=== PATIENT | female | born 1955 | race African-American/Black ===

== ENCOUNTER 2020-03-03 14:55 | Inpatient (IN) | payer BC ==
[~2020-03-03] VITALS: Ht 177.8 cm; Wt 135.8 kg
[2020-03-03 15:02] VITALS: BP 126/78
--- NOTE | 2020-03-03 15:08 | Emergency Room Report ---
History of Present Illness General Chief Complaint: Altered Level of Consciousness Source: Patient, EMS Present Illness HPI Disclaimer: Please note that this report is being documented using DRAGON technology. This can lead to erroneous entry secondary to incorrect interpretation by the dictating instrument. HPI: 64-year-old female presents for evaluation after syncopal episode. She was found at home unconscious by EMS. Patient reports feeling lightheaded getting out of bed laying on the ground and believes she had a loss of consciousness which was brief. No history of seizures. No history of diabetes and takes glipizide and metformin. She has not been eating much due to lack of appetite over the past few days only having soup for about a week. She reports abdominal distention and findings of inflamed lymph limits her abdomen for which she is being evaluated by MRI later this week scheduled by her PMD. EMS found her awake and alert no hypoglycemic started running D10 prior to their arrival. On arrival her fingerstick is in the 20s. She is awake, alert, denies headache, vision change, chest pain, palpitations, nausea, recent vomiting, diarrhea, fevers, chills, cough or other symptoms. 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 No scalp lacerations abrasions hematomas or other signs of trauma. EOMI. PERRLA. No septal hematoma. No malocclusion. Cardiovascular: RRR. S1 and S2 normal. No murmur appreciated Resp: Normal work of breathing. No cough, wheezing or crackles appreciated Abdomen: Abdomen is soft. Obese abdomen, nontender Skin: Intact. No abrasions, laceration or rash over the exposed skin MSK: Normal tone and bulk. Moving all extremities. No obvious deformity. Neuro: Awake and alert. Mentating appropriately. Spine: No tenderness or step-off in the midline over the cervical spine or paraspinal tenderness. Procedures Critical Care Time Critical Care Time Total critical care time: Approximately 45 minutes Due to a high probability of clinically significant, life threatening deterioration, the patient required the highest level of preparedness to intervene emergently and I personally spent this critical care time directly and personally managing the patient. This critical care time included obtaining a history, examining the patient, pulse oximetry, ordering and reviewing studies , ordering treatments, evaluating response to treatment and updating management plan as needed, frequent reassessment and discussion with other providers as well as arranging for ultimate disposition. This critical to care time was performed to assess and manage the high probability of life-threatening deterioration that could result in multiorgan failure. This critical care time is separate from the separately billable procedures and treating other patients. Medical Decision Making Diagnostic Impression: Primary Impression: Syncope Additional Impressions: Anemia Acute kidney failure Hypoglycemia UTI (urinary tract infection) ER Course 64-year-old female presenting for evaluation of hypoglycemia and syncopal episode at home. She arrives awake and alert in no acute distress and denies any chest pain, shortness of breath, headache, neck or back pain at this time. She is receiving D10 from EMS. Will provide additional fluids of glucose, check labs and monitor closely. 1630: Blood sugar was initially improving however on CMP glucose was 33 and point-of- care glucose following infusion of D50 was 22. Will provide more D50. She remains awake and alert. Labs also showed evidence of acute kidney injury with a creatinine of 3.1 and a BUN of 56. Troponin negative. Patient was also found anemic with a hemoglobin of 7.5 which was slightly microcytic. Patient was given glucagon and had additional dose of D50 and started on D10 drip. Sugars have stabilized and she is stable for transfer to inpatient service. Laboratory Tests Test 03/03/20 15:00 03/03/20 15:14 03/03/20 15:51 03/03/20 15:52 White Blood Count 17.2 K/UL (4.8-10.8) H Red Blood Count 2.92 M/UL (4.20-5.40) L Hemoglobin 7.5 G/DL (12.0-16.0) L Hematocrit 22.8 % (37.0-47.0) L Mean Corpuscular Volume 78 FL (80-99) L Mean Corpuscular Hemoglobin 25.7 PG (27.0-31.0) L Mean Corpuscular Hemoglobin Concent 32.9 G/DL (32.0-36.0) Red Cell Distribution Width 15.6 % (11.6-14.8) H Platelet Count 280 K/UL (150-450) Mean Platelet Volume 6.3 FL (6.5-10.1) L Neutrophils (%) (Auto) % (45.0-75.0) Lymphocytes (%) (Auto) % (20.0-45.0) Monocytes (%) (Auto) % (1.0-10.0) Eosinophils (%) (Auto) % (0.0-3.0) Basophils (%) (Auto) % (0.0-2.0) Differential Total Cells Counted 100 Neutrophils % (Manual) 89 % (45-75) H Lymphocytes % (Manual) 6 % (20-45) L Monocytes % (Manual) 4 % (1-10) Eosinophils % (Manual) 0 % (0-3) Basophils % (Manual) 1 % (0-2) Band Neutrophils 0 % (0-8) Platelet Estimate Adequate Platelet Morphology Normal Hypochromasia 2+ Anisocytosis 2+ Microcytosis 2+ Macrocytosis Occasional Sodium Level 133 MMOL/L (136-145) L Potassium Level 3.9 MMOL/L (3.5-5.1) Chloride Level 98 MMOL/L (98-107) Carbon Dioxide Level 17 MMOL/L (21-32) L Anion Gap 18 mmol/L (5-15) H Blood Urea Nitrogen 56 mg/dL (7-18) H Creatinine 3.1 MG/DL (0.55-1.30) H Estimated Glomerular Filtration Rate 15.2 mL/min (>60) Glucose Level 33 MG/DL (74-106) *L Calcium Level 9.1 MG/DL (8.5-10.1) Total Bilirubin 0.4 MG/DL (0.2-1.0) Aspartate Amino Transferase (AST) 83 U/L (15-37) H Alanine Aminotransferase (ALT) 36 U/L (12-78) Alkaline Phosphatase 272 U/L (46-116) H Troponin I 0.000 ng/mL (0.000-0.056) Total Protein 7.5 G/DL (6.4-8.2) Albumin 2.3 G/DL (3.4-5.0) L Globulin 5.2 g/dL Albumin/Globulin Ratio 0.4 (1.0-2.7) L POC Whole Blood Glucose Pending 22 MG/DL (74-106) *L Pending Test 03/03/20 16:36 03/03/20 16:50 POC Whole Blood Glucose Pending Sodium Level 133 MMOL/L (136-145) L Potassium Level 3.7 MMOL/L (3.5-5.1) Chloride Level 99 MMOL/L (98-107) Carbon Dioxide Level 19 MMOL/L (21-32) L Anion Gap 15 mmol/L (5-15) Blood Urea Nitrogen 54 mg/dL (7-18) H Creatinine 3.2 MG/DL (0.55-1.30) H Estimated Glomerular Filtration Rate 17.7 mL/min (>60) Glucose Level 36 MG/DL (74-106) *L Calcium Level 9.8 MG/DL (8.5-10.1) EKG Diagnostic Results EKG Time: 15:02 Rate: normal Rhythm: NSR ST Segments: no acute changes Other Impression Sinus rhythm, normal axis, normal intervals, no ST segment changes. Rhythm Strip Diag. Results Rhythm Strip Time: 15:02 EP Interpretation: yes Rate: 90 Rhythm: NSR, no PVC's, no ectopy Last Vital Signs Date Time Temp Pulse Resp B/P (MAP) Pulse Ox O2 Delivery O2 Flow Rate FiO2 03/03/20 14:48 80 14 131/69 (89) Disposition: ADMITTED INPATIENT Condition: Serious Alvin Mahoney MD Mar 03, 2020 15:08
[2020-03-03 15:29] LABS: HEMATOCRIT 22.8 % (37.0-47.0); HEMOGLOBIN 7.5 G/DL (12.0-16.0); MEAN CORPUSCULAR VOLUME 78 FL (80-99); PLATELET COUNT 280 K/UL (150-450); RED BLOOD COUNT 2.92 M/UL (4.20-5.40); RED CELL DISTRIBUTION WIDTH 15.6 % (11.6-14.8); WHITE BLOOD COUNT 17.2 K/UL (4.8-10.8)
[2020-03-03 15:47] LABS: ALANINE AMINOTRANSFERASE 36 U/L (12-78); ALBUMIN 2.3 G/DL (3.4-5.0); ALBUMIN/GLOBULIN RATIO 0.4 (1.0-2.7); ALKALINE PHOSPHATASE 272 U/L (46-116); ANION GAP 18 mmol/L (5-15); ASPARTATE AMINO TRANSFERASE 83 U/L (15-37); BILIRUBIN,TOTAL 0.4 MG/DL (0.2-1.0); BLOOD UREA NITROGEN 56 mg/dL (7-18); CALCIUM 9.1 MG/DL (8.5-10.1); CARBON DIOXIDE 17 MMOL/L (21-32); CHLORIDE 98 MMOL/L (98-107); CREATININE 3.1 MG/DL (0.55-1.30); POTASSIUM 3.9 MMOL/L (3.5-5.1); SODIUM 133 MMOL/L (136-145)
[2020-03-03] MEDS ORDERED: NORMODYNE100 MG ORAL (16:51)
[2020-03-03] MEDS ORDERED: FUROSEMIDE40 MG ORAL (16:51)
[2020-03-03] MEDS ORDERED: LOSARTAN POTAS100 MG ORAL (16:51)
[2020-03-03] MEDS ORDERED: CATAPRES0.1 MG ORAL (16:51)
[2020-03-03] MEDS ORDERED: CARDIZEM30 M1 PO (16:51)
[2020-03-03] MEDS ORDERED: HYDRALAZINE HCL25 M1 ORAL (16:51)
[2020-03-03] MEDS ORDERED: METFORMIN HCL500 M1 ORAL (16:51)
[2020-03-03 17:14] LABS: ANION GAP 15 mmol/L (5-15); BLOOD UREA NITROGEN 54 mg/dL (7-18); CALCIUM 9.8 MG/DL (8.5-10.1); CARBON DIOXIDE 19 MMOL/L (21-32); CHLORIDE 99 MMOL/L (98-107); CREATININE 3.2 MG/DL (0.55-1.30); POTASSIUM 3.7 MMOL/L (3.5-5.1); SODIUM 133 MMOL/L (136-145)
[2020-03-03] MEDS ORDERED: Dextrose 10%/.45 SOD CHL 1,000 ML IV SCH (17:30)
[2020-03-03] MEDS ORDERED: Glucagon 1mg Inj IV ONE ×2 (17:30→19:30)
[2020-03-03 19:04] LABS: APPEARANCE,URINE CLOUDY; COLOR,URINE YELLOW
[2020-03-03 19:05] LABS: BILIRUBIN, URINE NEGATIVE (NEGATIVE); GLUCOSE, URINE (UA) NEGATIVE (NEGATIVE); KETONES,URINE NEGATIVE (NEGATIVE); LEUKOCYTE ESTERASE ,URINE 3+ (NEGATIVE); NITRITE,URINE NEGATIVE (NEGATIVE); PROTEIN,URINE 2+ (NEGATIVE); UROBILINOGEN,URINE NORMAL MG/DL (0.0-1.0)
[2020-03-03] MEDS ORDERED: cefTRIAXone 1 GM in D5W 55 ML IVPB ONE (19:15)
[2020-03-03 19:21] VITALS: BP 132/60
[2020-03-03 20:15] VITALS: BP 134/66
[2020-03-03] MEDS ORDERED: HydrALAZINE 25mg tab ORAL PRN (22:00)
[2020-03-03] MEDS ORDERED: D5NS 1,000 ML IV SCH (22:00)
[2020-03-03] MEDS ORDERED: Miralax 17gm pkt ORAL PRN (22:15)
[2020-03-03 23:13] VITALS: BP 121/61
[2020-03-03] MEDS ORDERED: Dextrose 10%/0.9% SOD CHL 1,000 ML IV SCH (23:30)
[2020-03-03] MEDS ORDERED: Dextrose 10% 1,000 ML IV ONE (23:54)
[2020-03-04] VITALS (22 sets, daily range): BP systolic 152–192; BP diastolic 66–122
[2020-03-04] MEDS ORDERED: Piperacillin/Tazobactam 3.375 GM in NS 110 ML IVPB SCH ×2
[2020-03-04] MEDS: Dextrose 10% 1,000 ML IV SCH ×4 (00:36→20:51)
[2020-03-04 02:58] LABS: IRON 13 ug/dL (50-175)
[2020-03-04 03:27] LABS: ALANINE AMINOTRANSFERASE 49 U/L (12-78); ALBUMIN 2.2 G/DL (3.4-5.0); ALBUMIN/GLOBULIN RATIO 0.4 (1.0-2.7); ALKALINE PHOSPHATASE 297 U/L (46-116); ASPARTATE AMINO TRANSFERASE 99 U/L (15-37); BILIRUBIN,TOTAL 0.4 MG/DL (0.2-1.0); BLOOD UREA NITROGEN 55 mg/dL (7-18); CALCIUM 8.9 MG/DL (8.5-10.1); CARBON DIOXIDE 19 MMOL/L (21-32); CHLORIDE 97 MMOL/L (98-107); SODIUM 133 MMOL/L (136-145)
[2020-03-04] MEDS: NovoLOG Insulin Flexpen SUBQ SCH ×4 (06:30→21:00)
[2020-03-04] MEDS ORDERED: Glucagon 1mg Inj IM SCH ×2 (08:30→16:30)
[2020-03-04] MEDS ORDERED: Losartan 50mg tab ORAL SCH (09:00)
--- NOTE | 2020-03-04 09:00 | History and Physical Report ---
DATE OF ADMISSION: 03/03/2020 CHIEF COMPLAINT: Hypoglycemia. HISTORY OF PRESENT ILLNESS: The patient is a 64-year-old female. She has a history of hypertension and diabetes, presented with complaints of hypoglycemia. According to the patient, she has been taking her medications as scheduled. Denies taking any additional diabetic medication. She has had a poor p.o. intake, has been only eating soup. She states that food does not taste good. On evaluation in the emergency room, she was noted to be hypoglycemic. She got multiple doses of glucose as well as p.o., but remained hypoglycemic. She is now admitted for further evaluation and care. PAST MEDICAL HISTORY: As above. PAST SURGICAL HISTORY: None. CURRENT MEDICATIONS: Reconciled and reviewed. ALLERGIES: None. FAMILY HISTORY: None. SOCIAL HISTORY: Negative for alcohol. The patient is a prior smoker and drinker. REVIEW OF SYSTEMS: GENERAL: No fevers or chills. HEENT: No headaches or visual changes. CARDIOPULMONARY: No chest pain or shortness of breath. GASTROINTESTINAL: No nausea or vomiting. Positive anorexia. GENITOURINARY: No urgency or frequency. MUSCULOSKELETAL: No joint pain or swelling. No rashes or seizures. PHYSICAL EXAMINATION: VITAL SIGNS: Temperature 97.5, pulse 95, respirations 20, and blood pressure 156/67. GENERAL: The patient is well developed, in no apparent distress. Awake, alert, and oriented x3. HEENT: Head is normocephalic and atraumatic. NECK: Supple. HEART: Regular rate and rhythm. LUNGS: Clear. ABDOMEN: Soft but distended. There is a questionable fluid wave. EXTREMITIES: Without clubbing or cyanosis. There is 1 to 2+ edema noted. LABORATORY DATA: Sodium 133, potassium 3.9, chloride 98, bicarb 17, BUN 56, creatinine 3.1, glucose of 33, bilirubin 0.4, AST 83, and ALT 36. ASSESSMENT: This is a 64-year-old female with history of hypertension and diabetes. Admitted complaints of acute renal failure and hypoglycemia. Suspect hypoglycemia due to her diabetic medications in combination with worsening renal failure and poor p.o. intake. PLAN: IV dextrose. Aggressive fluid resuscitation. Check renal ultrasound. Discontinue the patient's diuretics. Continue current blood pressure regimen. Sal Khanna M.D. DR: Jessi JOB#: [id number] CC:
[2020-03-04 09:07] LABS: HEMATOCRIT 23.5 % (37.0-47.0); HEMOGLOBIN 7.5 G/DL (12.0-16.0); MEAN CORPUSCULAR VOLUME 78 FL (80-99); PLATELET COUNT 281 K/UL (150-450); WHITE BLOOD COUNT 16.3 K/UL (4.8-10.8)
[2020-03-04] MEDS ORDERED: Miralax 17gm pkt ORAL PRN (12:15)
--- NOTE | 2020-03-04 12:32 | Consultation ---
History of Present Illness General Date patient seen: Mar 04, 2020 Chief Complaint: Altered Level of Consciousness Referring physician: Sal Khanna MD Reason for Consultation: Diabetic foot evaluation Present Illness Allergies: Coded Allergies: No Known Allergies (Unverified , 03/03/20) Medication History Scheduled Clonidine Hcl* (Catapres*), 0.1 MG ORAL EVERY 6 HOURS, (Reported) Diltiazem Hcl* (Cardizem*), 30 MG PO QID, (Reported) Furosemide* (Lasix*), 40 MG ORAL DAILY, (Reported) Hydralazine Hcl* (Hydralazine Hcl*), 25 MG ORAL EVERY 8 HOURS, (Reported) Labetalol HCl (Labetalol HCl), 100 MG ORAL EVERY 12 HOURS, (Reported) Losartan Potassium (Losartan Potassium), 100 MG ORAL DAILY, (Reported) Metformin Hcl* (Metformin Hcl*), 500 MG ORAL TWICE A DAY, (Reported) Patient History Healthcare decision maker Resuscitation status Advanced Directive on File Patient History Narrative Pt seen at bedside inad for diabetic foot evaluation. Pt denies current foot pain and denies hx of foot ulcers. Past Medical/Surgical History Past Medical/Surgical History: (1) Anemia (2) Hypoglycemia (3) Acute kidney failure (4) Syncope (5) UTI (urinary tract infection) Physical Exam General Appearance: WD/WN, no apparent distress, alert Last 24 Hour Vital Signs Date Time Temp Pulse Resp B/P (MAP) Pulse Ox O2 Delivery O2 Flow Rate FiO2 03/04/20 09:00 107 31 171/76 (107) 99 03/04/20 08:30 105 33 170/66 (100) 96 03/04/20 08:25 172/79 03/04/20 08:00 98.5 100 31 172/79 (110) 97 03/04/20 08:00 Nasal Cannula 4.0 03/04/20 07:30 103 30 172/79 (110) 97 03/04/20 04:00 98.1 93 20 156/67 (96) 94 03/04/20 04:00 93 03/04/20 00:00 92 03/03/20 23:13 Room Air 03/03/20 23:13 97.5 95 20 121/61 (81) 94 03/03/20 20:15 97.3 68 18 134/66 99 Room Air 03/03/20 20:15 97.3 68 18 134/66 99 Room Air 03/03/20 19:21 97.4 72 18 132/60 99 Room Air 03/03/20 15:02 96.9 76 16 126/78 98 Room Air 03/03/20 15:02 86 14 Room Air 03/03/20 14:48 80 14 131/69 (89) Intake and Output 03/03/20 03/04/20 19:00 07:00 Intake Total 50 ml 1300 ml Output Total 1400 ml Balance 50 ml -100 ml Intake Oral 500 ml IV Total 50 ml 800 ml Output Urine Total 1400 ml Laboratory Tests Test 03/03/20 15:00 03/03/20 15:14 03/03/20 15:51 03/03/20 15:52 White Blood Count 17.2 K/UL (4.8-10.8) H Red Blood Count 2.92 M/UL (4.20-5.40) L Hemoglobin 7.5 G/DL (12.0-16.0) L Hematocrit 22.8 % (37.0-47.0) L Mean Corpuscular Volume 78 FL (80-99) L Mean Corpuscular Hemoglobin 25.7 PG (27.0-31.0) L Mean Corpuscular Hemoglobin Concent 32.9 G/DL (32.0-36.0) Red Cell Distribution Width 15.6 % (11.6-14.8) H Platelet Count 280 K/UL (150-450) Mean Platelet Volume 6.3 FL (6.5-10.1) L Neutrophils (%) (Auto) % (45.0-75.0) Lymphocytes (%) (Auto) % (20.0-45.0) Monocytes (%) (Auto) % (1.0-10.0) Eosinophils (%) (Auto) % (0.0-3.0) Basophils (%) (Auto) % (0.0-2.0) Differential Total Cells Counted 100 Neutrophils % (Manual) 89 % (45-75) H Lymphocytes % (Manual) 6 % (20-45) L Monocytes % (Manual) 4 % (1-10) Eosinophils % (Manual) 0 % (0-3) Basophils % (Manual) 1 % (0-2) Band Neutrophils 0 % (0-8) Platelet Estimate Adequate Platelet Morphology Normal Hypochromasia 2+ Anisocytosis 2+ Microcytosis 2+ Macrocytosis Occasional Sodium Level 133 MMOL/L (136-145) L Potassium Level 3.9 MMOL/L (3.5-5.1) Chloride Level 98 MMOL/L (98-107) Carbon Dioxide Level 17 MMOL/L (21-32) L Anion Gap 18 mmol/L (5-15) H Blood Urea Nitrogen 56 mg/dL (7-18) H Creatinine 3.1 MG/DL (0.55-1.30) H Estimat Glomerular Filtration Rate 15.2 mL/min (>60) Glucose Level 33 MG/DL (74-106) *L Calcium Level 9.1 MG/DL (8.5-10.1) Total Bilirubin 0.4 MG/DL (0.2-1.0) Aspartate Amino Transf (AST/SGOT) 83 U/L (15-37) H Alanine Aminotransferase (ALT/SGPT) 36 U/L (12-78) Alkaline Phosphatase 272 U/L (46-116) H Troponin I 0.000 ng/mL (0.000-0.056) Total Protein 7.5 G/DL (6.4-8.2) Albumin 2.3 G/DL (3.4-5.0) L Globulin 5.2 g/dL Albumin/Globulin Ratio 0.4 (1.0-2.7) L POC Whole Blood Glucose Pending 22 MG/DL (74-106) *L Pending Test 03/03/20 16:36 03/03/20 16:50 03/03/20 18:12 03/03/20 18:50 POC Whole Blood Glucose Pending Pending Sodium Level 133 MMOL/L (136-145) L Potassium Level 3.7 MMOL/L (3.5-5.1) Chloride Level 99 MMOL/L (98-107) Carbon Dioxide Level 19 MMOL/L (21-32) L Anion Gap 15 mmol/L (5-15) Blood Urea Nitrogen 54 mg/dL (7-18) H Creatinine 3.2 MG/DL (0.55-1.30) H Estimat Glomerular Filtration Rate 17.7 mL/min (>60) Glucose Level 36 MG/DL (74-106) *L Calcium Level 9.8 MG/DL (8.5-10.1) Urine Color Yellow Urine Appearance Cloudy Urine pH 5.0 (4.5-8.0) Urine Specific [place] 1.020 (1.005-1.035) Urine Protein 2+ (NEGATIVE) H Urine Glucose (UA) Negative (NEGATIVE) Urine Ketones Negative (NEGATIVE) Urine Blood 3+ (NEGATIVE) H Urine Nitrite Negative (NEGATIVE) Urine Bilirubin Negative (NEGATIVE) Urine Urobilinogen Normal MG/DL (0.0-1.0) Urine Leukocyte Esterase 3+ (NEGATIVE) H Urine RBC 20-30 /HPF (0 - 2) H Urine WBC 40-60 /HPF (0 - 2) H Urine Squamous Epithelial Cells Moderate /LPF (NONE/OCC) H Urine Bacteria Moderate /HPF (NONE) H Urine Opiates Screen Negative (NEGATIVE) Urine Barbiturates Screen Negative (NEGATIVE) Phencyclidine (PCP) Screen Negative (NEGATIVE) Urine Amphetamines Screen Negative (NEGATIVE) Urine Benzodiazepines Screen Negative (NEGATIVE) Urine Cocaine Screen Negative (NEGATIVE) Urine Marijuana (THC) Screen Negative (NEGATIVE) Test 03/03/20 18:53 03/03/20 19:50 03/04/20 02:25 03/04/20 08:35 POC Whole Blood Glucose 75 MG/DL (74-106) 148 MG/DL (74-106) H Sodium Level 133 MMOL/L (136-145) L Potassium Level 4.0 MMOL/L (3.5-5.1) Chloride Level 97 MMOL/L (98-107) L Carbon Dioxide Level 19 MMOL/L (21-32) L Blood Urea Nitrogen 55 mg/dL (7-18) H Creatinine 3.0 MG/DL (0.55-1.30) H Estimat Glomerular Filtration Rate 19.0 mL/min (>60) Glucose Level 46 MG/DL (74-106) L Hemoglobin A1c 5.5 % (4.3-6.0) Calcium Level 8.9 MG/DL (8.5-10.1) Iron Level 13 ug/dL (50-175) L Total Bilirubin 0.4 MG/DL (0.2-1.0) Aspartate Amino Transf (AST/SGOT) 99 U/L (15-37) H Alanine Aminotransferase (ALT/SGPT) 49 U/L (12-78) Alkaline Phosphatase 297 U/L (46-116) H Troponin I 0.000 ng/mL (0.000-0.056) Total Protein 7.3 G/DL (6.4-8.2) Albumin 2.2 G/DL (3.4-5.0) L Globulin 5.1 g/dL Albumin/Globulin Ratio 0.4 (1.0-2.7) L White Blood Count 16.3 K/UL (4.8-10.8) H Red Blood Count 3.00 M/UL (4.20-5.40) L Hemoglobin 7.5 G/DL (12.0-16.0) L Hematocrit 23.5 % (37.0-47.0) L Mean Corpuscular Volume 78 FL (80-99) L Mean Corpuscular Hemoglobin 24.9 PG (27.0-31.0) L Mean Corpuscular Hemoglobin Concent 31.7 G/DL (32.0-36.0) L Red Cell Distribution Width 15.0 % (11.6-14.8) H Platelet Count 281 K/UL (150-450) Mean Platelet Volume 5.7 FL (6.5-10.1) L Neutrophils (%) (Auto) % (45.0-75.0) Lymphocytes (%) (Auto) % (20.0-45.0) Monocytes (%) (Auto) % (1.0-10.0) Eosinophils (%) (Auto) % (0.0-3.0) Basophils (%) (Auto) % (0.0-2.0) Differential Total Cells Counted 100 Neutrophils % (Manual) 93 % (45-75) H Lymphocytes % (Manual) 3 % (20-45) L Monocytes % (Manual) 4 % (1-10) Eosinophils % (Manual) 0 % (0-3) Basophils % (Manual) 0 % (0-2) Band Neutrophils 0 % (0-8) Platelet Estimate Adequate Platelet Morphology Normal Hypochromasia 1+ Anisocytosis 1+ Microcytosis 1+ Thyroid Stimulating Hormone (TSH) 2.026 uiU/mL (0.358-3.740) Cortisol Pending Microbiology Date/Time Source Procedure Growth Status 03/03/20 19:45 Nasopharynx SARS-CoV-2 RdRp Gene Assay - Final Complete Height (Feet): 5 Height (Inches): 10.00 Weight (Pounds): 153 Medications Current Medications Medications (Trade) Dose Ordered Sig/Francisco J Route PRN Reason Start Time Stop Time Status Last Admin Dose Admin Acetaminophen (Tylenol) 650 mg Q4H PRN ORAL Mild Pain (Pain Scale 1-3) 03/04/20 12:15 04/02/20 12:14 Dextrose 1,000 ml @ 125 mls/hr Q8H IV 03/04/20 12:15 04/03/20 12:14 Dextrose (Dextrose 50%) 25 ml Q30M PRN IV Hypoglycemia 03/04/20 12:00 06/01/20 21:59 Dextrose (Dextrose 50%) 50 ml Q30M PRN IV Hypoglycemia 03/04/20 12:00 06/01/20 21:59 Hydralazine HCl (Apresoline) 25 mg Q6H PRN ORAL For High Blood Pressure 03/04/20 12:00 06/02/20 11:59 Insulin Aspart (NovoLOG) BEFORE MEALS AND HS SUBQ 03/04/20 16:30 06/02/20 06:29 Losartan Potassium (Cozaar) 100 mg DAILY ORAL 03/05/20 09:00 04/03/20 08:59 Ondansetron HCl (Zofran) 4 mg Q6H PRN IVP Nausea & Vomiting 03/04/20 12:15 04/02/20 12:14 Piperacillin Sod/ Tazobactam Sod 3.375 gm/Sodium Chloride 110 ml @ 27.5 mls/hr Q12H IVPB 03/04/20 12:00 03/11/20 00:00 Polyethylene Glycol (Miralax) 17 gm DAILYPRN PRN ORAL Constipation 03/04/20 12:15 04/03/20 12:14 Temazepam (RestoriL) 7.5 mg HSPRN PRN ORAL Insomnia 03/04/20 21:00 03/10/20 20:59 Objective Narrative Vasc: DP/PT 1/4 b/l, CFT 5-10 secs b/l Neuro: light touch intact b/l MSK: Ft/ankle rom severely limited but without pain, b/l. Mm strength 4-5/5 in all 4 quadrants b/l. No ttp b/l ft or digits. Derm: Non-elongated toenails and no pre-ulcerative lesions noted b/l ft. Assessment/Plan Problem List: (1) Anemia ICD Codes: D64.9 - Anemia, unspecified SNOMED: 034985962 (2) Hypoglycemia ICD Codes: E16.2 - Hypoglycemia, unspecified SNOMED: 876465647 (3) Acute kidney failure ICD Codes: N17.9 - Acute kidney failure, unspecified SNOMED: 75551068 (4) Syncope ICD Codes: R55 - Syncope and collapse SNOMED: 773973398 (5) UTI (urinary tract infection) ICD Codes: N39.0 - Urinary tract infection, site not specified SNOMED: 13070651 Assessment/Plan: Diabetes mellitus Review diabetic foot care guidelines. Continue decubitus precautions. Thank you Dr. Khanna for this consultation. Micaela Ribera DPM Mar 04, 2020 12:32
[2020-03-04] MEDS: HydrALAZINE 25mg tab ORAL PRN (13:11)
[2020-03-04] MEDS: Piperacillin/Tazobactam 3.375 GM in NS 110 ML IVPB SCH (14:13)
--- NOTE | 2020-03-04 17:33 | Diagnostic Imaging Report ---
Indication: Abdominal distention, abnormal liver function, abnormal renal function Technique: Limited exam performed, with evaluation of the right upper quadrant structures. Left sided structures cannot be evaluated due to patient body habitus and inability to turn Comparison: none Findings: The liver is enlarged, demonstrates slightly increased echogenicity, compatible with hepatocellular disease, likely fatty change. There is a small amount of fluid adjacent to the liver. The proximal aorta is normal in caliber. The distal aorta is obscured. The gallbladder demonstrate mild wall thickening but no stones, gallbladder wall thickness 4 mm. Common bile duct measures 5 mm in diameter. There is moderate right hydronephrosis. There is mildly increased right renal echogenicity. The right kidney measures 14 cm in length The left kidney, spleen, pancreas, and distal abdominal aorta could not be visualized. Impression: Very limited exam, as described Moderate right hydronephrosis. Etiology not demonstrated. Mildly increased right renal echogenicity, could indicate medical renal disease Hepatomegaly. Increased hepatic echogenicity, could indicate fatty change or other hepatocellular disease Trace ascites Negative for gallstones. Gallbladder wall thickening, probably due to hemodynamic derangements, acalculous acute cholecystitis not completely excludable. Negative for dilated bile ducts
[2020-03-05] VITALS (24 sets, daily range): BP systolic 113–179; BP diastolic 68–112
[2020-03-05] MEDS: Piperacillin/Tazobactam 3.375 GM in NS 110 ML IVPB SCH ×3 (00:35→23:00)
[2020-03-05] MEDS: Dextrose 10% 1,000 ML IV SCH ×3 (03:04→19:45)
[2020-03-05] MEDS: HydrALAZINE 25mg tab ORAL PRN (05:02)
[2020-03-05] MEDS: NovoLOG Insulin Flexpen SUBQ SCH (06:30)
[2020-03-05] MEDS ORDERED: Glucagon 1mg Inj IM SCH (09:00)
[2020-03-05] MEDS ORDERED: Losartan 50mg tab ORAL SCH (09:00)
--- NOTE | 2020-03-05 09:23 | Consultation ---
Consult Note Consult Note I am asked to evaluate the patient at the request of Dr. Khanna for renal failure 64-year-old, obese female, presented with syncope and persistent hypoglycemia Patient seen in ICU, on BiPAP, interviewed, discussed with DARSHAN Moreira. HPI: 64-year-old female presents for evaluation after syncopal episode. She was found at home unconscious by EMS. Patient reports feeling lightheaded getting out of bed laying on the ground and believes she had a loss of consciousness which was brief. No history of seizures. No history of diabetes and takes glipizide and metformin. She has not been eating much due to lack of appetite over the past few days only having soup for about a week. She reports abdominal distention and findings of inflamed lymph limits her abdomen for which she is being evaluated by MRI later this week scheduled by her PMD. EMS found her awake and alert no hypoglycemic started running D10 prior to their arrival. On arrival her fingerstick is in the 20s. She is awake, alert, denies headache, vision change, chest pain, palpitations, nausea, recent vomiting, diarrhea, fevers, chills, cough or other symptoms. 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 O2 saturation of 96%. HEENT: Pupils are equally reactive to light and accommodation. The patient is on a BiPAP. NECK: Supple. No adenopathy. No JVD. CARDIOVASCULAR: Regular rate and rhythm. No murmurs. LUNGS: Clear to auscultation bilaterally. No crackles. No wheezes. ABDOMEN: Soft, nontender. No organomegaly. EXTREMITIES: No cyanosis, no clubbing, no edema. LABORATORY AND DIAGNOSTIC DATA: White count of 17 on March 03, down to 12.2; hemoglobin 9; hematocrit 28.4; MCV 78; platelet count of 349,000 with neutrophils of 90%. Sodium 136, potassium 3.8, chloride 101, bicarb 19, BUN 38, creatinine 1.8. Glucose 220. Calcium 9.3. Total bilirubin 0.5, AST 48, ALT 43, and alkaline phosphatase 232. Troponin 0.45. Total protein 7.5, albumin 2.2. UA showing 40 to 60 white cells. Blood cultures are negative. Urine cultures are negative. COVID-19 test is negative. Chest x-ray is showing bilateral infiltrates likely pneumonia, could represent pulmonary edema, possible small bilateral pleural effusion. Abdominal ultrasound showing moderate hydronephrosis. Mildly increased right-sided renal echogenicity could indicate medical renal disease. Hepatomegaly. Trace ascites. Negative for gallstones, gallbladder wall thickening. Negative for dilated ducts noted. . . Assessment/Plan Acute renal failure Possible underlying chronic kidney disease High likelihood of diabetic nephropathy, patient has proteinuria and hypoalbuminemia Persistent hypo-glycemia: The patient was on 3 oral hypoglycemic agents including Glucophage Morbid obesity Hypertension Severe anemia, low MCV UTI Most likely obstructive sleep apnea Suggestions: Discontinue Cozaar, labetalol Stop all oral oral hypoglycemics and insulin Start clonidine patch and clonidine PRN for high blood pressure Add Norvasc for blood pressure D10 infusion Check labs, thyroid panel, anemia work-up, lipid panel, hemoglobin A1c Urine for eosinophils and spot sodium Check ABG Per orders I spent an additional 36 minutes on review of medical records including prior hospital records,consult notes, progress notes, procedures ,imaging labs, hemodynamics, and other clinical documentation. Over 35 min Sundar Camargo MD Mar 05, 2020 09:23
[2020-03-05 10:02] LABS: HEMATOCRIT 28.4 % (37.0-47.0); MEAN CORPUSCULAR VOLUME 78 FL (80-99); PLATELET COUNT 349 K/UL (150-450); RED BLOOD COUNT 3.65 M/UL (4.20-5.40); RED CELL DISTRIBUTION WIDTH 14.7 % (11.6-14.8); WHITE BLOOD COUNT 12.2 K/UL (4.8-10.8)
[2020-03-05 10:17] LABS: ANION GAP 13 mmol/L (5-15); BLOOD UREA NITROGEN 41 mg/dL (7-18); CALCIUM 9.1 MG/DL (8.5-10.1); CARBON DIOXIDE 19 MMOL/L (21-32); CHLORIDE 100 MMOL/L (98-107); CREATININE 2.2 MG/DL (0.55-1.30); SODIUM 132 MMOL/L (136-145)
[2020-03-05 10:32] LABS: ALANINE AMINOTRANSFERASE 39 U/L (12-78); ALBUMIN/GLOBULIN RATIO 0.4 (1.0-2.7); ALKALINE PHOSPHATASE 259 U/L (46-116); ASPARTATE AMINO TRANSFERASE 64 U/L (15-37); BILIRUBIN,TOTAL 0.6 MG/DL (0.2-1.0); CHOLESTEROL 170 MG/DL (< 200); FERRITIN 965 NG/ML (8-388); GAMMA GLUTAMYL TRANSPEPTIDASE 152 U/L (5-85); HDL CHOLESTEROL 55 MG/DL (40-60); PHOSPHORUS 2.6 MG/DL (2.5-4.9); TRIGLYCERIDES 84 MG/DL (30-150)
[2020-03-05 10:53] LABS: % IRON SATURATION 35 % (15-50); IRON 41 ug/dL (50-175); TOTAL IRON BINDING CAPACITY 117 ug/dL (250-450)
[2020-03-05] MEDS ORDERED: Glucagon 1mg Inj IM PRN (11:00)
--- NOTE | 2020-03-05 12:13 | Diagnostic Imaging Report ---
Indication: Shortness of breath Technique: One view of the chest Comparison: none Findings: There are extensive bilateral infiltrates versus edema. There is slight blunting of the bilateral costophrenic sulci. The heart size is upper limits normal. Impression: Bilateral infiltrates, likely pneumonia, could also represent pulmonary edema. Correlate with clinical findings Possible small bilateral pleural effusions
[2020-03-05] MEDS ORDERED: Tubing IV Secondary IV ONE (12:35)
[2020-03-05] MEDS ORDERED: NS 275ml ONE (12:35)
[2020-03-05] MEDS ORDERED: 1/2 NS 1000ml IV ONE (12:35)
[2020-03-05] MEDS ORDERED: Tubing Blood Filter IV ONE (12:35)
--- NOTE | 2020-03-05 16:33 | General Progress Note ---
Assessment/Plan Problem List: (1) Syncope ICD Codes: R55 - Syncope and collapse SNOMED: 354968037 (2) Acute kidney failure ICD Codes: N17.9 - Acute kidney failure, unspecified SNOMED: 93675741 (3) Hypoglycemia ICD Codes: E16.2 - Hypoglycemia, unspecified SNOMED: 932190596 (4) UTI (urinary tract infection) ICD Codes: N39.0 - Urinary tract infection, site not specified SNOMED: 47619754 Status: stable Assessment/Plan: Continue D50 as well as glucagon. Cautious hydration BiPAP as needed Follow-up echo results Antibiotics urinary tract infection CT scan of the abdomen stable Discussed with daughter Critical and guarded Subjective ROS Limited/Unobtainable: No Constitutional: Reports: malaise, weakness HEENT: Reports: no symptoms Cardiovascular: Reports: no symptoms Respiratory: Reports: cough, shortness of breath Gastrointestinal/Abdominal: Reports: abdomen distended Genitourinary: Reports: no symptoms Neurologic/Psychiatric: Reports: no symptoms Endocrine: Reports: no symptoms Hematologic/Lymphatic: Reports: anemia Allergies: Coded Allergies: No Known Allergies (Unverified , 03/03/20) All Systems: reviewed and negative except above Subjective Placed on BiPAP last night due to shortness of breath. Remains hyperglycemic. Receiving D5W as well as IV push D50. Urine output is improving. Status post 1 unit packed red blood cells. On IV antibiotics for UTI. Objective Last 24 Hour Vital Signs Date Time Temp Pulse Resp B/P (MAP) Pulse Ox O2 Delivery O2 Flow Rate FiO2 03/05/20 15:30 109 33 97 30 03/05/20 15:00 108 27 162/68 (99) 96 03/05/20 14:00 112 31 134/98 (110) 98 03/05/20 13:10 111 34 95 30 03/05/20 13:00 115 35 156/80 (105) 95 03/05/20 12:00 103 03/05/20 12:00 Bi-pap 03/05/20 12:00 30 03/05/20 12:00 98.2 107 32 161/89 (113) 95 03/05/20 11:30 106 34 96 30 03/05/20 11:00 105 27 159/79 (105) 97 03/05/20 10:11 163/86 03/05/20 10:00 109 32 163/86 (111) 96 03/05/20 09:52 106 155/80 03/05/20 09:30 107 38 96 30 03/05/20 09:00 111 30 164/97 (119) 94 03/05/20 08:17 107 165/86 03/05/20 08:17 165/86 03/05/20 08:00 30 03/05/20 08:00 104 03/05/20 08:00 97.8 105 31 165/86 (112) 97 03/05/20 08:00 Bi-pap 03/05/20 07:00 109 33 169/90 (116) 95 03/05/20 06:55 96 Bi-Pap 30 03/05/20 06:50 108 34 96 30 03/05/20 06:00 66 21 177/81 (113) 85 03/05/20 05:20 99 37 95 30 03/05/20 05:02 181/84 03/05/20 05:00 101 27 179/84 (115) 93 03/05/20 04:00 97 03/05/20 04:00 98.4 93 31 174/79 (110) 93 03/05/20 04:00 30 03/05/20 03:17 93 32 96 30 03/05/20 03:00 96 30 160/81 (107) 94 03/05/20 02:00 93 28 156/73 (100) 95 03/05/20 01:00 94 33 158/77 (104) 97 03/05/20 00:45 95 26 95 30 03/05/20 00:00 98.2 98 34 163/77 (105) 94 03/05/20 00:00 95 03/05/20 00:00 30 03/04/20 23:23 99 30 92 30 03/04/20 23:00 99 30 169/75 (106) 94 03/04/20 22:30 99 30 169/75 (106) 94 03/04/20 22:00 100 32 163/77 (105) 94 03/04/20 21:17 99 32 92 30 03/04/20 21:00 98 35 152/75 (100) 93 03/04/20 20:51 98 152/75 03/04/20 20:00 30 03/04/20 20:00 102 34 160/76 (104) 92 03/04/20 20:00 99 03/04/20 19:02 96 Nasal Cannula 2.0 28 03/04/20 18:59 107 32 94 30 03/04/20 17:03 97 Intake and Output 03/04/20 03/05/20 19:00 07:00 Intake Total 2564.55327 ml 1518.75 ml Output Total 1560 ml 1070 ml Balance 1004.49630 ml 448.75 ml Intake Oral 960 ml IV Total 1574.60253 ml 1268.75 ml Blood Product 250 ml Other 30 ml Output Urine Total 1560 ml 1070 ml Laboratory Tests 03/04/20 16:45: POC Whole Blood Glucose 62L 03/04/20 17:31: POC Whole Blood Glucose 180H 03/04/20 17:53: POC Whole Blood Glucose 155H 03/04/20 18:52: POC Whole Blood Glucose 111H 03/04/20 20:47: POC Whole Blood Glucose [Pending] 03/04/20 21:36: POC Whole Blood Glucose 59L 03/04/20 22:06: POC Whole Blood Glucose [Pending] 03/04/20 23:17: POC Whole Blood Glucose 54L 03/04/20 23:56: POC Whole Blood Glucose 89 03/05/20 01:35: POC Whole Blood Glucose 41L 03/05/20 02:01: POC Whole Blood Glucose 40L 03/05/20 08:54: Arterial Blood pH 7.316L, Arterial Blood Partial Pressure CO2 36.6, Arterial Blood Partial Pressure O2 64.6L, Arterial Blood HCO3 18.3L, Arterial Blood Oxygen Saturation 89.4*L, Arterial Blood Base Excess -7.2L, Jermaine Test Positive 03/05/20 09:47: White Blood Count 12.2H, Red Blood Count 3.65L, Hemoglobin 9.0L, Hematocrit 28.4L, Mean Corpuscular Volume 78L, Mean Corpuscular Hemoglobin 24.8L, Mean Corpuscular Hemoglobin Concent 31.8L, Red Cell Distribution Width 14.7, Platelet Count 349, Mean Platelet Volume 5.6L, Neutrophils (%) (Auto) , Lymphocytes (%) (Auto) , Monocytes (%) (Auto) , Eosinophils (%) (Auto) , Basophils (%) (Auto) , Differential Total Cells Counted 100, Neutrophils % ( Manual) 90H, Lymphocytes % (Manual) 3L, Monocytes % (Manual) 6, Eosinophils % ( Manual) 1, Basophils % (Manual) 0, Band Neutrophils 0, Platelet Estimate Adequate, Platelet Morphology Normal, Hypochromasia 1+, Anisocytosis 1+, Microcytosis 1+, Sodium Level 132L, Potassium Level 4.0, Chloride Level 100, Carbon Dioxide Level 19L, Anion Gap 13, Blood Urea Nitrogen 41H, Creatinine 2.2H , Estimat Glomerular Filtration Rate 27.4, Glucose Level 171#H, Hemoglobin A1c 6.0, Uric Acid 10.8H, Calcium Level 9.1, Phosphorus Level 2.6, Magnesium Level 1.9, Iron Level 41L, Total Iron Binding Capacity 117L, Percent Iron Saturation 35, Unsaturated Iron Binding 76L, Ferritin 965H, Total Bilirubin 0.6, Gamma Glutamyl Transpeptidase 152H, Aspartate Amino Transf (AST/SGOT) 64H, Alanine Aminotransferase (ALT/SGPT) 39, Alkaline Phosphatase 259H, Troponin I 0.452H, C- Reactive Protein, Quantitative 20.5H, Pro-B-Type Natriuretic Peptide 56145P, Total Protein 7.6, Albumin 2.0L, Globulin 5.6, Albumin/Globulin Ratio 0.4L, Triglycerides Level 84, Cholesterol Level 170, LDL Cholesterol 91, HDL Cholesterol 55, Cholesterol/HDL Ratio 3.1L, Vitamin B12 Level 276, Folate 6.9L, Thyroid Stimulating Hormone (TSH) 1.751, Cortisol AM Sample [Pending] Height (Feet): 5 Height (Inches): 10.00 Weight (Pounds): 336 General Appearance: WD/WN, alert EENT: PERRL/EOMI Neck: non-tender, normal alignment Cardiovascular: normal peripheral pulses, normal rate Respiratory/Chest: chest wall non-tender, lungs clear, normal breath sounds, no respiratory distress Abdomen: normal bowel sounds, non tender, soft, no organomegaly Edema: moderate edema 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
[2020-03-05] MEDS: Docusate 100mg cap ORAL SCH (17:20)
[2020-03-06] VITALS (26 sets, daily range): BP systolic 126–179; BP diastolic 60–132
[2020-03-06] MEDS: Dextrose 10% 1,000 ML IV SCH (03:13)
[2020-03-06 05:38] LABS: ALANINE AMINOTRANSFERASE 43 U/L (12-78); ALBUMIN 2.2 G/DL (3.4-5.0); ALBUMIN/GLOBULIN RATIO 0.4 (1.0-2.7); ALKALINE PHOSPHATASE 232 U/L (46-116); ANION GAP 16 mmol/L (5-15); ASPARTATE AMINO TRANSFERASE 48 U/L (15-37); BILIRUBIN,TOTAL 0.5 MG/DL (0.2-1.0); BLOOD UREA NITROGEN 38 mg/dL (7-18); CALCIUM 9.3 MG/DL (8.5-10.1); CARBON DIOXIDE 19 MMOL/L (21-32); CHLORIDE 101 MMOL/L (98-107); CREATININE 1.8 MG/DL (0.55-1.30); POTASSIUM 3.8 MMOL/L (3.5-5.1); SODIUM 136 MMOL/L (136-145)
[2020-03-06] MEDS: Docusate 100mg cap ORAL SCH ×2 (08:14→17:02)
[2020-03-06] MEDS ORDERED: Piperacillin/Tazobactam 3.375 GM in NS 110 ML IVPB SCH (08:15)
--- NOTE | 2020-03-06 08:36 | General Progress Note ---
Assessment/Plan Problem List: (1) Syncope ICD Codes: R55 - Syncope and collapse SNOMED: 938841740 (2) Acute kidney failure ICD Codes: N17.9 - Acute kidney failure, unspecified SNOMED: 38557077 (3) Hypoglycemia ICD Codes: E16.2 - Hypoglycemia, unspecified SNOMED: 094953438 (4) UTI (urinary tract infection) ICD Codes: N39.0 - Urinary tract infection, site not specified SNOMED: 28015970 Status: stable Assessment/Plan: Continue D50 as well as glucagon prn decrease ivf lasix x 1 BiPAP as needed Follow-up echo results Antibiotics urinary tract infection CT scan of the abdomen when stable Discussed with daughter Critical and guarded Subjective ROS Limited/Unobtainable: No Constitutional: Reports: malaise, weakness HEENT: Reports: no symptoms Cardiovascular: Reports: no symptoms Respiratory: Reports: SOB at rest Gastrointestinal/Abdominal: Reports: no symptoms Genitourinary: Reports: no symptoms Neurologic/Psychiatric: Reports: no symptoms Endocrine: Reports: no symptoms Hematologic/Lymphatic: Reports: anemia Allergies: Coded Allergies: No Known Allergies (Unverified , 03/03/20) All Systems: reviewed and negative except above Subjective remains on bipap. BS improving. on d10 at 125. cxr noted- chf vs pna. no fevers or cough. Cr improving. increased HR Objective Last 24 Hour Vital Signs Date Time Temp Pulse Resp B/P (MAP) Pulse Ox O2 Delivery O2 Flow Rate FiO2 03/06/20 08:13 120 151/118 03/06/20 07:06 116 36 98 45 03/06/20 07:04 98 Bi-Pap 03/06/20 07:00 118 32 148/82 (104) 98 03/06/20 06:00 109 31 152/83 (106) 97 03/06/20 05:19 106 35 96 45 03/06/20 05:00 112 34 149/92 (111) 98 03/06/20 04:00 98.6 114 33 158/103 (121) 95 03/06/20 04:00 Bi-pap 03/06/20 04:00 45 03/06/20 03:34 110 36 96 45 03/06/20 03:15 113 03/06/20 03:04 116 29 163/92 (115) 97 03/06/20 02:00 113 31 173/99 (123) 98 03/06/20 01:43 113 34 95 45 03/06/20 01:00 114 34 166/86 (112) 97 03/06/20 00:00 98.4 117 36 154/90 (111) 98 03/06/20 00:00 45 03/06/20 00:00 Bi-pap 03/05/20 23:36 118 37 95 45 03/05/20 23:15 116 03/05/20 23:00 114 31 113/93 (100) 95 03/05/20 22:00 119 32 164/101 (122) 97 03/05/20 21:25 115 36 96 45 03/05/20 21:00 117 36 147/76 (99) 97 03/05/20 20:00 Bi-pap 03/05/20 20:00 98.6 118 32 146/112 (123) 97 03/05/20 19:26 96 Bi-Pap 45 03/05/20 19:26 118 36 96 45 03/05/20 19:21 118 03/05/20 19:00 118 32 147/91 (109) 97 03/05/20 18:14 112 95 45 03/05/20 18:00 45 03/05/20 18:00 112 26 153/77 (102) 94 03/05/20 17:20 106 37 96 30 03/05/20 17:00 96 20 162/80 (107) 96 03/05/20 16:00 30 03/05/20 16:00 98.5 111 29 163/82 (109) 98 03/05/20 16:00 Bi-pap 03/05/20 16:00 89 03/05/20 15:30 109 33 97 30 03/05/20 15:00 108 27 162/68 (99) 96 03/05/20 14:00 112 31 134/98 (110) 98 03/05/20 13:10 111 34 95 30 03/05/20 13:00 115 35 156/80 (105) 95 03/05/20 12:00 103 03/05/20 12:00 Bi-pap 03/05/20 12:00 30 03/05/20 12:00 98.2 107 32 161/89 (113) 95 03/05/20 11:30 106 34 96 30 03/05/20 11:00 105 27 159/79 (105) 97 03/05/20 10:11 163/86 03/05/20 10:00 109 32 163/86 (111) 96 03/05/20 09:52 106 155/80 03/05/20 09:30 107 38 96 30 03/05/20 09:00 111 30 164/97 (119) 94 Intake and Output 03/05/20 03/06/20 19:00 07:00 Intake Total 2275.0 ml 1765.834 ml Output Total 2560 ml 1800 ml Balance -285.0 ml -34.166 ml Intake Oral 600 ml 160 ml IV Total 1675.0 ml 1605.834 ml Output Urine Total 2560 ml 1800 ml # Bowel Movements 5 6 Laboratory Tests 03/05/20 08:54: Arterial Blood pH 7.316L, Arterial Blood Partial Pressure CO2 36.6, Arterial Blood Partial Pressure O2 64.6L, Arterial Blood HCO3 18.3L, Arterial Blood Oxygen Saturation 89.4*L, Arterial Blood Base Excess -7.2L, Jermaine Test Positive 03/05/20 09:47: White Blood Count 12.2H, Red Blood Count 3.65L, Hemoglobin 9.0L, Hematocrit 28.4L, Mean Corpuscular Volume 78L, Mean Corpuscular Hemoglobin 24.8L, Mean Corpuscular Hemoglobin Concent 31.8L, Red Cell Distribution Width 14.7, Platelet Count 349, Mean Platelet Volume 5.6L, Neutrophils (%) (Auto) , Lymphocytes (%) (Auto) , Monocytes (%) (Auto) , Eosinophils (%) (Auto) , Basophils (%) (Auto) , Differential Total Cells Counted 100, Neutrophils % ( Manual) 90H, Lymphocytes % (Manual) 3L, Monocytes % (Manual) 6, Eosinophils % ( Manual) 1, Basophils % (Manual) 0, Band Neutrophils 0, Platelet Estimate Adequate, Platelet Morphology Normal, Hypochromasia 1+, Anisocytosis 1+, Microcytosis 1+, Sodium Level 132L, Potassium Level 4.0, Chloride Level 100, Carbon Dioxide Level 19L, Anion Gap 13, Blood Urea Nitrogen 41H, Creatinine 2.2H , Estimat Glomerular Filtration Rate 27.4, Glucose Level 171#H, Hemoglobin A1c 6.0, Uric Acid 10.8H, Calcium Level 9.1, Phosphorus Level 2.6, Magnesium Level 1.9, Iron Level 41L, Total Iron Binding Capacity 117L, Percent Iron Saturation 35, Unsaturated Iron Binding 76L, Ferritin 965H, Total Bilirubin 0.6, Gamma Glutamyl Transpeptidase 152H, Aspartate Amino Transf (AST/SGOT) 64H, Alanine Aminotransferase (ALT/SGPT) 39, Alkaline Phosphatase 259H, Troponin I 0.452H, C- Reactive Protein, Quantitative 20.5H, Pro-B-Type Natriuretic Peptide 37811C, Total Protein 7.6, Albumin 2.0L, Globulin 5.6, Albumin/Globulin Ratio 0.4L, Triglycerides Level 84, Cholesterol Level 170, LDL Cholesterol 91, HDL Cholesterol 55, Cholesterol/HDL Ratio 3.1L, Vitamin B12 Level 276, Folate 6.9L, Thyroid Stimulating Hormone (TSH) 1.751, Cortisol AM Sample 49.3 03/06/20 04:00: Sodium Level 136, Potassium Level 3.8, Chloride Level 101, Carbon Dioxide Level 19L, Anion Gap 16H, Blood Urea Nitrogen 38H, Creatinine 1.8H, Estimat Glomerular Filtration Rate 34.4, Glucose Level 220H, Calcium Level 9.3, Total Bilirubin 0.5, Aspartate Amino Transf (AST/SGOT) 48H, Alanine Aminotransferase ( ALT/SGPT) 43, Alkaline Phosphatase 232H, Total Protein 7.5, Albumin 2.2L, Globulin 5.3, Albumin/Globulin Ratio 0.4L Height (Feet): 5 Height (Inches): 10.00 Weight (Pounds): 340 Objective General Appearance: WD/WN, alert EENT: PERRL/EOMI Neck: non-tender, normal alignment Cardiovascular: normal peripheral pulses, normal rate Respiratory/Chest: chest wall non-tender, lungs clear, normal breath sounds, no respiratory distress Abdomen: normal bowel sounds, non tender, soft, no organomegaly Edema: moderate edema 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
[2020-03-06] MEDS ORDERED: Dextrose 10% 1,000 ML IV SCH ×2 (08:45→10:45)
--- NOTE | 2020-03-06 09:04 | Critical Care Progress Note ---
Assessment/Plan Assessment/Plan acute respiratory failure hypoxemia metabolic acidosis ARF diabetes leukocytosis anemia PLAN IV antibiotics keep negative repeat ABG and CXR DVT prophylaxis BIPAP as able medications/laboratory data/nursing notes/ICU care reviewed in detail note reviewed and edited care discussed with RN and RT ICU time spent >40 minutes Critical Care - Subjective Interval Events: asked to follow on BIPAP respiratory distress on oxygen ROS Limited/Unobtainable: Yes Condition: critical EKG Rhythm: Sinus Rhythm I&O: Intake and Output 03/05/20 03/06/20 19:00 07:00 Intake Total 2275.0 ml 1765.834 ml Output Total 2560 ml 1800 ml Balance -285.0 ml -34.166 ml Intake Oral 600 ml 160 ml IV Total 1675.0 ml 1605.834 ml Output Urine Total 2560 ml 1800 ml # Bowel Movements 5 6 Critical Care - Objective CXR: pulmonary edema Last 24 Hour Vital Signs Date Time Temp Pulse Resp B/P (MAP) Pulse Ox O2 Delivery O2 Flow Rate FiO2 03/06/20 08:13 120 151/118 03/06/20 07:06 116 36 98 45 03/06/20 07:04 98 Bi-Pap 03/06/20 07:00 118 32 148/82 (104) 98 03/06/20 06:00 109 31 152/83 (106) 97 03/06/20 05:19 106 35 96 45 03/06/20 05:00 112 34 149/92 (111) 98 03/06/20 04:00 98.6 114 33 158/103 (121) 95 03/06/20 04:00 Bi-pap 03/06/20 04:00 45 03/06/20 03:34 110 36 96 45 03/06/20 03:15 113 03/06/20 03:04 116 29 163/92 (115) 97 03/06/20 02:00 113 31 173/99 (123) 98 03/06/20 01:43 113 34 95 45 03/06/20 01:00 114 34 166/86 (112) 97 03/06/20 00:00 98.4 117 36 154/90 (111) 98 03/06/20 00:00 45 03/06/20 00:00 Bi-pap 03/05/20 23:36 118 37 95 45 03/05/20 23:15 116 03/05/20 23:00 114 31 113/93 (100) 95 03/05/20 22:00 119 32 164/101 (122) 97 03/05/20 21:25 115 36 96 45 03/05/20 21:00 117 36 147/76 (99) 97 03/05/20 20:00 Bi-pap 03/05/20 20:00 98.6 118 32 146/112 (123) 97 03/05/20 19:26 96 Bi-Pap 45 03/05/20 19:26 118 36 96 45 03/05/20 19:21 118 03/05/20 19:00 118 32 147/91 (109) 97 03/05/20 18:14 112 95 45 03/05/20 18:00 45 03/05/20 18:00 112 26 153/77 (102) 94 03/05/20 17:20 106 37 96 30 03/05/20 17:00 96 20 162/80 (107) 96 03/05/20 16:00 30 03/05/20 16:00 98.5 111 29 163/82 (109) 98 03/05/20 16:00 Bi-pap 03/05/20 16:00 89 03/05/20 15:30 109 33 97 30 03/05/20 15:00 108 27 162/68 (99) 96 03/05/20 14:00 112 31 134/98 (110) 98 03/05/20 13:10 111 34 95 30 03/05/20 13:00 115 35 156/80 (105) 95 03/05/20 12:00 103 03/05/20 12:00 Bi-pap 03/05/20 12:00 30 03/05/20 12:00 98.2 107 32 161/89 (113) 95 03/05/20 11:30 106 34 96 30 03/05/20 11:00 105 27 159/79 (105) 97 03/05/20 10:11 163/86 03/05/20 10:00 109 32 163/86 (111) 96 03/05/20 09:52 106 155/80 03/05/20 09:30 107 38 96 30 Labs: Labs Test 03/03/20 15:00 03/03/20 15:14 03/03/20 15:51 03/03/20 15:52 White Blood Count 17.2 K/UL (4.8-10.8) Red Blood Count 2.92 M/UL (4.20-5.40) Hemoglobin 7.5 G/DL (12.0-16.0) Hematocrit 22.8 % (37.0-47.0) Mean Corpuscular Volume 78 FL (80-99) Mean Corpuscular Hemoglobin 25.7 PG (27.0-31.0) Mean Corpuscular Hemoglobin Concent 32.9 G/DL (32.0-36.0) Red Cell Distribution Width 15.6 % (11.6-14.8) Platelet Count 280 K/UL (150-450) Mean Platelet Volume 6.3 FL (6.5-10.1) Neutrophils (%) (Auto) % (45.0-75.0) Lymphocytes (%) (Auto) % (20.0-45.0) Monocytes (%) (Auto) % (1.0-10.0) Eosinophils (%) (Auto) % (0.0-3.0) Basophils (%) (Auto) % (0.0-2.0) Differential Total Cells Counted 100 Neutrophils % (Manual) 89 % (45-75) Lymphocytes % (Manual) 6 % (20-45) Monocytes % (Manual) 4 % (1-10) Eosinophils % (Manual) 0 % (0-3) Basophils % (Manual) 1 % (0-2) Band Neutrophils 0 % (0-8) Platelet Estimate Adequate Platelet Morphology Normal Hypochromasia 2+ Anisocytosis 2+ Microcytosis 2+ Macrocytosis Occasional Sodium Level 133 MMOL/L (136-145) Potassium Level 3.9 MMOL/L (3.5-5.1) Chloride Level 98 MMOL/L (98-107) Carbon Dioxide Level 17 MMOL/L (21-32) Anion Gap 18 mmol/L (5-15) Blood Urea Nitrogen 56 mg/dL (7-18) Creatinine 3.1 MG/DL (0.55-1.30) Estimat Glomerular Filtration Rate 15.2 mL/min (>60) Glucose Level 33 MG/DL (74-106) Calcium Level 9.1 MG/DL (8.5-10.1) Total Bilirubin 0.4 MG/DL (0.2-1.0) Aspartate Amino Transf (AST/SGOT) 83 U/L (15-37) Alanine Aminotransferase (ALT/SGPT) 36 U/L (12-78) Alkaline Phosphatase 272 U/L (46-116) Troponin I 0.000 ng/mL (0.000-0.056) Total Protein 7.5 G/DL (6.4-8.2) Albumin 2.3 G/DL (3.4-5.0) Globulin 5.2 g/dL Albumin/Globulin Ratio 0.4 (1.0-2.7) POC Whole Blood Glucose 22 MG/DL (74-106) Test 03/03/20 16:36 03/03/20 16:50 03/03/20 18:12 03/03/20 18:50 Sodium Level 133 MMOL/L (136-145) Potassium Level 3.7 MMOL/L (3.5-5.1) Chloride Level 99 MMOL/L (98-107) Carbon Dioxide Level 19 MMOL/L (21-32) Anion Gap 15 mmol/L (5-15) Blood Urea Nitrogen 54 mg/dL (7-18) Creatinine 3.2 MG/DL (0.55-1.30) Estimat Glomerular Filtration Rate 17.7 mL/min (>60) Glucose Level 36 MG/DL (74-106) Calcium Level 9.8 MG/DL (8.5-10.1) Urine Color Yellow Urine Appearance Cloudy Urine pH 5.0 (4.5-8.0) Urine Specific [place] 1.020 (1.005-1.035) Urine Protein 2+ (NEGATIVE) Urine Glucose (UA) Negative (NEGATIVE) Urine Ketones Negative (NEGATIVE) Urine Blood 3+ (NEGATIVE) Urine Nitrite Negative (NEGATIVE) Urine Bilirubin Negative (NEGATIVE) Urine Urobilinogen Normal MG/DL (0.0-1.0) Urine Leukocyte Esterase 3+ (NEGATIVE) Urine RBC 20-30 /HPF (0 - 2) Urine WBC 40-60 /HPF (0 - 2) Urine Squamous Epithelial Cells Moderate /LPF (NONE/OCC) Urine Bacteria Moderate /HPF (NONE) Urine Opiates Screen Negative (NEGATIVE) Urine Barbiturates Screen Negative (NEGATIVE) Phencyclidine (PCP) Screen Negative (NEGATIVE) Urine Amphetamines Screen Negative (NEGATIVE) Urine Benzodiazepines Screen Negative (NEGATIVE) Urine Cocaine Screen Negative (NEGATIVE) Urine Marijuana (THC) Screen Negative (NEGATIVE) Test 03/03/20 18:53 03/03/20 19:50 03/03/20 22:50 03/03/20 23:20 POC Whole Blood Glucose 75 MG/DL (74-106) 148 MG/DL (74-106) Test 03/03/20 23:46 03/04/20 00:07 03/04/20 01:49 03/04/20 01:53 POC Whole Blood Glucose 30 MG/DL (74-106) Test 03/04/20 02:25 03/04/20 03:09 03/04/20 03:54 03/04/20 04:47 Sodium Level 133 MMOL/L (136-145) Potassium Level 4.0 MMOL/L (3.5-5.1) Chloride Level 97 MMOL/L (98-107) Carbon Dioxide Level 19 MMOL/L (21-32) Blood Urea Nitrogen 55 mg/dL (7-18) Creatinine 3.0 MG/DL (0.55-1.30) Estimat Glomerular Filtration Rate 19.0 mL/min (>60) Glucose Level 46 MG/DL (74-106) Hemoglobin A1c 5.5 % (4.3-6.0) Calcium Level 8.9 MG/DL (8.5-10.1) Iron Level 13 ug/dL (50-175) Total Bilirubin 0.4 MG/DL (0.2-1.0) Aspartate Amino Transf (AST/SGOT) 99 U/L (15-37) Alanine Aminotransferase (ALT/SGPT) 49 U/L (12-78) Alkaline Phosphatase 297 U/L (46-116) Troponin I 0.000 ng/mL (0.000-0.056) Total Protein 7.3 G/DL (6.4-8.2) Albumin 2.2 G/DL (3.4-5.0) Globulin 5.1 g/dL Albumin/Globulin Ratio 0.4 (1.0-2.7) POC Whole Blood Glucose 49 MG/DL (74-106) 37 MG/DL (74-106) Test 03/04/20 05:40 03/04/20 06:01 03/04/20 06:21 03/04/20 06:47 POC Whole Blood Glucose 16 MG/DL (74-106) Test 03/04/20 08:35 03/04/20 12:00 03/04/20 15:06 03/04/20 15:51 White Blood Count 16.3 K/UL (4.8-10.8) Red Blood Count 3.00 M/UL (4.20-5.40) Hemoglobin 7.5 G/DL (12.0-16.0) Hematocrit 23.5 % (37.0-47.0) Mean Corpuscular Volume 78 FL (80-99) Mean Corpuscular Hemoglobin 24.9 PG (27.0-31.0) Mean Corpuscular Hemoglobin Concent 31.7 G/DL (32.0-36.0) Red Cell Distribution Width 15.0 % (11.6-14.8) Platelet Count 281 K/UL (150-450) Mean Platelet Volume 5.7 FL (6.5-10.1) Neutrophils (%) (Auto) % (45.0-75.0) Lymphocytes (%) (Auto) % (20.0-45.0) Monocytes (%) (Auto) % (1.0-10.0) Eosinophils (%) (Auto) % (0.0-3.0) Basophils (%) (Auto) % (0.0-2.0) Differential Total Cells Counted 100 Neutrophils % (Manual) 93 % (45-75) Lymphocytes % (Manual) 3 % (20-45) Monocytes % (Manual) 4 % (1-10) Eosinophils % (Manual) 0 % (0-3) Basophils % (Manual) 0 % (0-2) Band Neutrophils 0 % (0-8) Platelet Estimate Adequate Platelet Morphology Normal Hypochromasia 1+ Anisocytosis 1+ Microcytosis 1+ Thyroid Stimulating Hormone (TSH) 2.026 uiU/mL (0.358-3.740) Cortisol 30.3 UG/DL Stool Occult Blood Negative (NEGATIVE) POC Whole Blood Glucose 87 MG/DL (74-106) 46 MG/DL (74-106) Test 03/04/20 16:45 03/04/20 17:31 03/04/20 17:53 03/04/20 18:52 POC Whole Blood Glucose 62 MG/DL (74-106) 180 MG/DL (74-106) 155 MG/DL (74-106) 111 MG/DL (74-106) Test 03/04/20 20:47 03/04/20 21:36 03/04/20 22:06 03/04/20 23:17 POC Whole Blood Glucose 59 MG/DL (74-106) 54 MG/DL (74-106) Test 03/04/20 23:56 03/05/20 01:35 03/05/20 02:01 03/05/20 08:54 POC Whole Blood Glucose 89 MG/DL (74-106) 41 MG/DL (74-106) 40 MG/DL (74-106) Arterial Blood pH 7.316 (7.350-7.450) Arterial Blood Partial Pressure CO2 36.6 mmHg (35.0-45.0) Arterial Blood Partial Pressure O2 64.6 mmHg (75.0-100.0) Arterial Blood HCO3 18.3 mmol/L (22.0-26.0) Arterial Blood Oxygen Saturation 89.4 % (95-100) Arterial Blood Base Excess -7.2 (-2-2) Jermaine Test Positive Test 03/05/20 09:47 03/06/20 04:00 White Blood Count 12.2 K/UL (4.8-10.8) Red Blood Count 3.65 M/UL (4.20-5.40) Hemoglobin 9.0 G/DL (12.0-16.0) Hematocrit 28.4 % (37.0-47.0) Mean Corpuscular Volume 78 FL (80-99) Mean Corpuscular Hemoglobin 24.8 PG (27.0-31.0) Mean Corpuscular Hemoglobin Concent 31.8 G/DL (32.0-36.0) Red Cell Distribution Width 14.7 % (11.6-14.8) Platelet Count 349 K/UL (150-450) Mean Platelet Volume 5.6 FL (6.5-10.1) Neutrophils (%) (Auto) % (45.0-75.0) Lymphocytes (%) (Auto) % (20.0-45.0) Monocytes (%) (Auto) % (1.0-10.0) Eosinophils (%) (Auto) % (0.0-3.0) Basophils (%) (Auto) % (0.0-2.0) Differential Total Cells Counted 100 Neutrophils % (Manual) 90 % (45-75) Lymphocytes % (Manual) 3 % (20-45) Monocytes % (Manual) 6 % (1-10) Eosinophils % (Manual) 1 % (0-3) Basophils % (Manual) 0 % (0-2) Band Neutrophils 0 % (0-8) Platelet Estimate Adequate Platelet Morphology Normal Hypochromasia 1+ Anisocytosis 1+ Microcytosis 1+ Sodium Level 132 MMOL/L (136-145) 136 MMOL/L (136-145) Potassium Level 4.0 MMOL/L (3.5-5.1) 3.8 MMOL/L (3.5-5.1) Chloride Level 100 MMOL/L (98-107) 101 MMOL/L (98-107) Carbon Dioxide Level 19 MMOL/L (21-32) 19 MMOL/L (21-32) Anion Gap 13 mmol/L (5-15) 16 mmol/L (5-15) Blood Urea Nitrogen 41 mg/dL (7-18) 38 mg/dL (7-18) Creatinine 2.2 MG/DL (0.55-1.30) 1.8 MG/DL (0.55-1.30) Estimat Glomerular Filtration Rate 27.4 mL/min (>60) 34.4 mL/min (>60) Glucose Level 171 MG/DL (74-106) 220 MG/DL (74-106) Hemoglobin A1c 6.0 % (4.3-6.0) Uric Acid 10.8 MG/DL (2.6-7.2) Calcium Level 9.1 MG/DL (8.5-10.1) 9.3 MG/DL (8.5-10.1) Phosphorus Level 2.6 MG/DL (2.5-4.9) Magnesium Level 1.9 MG/DL (1.8-2.4) Iron Level 41 ug/dL (50-175) Total Iron Binding Capacity 117 ug/dL (250-450) Percent Iron Saturation 35 % (15-50) Unsaturated Iron Binding 76 ug/dL (112-346) Ferritin 965 NG/ML (8-388) Total Bilirubin 0.6 MG/DL (0.2-1.0) 0.5 MG/DL (0.2-1.0) Gamma Glutamyl Transpeptidase 152 U/L (5-85) Aspartate Amino Transf (AST/SGOT) 64 U/L (15-37) 48 U/L (15-37) Alanine Aminotransferase (ALT/SGPT) 39 U/L (12-78) 43 U/L (12-78) Alkaline Phosphatase 259 U/L (46-116) 232 U/L (46-116) Troponin I 0.452 ng/mL (0.000-0.056) C-Reactive Protein, Quantitative 20.5 mg/dL (0.00-0.90) Pro-B-Type Natriuretic Peptide 76806 pg/mL (0-125) Total Protein 7.6 G/DL (6.4-8.2) 7.5 G/DL (6.4-8.2) Albumin 2.0 G/DL (3.4-5.0) 2.2 G/DL (3.4-5.0) Globulin 5.6 g/dL 5.3 g/dL Albumin/Globulin Ratio 0.4 (1.0-2.7) 0.4 (1.0-2.7) Triglycerides Level 84 MG/DL (30-150) Cholesterol Level 170 MG/DL (< 200) LDL Cholesterol 91 mg/dL (<100) HDL Cholesterol 55 MG/DL (40-60) Cholesterol/HDL Ratio 3.1 (3.3-4.4) Vitamin B12 Level 276 PG/ML (193-986) Folate 6.9 NG/ML (8.6-58.9) Thyroid Stimulating Hormone (TSH) 1.751 uiU/mL (0.358-3.740) Cortisol AM Sample 49.3 UG/DL Objective: WDWN on BIPAP reduced breath sounds bilaterally without rhonchi or wheeze [id number] without MRG NABS nontender no HSM no CCE nonfocal Micro: Microbiology Date/Time Source Procedure Growth Status 03/04/20 17:10 Blood Blood Culture - Preliminary NO GROWTH AFTER 24 HOURS Resulted 03/04/20 16:55 Blood Blood Culture - Preliminary NO GROWTH AFTER 24 HOURS Resulted 03/03/20 19:45 Nasopharynx SARS-CoV-2 RdRp Gene Assay - Final Complete 03/03/20 18:50 Urine,Clean Catch Urine Culture - Final NO GROWTH AFTER 48 HOURS Complete Accucheck: 213 Charles Thomson MD Mar 06, 2020 09:04
[2020-03-06] MEDS ORDERED: dilTIAZem HCl 60mg tab ORAL SCH (09:45)
--- NOTE | 2020-03-06 10:30 | Nephrology Progress Note ---
Assessment/Plan Problem List: (1) FARIBA (acute kidney injury) (2) Renal failure (ARF), acute on chronic (3) UTI (urinary tract infection) (4) Hypoglycemia (5) Anemia (6) Morbid obesity with BMI of 45.0-49.9, adult (7) Acute respiratory failure (8) Obstructive sleep apnea Assessment Acute renal failure Possible underlying chronic kidney disease High likelihood of diabetic nephropathy, patient has proteinuria and hypoalbuminemia Persistent hypo-glycemia: The patient was on 3 oral hypoglycemic agents including Glucophage Morbid obesity Hypertension Severe anemia, low MCV UTI Most likely obstructive sleep apnea Plan March 06: Clinically improved. Remains on BiPAP. Blood sugar improved. Urine output well maintained. Serum creatinine lowered. Will adjust blood pressure medication for better control. D10 infusion down to 50 cc an hour. Continue monitor renal parameters. Lasix as needed. 24-hour urine for total protein. March 05: Discontinue Cozaar, labetalol Stop all oral oral hypoglycemics and insulin Start clonidine patch and clonidine PRN for high blood pressure Add Norvasc for blood pressure D10 infusion Check labs, thyroid panel, anemia work-up, lipid panel, hemoglobin A1c Urine for eosinophils and spot sodium Check ABG Per orders Subjective ROS Limited/Unobtainable: No Constitutional: Reports: malaise, weakness Objective Objective Last 24 Hour Vital Signs Date Time Temp Pulse Resp B/P (MAP) Pulse Ox O2 Delivery O2 Flow Rate FiO2 03/06/20 10:00 121 36 179/88 (118) 96 03/06/20 09:15 123 41 97 45 03/06/20 09:00 127 27 177/87 (117) 95 03/06/20 08:13 120 151/118 03/06/20 08:00 Bi-pap 03/06/20 08:00 98.8 117 28 151/118 (129) 98 03/06/20 08:00 45 03/06/20 08:00 123 03/06/20 07:06 116 36 98 45 03/06/20 07:04 98 Bi-Pap 03/06/20 07:00 118 32 148/82 (104) 98 03/06/20 06:00 109 31 152/83 (106) 97 03/06/20 05:19 106 35 96 45 03/06/20 05:00 112 34 149/92 (111) 98 03/06/20 04:00 98.6 114 33 158/103 (121) 95 03/06/20 04:00 Bi-pap 03/06/20 04:00 45 03/06/20 03:34 110 36 96 45 03/06/20 03:15 113 03/06/20 03:04 116 29 163/92 (115) 97 03/06/20 02:00 113 31 173/99 (123) 98 03/06/20 01:43 113 34 95 45 03/06/20 01:00 114 34 166/86 (112) 97 03/06/20 00:00 98.4 117 36 154/90 (111) 98 03/06/20 00:00 45 03/06/20 00:00 Bi-pap 03/05/20 23:36 118 37 95 45 03/05/20 23:15 116 03/05/20 23:00 114 31 113/93 (100) 95 03/05/20 22:00 119 32 164/101 (122) 97 03/05/20 21:25 115 36 96 45 03/05/20 21:00 117 36 147/76 (99) 97 03/05/20 20:00 Bi-pap 03/05/20 20:00 98.6 118 32 146/112 (123) 97 03/05/20 19:26 96 Bi-Pap 45 03/05/20 19:26 118 36 96 45 03/05/20 19:21 118 03/05/20 19:00 118 32 147/91 (109) 97 03/05/20 18:14 112 95 45 03/05/20 18:00 45 03/05/20 18:00 112 26 153/77 (102) 94 03/05/20 17:20 106 37 96 30 03/05/20 17:00 96 20 162/80 (107) 96 03/05/20 16:00 30 03/05/20 16:00 98.5 111 29 163/82 (109) 98 03/05/20 16:00 Bi-pap 03/05/20 16:00 89 03/05/20 15:30 109 33 97 30 03/05/20 15:00 108 27 162/68 (99) 96 03/05/20 14:00 112 31 134/98 (110) 98 03/05/20 13:10 111 34 95 30 03/05/20 13:00 115 35 156/80 (105) 95 03/05/20 12:00 103 03/05/20 12:00 Bi-pap 03/05/20 12:00 30 03/05/20 12:00 98.2 107 32 161/89 (113) 95 03/05/20 11:30 106 34 96 30 03/05/20 11:00 105 27 159/79 (105) 97 Intake and Output 03/05/20 03/06/20 19:00 07:00 Intake Total 2275.0 ml 1765.834 ml Output Total 2560 ml 1800 ml Balance -285.0 ml -34.166 ml Intake Oral 600 ml 160 ml IV Total 1675.0 ml 1605.834 ml Output Urine Total 2560 ml 1800 ml # Bowel Movements 5 6 Laboratory Tests 03/06/20 04:00: Sodium Level 136, Potassium Level 3.8, Chloride Level 101, Carbon Dioxide Level 19L, Anion Gap 16H, Blood Urea Nitrogen 38H, Creatinine 1.8H, Estimat Glomerular Filtration Rate 34.4, Glucose Level 220H, Calcium Level 9.3, Total Bilirubin 0.5, Aspartate Amino Transf (AST/SGOT) 48H, Alanine Aminotransferase ( ALT/SGPT) 43, Alkaline Phosphatase 232H, Total Protein 7.5, Albumin 2.2L, Globulin 5.3, Albumin/Globulin Ratio 0.4L 03/06/20 09:23: Arterial Blood pH 7.390, Arterial Blood Partial Pressure CO2 30.8L, Arterial Blood Partial Pressure O2 77.2, Arterial Blood HCO3 18.2L, Arterial Blood Oxygen Saturation 94.0L, Arterial Blood Base Excess -5.9L, Jermaine Test Positive Height (Feet): 5 Height (Inches): 10.00 Weight (Pounds): 340 General Appearance: mild distress EENT: other - Remains on BiPAP Cardiovascular: tachycardia Respiratory/Chest: decreased breath sounds Abdomen: soft, other - Obese Sundar Camargo MD Mar 06, 2020 10:30
[2020-03-06] MEDS: Piperacillin/Tazobactam 3.375 GM in NS 110 ML IVPB SCH ×2 (11:00→23:55)
--- NOTE | 2020-03-06 12:15 | Consultation ---
DATE OF CONSULTATION: 03/06/2020 INFECTIOUS DISEASE CONSULTATION CONSULTING PHYSICIAN: Yudelka Alcocer MD. REFERRING PHYSICIAN: Sal Khanna MD. REASON FOR CONSULTATION: Pneumonia. HISTORY OF PRESENTING ILLNESS: This is a 64-year-old lady with history of diabetes and hypertension, who came in with hypoglycemia. She has now been placed on a BiPAP and an Infectious Disease consultation has been obtained for antibiotics. PAST MEDICAL HISTORY: 1. History of diabetes. 2. History of hypertension. SOCIAL HISTORY: She has a history of smoking. She has a history of alcohol use. No history of drug use. FAMILY HISTORY: Unknown. REVIEW OF SYSTEMS: Unable to obtain currently. MEDICATIONS: As an inpatient, she is on Lasix, diltiazem, docusate, clonidine, glucagon, Protonix, Restoril, Tylenol, MiraLAX, and Zosyn. ALLERGIES: No known drug allergies. PHYSICAL EXAMINATION: VITAL SIGNS: Temperature 98.8, T-max of 98.8, pulse 120, respiratory rate 36, and blood pressure 177/112. O2 saturation of 96%. HEENT: Pupils are equally reactive to light and accommodation. The patient is on a BiPAP. NECK: Supple. No adenopathy. No JVD. CARDIOVASCULAR: Regular rate and rhythm. No murmurs. LUNGS: Clear to auscultation bilaterally. No crackles. No wheezes. ABDOMEN: Soft, nontender. No organomegaly. EXTREMITIES: No cyanosis, no clubbing, no edema. LABORATORY AND DIAGNOSTIC DATA: White count of 17 on March 03, down to 12.2; hemoglobin 9; hematocrit 28.4; MCV 78; platelet count of 349,000 with neutrophils of 90%. Sodium 136, potassium 3.8, chloride 101, bicarb 19, BUN 38, creatinine 1.8. Glucose 220. Calcium 9.3. Total bilirubin 0.5, AST 48, ALT 43, and alkaline phosphatase 232. Troponin 0.45. Total protein 7.5, albumin 2.2. UA showing 40 to 60 white cells. Blood cultures are negative. Urine cultures are negative. COVID-19 test is negative. Chest x-ray is showing bilateral infiltrates likely pneumonia, could represent pulmonary edema, possible small bilateral pleural effusion. Abdominal ultrasound showing moderate hydronephrosis. Mildly increased right-sided renal echogenicity could indicate medical renal disease. Hepatomegaly. Trace ascites. Negative for gallstones, gallbladder wall thickening. Negative for dilated ducts noted. ASSESSMENT: This is a 64-year-old lady with history of diabetes and hypertension, who comes in with hypoglycemia and is found to have, 1. Possible pneumonia. 2. She also has urinary tract infection. 3. COVID-19 test is negative. 4. Respiratory failure. PLAN: 1. Continue Zosyn. 2. We will follow up cultures and adjust antibiotics accordingly. 3. We will order sputum for Gram stain and culture. I would like to thank Dr. Khanna for this consultation. Yudelka Alcocer M.D. DR: JESSICA JOB#: [id number] CC:
[2020-03-06] MEDS: dilTIAZem HCl 60mg tab ORAL SCH ×2 (13:24→21:05)
--- NOTE | 2020-03-06 17:07 | Diagnostic Imaging Report ---
Indication: Shortness of breath Technique: One view of the chest Comparison: 03/05/2020 Findings: Again demonstrated are extensive diffuse bilateral parenchymal infiltrates. The heart is borderline enlarged. The pleural spaces are grossly clear. Findings are unchanged Impression: Unchanged, over one day, findings as above.
[2020-03-06] MEDS ORDERED: dilTIAZem HCl 25mg/5ml Inj IVP SCH (19:15)
[2020-03-07] VITALS (29 sets, daily range): BP systolic 119–163; BP diastolic 51–88
[2020-03-07] MEDS: D5 1/2NS 1,000 ML IV SCH (04:53)
--- NOTE | 2020-03-07 05:00 | Consultation ---
DATE OF CONSULTATION: 03/06/2020 CONSULTING PHYSICIAN: Miguel Gama M.D. REASON FOR CONSULTATION: Atrial fibrillation. HISTORY OF PRESENT ILLNESS: The patient is a 64-year-old female. She was admitted to the hospital on March 03 with hypoglycemia in the setting of diabetes mellitus. She ____ persisting episodes of hypoglycemia all night and was transferred to the intensive care unit on D10 drip. Today, she developed rapid atrial fibrillation, prompting this consultation. PAST MEDICAL HISTORY: Hypertension and diabetes mellitus. ALLERGIES: None. FAMILY HISTORY: Noncontributory. SOCIAL HISTORY: Prior smoker. Prior alcohol use. No substance abuse. REVIEW OF SYSTEMS: Otherwise unremarkable. PHYSICAL EXAMINATION: VITAL SIGNS: Blood pressure 147/72, pulse 95, respirations 30. GENERAL: On BiPAP support. Moderately obese. LUNGS: ____ bilateral rhonchi. CARDIAC: Irregularly irregular rhythm. Normal S1 and S2. ABDOMEN: Soft. EXTREMITIES: ____ trace edema. LABORATORY DATA: White count yesterday 12.2 and hemoglobin 9. Sodium 136, potassium 3.8, bicarb 19, BUN 38, creatinine 1.8, troponin 0.452 yesterday. Echocardiogram revealed normal ejection fraction with mild tricuspid regurgitation. IMPRESSION: 1. Respiratory failure. 2. Paroxysmal atrial fibrillation with rapid ventricular response. 3. Hypertensive heart disease. 4. Possible pneumonia. 5. Urinary tract infection. 6. Acute on chronic diastolic congestive heart failure. 7. Hypoglycemia in the setting of diabetes mellitus. 8. Acute myocardial ischemia. PLAN: 1. Adjust IV fluids. 2. Empiric antimicrobials. 3. BiPAP support. 4. Continue beta-eloisa and diltiazem ____ titration for rate control. 5. Consider full anticoagulation if atrial fibrillation persists over the next 12 to 24 hours. 6. Follow up troponin level. Miguel Gama M.D. DR: ANGEL JOB#: [id number] CC:
[2020-03-07] MEDS: dilTIAZem HCl 60mg tab ORAL SCH ×3 (05:17→22:00)
[2020-03-07 05:38] LABS: HEMATOCRIT 24.4 % (37.0-47.0); HEMOGLOBIN 7.8 G/DL (12.0-16.0); MEAN CORPUSCULAR VOLUME 78 FL (80-99); PLATELET COUNT 312 K/UL (150-450); RED BLOOD COUNT 3.13 M/UL (4.20-5.40); RED CELL DISTRIBUTION WIDTH 14.5 % (11.6-14.8); WHITE BLOOD COUNT 12.4 K/UL (4.8-10.8)
[2020-03-07 06:09] LABS: ALANINE AMINOTRANSFERASE 32 U/L (12-78); ALBUMIN 2.2 G/DL (3.4-5.0); ALBUMIN/GLOBULIN RATIO 0.4 (1.0-2.7); ALKALINE PHOSPHATASE 191 U/L (46-116); ANION GAP 12 mmol/L (5-15); ASPARTATE AMINO TRANSFERASE 32 U/L (15-37); BILIRUBIN,TOTAL 0.4 MG/DL (0.2-1.0); BLOOD UREA NITROGEN 34 mg/dL (7-18); CALCIUM 9.8 MG/DL (8.5-10.1); CARBON DIOXIDE 23 MMOL/L (21-32); CHLORIDE 104 MMOL/L (98-107); CREATININE 1.5 MG/DL (0.55-1.30); PHOSPHORUS 2.2 MG/DL (2.5-4.9); POTASSIUM 3.3 MMOL/L (3.5-5.1); SODIUM 139 MMOL/L (136-145)
[2020-03-07] MEDS: NovoLOG Insulin Flexpen SUBQ SCH ×4 (06:30→21:06)
[2020-03-07] MEDS: Docusate 100mg cap ORAL SCH ×2 (08:29→17:27)
--- NOTE | 2020-03-07 11:20 | Nephrology Progress Note ---
Assessment/Plan Problem List: (1) FARIBA (acute kidney injury) (2) Renal failure (ARF), acute on chronic (3) UTI (urinary tract infection) (4) Hypoglycemia (5) Anemia (6) Morbid obesity with BMI of 45.0-49.9, adult (7) Acute respiratory failure (8) Obstructive sleep apnea Assessment Acute renal failure Possible underlying chronic kidney disease High likelihood of diabetic nephropathy, patient has proteinuria and hypoalbuminemia Persistent hypo-glycemia: The patient was on 3 oral hypoglycemic agents including Glucophage Morbid obesity Hypertension Severe anemia, low MCV UTI Most likely obstructive sleep apnea Plan March 07: Marked improvement in renal parameters. Blood sugar improved. Main issue are respiratory, as patient remains on BiPAP. Hemoglobin lower. May require transfusion again. Abnormal electrolytes corrected March 06: Clinically improved. Remains on BiPAP. Blood sugar improved. Urine output well maintained. Serum creatinine lowered. Will adjust blood pressure medication for better control. D10 infusion down to 50 cc an hour. Continue monitor renal parameters. Lasix as needed. 24-hour urine for total protein. March 05: Discontinue Cozaar, labetalol Stop all oral oral hypoglycemics and insulin Start clonidine patch and clonidine PRN for high blood pressure Add Norvasc for blood pressure D10 infusion Check labs, thyroid panel, anemia work-up, lipid panel, hemoglobin A1c Urine for eosinophils and spot sodium Check ABG Per orders Subjective ROS Limited/Unobtainable: Yes Objective Objective Last 24 Hour Vital Signs Date Time Temp Pulse Resp B/P (MAP) Pulse Ox O2 Delivery O2 Flow Rate FiO2 03/07/20 11:00 93 30 149/80 (103) 98 03/07/20 10:00 88 32 146/68 (94) 98 03/07/20 09:00 85 26 139/64 (89) 97 03/07/20 08:30 84 134/59 03/07/20 08:00 99.0 90 25 148/51 (83) 98 03/07/20 07:15 89 28 100 45 03/07/20 07:00 82 23 138/51 (80) 99 03/07/20 06:00 98.4 98 26 151/70 (97) 98 03/07/20 05:30 96 24 144/64 (90) 100 03/07/20 05:17 86 155/78 03/07/20 05:00 98 27 155/78 (103) 100 03/07/20 04:53 163/73 03/07/20 04:34 86 24 100 45 03/07/20 04:30 95 27 163/73 (103) 100 03/07/20 04:00 45 03/07/20 04:00 91 03/07/20 04:00 89 22 162/67 (98) 100 03/07/20 04:00 Bi-pap 03/07/20 03:51 96 03/07/20 03:30 84 22 154/67 (96) 100 03/07/20 03:02 101 27 100 45 03/07/20 03:00 93 28 160/70 (100) 100 03/07/20 02:00 92 27 149/68 (95) 95 03/07/20 01:30 91 31 141/58 (85) 100 03/07/20 01:07 76 24 100 45 03/07/20 01:00 89 26 119/88 (98) 100 03/07/20 00:00 45 03/07/20 00:00 99.0 82 23 140/61 (87) 100 03/07/20 00:00 94 03/07/20 00:00 Bi-pap 03/06/20 23:15 94 28 100 45 03/06/20 23:00 90 25 149/63 (91) 99 03/06/20 22:00 84 28 144/65 (91) 100 03/06/20 21:30 95 30 147/72 (97) 100 03/06/20 21:05 97 126/71 03/06/20 21:04 97 126/71 03/06/20 21:00 98 30 126/71 (89) 99 03/06/20 20:42 98 28 98 45 03/06/20 20:00 83 03/06/20 20:00 45 03/06/20 20:00 100 29 139/122 (128) 100 03/06/20 20:00 Bi-pap 03/06/20 19:30 99.6 87 26 129/62 (84) 100 03/06/20 19:15 85 129/62 03/06/20 19:01 100 Bi-Pap 03/06/20 19:01 95 29 100 45 03/06/20 19:00 91 23 132/64 (86) 98 03/06/20 18:00 92 26 137/71 (93) 96 03/06/20 17:23 109 33 100 45 03/06/20 17:02 91 129/56 03/06/20 17:00 92 26 140/63 (88) 100 03/06/20 16:00 98.2 93 26 128/67 (87) 100 03/06/20 16:00 Bi-pap 03/06/20 16:00 102 03/06/20 15:21 105 29 99 45 03/06/20 15:00 45 03/06/20 15:00 110 34 144/60 (88) 98 03/06/20 14:00 110 29 164/77 (106) 99 03/06/20 13:24 115 166/112 03/06/20 13:16 108 33 98 45 03/06/20 13:00 111 33 166/80 (108) 100 03/06/20 12:00 98.2 112 34 164/83 (110) 98 03/06/20 12:00 117 03/06/20 12:00 Bi-pap 03/06/20 12:00 45 Intake and Output 03/06/20 03/07/20 19:00 07:00 Intake Total 622.0 ml 1015.0 ml Output Total 2450 ml 1650 ml Balance -1828.0 ml -635.0 ml Intake Oral 112 ml 400 ml IV Total 510.0 ml 615.0 ml Output Urine Total 2450 ml 1650 ml # Bowel Movements 2 1 Current Medications Medications (Trade) Dose Ordered Sig/Francisco J Route PRN Reason Start Time Stop Time Status Last Admin Dose Admin Acetaminophen (Tylenol) 650 mg Q4H PRN ORAL Mild Pain (Pain Scale 1-3) 03/04/20 12:15 04/02/20 12:14 Clonidine HCl (Catapres TTS-3) 1 patch QWEEK TDERMAL 03/05/20 10:30 06/03/20 10:29 03/05/20 10:11 Clonidine HCl (Catapres Tab) 0.1 mg Q4H PRN ORAL bp over 160 syst 03/05/20 09:30 06/03/20 09:29 03/07/20 04:53 Dextrose (Dextrose 50%) 25 ml Q30M PRN IV Hypoglycemia 03/04/20 12:00 06/01/20 21:59 03/04/20 21:41 Dextrose (Dextrose 50%) 50 ml Q30M PRN IV Hypoglycemia 03/04/20 12:00 06/01/20 21:59 03/05/20 06:15 Dextrose/Sodium Chloride 1,000 ml @ 50 mls/hr Q20H IV 03/07/20 05:00 04/06/20 04:59 03/07/20 04:53 Diltiazem HCl (Cardizem Tab) 60 mg EVERY 8 HOURS ORAL 03/06/20 14:00 04/05/20 13:59 03/07/20 05:17 Docusate Sodium (Colace) 100 mg TWICE A DAY ORAL 03/05/20 18:00 04/04/20 17:59 03/05/20 17:20 Furosemide (Lasix) 40 mg DAILY IV 03/07/20 09:00 04/06/20 08:59 03/07/20 08:29 Glucagon (Glucagon) 1 mg Q2H PRN IM Hypoglycemia 03/05/20 11:00 06/03/20 10:59 Insulin Aspart (NovoLOG) BEFORE MEALS AND HS SUBQ 03/07/20 06:30 06/05/20 06:29 Magnesium Sulfate 100 ml @ 100 mls/hr Q1H IVPB 03/07/20 10:00 03/07/20 11:59 03/07/20 09:44 Metoprolol Tartrate (Lopressor) 25 mg Q12HR ORAL 03/06/20 15:15 06/04/20 15:14 03/07/20 08:30 Pantoprazole (Protonix) 40 mg Q12HR ORAL 03/05/20 09:30 04/04/20 09:29 03/07/20 08:30 Piperacillin Sod/ Tazobactam Sod 3.375 gm/Sodium Chloride 110 ml @ 27.5 mls/hr Q12H IVPB 03/04/20 12:00 03/11/20 00:00 03/06/20 23:55 Polyethylene Glycol (Miralax) 17 gm DAILYPRN PRN ORAL Constipation 03/04/20 12:15 04/03/20 12:14 Potassium Chloride 100 ml @ 100 mls/hr Q1HR IVPB 03/07/20 10:00 03/07/20 13:59 03/07/20 09:43 Temazepam (RestoriL) 7.5 mg HSPRN PRN ORAL Insomnia 03/04/20 21:00 03/10/20 20:59 Laboratory Tests 03/07/20 04:45: White Blood Count 12.4H, Red Blood Count 3.13L, Hemoglobin 7.8L, Hematocrit 24.4L, Mean Corpuscular Volume 78L, Mean Corpuscular Hemoglobin 25.0L, Mean Corpuscular Hemoglobin Concent 32.0, Red Cell Distribution Width 14.5, Platelet Count 312, Mean Platelet Volume 5.7L, Neutrophils (%) (Auto) , Lymphocytes (%) ( Auto) , Monocytes (%) (Auto) , Eosinophils (%) (Auto) , Basophils (%) (Auto) , Differential Total Cells Counted 100, Neutrophils % (Manual) 85H, Lymphocytes % (Manual) 8L, Monocytes % (Manual) 5, Eosinophils % (Manual) 2, Basophils % ( Manual) 0, Band Neutrophils 0, Platelet Estimate Adequate, Platelet Morphology Normal, Hypochromasia 3+, Anisocytosis 1+, Microcytosis 1+, Sodium Level 139, Potassium Level 3.3L, Chloride Level 104, Carbon Dioxide Level 23, Anion Gap 12 , Blood Urea Nitrogen 34H, Creatinine 1.5H, Estimat Glomerular Filtration Rate 42.5, Glucose Level 138H, Hemoglobin A1c 5.5, Uric Acid 9.1H, Calcium Level 9.8 , Phosphorus Level 2.2L, Magnesium Level 1.7L, Total Bilirubin 0.4, Aspartate Amino Transf (AST/SGOT) 32, Alanine Aminotransferase (ALT/SGPT) 32, Alkaline Phosphatase 191H, Troponin I 0.155H, C-Reactive Protein, Quantitative 8.8H, Total Protein 7.1, Albumin 2.2L, Globulin 4.9, Albumin/Globulin Ratio 0.4L Height (Feet): 5 Height (Inches): 10.00 Weight (Pounds): 335 General Appearance: mild distress EENT: other - On BiPAP Respiratory/Chest: decreased breath sounds Abdomen: distended Sundar Camargo MD Mar 07, 2020 11:20
[2020-03-07] MEDS: Piperacillin/Tazobactam 3.375 GM in NS 110 ML IVPB SCH (12:43)
--- NOTE | 2020-03-07 13:26 | Critical Care Progress Note ---
Assessment/Plan Assessment/Plan acute respiratory failure hypoxemia metabolic acidosis ARF diabetes leukocytosis anemia anasarca PLAN IV antibiotics keep negative repeat ABG and CXR as needed DVT prophylaxis BIPAP as able diurese as able keep negative and monitor imaging renal noted medications/laboratory data/nursing notes/ICU care reviewed in detail note reviewed and edited care discussed with RN and RT ICU time spent >40 minutes Critical Care - Subjective Interval Events: did not tolerate off BIPAP on oxygen care noted more alert and comfortable ROS Limited/Unobtainable: Yes Condition: critical EKG Rhythm: Sinus Rhythm I&O: Intake and Output 03/06/20 03/07/20 19:00 07:00 Intake Total 622.0 ml 1015.0 ml Output Total 2450 ml 1650 ml Balance -1828.0 ml -635.0 ml Intake Oral 112 ml 400 ml IV Total 510.0 ml 615.0 ml Output Urine Total 2450 ml 1650 ml # Bowel Movements 2 1 Critical Care - Objective Last 24 Hour Vital Signs Date Time Temp Pulse Resp B/P (MAP) Pulse Ox O2 Delivery O2 Flow Rate FiO2 03/07/20 12:00 Bi-pap 03/07/20 12:00 35 03/07/20 12:00 98.9 100 23 148/69 (95) 97 03/07/20 11:00 93 30 149/80 (103) 98 03/07/20 10:00 88 32 146/68 (94) 98 03/07/20 09:00 85 26 139/64 (89) 97 03/07/20 08:30 84 134/59 03/07/20 08:00 45 03/07/20 08:00 99.0 90 25 148/51 (83) 98 03/07/20 08:00 Bi-pap 03/07/20 07:15 89 28 100 45 03/07/20 07:00 82 23 138/51 (80) 99 03/07/20 06:00 98.4 98 26 151/70 (97) 98 03/07/20 05:30 96 24 144/64 (90) 100 03/07/20 05:17 86 155/78 03/07/20 05:00 98 27 155/78 (103) 100 03/07/20 04:53 163/73 03/07/20 04:34 86 24 100 45 03/07/20 04:30 95 27 163/73 (103) 100 03/07/20 04:00 45 03/07/20 04:00 91 03/07/20 04:00 89 22 162/67 (98) 100 03/07/20 04:00 Bi-pap 03/07/20 03:51 96 03/07/20 03:30 84 22 154/67 (96) 100 03/07/20 03:02 101 27 100 45 03/07/20 03:00 93 28 160/70 (100) 100 03/07/20 02:00 92 27 149/68 (95) 95 03/07/20 01:30 91 31 141/58 (85) 100 03/07/20 01:07 76 24 100 45 03/07/20 01:00 89 26 119/88 (98) 100 03/07/20 00:00 45 03/07/20 00:00 99.0 82 23 140/61 (87) 100 03/07/20 00:00 94 03/07/20 00:00 Bi-pap 03/06/20 23:15 94 28 100 45 03/06/20 23:00 90 25 149/63 (91) 99 03/06/20 22:00 84 28 144/65 (91) 100 03/06/20 21:30 95 30 147/72 (97) 100 03/06/20 21:05 97 126/71 03/06/20 21:04 97 126/71 03/06/20 21:00 98 30 126/71 (89) 99 03/06/20 20:42 98 28 98 45 03/06/20 20:00 83 03/06/20 20:00 45 03/06/20 20:00 100 29 139/122 (128) 100 03/06/20 20:00 Bi-pap 03/06/20 19:30 99.6 87 26 129/62 (84) 100 03/06/20 19:15 85 129/62 03/06/20 19:01 100 Bi-Pap 03/06/20 19:01 95 29 100 45 03/06/20 19:00 91 23 132/64 (86) 98 03/06/20 18:00 92 26 137/71 (93) 96 03/06/20 17:23 109 33 100 45 03/06/20 17:02 91 129/56 03/06/20 17:00 92 26 140/63 (88) 100 03/06/20 16:00 98.2 93 26 128/67 (87) 100 03/06/20 16:00 Bi-pap 03/06/20 16:00 102 03/06/20 15:21 105 29 99 45 03/06/20 15:00 45 03/06/20 15:00 110 34 144/60 (88) 98 03/06/20 14:00 110 29 164/77 (106) 99 Labs: Laboratory Tests 03/07/20 04:45: White Blood Count 12.4H, Red Blood Count 3.13L, Hemoglobin 7.8L, Hematocrit 24.4L, Mean Corpuscular Volume 78L, Mean Corpuscular Hemoglobin 25.0L, Mean Corpuscular Hemoglobin Concent 32.0, Red Cell Distribution Width 14.5, Platelet Count 312, Mean Platelet Volume 5.7L, Neutrophils (%) (Auto) , Lymphocytes (%) ( Auto) , Monocytes (%) (Auto) , Eosinophils (%) (Auto) , Basophils (%) (Auto) , Differential Total Cells Counted 100, Neutrophils % (Manual) 85H, Lymphocytes % (Manual) 8L, Monocytes % (Manual) 5, Eosinophils % (Manual) 2, Basophils % ( Manual) 0, Band Neutrophils 0, Platelet Estimate Adequate, Platelet Morphology Normal, Hypochromasia 3+, Anisocytosis 1+, Microcytosis 1+, Sodium Level 139, Potassium Level 3.3L, Chloride Level 104, Carbon Dioxide Level 23, Anion Gap 12 , Blood Urea Nitrogen 34H, Creatinine 1.5H, Estimat Glomerular Filtration Rate 42.5, Glucose Level 138H, Hemoglobin A1c 5.5, Uric Acid 9.1H, Calcium Level 9.8 , Phosphorus Level 2.2L, Magnesium Level 1.7L, Total Bilirubin 0.4, Aspartate Amino Transf (AST/SGOT) 32, Alanine Aminotransferase (ALT/SGPT) 32, Alkaline Phosphatase 191H, Troponin I 0.155H, C-Reactive Protein, Quantitative 8.8H, Total Protein 7.1, Albumin 2.2L, Globulin 4.9, Albumin/Globulin Ratio 0.4L Objective: WDWN on BIPAP reduced breath sounds bilaterally without rhonchi or wheeze [id number] without MRG NABS nontender no HSM no CC noted edema nonfocal Micro: Microbiology Date/Time Source Procedure Growth Status 03/04/20 17:10 Blood Blood Culture - Preliminary NO GROWTH AFTER 48 HOURS Resulted 03/04/20 16:55 Blood Blood Culture - Preliminary NO GROWTH AFTER 48 HOURS Resulted 03/05/20 23:50 Stool Clostridium difficile Toxin Assay - Final Complete Accucheck: 155 Charles Thomson MD Mar 07, 2020 13:26
--- NOTE | 2020-03-07 14:15 | General Progress Note ---
Assessment/Plan Problem List: (1) Syncope ICD Codes: R55 - Syncope and collapse SNOMED: 805333131 (2) Acute kidney failure ICD Codes: N17.9 - Acute kidney failure, unspecified SNOMED: 92362846 (3) Hypoglycemia ICD Codes: E16.2 - Hypoglycemia, unspecified SNOMED: 698456591 (4) UTI (urinary tract infection) ICD Codes: N39.0 - Urinary tract infection, site not specified SNOMED: 59700724 Status: stable Assessment/Plan: Continue D50 as well as glucagon prn decrease ivf prn diuresis BiPAP as needed Follow-up echo results Antibiotics urinary tract infection and pna monitor cxr cardiac rx CT scan of the abdomen when stable Discussed with daughter Critical and guarded Subjective ROS Limited/Unobtainable: No Constitutional: Reports: malaise, weakness HEENT: Reports: no symptoms Cardiovascular: Reports: edema Respiratory: Reports: shortness of breath Gastrointestinal/Abdominal: Reports: no symptoms Genitourinary: Reports: no symptoms Neurologic/Psychiatric: Reports: pre-existing deficit Endocrine: Reports: no symptoms Hematologic/Lymphatic: Reports: anemia Allergies: Coded Allergies: No Known Allergies (Unverified , 03/03/20) All Systems: reviewed and negative except above Subjective stable on bipap. no distress. no fever or chills. hypoglycemia improved. Cr improving. good uop. had afib with rvr. better now. on abx for pna. labs reviewed. Objective Last 24 Hour Vital Signs Date Time Temp Pulse Resp B/P (MAP) Pulse Ox O2 Delivery O2 Flow Rate FiO2 03/07/20 13:31 98 135/82 03/07/20 13:00 89 25 130/68 (88) 99 03/07/20 12:00 Bi-pap 03/07/20 12:00 93 03/07/20 12:00 35 03/07/20 12:00 98.9 100 23 148/69 (95) 97 03/07/20 11:16 92 30 96 35 03/07/20 11:00 93 30 149/80 (103) 98 03/07/20 10:00 88 32 146/68 (94) 98 03/07/20 09:23 93 28 100 35 03/07/20 09:00 85 26 139/64 (89) 97 03/07/20 08:30 84 134/59 03/07/20 08:00 45 03/07/20 08:00 99.0 90 25 148/51 (83) 98 03/07/20 08:00 82 03/07/20 08:00 Bi-pap 03/07/20 07:15 89 28 100 45 03/07/20 07:14 99 Bi-Pap 03/07/20 07:00 82 23 138/51 (80) 99 03/07/20 06:00 98.4 98 26 151/70 (97) 98 03/07/20 05:30 96 24 144/64 (90) 100 03/07/20 05:17 86 155/78 03/07/20 05:00 98 27 155/78 (103) 100 03/07/20 04:53 163/73 03/07/20 04:34 86 24 100 45 03/07/20 04:30 95 27 163/73 (103) 100 03/07/20 04:00 45 03/07/20 04:00 91 03/07/20 04:00 89 22 162/67 (98) 100 03/07/20 04:00 Bi-pap 03/07/20 03:51 96 03/07/20 03:30 84 22 154/67 (96) 100 03/07/20 03:02 101 27 100 45 03/07/20 03:00 93 28 160/70 (100) 100 03/07/20 02:00 92 27 149/68 (95) 95 03/07/20 01:30 91 31 141/58 (85) 100 03/07/20 01:07 76 24 100 45 03/07/20 01:00 89 26 119/88 (98) 100 03/07/20 00:00 45 03/07/20 00:00 99.0 82 23 140/61 (87) 100 03/07/20 00:00 94 03/07/20 00:00 Bi-pap 03/06/20 23:15 94 28 100 45 03/06/20 23:00 90 25 149/63 (91) 99 03/06/20 22:00 84 28 144/65 (91) 100 03/06/20 21:30 95 30 147/72 (97) 100 03/06/20 21:05 97 126/71 03/06/20 21:04 97 126/71 03/06/20 21:00 98 30 126/71 (89) 99 03/06/20 20:42 98 28 98 45 03/06/20 20:00 83 03/06/20 20:00 45 03/06/20 20:00 100 29 139/122 (128) 100 03/06/20 20:00 Bi-pap 03/06/20 19:30 99.6 87 26 129/62 (84) 100 03/06/20 19:15 85 129/62 03/06/20 19:01 100 Bi-Pap 03/06/20 19:01 95 29 100 45 03/06/20 19:00 91 23 132/64 (86) 98 03/06/20 18:00 92 26 137/71 (93) 96 03/06/20 17:23 109 33 100 45 03/06/20 17:02 91 129/56 03/06/20 17:00 92 26 140/63 (88) 100 03/06/20 16:00 98.2 93 26 128/67 (87) 100 03/06/20 16:00 Bi-pap 03/06/20 16:00 102 03/06/20 15:21 105 29 99 45 03/06/20 15:00 45 03/06/20 15:00 110 34 144/60 (88) 98 Intake and Output 03/06/20 03/07/20 19:00 07:00 Intake Total 622.0 ml 1015.0 ml Output Total 2450 ml 1650 ml Balance -1828.0 ml -635.0 ml Intake Oral 112 ml 400 ml IV Total 510.0 ml 615.0 ml Output Urine Total 2450 ml 1650 ml # Bowel Movements 2 1 Laboratory Tests 03/07/20 04:45: White Blood Count 12.4H, Red Blood Count 3.13L, Hemoglobin 7.8L, Hematocrit 24.4L, Mean Corpuscular Volume 78L, Mean Corpuscular Hemoglobin 25.0L, Mean Corpuscular Hemoglobin Concent 32.0, Red Cell Distribution Width 14.5, Platelet Count 312, Mean Platelet Volume 5.7L, Neutrophils (%) (Auto) , Lymphocytes (%) ( Auto) , Monocytes (%) (Auto) , Eosinophils (%) (Auto) , Basophils (%) (Auto) , Differential Total Cells Counted 100, Neutrophils % (Manual) 85H, Lymphocytes % (Manual) 8L, Monocytes % (Manual) 5, Eosinophils % (Manual) 2, Basophils % ( Manual) 0, Band Neutrophils 0, Platelet Estimate Adequate, Platelet Morphology Normal, Hypochromasia 3+, Anisocytosis 1+, Microcytosis 1+, Sodium Level 139, Potassium Level 3.3L, Chloride Level 104, Carbon Dioxide Level 23, Anion Gap 12 , Blood Urea Nitrogen 34H, Creatinine 1.5H, Estimat Glomerular Filtration Rate 42.5, Glucose Level 138H, Hemoglobin A1c 5.5, Uric Acid 9.1H, Calcium Level 9.8 , Phosphorus Level 2.2L, Magnesium Level 1.7L, Total Bilirubin 0.4, Aspartate Amino Transf (AST/SGOT) 32, Alanine Aminotransferase (ALT/SGPT) 32, Alkaline Phosphatase 191H, Troponin I 0.155H, C-Reactive Protein, Quantitative 8.8H, Total Protein 7.1, Albumin 2.2L, Globulin 4.9, Albumin/Globulin Ratio 0.4L Height (Feet): 5 Height (Inches): 10.00 Weight (Pounds): 335 Objective General Appearance: WD/WN, alert EENT: PERRL/EOMI Neck: non-tender, normal alignment Cardiovascular: normal peripheral pulses, normal rate Respiratory/Chest: chest wall non-tender, lungs clear, normal breath sounds, no respiratory distress Abdomen: normal bowel sounds, non tender, soft, no organomegaly Edema: moderate edema 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
[2020-03-07] MEDS ORDERED: D5 1/2NS 1000ml IV ONE (17:59)
[2020-03-08] VITALS (26 sets, daily range): BP systolic 143–180; BP diastolic 69–92
[2020-03-08] MEDS: Piperacillin/Tazobactam 3.375 GM in NS 110 ML IVPB SCH ×3 (00:29→23:58)
[2020-03-08] MEDS: D5 1/2NS 1,000 ML IV SCH (00:31)
--- NOTE | 2020-03-08 02:41 | Cardiology Progress Note ---
Subjective DATE OF SERVICE: Mar 07, 2020 Maintaining sinus rhythm now Remains on bipap support Objective Last 24 Hour Vital Signs Date Time Temp Pulse Resp B/P (MAP) Pulse Ox O2 Delivery O2 Flow Rate FiO2 03/08/20 01:00 90 30 153/71 (98) 98 03/08/20 00:47 92 32 98 45 03/08/20 00:00 96 32 155/73 (100) 98 03/08/20 00:00 30 03/08/20 00:00 96 03/08/20 00:00 Bi-pap 03/07/20 23:00 91 31 154/67 (96) 98 03/07/20 22:36 96 28 158/68 (98) 97 03/07/20 22:33 93 32 98 45 03/07/20 22:00 102 25 158/77 (104) 99 03/07/20 22:00 98 154/66 03/07/20 21:03 99 164/77 03/07/20 21:00 100 31 162/75 (104) 100 03/07/20 20:44 103 33 100 45 03/07/20 20:00 104 31 161/71 (101) 100 03/07/20 20:00 104 03/07/20 20:00 30 03/07/20 20:00 Bi-pap 03/07/20 19:06 102 34 99 45 03/07/20 19:04 100 Bi-Pap 45 03/07/20 19:00 103 22 151/74 (99) 99 03/07/20 18:00 107 24 157/73 (101) 99 03/07/20 17:15 108 30 98 45 03/07/20 17:00 93 25 150/64 (92) 97 03/07/20 16:00 93 03/07/20 16:00 Bi-pap 03/07/20 16:00 98.8 95 26 148/67 (94) 98 03/07/20 15:29 92 31 96 30 03/07/20 15:00 99 30 148/76 (100) 96 03/07/20 15:00 30 03/07/20 14:00 100 31 150/67 (94) 99 03/07/20 13:31 98 135/82 03/07/20 13:16 99 33 98 35 03/07/20 13:00 89 25 130/68 (88) 99 03/07/20 12:00 Bi-pap 03/07/20 12:00 93 03/07/20 12:00 35 03/07/20 12:00 98.9 100 23 148/69 (95) 97 03/07/20 11:16 92 30 96 35 03/07/20 11:00 93 30 149/80 (103) 98 03/07/20 10:00 88 32 146/68 (94) 98 03/07/20 09:23 93 28 100 35 03/07/20 09:00 85 26 139/64 (89) 97 03/07/20 08:30 84 134/59 03/07/20 08:00 45 03/07/20 08:00 99.0 90 25 148/51 (83) 98 03/07/20 08:00 82 03/07/20 08:00 Bi-pap 03/07/20 07:15 89 28 100 45 03/07/20 07:14 99 Bi-Pap 03/07/20 07:00 82 23 138/51 (80) 99 03/07/20 06:00 98.4 98 26 151/70 (97) 98 03/07/20 05:30 96 24 144/64 (90) 100 03/07/20 05:17 86 155/78 03/07/20 05:00 98 27 155/78 (103) 100 03/07/20 04:53 163/73 03/07/20 04:34 86 24 100 45 03/07/20 04:30 95 27 163/73 (103) 100 03/07/20 04:00 45 03/07/20 04:00 91 03/07/20 04:00 89 22 162/67 (98) 100 03/07/20 04:00 Bi-pap 03/07/20 03:51 96 03/07/20 03:30 84 22 154/67 (96) 100 03/07/20 03:02 101 27 100 45 03/07/20 03:00 93 28 160/70 (100) 100 HEENT: normal ENT inspection RHYTHM: ST, PACs LUNGS: bilateral rhonchi CARDIAC: normal rate, normal S1 and S2 ABDOMEN: normal bowel sounds, non tender, soft, no organomegaly EXTREMITIES: No edema Laboratory Tests Test 03/07/20 04:45 White Blood Count 12.4 K/UL (4.8-10.8) H Red Blood Count 3.13 M/UL (4.20-5.40) L Hemoglobin 7.8 G/DL (12.0-16.0) L Hematocrit 24.4 % (37.0-47.0) L Mean Corpuscular Volume 78 FL (80-99) L Mean Corpuscular Hemoglobin 25.0 PG (27.0-31.0) L Mean Corpuscular Hemoglobin Concent 32.0 G/DL (32.0-36.0) Red Cell Distribution Width 14.5 % (11.6-14.8) Platelet Count 312 K/UL (150-450) Mean Platelet Volume 5.7 FL (6.5-10.1) L Neutrophils (%) (Auto) % (45.0-75.0) Lymphocytes (%) (Auto) % (20.0-45.0) Monocytes (%) (Auto) % (1.0-10.0) Eosinophils (%) (Auto) % (0.0-3.0) Basophils (%) (Auto) % (0.0-2.0) Differential Total Cells Counted 100 Neutrophils % (Manual) 85 % (45-75) H Lymphocytes % (Manual) 8 % (20-45) L Monocytes % (Manual) 5 % (1-10) Eosinophils % (Manual) 2 % (0-3) Basophils % (Manual) 0 % (0-2) Band Neutrophils 0 % (0-8) Platelet Estimate Adequate Platelet Morphology Normal Hypochromasia 3+ Anisocytosis 1+ Microcytosis 1+ Sodium Level 139 MMOL/L (136-145) Potassium Level 3.3 MMOL/L (3.5-5.1) L Chloride Level 104 MMOL/L (98-107) Carbon Dioxide Level 23 MMOL/L (21-32) Anion Gap 12 mmol/L (5-15) Blood Urea Nitrogen 34 mg/dL (7-18) H Creatinine 1.5 MG/DL (0.55-1.30) H Estimat Glomerular Filtration Rate 42.5 mL/min (>60) Glucose Level 138 MG/DL (74-106) H Hemoglobin A1c 5.5 % (4.3-6.0) Uric Acid 9.1 MG/DL (2.6-7.2) H Calcium Level 9.8 MG/DL (8.5-10.1) Phosphorus Level 2.2 MG/DL (2.5-4.9) L Magnesium Level 1.7 MG/DL (1.8-2.4) L Total Bilirubin 0.4 MG/DL (0.2-1.0) Aspartate Amino Transf (AST/SGOT) 32 U/L (15-37) Alanine Aminotransferase (ALT/SGPT) 32 U/L (12-78) Alkaline Phosphatase 191 U/L (46-116) H Troponin I 0.155 ng/mL (0.000-0.056) C-Reactive Protein, Quantitative 8.8 mg/dL (0.00-0.90) H Total Protein 7.1 G/DL (6.4-8.2) Albumin 2.2 G/DL (3.4-5.0) L Globulin 4.9 g/dL Albumin/Globulin Ratio 0.4 (1.0-2.7) L Microbiology Date/Time Source Procedure Growth Status 03/05/20 23:50 Stool Clostridium difficile Toxin Assay - Final Complete Assessment/Plan Assessment/Plan Paroxysmal Atrial Fib Acute respiratory failure Metabolic acidosis Acute renal failure Anemia Anasarca Bipap Diuresis Abx ICU care Maintain current cardiovascular meds for asrrhythmia suppression Miguel Gama MD Mar 08, 2020 02:41
[2020-03-08] MEDS: dilTIAZem HCl 60mg tab ORAL SCH ×3 (06:08→20:45)
[2020-03-08] MEDS: NovoLOG Insulin Flexpen SUBQ SCH ×4 (06:11→20:45)
[2020-03-08] MEDS: Docusate 100mg cap ORAL SCH ×2 (08:21→17:03)
--- NOTE | 2020-03-08 09:30 | Nephrology Progress Note ---
Assessment/Plan Problem List: (1) FARIBA (acute kidney injury) (2) Renal failure (ARF), acute on chronic (3) UTI (urinary tract infection) (4) Hypoglycemia (5) Anemia (6) Morbid obesity with BMI of 45.0-49.9, adult (7) Acute respiratory failure (8) Obstructive sleep apnea Assessment Acute renal failure Possible underlying chronic kidney disease High likelihood of diabetic nephropathy, patient has proteinuria and hypoalbuminemia Persistent hypo-glycemia: The patient was on 3 oral hypoglycemic agents including Glucophage Morbid obesity Hypertension Severe anemia, low MCV UTI Most likely obstructive sleep apnea Plan March 08: Today's labs pending. Will discontinue IV fluid. Remains on BiPAP. Aim to take off BiPAP as possible. Transfusion if needed. Discussed with DARSHAN Iglesias. March 07: Marked improvement in renal parameters. Blood sugar improved. Main issue are respiratory, as patient remains on BiPAP. Hemoglobin lower. May require transfusion again. Abnormal electrolytes corrected March 06: Clinically improved. Remains on BiPAP. Blood sugar improved. Urine output well maintained. Serum creatinine lowered. Will adjust blood pressure medication for better control. D10 infusion down to 50 cc an hour. Continue monitor renal parameters. Lasix as needed. 24-hour urine for total protein. March 05: Discontinue Cozaar, labetalol Stop all oral oral hypoglycemics and insulin Start clonidine patch and clonidine PRN for high blood pressure Add Norvasc for blood pressure D10 infusion Check labs, thyroid panel, anemia work-up, lipid panel, hemoglobin A1c Urine for eosinophils and spot sodium Check ABG Per orders Subjective ROS Limited/Unobtainable: No Constitutional: Reports: malaise Objective Objective Last 24 Hour Vital Signs Date Time Temp Pulse Resp B/P (MAP) Pulse Ox O2 Delivery O2 Flow Rate FiO2 03/08/20 08:21 99 149/82 03/08/20 07:00 98.9 101 32 149/82 (104) 98 03/08/20 06:08 165/80 03/08/20 06:00 99 31 165/80 (108) 99 03/08/20 05:30 105 25 172/77 (108) 96 03/08/20 05:00 98 29 161/78 (105) 99 03/08/20 04:50 99 32 98 45 03/08/20 04:30 105 32 157/80 (105) 97 03/08/20 04:00 101 31 155/75 (101) 99 03/08/20 04:00 101 03/08/20 04:00 30 03/08/20 04:00 Bi-pap 03/08/20 03:00 98 33 157/74 (101) 99 03/08/20 02:43 100 31 98 45 03/08/20 02:00 105 30 180/86 (117) 98 03/08/20 01:00 90 30 153/71 (98) 98 03/08/20 00:47 92 32 98 45 03/08/20 00:00 99.0 96 32 155/73 (100) 98 03/08/20 00:00 30 03/08/20 00:00 96 03/08/20 00:00 Bi-pap 03/07/20 23:00 91 31 154/67 (96) 98 03/07/20 22:33 93 32 98 45 03/07/20 22:00 102 25 158/77 (104) 99 03/07/20 22:00 98 154/66 03/07/20 21:03 99 164/77 03/07/20 21:00 100 31 162/75 (104) 100 03/07/20 20:44 103 33 100 45 03/07/20 20:00 98.9 104 31 161/71 (101) 100 03/07/20 20:00 104 03/07/20 20:00 30 03/07/20 20:00 Bi-pap 03/07/20 19:06 102 34 99 45 03/07/20 19:04 100 Bi-Pap 45 03/07/20 19:00 103 22 151/74 (99) 99 03/07/20 18:00 107 24 157/73 (101) 99 03/07/20 17:15 108 30 98 45 03/07/20 17:00 93 25 150/64 (92) 97 03/07/20 16:00 93 03/07/20 16:00 Bi-pap 03/07/20 16:00 98.8 95 26 148/67 (94) 98 03/07/20 15:29 92 31 96 30 03/07/20 15:00 99 30 148/76 (100) 96 03/07/20 15:00 30 03/07/20 14:00 100 31 150/67 (94) 99 03/07/20 13:31 98 135/82 03/07/20 13:16 99 33 98 35 03/07/20 13:00 89 25 130/68 (88) 99 03/07/20 12:00 Bi-pap 03/07/20 12:00 93 03/07/20 12:00 35 03/07/20 12:00 98.9 100 23 148/69 (95) 97 03/07/20 11:16 92 30 96 35 03/07/20 11:00 93 30 149/80 (103) 98 03/07/20 10:00 88 32 146/68 (94) 98 Intake and Output 03/07/20 03/08/20 19:00 07:00 Intake Total 600 ml 573.33 ml Output Total 980 ml 945 ml Balance -380 ml -371.67 ml IV Total 600 ml 573.33 ml Output Urine Total 980 ml 945 ml # Bowel Movements 2 1 Today's labs pending Height (Feet): 5 Height (Inches): 10.00 Weight (Pounds): 324 General Appearance: no apparent distress EENT: other - On BiPAP Cardiovascular: tachycardia Respiratory/Chest: decreased breath sounds Abdomen: other - Obese Sundar Camargo MD Mar 08, 2020 09:30
[2020-03-08 09:37] LABS: HEMATOCRIT 27.5 % (37.0-47.0); HEMOGLOBIN 8.6 G/DL (12.0-16.0); MEAN CORPUSCULAR VOLUME 78 FL (80-99); PLATELET COUNT 297 K/UL (150-450); RED BLOOD COUNT 3.51 M/UL (4.20-5.40); RED CELL DISTRIBUTION WIDTH 14.4 % (11.6-14.8); WHITE BLOOD COUNT 11.9 K/UL (4.8-10.8)
[2020-03-08 09:55] LABS: ALANINE AMINOTRANSFERASE 33 U/L (12-78); ALBUMIN 2.4 G/DL (3.4-5.0); ALBUMIN/GLOBULIN RATIO 0.5 (1.0-2.7); ALKALINE PHOSPHATASE 198 U/L (46-116); ANION GAP 13 mmol/L (5-15); ASPARTATE AMINO TRANSFERASE 36 U/L (15-37); BILIRUBIN,TOTAL 0.5 MG/DL (0.2-1.0); BLOOD UREA NITROGEN 28 mg/dL (7-18); CALCIUM 10.1 MG/DL (8.5-10.1); CARBON DIOXIDE 25 MMOL/L (21-32); CHLORIDE 108 MMOL/L (98-107); CREATININE 1.4 MG/DL (0.55-1.30); POTASSIUM 3.2 MMOL/L (3.5-5.1); SODIUM 146 MMOL/L (136-145)
--- NOTE | 2020-03-08 10:15 | Infectious Diseases Prog Note ---
Assessment/Plan Assessment/Plan A: 1. Pneumonia. 2. Acute renal failure 3. DM type 2 with hypoxemia 4. Respiratory failure with hypoxemia 5. Morbid obesity 6. GISSELLE 7. Anemia PLAN: 1. Continue Zosyn. 2. We will follow up cultures and adjust antibiotics accordingly. Subjective ROS Limited/Unobtainable: Yes Constitutional: Denies: fever Respiratory: Reports: shortness of breath; Denies: dry cough, productive cough Gastrointestinal/Abdominal: Reports: diarrhea Allergies: Coded Allergies: No Known Allergies (Unverified , 03/03/20) Objective Last 24 Hour Vital Signs Date Time Temp Pulse Resp B/P (MAP) Pulse Ox O2 Delivery O2 Flow Rate FiO2 03/08/20 10:00 85 26 154/76 (102) 99 03/08/20 09:00 97 24 158/76 (103) 100 03/08/20 08:21 99 149/82 03/08/20 08:00 99.1 96 26 157/82 (107) 98 03/08/20 08:00 45 03/08/20 07:00 98.9 101 32 149/82 (104) 98 03/08/20 06:08 165/80 03/08/20 06:00 99 31 165/80 (108) 99 03/08/20 05:30 105 25 172/77 (108) 96 03/08/20 05:00 98 29 161/78 (105) 99 03/08/20 04:50 99 32 98 45 03/08/20 04:30 105 32 157/80 (105) 97 03/08/20 04:00 101 31 155/75 (101) 99 03/08/20 04:00 101 03/08/20 04:00 30 03/08/20 04:00 Bi-pap 03/08/20 03:00 98 33 157/74 (101) 99 03/08/20 02:43 100 31 98 45 03/08/20 02:00 105 30 180/86 (117) 98 03/08/20 01:00 90 30 153/71 (98) 98 03/08/20 00:47 92 32 98 45 03/08/20 00:00 99.0 96 32 155/73 (100) 98 03/08/20 00:00 30 03/08/20 00:00 96 03/08/20 00:00 Bi-pap 03/07/20 23:00 91 31 154/67 (96) 98 03/07/20 22:33 93 32 98 45 03/07/20 22:00 102 25 158/77 (104) 99 03/07/20 22:00 98 154/66 03/07/20 21:03 99 164/77 03/07/20 21:00 100 31 162/75 (104) 100 03/07/20 20:44 103 33 100 45 03/07/20 20:00 98.9 104 31 161/71 (101) 100 03/07/20 20:00 104 03/07/20 20:00 30 03/07/20 20:00 Bi-pap 03/07/20 19:06 102 34 99 45 03/07/20 19:04 100 Bi-Pap 45 03/07/20 19:00 103 22 151/74 (99) 99 03/07/20 18:00 107 24 157/73 (101) 99 03/07/20 17:15 108 30 98 45 03/07/20 17:00 93 25 150/64 (92) 97 03/07/20 16:00 93 03/07/20 16:00 Bi-pap 03/07/20 16:00 98.8 95 26 148/67 (94) 98 03/07/20 15:29 92 31 96 30 03/07/20 15:00 99 30 148/76 (100) 96 03/07/20 15:00 30 03/07/20 14:00 100 31 150/67 (94) 99 03/07/20 13:31 98 135/82 03/07/20 13:16 99 33 98 35 03/07/20 13:00 89 25 130/68 (88) 99 03/07/20 12:00 Bi-pap 03/07/20 12:00 93 03/07/20 12:00 35 03/07/20 12:00 98.9 100 23 148/69 (95) 97 03/07/20 11:16 92 30 96 35 03/07/20 11:00 93 30 149/80 (103) 98 Height (Feet): 5 Height (Inches): 10.00 Weight (Pounds): 324 General Appearance: no acute distress, other - obese HEENT: mucous membranes moist Respiratory/Chest: lungs clear, other - on BIPAP Cardiovascular: normal rate Abdomen: soft, non tender Extremities: no edema Neurologic/Psychiatric: alert, responsive Microbiology Date/Time Source Procedure Growth Status 03/05/20 23:50 Stool Clostridium difficile Toxin Assay - Final Complete Laboratory Tests Test 03/08/20 09:00 White Blood Count 11.9 K/UL (4.8-10.8) H Red Blood Count 3.51 M/UL (4.20-5.40) L Hemoglobin 8.6 G/DL (12.0-16.0) L Hematocrit 27.5 % (37.0-47.0) L Mean Corpuscular Volume 78 FL (80-99) L Mean Corpuscular Hemoglobin 24.5 PG (27.0-31.0) L Mean Corpuscular Hemoglobin Concent 31.3 G/DL (32.0-36.0) L Red Cell Distribution Width 14.4 % (11.6-14.8) Platelet Count 297 K/UL (150-450) Mean Platelet Volume 5.4 FL (6.5-10.1) L Neutrophils (%) (Auto) % (45.0-75.0) Lymphocytes (%) (Auto) % (20.0-45.0) Monocytes (%) (Auto) % (1.0-10.0) Eosinophils (%) (Auto) % (0.0-3.0) Basophils (%) (Auto) % (0.0-2.0) Neutrophils % (Manual) Pending Lymphocytes % (Manual) Pending Platelet Estimate Pending Platelet Morphology Pending Sodium Level 146 MMOL/L (136-145) H Potassium Level 3.2 MMOL/L (3.5-5.1) L Chloride Level 108 MMOL/L (98-107) H Carbon Dioxide Level 25 MMOL/L (21-32) Anion Gap 13 mmol/L (5-15) Blood Urea Nitrogen 28 mg/dL (7-18) H Creatinine 1.4 MG/DL (0.55-1.30) H Estimat Glomerular Filtration Rate 46.1 mL/min (>60) Glucose Level 190 MG/DL (74-106) H Calcium Level 10.1 MG/DL (8.5-10.1) Phosphorus Level 2.0 MG/DL (2.5-4.9) L Magnesium Level 1.7 MG/DL (1.8-2.4) L Total Bilirubin 0.5 MG/DL (0.2-1.0) Aspartate Amino Transf (AST/SGOT) 36 U/L (15-37) Alanine Aminotransferase (ALT/SGPT) 33 U/L (12-78) Alkaline Phosphatase 198 U/L (46-116) H Total Protein 7.6 G/DL (6.4-8.2) Albumin 2.4 G/DL (3.4-5.0) L Globulin 5.2 g/dL Albumin/Globulin Ratio 0.5 (1.0-2.7) L Current Medications Medications (Trade) Dose Ordered Sig/Francisco J Route PRN Reason Start Time Stop Time Status Last Admin Dose Admin Acetaminophen (Tylenol) 650 mg Q4H PRN ORAL Mild Pain (Pain Scale 1-3) 03/04/20 12:15 04/02/20 12:14 Clonidine HCl (Catapres TTS-3) 1 patch QWEEK TDERMAL 03/05/20 10:30 06/03/20 10:29 03/05/20 10:11 Clonidine HCl (Catapres Tab) 0.1 mg Q4H PRN ORAL bp over 160 syst 03/05/20 09:30 06/03/20 09:29 03/07/20 04:53 Dextrose (Dextrose 50%) 25 ml Q30M PRN IV Hypoglycemia 03/04/20 12:00 06/01/20 21:59 03/04/20 21:41 Dextrose (Dextrose 50%) 50 ml Q30M PRN IV Hypoglycemia 03/04/20 12:00 06/01/20 21:59 03/05/20 06:15 Diltiazem HCl (Cardizem Tab) 60 mg EVERY 8 HOURS ORAL 03/06/20 14:00 04/05/20 13:59 03/08/20 06:08 Docusate Sodium (Colace) 100 mg TWICE A DAY ORAL 03/05/20 18:00 04/04/20 17:59 03/05/20 17:20 Furosemide (Lasix) 40 mg DAILY IV 03/07/20 09:00 04/06/20 08:59 03/08/20 08:21 Glucagon (Glucagon) 1 mg Q2H PRN IM Hypoglycemia 03/05/20 11:00 06/03/20 10:59 Insulin Aspart (NovoLOG) BEFORE MEALS AND HS SUBQ 03/07/20 06:30 06/05/20 06:29 03/08/20 06:11 Magnesium Sulfate 100 ml @ 100 mls/hr Q1H IVPB 03/08/20 11:00 03/08/20 14:59 Metoprolol Tartrate (Lopressor) 25 mg Q12HR ORAL 03/06/20 15:15 06/04/20 15:14 03/08/20 08:21 Pantoprazole (Protonix) 40 mg Q12HR ORAL 03/05/20 09:30 04/04/20 09:29 03/08/20 08:21 Pioglitazone HCl (Actos) 15 mg ACBREAKFAST ORAL 03/08/20 06:30 04/07/20 06:29 03/08/20 06:08 Piperacillin Sod/ Tazobactam Sod 3.375 gm/Sodium Chloride 110 ml @ 27.5 mls/hr Q12H IVPB 03/04/20 12:00 03/11/20 00:00 03/08/20 00:29 Polyethylene Glycol (Miralax) 17 gm DAILYPRN PRN ORAL Constipation 03/04/20 12:15 04/03/20 12:14 Potassium Phosphate 250 ml @ 62.5 mls/hr Q4H IVPB 03/08/20 11:30 03/08/20 19:29 Temazepam (RestoriL) 7.5 mg HSPRN PRN ORAL Insomnia 03/04/20 21:00 03/10/20 20:59 Carlos Enrique Rodrigez MD Mar 08, 2020 10:15
[2020-03-08] MEDS: Potassium Phosphate 15mm/250ml 250 ML IVPB SCH ×2 (11:05→15:28)
--- NOTE | 2020-03-08 11:05 | Critical Care Progress Note ---
Assessment/Plan Assessment/Plan acute respiratory failure hypoxemia metabolic acidosis ARF diabetes leukocytosis anemia anasarca pulmonary infiltrates PLAN IV antibiotics keep negative repeat ABG and CXR DVT prophylaxis BIPAP as able diurese as able keep negative and monitor imaging renal noted medications/laboratory data/nursing notes/ICU care reviewed in detail note reviewed and edited care discussed with RN and RT ICU time spent >40 minutes Critical Care - Subjective Interval Events: care noted more alert not tolerating off BIPAP ROS Limited/Unobtainable: Yes Condition: critical EKG Rhythm: Sinus Rhythm I&O: Intake and Output 03/07/20 03/08/20 19:00 07:00 Intake Total 600 ml 573.33 ml Output Total 980 ml 945 ml Balance -380 ml -371.67 ml IV Total 600 ml 573.33 ml Output Urine Total 980 ml 945 ml # Bowel Movements 2 1 Critical Care - Objective CXR: Again demonstrated are extensive diffuse bilateral parenchymal infiltrates. The heart is borderline enlarged. The pleural spaces are grossly clear. Findings are unchanged Last 24 Hour Vital Signs Date Time Temp Pulse Resp B/P (MAP) Pulse Ox O2 Delivery O2 Flow Rate FiO2 03/08/20 10:00 85 26 154/76 (102) 99 03/08/20 09:00 97 24 158/76 (103) 100 03/08/20 08:21 99 149/82 03/08/20 08:00 99.1 96 26 157/82 (107) 98 03/08/20 08:00 Bi-pap 03/08/20 08:00 45 03/08/20 07:00 98.9 101 32 149/82 (104) 98 03/08/20 06:08 165/80 03/08/20 06:00 99 31 165/80 (108) 99 03/08/20 05:30 105 25 172/77 (108) 96 03/08/20 05:00 98 29 161/78 (105) 99 03/08/20 04:50 99 32 98 45 03/08/20 04:30 105 32 157/80 (105) 97 03/08/20 04:00 101 31 155/75 (101) 99 03/08/20 04:00 101 03/08/20 04:00 30 03/08/20 04:00 Bi-pap 03/08/20 03:00 98 33 157/74 (101) 99 03/08/20 02:43 100 31 98 45 03/08/20 02:00 105 30 180/86 (117) 98 03/08/20 01:00 90 30 153/71 (98) 98 03/08/20 00:47 92 32 98 45 03/08/20 00:00 99.0 96 32 155/73 (100) 98 03/08/20 00:00 30 03/08/20 00:00 96 03/08/20 00:00 Bi-pap 03/07/20 23:00 91 31 154/67 (96) 98 03/07/20 22:33 93 32 98 45 03/07/20 22:00 102 25 158/77 (104) 99 03/07/20 22:00 98 154/66 03/07/20 21:03 99 164/77 03/07/20 21:00 100 31 162/75 (104) 100 03/07/20 20:44 103 33 100 45 03/07/20 20:00 98.9 104 31 161/71 (101) 100 03/07/20 20:00 104 03/07/20 20:00 30 03/07/20 20:00 Bi-pap 03/07/20 19:06 102 34 99 45 03/07/20 19:04 100 Bi-Pap 45 03/07/20 19:00 103 22 151/74 (99) 99 03/07/20 18:00 107 24 157/73 (101) 99 03/07/20 17:15 108 30 98 45 03/07/20 17:00 93 25 150/64 (92) 97 03/07/20 16:00 93 03/07/20 16:00 Bi-pap 03/07/20 16:00 98.8 95 26 148/67 (94) 98 03/07/20 15:29 92 31 96 30 03/07/20 15:00 99 30 148/76 (100) 96 03/07/20 15:00 30 03/07/20 14:00 100 31 150/67 (94) 99 03/07/20 13:31 98 135/82 03/07/20 13:16 99 33 98 35 03/07/20 13:00 89 25 130/68 (88) 99 03/07/20 12:00 Bi-pap 03/07/20 12:00 93 03/07/20 12:00 35 03/07/20 12:00 98.9 100 23 148/69 (95) 97 03/07/20 11:16 92 30 96 35 Labs: Labs Test 03/06/20 04:00 03/06/20 09:23 03/06/20 16:30 03/07/20 04:45 Sodium Level 136 MMOL/L (136-145) 139 MMOL/L (136-145) Potassium Level 3.8 MMOL/L (3.5-5.1) 3.3 MMOL/L (3.5-5.1) Chloride Level 101 MMOL/L (98-107) 104 MMOL/L (98-107) Carbon Dioxide Level 19 MMOL/L (21-32) 23 MMOL/L (21-32) Anion Gap 16 mmol/L (5-15) 12 mmol/L (5-15) Blood Urea Nitrogen 38 mg/dL (7-18) 34 mg/dL (7-18) Creatinine 1.8 MG/DL (0.55-1.30) 1.5 MG/DL (0.55-1.30) Estimat Glomerular Filtration Rate 34.4 mL/min (>60) 42.5 mL/min (>60) Glucose Level 220 MG/DL (74-106) 138 MG/DL (74-106) Calcium Level 9.3 MG/DL (8.5-10.1) 9.8 MG/DL (8.5-10.1) Total Bilirubin 0.5 MG/DL (0.2-1.0) 0.4 MG/DL (0.2-1.0) Aspartate Amino Transf (AST/SGOT) 48 U/L (15-37) 32 U/L (15-37) Alanine Aminotransferase (ALT/SGPT) 43 U/L (12-78) 32 U/L (12-78) Alkaline Phosphatase 232 U/L (46-116) 191 U/L (46-116) Total Protein 7.5 G/DL (6.4-8.2) 7.1 G/DL (6.4-8.2) Albumin 2.2 G/DL (3.4-5.0) 2.2 G/DL (3.4-5.0) Globulin 5.3 g/dL 4.9 g/dL Albumin/Globulin Ratio 0.4 (1.0-2.7) 0.4 (1.0-2.7) Arterial Blood pH 7.390 (7.350-7.450) Arterial Blood Partial Pressure CO2 30.8 mmHg (35.0-45.0) Arterial Blood Partial Pressure O2 77.2 mmHg (75.0-100.0) Arterial Blood HCO3 18.2 mmol/L (22.0-26.0) Arterial Blood Oxygen Saturation 94.0 % (95-100) Arterial Blood Base Excess -5.9 (-2-2) Jermaine Test Positive Urine Collection Time 24 HRS Urine Total Volume 4400 ML Urine Total Protein mg/dL 36 mg/dL Urine Total Protein 24 Hour 35.9 mg/24hr (< 150) White Blood Count 12.4 K/UL (4.8-10.8) Red Blood Count 3.13 M/UL (4.20-5.40) Hemoglobin 7.8 G/DL (12.0-16.0) Hematocrit 24.4 % (37.0-47.0) Mean Corpuscular Volume 78 FL (80-99) Mean Corpuscular Hemoglobin 25.0 PG (27.0-31.0) Mean Corpuscular Hemoglobin Concent 32.0 G/DL (32.0-36.0) Red Cell Distribution Width 14.5 % (11.6-14.8) Platelet Count 312 K/UL (150-450) Mean Platelet Volume 5.7 FL (6.5-10.1) Neutrophils (%) (Auto) % (45.0-75.0) Lymphocytes (%) (Auto) % (20.0-45.0) Monocytes (%) (Auto) % (1.0-10.0) Eosinophils (%) (Auto) % (0.0-3.0) Basophils (%) (Auto) % (0.0-2.0) Differential Total Cells Counted 100 Neutrophils % (Manual) 85 % (45-75) Lymphocytes % (Manual) 8 % (20-45) Monocytes % (Manual) 5 % (1-10) Eosinophils % (Manual) 2 % (0-3) Basophils % (Manual) 0 % (0-2) Band Neutrophils 0 % (0-8) Platelet Estimate Adequate Platelet Morphology Normal Hypochromasia 3+ Anisocytosis 1+ Microcytosis 1+ Hemoglobin A1c 5.5 % (4.3-6.0) Uric Acid 9.1 MG/DL (2.6-7.2) Phosphorus Level 2.2 MG/DL (2.5-4.9) Magnesium Level 1.7 MG/DL (1.8-2.4) Troponin I 0.155 ng/mL (0.000-0.056) C-Reactive Protein, Quantitative 8.8 mg/dL (0.00-0.90) Test 03/08/20 09:00 White Blood Count 11.9 K/UL (4.8-10.8) Red Blood Count 3.51 M/UL (4.20-5.40) Hemoglobin 8.6 G/DL (12.0-16.0) Hematocrit 27.5 % (37.0-47.0) Mean Corpuscular Volume 78 FL (80-99) Mean Corpuscular Hemoglobin 24.5 PG (27.0-31.0) Mean Corpuscular Hemoglobin Concent 31.3 G/DL (32.0-36.0) Red Cell Distribution Width 14.4 % (11.6-14.8) Platelet Count 297 K/UL (150-450) Mean Platelet Volume 5.4 FL (6.5-10.1) Neutrophils (%) (Auto) % (45.0-75.0) Lymphocytes (%) (Auto) % (20.0-45.0) Monocytes (%) (Auto) % (1.0-10.0) Eosinophils (%) (Auto) % (0.0-3.0) Basophils (%) (Auto) % (0.0-2.0) Sodium Level 146 MMOL/L (136-145) Potassium Level 3.2 MMOL/L (3.5-5.1) Chloride Level 108 MMOL/L (98-107) Carbon Dioxide Level 25 MMOL/L (21-32) Anion Gap 13 mmol/L (5-15) Blood Urea Nitrogen 28 mg/dL (7-18) Creatinine 1.4 MG/DL (0.55-1.30) Estimat Glomerular Filtration Rate 46.1 mL/min (>60) Glucose Level 190 MG/DL (74-106) Calcium Level 10.1 MG/DL (8.5-10.1) Phosphorus Level 2.0 MG/DL (2.5-4.9) Magnesium Level 1.7 MG/DL (1.8-2.4) Total Bilirubin 0.5 MG/DL (0.2-1.0) Aspartate Amino Transf (AST/SGOT) 36 U/L (15-37) Alanine Aminotransferase (ALT/SGPT) 33 U/L (12-78) Alkaline Phosphatase 198 U/L (46-116) Total Protein 7.6 G/DL (6.4-8.2) Albumin 2.4 G/DL (3.4-5.0) Globulin 5.2 g/dL Albumin/Globulin Ratio 0.5 (1.0-2.7) Objective: WDWN on BIPAP reduced breath sounds bilaterally without rhonchi or wheeze [id number] without MRG NABS nontender no HSM no CC noted edema nonfocal more alert Micro: Microbiology Date/Time Source Procedure Growth Status 03/05/20 23:50 Stool Clostridium difficile Toxin Assay - Final Complete Accucheck: 176 Charles Thomson MD Mar 08, 2020 11:05
--- NOTE | 2020-03-08 12:28 | General Progress Note ---
Assessment/Plan Problem List: (1) Syncope ICD Codes: R55 - Syncope and collapse SNOMED: 078627745 (2) Acute kidney failure ICD Codes: N17.9 - Acute kidney failure, unspecified SNOMED: 41411280 (3) Hypoglycemia ICD Codes: E16.2 - Hypoglycemia, unspecified SNOMED: 573286281 (4) UTI (urinary tract infection) ICD Codes: N39.0 - Urinary tract infection, site not specified SNOMED: 43787318 Status: stable Assessment/Plan: Continue D50 as well as glucagon prn decrease ivf prn diuresis monitor lytes replace as needed BiPAP as needed Follow-up echo results Antibiotics urinary tract infection and pna CT scan of the chest and abdomen when stable- ?hx of LAD/masses per dtr/pt Discussed with daughter Critical and guarded Subjective ROS Limited/Unobtainable: No Constitutional: Reports: malaise, weakness HEENT: Reports: no symptoms Cardiovascular: Reports: no symptoms Respiratory: Reports: shortness of breath Gastrointestinal/Abdominal: Reports: no symptoms Genitourinary: Reports: no symptoms Neurologic/Psychiatric: Reports: no symptoms Endocrine: Reports: no symptoms Hematologic/Lymphatic: Reports: anemia Allergies: Coded Allergies: No Known Allergies (Unverified , 03/03/20) All Systems: reviewed and negative except above Subjective Patient remained stable on BiPAP. Desaturates when removed. Renal function continuing to improve. Denies chest pain. Hemoglobin stable. Low K low back noted. On IV antibiotics. Blood sugar stable. Objective Last 24 Hour Vital Signs Date Time Temp Pulse Resp B/P (MAP) Pulse Ox O2 Delivery O2 Flow Rate FiO2 03/08/20 11:00 95 26 143/84 (103) 95 03/08/20 11:00 45 03/08/20 10:00 85 26 154/76 (102) 99 03/08/20 09:00 97 24 158/76 (103) 100 03/08/20 08:21 99 149/82 03/08/20 08:00 92 03/08/20 08:00 99.1 96 26 157/82 (107) 98 03/08/20 08:00 Bi-pap 03/08/20 08:00 45 03/08/20 07:00 98.9 101 32 149/82 (104) 98 03/08/20 06:08 165/80 03/08/20 06:00 99 31 165/80 (108) 99 03/08/20 05:30 105 25 172/77 (108) 96 03/08/20 05:00 98 29 161/78 (105) 99 03/08/20 04:50 99 32 98 45 03/08/20 04:30 105 32 157/80 (105) 97 03/08/20 04:00 101 31 155/75 (101) 99 03/08/20 04:00 101 03/08/20 04:00 30 03/08/20 04:00 Bi-pap 03/08/20 03:00 98 33 157/74 (101) 99 03/08/20 02:43 100 31 98 45 03/08/20 02:00 105 30 180/86 (117) 98 03/08/20 01:00 90 30 153/71 (98) 98 03/08/20 00:47 92 32 98 45 03/08/20 00:00 99.0 96 32 155/73 (100) 98 03/08/20 00:00 30 03/08/20 00:00 96 03/08/20 00:00 Bi-pap 03/07/20 23:00 91 31 154/67 (96) 98 03/07/20 22:33 93 32 98 45 03/07/20 22:00 102 25 158/77 (104) 99 03/07/20 22:00 98 154/66 03/07/20 21:03 99 164/77 03/07/20 21:00 100 31 162/75 (104) 100 03/07/20 20:44 103 33 100 45 03/07/20 20:00 98.9 104 31 161/71 (101) 100 03/07/20 20:00 104 03/07/20 20:00 30 03/07/20 20:00 Bi-pap 03/07/20 19:06 102 34 99 45 03/07/20 19:04 100 Bi-Pap 45 03/07/20 19:00 103 22 151/74 (99) 99 03/07/20 18:00 107 24 157/73 (101) 99 03/07/20 17:15 108 30 98 45 03/07/20 17:00 93 25 150/64 (92) 97 03/07/20 16:00 93 8/29/20 16:00 Bi-pap 03/07/20 16:00 98.8 95 26 148/67 (94) 98 03/07/20 15:29 92 31 96 30 03/07/20 15:00 99 30 148/76 (100) 96 03/07/20 15:00 30 03/07/20 14:00 100 31 150/67 (94) 99 03/07/20 13:31 98 135/82 03/07/20 13:16 99 33 98 35 03/07/20 13:00 89 25 130/68 (88) 99 Intake and Output 03/07/20 03/08/20 19:00 07:00 Intake Total 600 ml 573.33 ml Output Total 980 ml 945 ml Balance -380 ml -371.67 ml IV Total 600 ml 573.33 ml Output Urine Total 980 ml 945 ml # Bowel Movements 2 1 Laboratory Tests 03/08/20 09:00: White Blood Count 11.9H, Red Blood Count 3.51L, Hemoglobin 8.6L, Hematocrit 27.5L, Mean Corpuscular Volume 78L, Mean Corpuscular Hemoglobin 24.5L, Mean Corpuscular Hemoglobin Concent 31.3L, Red Cell Distribution Width 14.4, Platelet Count 297, Mean Platelet Volume 5.4L, Neutrophils (%) (Auto) , Lymphocytes (%) (Auto) , Monocytes (%) (Auto) , Eosinophils (%) (Auto) , Basophils (%) (Auto) , Differential Total Cells Counted 100, Neutrophils % ( Manual) 89H, Lymphocytes % (Manual) 6L, Monocytes % (Manual) 4, Eosinophils % ( Manual) 1, Basophils % (Manual) 0, Band Neutrophils 0, Platelet Estimate Adequate, Platelet Morphology Normal, Hypochromasia 2+, Anisocytosis 1+, Microcytosis 1+, Sodium Level 146H, Potassium Level 3.2L, Chloride Level 108H, Carbon Dioxide Level 25, Anion Gap 13, Blood Urea Nitrogen 28H, Creatinine 1.4H , Estimat Glomerular Filtration Rate 46.1, Glucose Level 190H, Calcium Level 10.1, Phosphorus Level 2.0L, Magnesium Level 1.7L, Total Bilirubin 0.5, Aspartate Amino Transf (AST/SGOT) 36, Alanine Aminotransferase (ALT/SGPT) 33, Alkaline Phosphatase 198H, Total Protein 7.6, Albumin 2.4L, Globulin 5.2, Albumin/Globulin Ratio 0.5L Height (Feet): 5 Height (Inches): 10.00 Weight (Pounds): 324 Objective General Appearance: WD/WN, alert EENT: PERRL/EOMI Neck: non-tender, normal alignment Cardiovascular: normal peripheral pulses, normal rate Respiratory/Chest: chest wall non-tender, lungs clear, normal breath sounds, no respiratory distress Abdomen: normal bowel sounds, non tender, soft, no organomegaly Edema: moderate edema Neurologic: director reactor projects II-XII grossly normal, alert, oriented x 3, responsive Sal Khanna MD Mar 08, 2020 12:28
[2020-03-08] MEDS ORDERED: D5 1/2NS 1000ml IV ONE (17:18)
--- NOTE | 2020-03-08 21:52 | Cardiology Progress Note ---
Subjective DATE OF SERVICE: Mar 08, 2020 Maintaining sinus rhythm Remains dependent on bipap support Still with electrolyte abnormalities Objective Last 24 Hour Vital Signs Date Time Temp Pulse Resp B/P (MAP) Pulse Ox O2 Delivery O2 Flow Rate FiO2 03/08/20 21:12 95 30 99 45 03/08/20 21:03 106 27 168/82 (110) 99 03/08/20 21:00 107 24 166/92 (116) 97 03/08/20 21:00 94 29 159/76 (103) 100 03/08/20 20:45 97 166/83 03/08/20 20:43 97 166/83 03/08/20 20:00 97 03/08/20 20:00 45 03/08/20 20:00 Bi-pap 03/08/20 20:00 94 29 159/76 (103) 100 03/08/20 19:06 97 Bi-Pap 45 03/08/20 19:00 87 23 148/69 (95) 100 03/08/20 18:45 84 32 100 45 03/08/20 18:00 95 30 156/72 (100) 100 03/08/20 17:28 102 31 97 45 03/08/20 17:00 102 26 154/90 (111) 99 03/08/20 16:00 Bi-pap 03/08/20 16:00 45 03/08/20 16:00 98.8 85 24 145/71 (95) 100 03/08/20 16:00 92 03/08/20 15:09 101 28 95 45 03/08/20 15:00 91 27 147/75 (99) 99 03/08/20 14:00 103 24 146/71 (96) 99 03/08/20 13:10 91 152/72 03/08/20 13:00 94 25 152/72 (98) 100 03/08/20 12:30 81 21 100 45 03/08/20 12:00 99.6 97 23 155/76 (102) 95 03/08/20 12:00 99 03/08/20 12:00 Bi-pap 03/08/20 11:25 97 Venturi Mask 10.0 45 03/08/20 11:00 95 26 143/84 (103) 95 03/08/20 11:00 45 03/08/20 10:25 98 8/30/20 10:00 85 26 154/76 (102) 99 03/08/20 09:08 96 33 98 45 03/08/20 09:00 97 24 158/76 (103) 100 03/08/20 08:21 99 149/82 03/08/20 08:00 92 03/08/20 08:00 99.1 96 26 157/82 (107) 98 03/08/20 08:00 92 03/08/20 08:00 Bi-pap 03/08/20 08:00 45 03/08/20 07:15 93 31 98 45 03/08/20 07:00 98.9 101 32 149/82 (104) 98 03/08/20 06:08 165/80 03/08/20 06:00 99 31 165/80 (108) 99 03/08/20 05:30 105 25 172/77 (108) 96 03/08/20 05:00 98 29 161/78 (105) 99 03/08/20 04:50 99 32 98 45 03/08/20 04:30 105 32 157/80 (105) 97 03/08/20 04:00 101 31 155/75 (101) 99 03/08/20 04:00 101 03/08/20 04:00 30 03/08/20 04:00 Bi-pap 03/08/20 03:00 98 33 157/74 (101) 99 03/08/20 02:43 100 31 98 45 03/08/20 02:00 105 30 180/86 (117) 98 03/08/20 01:00 90 30 153/71 (98) 98 03/08/20 00:47 92 32 98 45 03/08/20 00:00 99.0 96 32 155/73 (100) 98 03/08/20 00:00 30 03/08/20 00:00 96 03/08/20 00:00 Bi-pap 03/07/20 23:00 91 31 154/67 (96) 98 03/07/20 22:33 93 32 98 45 03/07/20 22:00 102 25 158/77 (104) 99 03/07/20 22:00 98 154/66 HEENT: normal ENT inspection RHYTHM: ST, PACs LUNGS: bilateral rhonchi CARDIAC: normal rate, normal S1 and S2 ABDOMEN: normal bowel sounds, non tender, soft, no organomegaly EXTREMITIES: No edema Laboratory Tests Test 03/08/20 09:00 White Blood Count 11.9 K/UL (4.8-10.8) H Red Blood Count 3.51 M/UL (4.20-5.40) L Hemoglobin 8.6 G/DL (12.0-16.0) L Hematocrit 27.5 % (37.0-47.0) L Mean Corpuscular Volume 78 FL (80-99) L Mean Corpuscular Hemoglobin 24.5 PG (27.0-31.0) L Mean Corpuscular Hemoglobin Concent 31.3 G/DL (32.0-36.0) L Red Cell Distribution Width 14.4 % (11.6-14.8) Platelet Count 297 K/UL (150-450) Mean Platelet Volume 5.4 FL (6.5-10.1) L Neutrophils (%) (Auto) % (45.0-75.0) Lymphocytes (%) (Auto) % (20.0-45.0) Monocytes (%) (Auto) % (1.0-10.0) Eosinophils (%) (Auto) % (0.0-3.0) Basophils (%) (Auto) % (0.0-2.0) Differential Total Cells Counted 100 Neutrophils % (Manual) 89 % (45-75) H Lymphocytes % (Manual) 6 % (20-45) L Monocytes % (Manual) 4 % (1-10) Eosinophils % (Manual) 1 % (0-3) Basophils % (Manual) 0 % (0-2) Band Neutrophils 0 % (0-8) Platelet Estimate Adequate Platelet Morphology Normal Hypochromasia 2+ Anisocytosis 1+ Microcytosis 1+ Sodium Level 146 MMOL/L (136-145) H Potassium Level 3.2 MMOL/L (3.5-5.1) L Chloride Level 108 MMOL/L (98-107) H Carbon Dioxide Level 25 MMOL/L (21-32) Anion Gap 13 mmol/L (5-15) Blood Urea Nitrogen 28 mg/dL (7-18) H Creatinine 1.4 MG/DL (0.55-1.30) H Estimat Glomerular Filtration Rate 46.1 mL/min (>60) Glucose Level 190 MG/DL (74-106) H Calcium Level 10.1 MG/DL (8.5-10.1) Phosphorus Level 2.0 MG/DL (2.5-4.9) L Magnesium Level 1.7 MG/DL (1.8-2.4) L Total Bilirubin 0.5 MG/DL (0.2-1.0) Aspartate Amino Transf (AST/SGOT) 36 U/L (15-37) Alanine Aminotransferase (ALT/SGPT) 33 U/L (12-78) Alkaline Phosphatase 198 U/L (46-116) H Total Protein 7.6 G/DL (6.4-8.2) Albumin 2.4 G/DL (3.4-5.0) L Globulin 5.2 g/dL Albumin/Globulin Ratio 0.5 (1.0-2.7) L Microbiology Date/Time Source Procedure Growth Status 03/05/20 23:50 Stool Clostridium difficile Toxin Assay - Final Complete Assessment/Plan Assessment/Plan Paroxysmal Atrial Fib Hypertension/HHD with rising BP trend Acute respiratory failure Metabolic acidosis Acute renal failure Anemia Anasarca Hypokalemia Hypomagnesemia HypoPO4 Dehydration/hypernatremia Bipap Diuresis Replace lytes Advance antiHTN meds Abx ICU care DC Actos Maintain current cardiovascular meds for arrhythmia suppression Miguel Gama MD Mar 08, 2020 21:52
[2020-03-09] VITALS (23 sets, daily range): BP systolic 94–178; BP diastolic 65–125
[2020-03-09] MEDS: dilTIAZem HCl 60mg tab ORAL SCH ×4 (02:58→21:00)
[2020-03-09] MEDS: NovoLOG Insulin Flexpen SUBQ SCH ×4 (05:53→21:00)
--- NOTE | 2020-03-09 06:15 | General Progress Note ---
Assessment/Plan Problem List: (1) Anemia ICD Codes: D64.9 - Anemia, unspecified SNOMED: 553910349 (2) Hypoglycemia ICD Codes: E16.2 - Hypoglycemia, unspecified SNOMED: 425549299 (3) Acute kidney failure ICD Codes: N17.9 - Acute kidney failure, unspecified SNOMED: 49978576 (4) Syncope ICD Codes: R55 - Syncope and collapse SNOMED: 000379729 (5) UTI (urinary tract infection) ICD Codes: N39.0 - Urinary tract infection, site not specified SNOMED: 02647306 (6) FARIBA (acute kidney injury) ICD Codes: N17.9 - Acute kidney failure, unspecified SNOMED: 9791121, 60108202 Status: stable Assessment/Plan: DC Actos continue glucose monitoring hypoglycemia protocol in order Subjective ROS Limited/Unobtainable: Yes Allergies: Coded Allergies: No Known Allergies (Unverified , 03/03/20) Subjective evaluated by Dr Ivory during the weekend on BiPAP in ICU glucose values are stable Item Value Date Time Bedside Blood Glucose 148 mg/dl H 03/09/20 0553 Bedside Blood Glucose 142 mg/dl H 03/09/20 0000 Bedside Blood Glucose 156 mg/dl H 03/08/20 2100 Bedside Blood Glucose 153 mg/dl H 03/08/20 1706 Bedside Blood Glucose 170 mg/dl H 03/08/20 1200 Bedside Blood Glucose 176 mg/dl H 03/08/20 0800 Objective Last 24 Hour Vital Signs Date Time Temp Pulse Resp B/P (MAP) Pulse Ox O2 Delivery O2 Flow Rate FiO2 03/09/20 04:53 95 03/09/20 04:00 Bi-pap 03/09/20 04:00 45 03/09/20 04:00 91 34 163/77 (105) 99 03/09/20 04:00 94 03/09/20 03:00 94 31 147/69 (95) 100 03/09/20 02:58 94 148/64 03/09/20 02:31 95 32 99 45 03/09/20 02:00 98.5 93 32 156/78 (104) 99 03/09/20 01:00 82 24 144/74 (97) 99 03/09/20 01:00 91 32 99 45 03/09/20 00:00 Bi-pap 03/09/20 00:00 86 31 162/75 (104) 100 03/08/20 23:00 98.2 84 32 159/77 (104) 99 03/08/20 22:33 81 33 100 45 03/08/20 21:12 95 30 99 45 03/08/20 21:03 106 27 168/82 (110) 99 03/08/20 21:00 107 24 166/92 (116) 97 03/08/20 21:00 94 29 159/76 (103) 100 03/08/20 20:45 97 166/83 03/08/20 20:43 97 166/83 03/08/20 20:00 97 03/08/20 20:00 45 03/08/20 20:00 Bi-pap 03/08/20 20:00 94 29 159/76 (103) 100 03/08/20 19:06 97 Bi-Pap 45 03/08/20 19:00 87 23 148/69 (95) 100 03/08/20 18:45 84 32 100 45 03/08/20 18:00 95 30 156/72 (100) 100 03/08/20 17:28 102 31 97 45 03/08/20 17:00 102 26 154/90 (111) 99 03/08/20 16:00 Bi-pap 03/08/20 16:00 45 03/08/20 16:00 98.8 85 24 145/71 (95) 100 03/08/20 16:00 92 03/08/20 15:09 101 28 95 45 03/08/20 15:00 91 27 147/75 (99) 99 03/08/20 14:00 103 24 146/71 (96) 99 03/08/20 13:10 91 152/72 03/08/20 13:00 94 25 152/72 (98) 100 03/08/20 12:30 81 21 100 45 03/08/20 12:00 99.6 97 23 155/76 (102) 95 03/08/20 12:00 99 03/08/20 12:00 Bi-pap 03/08/20 11:25 97 Venturi Mask 10.0 45 03/08/20 11:00 95 26 143/84 (103) 95 03/08/20 11:00 45 03/08/20 10:25 98 03/08/20 10:00 85 26 154/76 (102) 99 03/08/20 09:08 96 33 98 45 03/08/20 09:00 97 24 158/76 (103) 100 03/08/20 08:21 99 149/82 03/08/20 08:00 92 03/08/20 08:00 99.1 96 26 157/82 (107) 98 03/08/20 08:00 92 03/08/20 08:00 Bi-pap 03/08/20 08:00 45 03/08/20 07:15 93 31 98 45 03/08/20 07:00 98.9 101 32 149/82 (104) 98 Intake and Output 03/08/20 03/09/20 19:00 07:00 Intake Total 50 ml 110.0 ml Output Total 850 ml 1200 ml Balance -800 ml -1090.0 ml IV Total 50 ml 110.0 ml Output Urine Total 850 ml 1200 ml # Bowel Movements 2 7 Laboratory Tests 03/08/20 09:00: White Blood Count 11.9H, Red Blood Count 3.51L, Hemoglobin 8.6L, Hematocrit 27.5L, Mean Corpuscular Volume 78L, Mean Corpuscular Hemoglobin 24.5L, Mean Corpuscular Hemoglobin Concent 31.3L, Red Cell Distribution Width 14.4, Platelet Count 297, Mean Platelet Volume 5.4L, Neutrophils (%) (Auto) , Lymphocytes (%) (Auto) , Monocytes (%) (Auto) , Eosinophils (%) (Auto) , Basophils (%) (Auto) , Differential Total Cells Counted 100, Neutrophils % ( Manual) 89H, Lymphocytes % (Manual) 6L, Monocytes % (Manual) 4, Eosinophils % ( Manual) 1, Basophils % (Manual) 0, Band Neutrophils 0, Platelet Estimate Adequate, Platelet Morphology Normal, Hypochromasia 2+, Anisocytosis 1+, Microcytosis 1+, Sodium Level 146H, Potassium Level 3.2L, Chloride Level 108H, Carbon Dioxide Level 25, Anion Gap 13, Blood Urea Nitrogen 28H, Creatinine 1.4H , Estimat Glomerular Filtration Rate 46.1, Glucose Level 190H, Calcium Level 10.1, Phosphorus Level 2.0L, Magnesium Level 1.7L, Total Bilirubin 0.5, Aspartate Amino Transf (AST/SGOT) 36, Alanine Aminotransferase (ALT/SGPT) 33, Alkaline Phosphatase 198H, Total Protein 7.6, Albumin 2.4L, Globulin 5.2, Albumin/Globulin Ratio 0.5L Height (Feet): 5 Height (Inches): 10.00 Weight (Pounds): 324 General Appearance: no apparent distress Neck: normal alignment Cardiovascular: normal rate Respiratory/Chest: decreased breath sounds Abdomen: normal bowel sounds Objective Current Medications Medications (Trade) Dose Ordered Sig/Francisco J Route PRN Reason Start Time Stop Time Status Last Admin Dose Admin Acetaminophen (Tylenol) 650 mg Q4H PRN ORAL Mild Pain (Pain Scale 1-3) 03/04/20 12:15 04/02/20 12:14 03/08/20 12:00 Clonidine HCl (Catapres TTS-3) 1 patch QWEEK TDERMAL 03/05/20 10:30 06/03/20 10:29 03/05/20 10:11 Clonidine HCl (Catapres Tab) 0.1 mg Q4H PRN ORAL bp over 160 syst 03/05/20 09:30 06/03/20 09:29 03/07/20 04:53 Dextrose (Dextrose 50%) 25 ml Q30M PRN IV Hypoglycemia 03/04/20 12:00 06/01/20 21:59 03/04/20 21:41 Dextrose (Dextrose 50%) 50 ml Q30M PRN IV Hypoglycemia 03/04/20 12:00 06/01/20 21:59 03/05/20 06:15 Diltiazem HCl (Cardizem Tab) 60 mg Q6H ORAL 03/09/20 03:00 04/08/20 02:59 03/09/20 02:58 Docusate Sodium (Colace) 100 mg TWICE A DAY ORAL 03/05/20 18:00 04/04/20 17:59 03/05/20 17:20 Furosemide (Lasix) 40 mg DAILY IV 03/07/20 09:00 04/06/20 08:59 03/08/20 08:21 Glucagon (Glucagon) 1 mg Q2H PRN IM Hypoglycemia 03/05/20 11:00 06/03/20 10:59 Insulin Aspart (NovoLOG) BEFORE MEALS AND HS SUBQ 03/07/20 06:30 06/05/20 06:29 03/09/20 05:53 Metoprolol Tartrate (Lopressor) 25 mg Q12HR ORAL 03/06/20 15:15 06/04/20 15:14 03/08/20 20:43 Pioglitazone HCl (Actos) 15 mg ACBREAKFAST ORAL 03/08/20 06:30 04/07/20 06:29 03/09/20 05:52 Piperacillin Sod/ Tazobactam Sod 3.375 gm/Sodium Chloride 110 ml @ 27.5 mls/hr Q12H IVPB 03/04/20 12:00 03/11/20 00:00 03/08/20 23:58 Polyethylene Glycol (Miralax) 17 gm DAILYPRN PRN ORAL Constipation 03/04/20 12:15 04/03/20 12:14 Temazepam (RestoriL) 7.5 mg HSPRN PRN ORAL Insomnia 03/04/20 21:00 03/10/20 20:59 Sudhir Barrow MD Mar 09, 2020 06:15
[2020-03-09 06:33] LABS: HEMATOCRIT 25.4 % (37.0-47.0); MEAN CORPUSCULAR VOLUME 79 FL (80-99); PLATELET COUNT 263 K/UL (150-450); RED BLOOD COUNT 3.21 M/UL (4.20-5.40); WHITE BLOOD COUNT 11.8 K/UL (4.8-10.8)
[2020-03-09] MEDS ORDERED: Insulin Reg 100 units Premix 100 ML IVPB ONE (06:54)
--- NOTE | 2020-03-09 07:08 | General Progress Note ---
Assessment/Plan Problem List: (1) Syncope ICD Codes: R55 - Syncope and collapse SNOMED: 429904420 (2) Acute kidney failure ICD Codes: N17.9 - Acute kidney failure, unspecified SNOMED: 28637436 (3) Hypoglycemia ICD Codes: E16.2 - Hypoglycemia, unspecified SNOMED: 821597349 (4) UTI (urinary tract infection) ICD Codes: N39.0 - Urinary tract infection, site not specified SNOMED: 15017264 Status: stable Assessment/Plan: Continue D50 as well as glucagon prn monitor bs ivf per renal monitor lytes replace lytes as needed BiPAP as needed- try to wean abx per ID repeat stool ob ppi trend cbc CT scan of the chest and abdomen when stable- ?hx of LAD/masses per dtr/pt Discussed with daughter Critical and guarded Subjective ROS Limited/Unobtainable: No Constitutional: Reports: weakness HEENT: Reports: no symptoms Cardiovascular: Reports: no symptoms Respiratory: Reports: shortness of breath Gastrointestinal/Abdominal: Reports: tarry stools Genitourinary: Reports: no symptoms Neurologic/Psychiatric: Reports: no symptoms Endocrine: Reports: no symptoms Hematologic/Lymphatic: Reports: anemia Allergies: Coded Allergies: No Known Allergies (Unverified , 03/03/20) All Systems: reviewed and negative except above Subjective remains bipap dependent. desaturates when off. having tarry stool. denies cp/ sob. h/h slightly lower today. BS stable. no fever or chills. BMP pending. Objective Last 24 Hour Vital Signs Date Time Temp Pulse Resp B/P (MAP) Pulse Ox O2 Delivery O2 Flow Rate FiO2 03/09/20 06:57 92 36 97 30 03/09/20 06:56 99 Bi-Pap 30 03/09/20 06:00 94 32 166/125 (139) 99 03/09/20 04:53 95 03/09/20 04:00 Bi-pap 03/09/20 04:00 45 03/09/20 04:00 91 34 163/77 (105) 99 03/09/20 04:00 94 03/09/20 03:00 94 31 147/69 (95) 100 03/09/20 02:58 94 148/64 03/09/20 02:31 95 32 99 45 03/09/20 02:00 98.5 93 32 156/78 (104) 99 03/09/20 01:00 82 24 144/74 (97) 99 03/09/20 01:00 91 32 99 45 03/09/20 00:00 Bi-pap 03/09/20 00:00 86 31 162/75 (104) 100 03/08/20 23:00 98.2 84 32 159/77 (104) 99 03/08/20 22:33 81 33 100 45 03/08/20 21:12 95 30 99 45 03/08/20 21:03 106 27 168/82 (110) 99 03/08/20 21:00 107 24 166/92 (116) 97 03/08/20 21:00 94 29 159/76 (103) 100 03/08/20 20:45 97 166/83 03/08/20 20:43 97 166/83 03/08/20 20:00 97 03/08/20 20:00 45 03/08/20 20:00 Bi-pap 03/08/20 20:00 94 29 159/76 (103) 100 03/08/20 19:06 97 Bi-Pap 45 03/08/20 19:00 87 23 148/69 (95) 100 03/08/20 18:45 84 32 100 45 03/08/20 18:00 95 30 156/72 (100) 100 03/08/20 17:28 102 31 97 45 03/08/20 17:00 102 26 154/90 (111) 99 03/08/20 16:00 Bi-pap 03/08/20 16:00 45 03/08/20 16:00 98.8 85 24 145/71 (95) 100 03/08/20 16:00 92 03/08/20 15:09 101 28 95 45 03/08/20 15:00 91 27 147/75 (99) 99 03/08/20 14:00 103 24 146/71 (96) 99 03/08/20 13:10 91 152/72 03/08/20 13:00 94 25 152/72 (98) 100 03/08/20 12:30 81 21 100 45 03/08/20 12:00 99.6 97 23 155/76 (102) 95 03/08/20 12:00 99 03/08/20 12:00 Bi-pap 03/08/20 11:25 97 Venturi Mask 10.0 45 03/08/20 11:00 95 26 143/84 (103) 95 03/08/20 11:00 45 03/08/20 10:25 98 03/08/20 10:00 85 26 154/76 (102) 99 03/08/20 09:08 96 33 98 45 03/08/20 09:00 97 24 158/76 (103) 100 03/08/20 08:21 99 149/82 03/08/20 08:00 92 03/08/20 08:00 99.1 96 26 157/82 (107) 98 03/08/20 08:00 92 03/08/20 08:00 Bi-pap 03/08/20 08:00 45 03/08/20 07:15 93 31 98 45 Intake and Output 03/08/20 03/09/20 19:00 07:00 Intake Total 50 ml 110.0 ml Output Total 850 ml 1200 ml Balance -800 ml -1090.0 ml IV Total 50 ml 110.0 ml Output Urine Total 850 ml 1200 ml # Bowel Movements 2 7 Laboratory Tests 03/08/20 09:00: White Blood Count 11.9H, Red Blood Count 3.51L, Hemoglobin 8.6L, Hematocrit 27.5L, Mean Corpuscular Volume 78L, Mean Corpuscular Hemoglobin 24.5L, Mean Corpuscular Hemoglobin Concent 31.3L, Red Cell Distribution Width 14.4, Platelet Count 297, Mean Platelet Volume 5.4L, Neutrophils (%) (Auto) , Lymphocytes (%) (Auto) , Monocytes (%) (Auto) , Eosinophils (%) (Auto) , Basophils (%) (Auto) , Differential Total Cells Counted 100, Neutrophils % ( Manual) 89H, Lymphocytes % (Manual) 6L, Monocytes % (Manual) 4, Eosinophils % ( Manual) 1, Basophils % (Manual) 0, Band Neutrophils 0, Platelet Estimate Adequate, Platelet Morphology Normal, Hypochromasia 2+, Anisocytosis 1+, Microcytosis 1+, Sodium Level 146H, Potassium Level 3.2L, Chloride Level 108H, Carbon Dioxide Level 25, Anion Gap 13, Blood Urea Nitrogen 28H, Creatinine 1.4H , Estimat Glomerular Filtration Rate 46.1, Glucose Level 190H, Calcium Level 10.1, Phosphorus Level 2.0L, Magnesium Level 1.7L, Total Bilirubin 0.5, Aspartate Amino Transf (AST/SGOT) 36, Alanine Aminotransferase (ALT/SGPT) 33, Alkaline Phosphatase 198H, Total Protein 7.6, Albumin 2.4L, Globulin 5.2, Albumin/Globulin Ratio 0.5L 03/09/20 05:27: White Blood Count 11.8H, Red Blood Count 3.21L, Hemoglobin 8.0L, Hematocrit 25.4L, Mean Corpuscular Volume 79L, Mean Corpuscular Hemoglobin 24.9L, Mean Corpuscular Hemoglobin Concent 31.4L, Red Cell Distribution Width 15.0H, Platelet Count 263, Mean Platelet Volume 5.4L, Neutrophils (%) (Auto) , Lymphocytes (%) (Auto) , Monocytes (%) (Auto) , Eosinophils (%) (Auto) , Basophils (%) (Auto) , Neutrophils % (Manual) [Pending], Lymphocytes % (Manual) [Pending], Platelet Estimate [Pending], Platelet Morphology [Pending], Sodium Level [Pending], Potassium Level [Pending], Chloride Level [Pending], Carbon Dioxide Level [Pending], Blood Urea Nitrogen [Pending], Creatinine [Pending], Estimat Glomerular Filtration Rate [Pending], Glucose Level [Pending], Calcium Level [Pending], Phosphorus Level [Pending], Magnesium Level [Pending], Total Bilirubin [Pending], Aspartate Amino Transf (AST/SGOT) [Pending], Alanine Aminotransferase (ALT/SGPT) [Pending], Alkaline Phosphatase [Pending], Total Protein [Pending], Albumin [Pending], Globulin [Pending] Height (Feet): 5 Height (Inches): 10.00 Weight (Pounds): 324 Objective General Appearance: WD/WN, alert EENT: PERRL/EOMI Neck: non-tender, normal alignment Cardiovascular: normal peripheral pulses, normal rate Respiratory/Chest: chest wall non-tender, lungs clear, normal breath sounds, no respiratory distress Abdomen: normal bowel sounds, non tender, soft, no organomegaly Edema: moderate edema 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
[2020-03-09 07:12] LABS: ALANINE AMINOTRANSFERASE 38 U/L (12-78); ALBUMIN 2.3 G/DL (3.4-5.0); ALBUMIN/GLOBULIN RATIO 0.5 (1.0-2.7); ALKALINE PHOSPHATASE 180 U/L (46-116); ANION GAP 11 mmol/L (5-15); ASPARTATE AMINO TRANSFERASE 46 U/L (15-37); BILIRUBIN,TOTAL 0.6 MG/DL (0.2-1.0); BLOOD UREA NITROGEN 24 mg/dL (7-18); CALCIUM 9.9 MG/DL (8.5-10.1); CARBON DIOXIDE 27 MMOL/L (21-32); CHLORIDE 111 MMOL/L (98-107); CREATININE 1.2 MG/DL (0.55-1.30); PHOSPHORUS 2.8 MG/DL (2.5-4.9); POTASSIUM 2.9 MMOL/L (3.5-5.1); SODIUM 149 MMOL/L (136-145)
--- NOTE | 2020-03-09 07:15 | Consultation ---
DATE OF CONSULTATION: 03/07/2020 ENDOCRINOLOGY CONSULTATION CONSULTING PHYSICIAN: George Ivory MD REFERRING PHYSICIAN: Sal Khanna MD REASON FOR CONSULTATION: I was asked to see this 64-year-old female by Dr. Sal Khanna in Endocrinology consultation for management of intractable hyperglycemia in the patient with type 2 diabetes mellitus on MEDICATIONS: Include metformin 500 mg p.o. b.i.d., glimepiride 1 mg p.o. b.i.d., labetolol 300 mg b.i.d., hydralazine 10 mg po daily, benazepril 40 mg b.i.d., diltiazem 120 mg b.i.d., and clonidine 0.2 mg b.i.d. FH,PH,REVIEW OF SYSTEMS: Negative_. PHYSICAL EXAMINATION: GENERAL: The patient is in no acute distress. VITAL SIGNS: Blood pressure 1120/70 pulse 94, respiratory rate 23, and temperature 98. HEAD AND NECK: unremarkable. No jugular venous distention. ABDOMEN: Soft. Bowel sounds are normal. EXTREMITIES: No edema. NEUROLOGIC: Cranial nerves II through XII grossly intact. Toes downgoing. LABORATORY DATA: Glucose 120. ASSESSMENT: Diabetes Mellitus in tight control; CKD, due to diabetic nephropathy, Obesity. PLAN: I recommend restarting the glimepiride 1 mg po BID and metformin 500 mg po BID_. We will order a hemoglobin A1c in am George Ivory M.D. DR: JOHN JOB#: [id number] CC: FLOYD
--- NOTE | 2020-03-09 08:20 | Critical Care Progress Note ---
Assessment/Plan Assessment/Plan acute respiratory failure hypoxemia metabolic acidosis ARF diabetes leukocytosis anemia anasarca pulmonary infiltrates PLAN IV antibiotics keep negative repeat ABG and CXR and monitor for change DVT prophylaxis BIPAP as able and remove as able; desats when off diurese as able keep negative and monitor imaging renal noted- off iv fluids medications/laboratory data/nursing notes/ICU care reviewed in detail note reviewed and edited care discussed with RN and RT ICU time spent >40 minutes Critical Care - Subjective Interval Events: care noted on BIPAP off IV fluids ROS Limited/Unobtainable: Yes Condition: critical EKG Rhythm: Sinus Rhythm I&O: Intake and Output 03/08/20 03/09/20 19:00 07:00 Intake Total 50 ml 110.0 ml Output Total 850 ml 1200 ml Balance -800 ml -1090.0 ml IV Total 50 ml 110.0 ml Output Urine Total 850 ml 1200 ml # Bowel Movements 2 7 Critical Care - Objective Last 24 Hour Vital Signs Date Time Temp Pulse Resp B/P (MAP) Pulse Ox O2 Delivery O2 Flow Rate FiO2 03/09/20 06:57 92 36 97 30 03/09/20 06:56 99 Bi-Pap 30 03/09/20 06:00 94 32 166/125 (139) 99 03/09/20 04:53 95 03/09/20 04:00 Bi-pap 03/09/20 04:00 45 03/09/20 04:00 91 34 163/77 (105) 99 03/09/20 04:00 94 03/09/20 03:00 94 31 147/69 (95) 100 03/09/20 02:58 94 148/64 03/09/20 02:31 95 32 99 45 03/09/20 02:00 98.5 93 32 156/78 (104) 99 03/09/20 01:00 82 24 144/74 (97) 99 03/09/20 01:00 91 32 99 45 03/09/20 00:00 Bi-pap 03/09/20 00:00 86 31 162/75 (104) 100 03/08/20 23:00 98.2 84 32 159/77 (104) 99 03/08/20 22:33 81 33 100 45 03/08/20 21:12 95 30 99 45 03/08/20 21:03 106 27 168/82 (110) 99 03/08/20 21:00 107 24 166/92 (116) 97 03/08/20 21:00 94 29 159/76 (103) 100 03/08/20 20:45 97 166/83 03/08/20 20:43 97 166/83 03/08/20 20:00 97 03/08/20 20:00 45 03/08/20 20:00 Bi-pap 03/08/20 20:00 94 29 159/76 (103) 100 03/08/20 19:06 97 Bi-Pap 45 03/08/20 19:00 87 23 148/69 (95) 100 03/08/20 18:45 84 32 100 45 03/08/20 18:00 95 30 156/72 (100) 100 03/08/20 17:28 102 31 97 45 03/08/20 17:00 102 26 154/90 (111) 99 03/08/20 16:00 Bi-pap 03/08/20 16:00 45 03/08/20 16:00 98.8 85 24 145/71 (95) 100 03/08/20 16:00 92 03/08/20 15:09 101 28 95 45 03/08/20 15:00 91 27 147/75 (99) 99 03/08/20 14:00 103 24 146/71 (96) 99 03/08/20 13:10 91 152/72 03/08/20 13:00 94 25 152/72 (98) 100 03/08/20 12:30 81 21 100 45 03/08/20 12:00 99.6 97 23 155/76 (102) 95 03/08/20 12:00 99 03/08/20 12:00 Bi-pap 03/08/20 11:25 97 Venturi Mask 10.0 45 03/08/20 11:00 95 26 143/84 (103) 95 03/08/20 11:00 45 03/08/20 10:25 98 03/08/20 10:00 85 26 154/76 (102) 99 03/08/20 09:08 96 33 98 45 03/08/20 09:00 97 24 158/76 (103) 100 03/08/20 08:21 99 149/82 Labs: Laboratory Tests Test 03/08/20 09:00 03/09/20 05:27 White Blood Count 11.9 K/UL (4.8-10.8) H 11.8 K/UL (4.8-10.8) H Red Blood Count 3.51 M/UL (4.20-5.40) L 3.21 M/UL (4.20-5.40) L Hemoglobin 8.6 G/DL (12.0-16.0) L 8.0 G/DL (12.0-16.0) L Hematocrit 27.5 % (37.0-47.0) L 25.4 % (37.0-47.0) L Mean Corpuscular Volume 78 FL (80-99) L 79 FL (80-99) L Mean Corpuscular Hemoglobin 24.5 PG (27.0-31.0) L 24.9 PG (27.0-31.0) L Mean Corpuscular Hemoglobin Concent 31.3 G/DL (32.0-36.0) L 31.4 G/DL (32.0-36.0) L Red Cell Distribution Width 14.4 % (11.6-14.8) 15.0 % (11.6-14.8) H Platelet Count 297 K/UL (150-450) 263 K/UL (150-450) Mean Platelet Volume 5.4 FL (6.5-10.1) L 5.4 FL (6.5-10.1) L Neutrophils (%) (Auto) % (45.0-75.0) % (45.0-75.0) Lymphocytes (%) (Auto) % (20.0-45.0) % (20.0-45.0) Monocytes (%) (Auto) % (1.0-10.0) % (1.0-10.0) Eosinophils (%) (Auto) % (0.0-3.0) % (0.0-3.0) Basophils (%) (Auto) % (0.0-2.0) % (0.0-2.0) Differential Total Cells Counted 100 Neutrophils % (Manual) 89 % (45-75) H Pending Lymphocytes % (Manual) 6 % (20-45) L Pending Monocytes % (Manual) 4 % (1-10) Eosinophils % (Manual) 1 % (0-3) Basophils % (Manual) 0 % (0-2) Band Neutrophils 0 % (0-8) Platelet Estimate Adequate Pending Platelet Morphology Normal Pending Hypochromasia 2+ Anisocytosis 1+ Microcytosis 1+ Sodium Level 146 MMOL/L (136-145) H 149 MMOL/L (136-145) H Potassium Level 3.2 MMOL/L (3.5-5.1) L 2.9 MMOL/L (3.5-5.1) L Chloride Level 108 MMOL/L (98-107) H 111 MMOL/L (98-107) H Carbon Dioxide Level 25 MMOL/L (21-32) 27 MMOL/L (21-32) Anion Gap 13 mmol/L (5-15) 11 mmol/L (5-15) Blood Urea Nitrogen 28 mg/dL (7-18) H 24 mg/dL (7-18) H Creatinine 1.4 MG/DL (0.55-1.30) H 1.2 MG/DL (0.55-1.30) Estimat Glomerular Filtration Rate 46.1 mL/min (>60) 54.9 mL/min (>60) Glucose Level 190 MG/DL (74-106) H 140 MG/DL (74-106) H Calcium Level 10.1 MG/DL (8.5-10.1) 9.9 MG/DL (8.5-10.1) Phosphorus Level 2.0 MG/DL (2.5-4.9) L 2.8 MG/DL (2.5-4.9) Magnesium Level 1.7 MG/DL (1.8-2.4) L 1.7 MG/DL (1.8-2.4) L Total Bilirubin 0.5 MG/DL (0.2-1.0) 0.6 MG/DL (0.2-1.0) Aspartate Amino Transf (AST/SGOT) 36 U/L (15-37) 46 U/L (15-37) H Alanine Aminotransferase (ALT/SGPT) 33 U/L (12-78) 38 U/L (12-78) Alkaline Phosphatase 198 U/L (46-116) H 180 U/L (46-116) H Total Protein 7.6 G/DL (6.4-8.2) 7.1 G/DL (6.4-8.2) Albumin 2.4 G/DL (3.4-5.0) L 2.3 G/DL (3.4-5.0) L Globulin 5.2 g/dL 4.8 g/dL Albumin/Globulin Ratio 0.5 (1.0-2.7) L 0.5 (1.0-2.7) L Objective: WDWN on BIPAP reduced breath sounds bilaterally without rhonchi or wheeze [id number] without MRG NABS nontender no HSM no CC noted edema nonfocal more alert Accucheck: 148 Charles Thomson MD Mar 09, 2020 08:20
[2020-03-09] MEDS: Docusate 100mg cap ORAL SCH ×3 (09:00→17:48)
--- NOTE | 2020-03-09 09:36 | Nephrology Progress Note ---
Assessment/Plan Problem List: (1) FARIBA (acute kidney injury) (2) Renal failure (ARF), acute on chronic (3) UTI (urinary tract infection) (4) Hypoglycemia (5) Anemia (6) Morbid obesity with BMI of 45.0-49.9, adult (7) Acute respiratory failure (8) Obstructive sleep apnea Assessment Acute renal failure Possible underlying chronic kidney disease High likelihood of diabetic nephropathy, patient has proteinuria and hypoalbuminemia Persistent hypo-glycemia: The patient was on 3 oral hypoglycemic agents including Glucophage Morbid obesity Hypertension Severe anemia, low MCV UTI Most likely obstructive sleep apnea Plan March 09: Labs reviewed. Medication list reviewed. Remains on BiPAP. Venturi mask is being tried. Discussed with stock trader. Renal parameters stable. Magnesium and potassium supplement given. Blood sugar stable. March 08: Today's labs pending. Will discontinue IV fluid. Remains on BiPAP. Aim to take off BiPAP as possible. Transfusion if needed. Discussed with DARSHAN Iglesias. March 07: Marked improvement in renal parameters. Blood sugar improved. Main issue are respiratory, as patient remains on BiPAP. Hemoglobin lower. May require transfusion again. Abnormal electrolytes corrected March 06: Clinically improved. Remains on BiPAP. Blood sugar improved. Urine output well maintained. Serum creatinine lowered. Will adjust blood pressure medication for better control. D10 infusion down to 50 cc an hour. Continue monitor renal parameters. Lasix as needed. 24-hour urine for total protein. March 05: Discontinue Cozaar, labetalol Stop all oral oral hypoglycemics and insulin Start clonidine patch and clonidine PRN for high blood pressure Add Norvasc for blood pressure D10 infusion Check labs, thyroid panel, anemia work-up, lipid panel, hemoglobin A1c Urine for eosinophils and spot sodium Check ABG Per orders Subjective ROS Limited/Unobtainable: No Constitutional: Reports: malaise, weakness Objective Objective Last 24 Hour Vital Signs Date Time Temp Pulse Resp B/P (MAP) Pulse Ox O2 Delivery O2 Flow Rate FiO2 03/09/20 09:17 105 164/82 03/09/20 09:17 105 164/82 03/09/20 09:11 95 03/09/20 06:57 92 36 97 30 03/09/20 06:56 99 Bi-Pap 30 03/09/20 06:00 94 32 166/125 (139) 99 03/09/20 04:53 95 03/09/20 04:00 Bi-pap 03/09/20 04:00 45 03/09/20 04:00 91 34 163/77 (105) 99 03/09/20 04:00 94 03/09/20 03:00 94 31 147/69 (95) 100 03/09/20 02:58 94 148/64 03/09/20 02:31 95 32 99 45 03/09/20 02:00 98.5 93 32 156/78 (104) 99 03/09/20 01:00 82 24 144/74 (97) 99 03/09/20 01:00 91 32 99 45 03/09/20 00:00 Bi-pap 03/09/20 00:00 86 31 162/75 (104) 100 03/08/20 23:00 98.2 84 32 159/77 (104) 99 03/08/20 22:33 81 33 100 45 03/08/20 21:12 95 30 99 45 03/08/20 21:03 106 27 168/82 (110) 99 03/08/20 21:00 107 24 166/92 (116) 97 03/08/20 21:00 94 29 159/76 (103) 100 03/08/20 20:45 97 166/83 03/08/20 20:43 97 166/83 03/08/20 20:00 97 03/08/20 20:00 45 03/08/20 20:00 Bi-pap 03/08/20 20:00 94 29 159/76 (103) 100 03/08/20 19:06 97 Bi-Pap 45 03/08/20 19:00 87 23 148/69 (95) 100 03/08/20 18:45 84 32 100 45 03/08/20 18:00 95 30 156/72 (100) 100 03/08/20 17:28 102 31 97 45 03/08/20 17:00 102 26 154/90 (111) 99 03/08/20 16:00 Bi-pap 03/08/20 16:00 45 03/08/20 16:00 98.8 85 24 145/71 (95) 100 03/08/20 16:00 92 03/08/20 15:09 101 28 95 45 03/08/20 15:00 91 27 147/75 (99) 99 03/08/20 14:00 103 24 146/71 (96) 99 03/08/20 13:10 91 152/72 03/08/20 13:00 94 25 152/72 (98) 100 03/08/20 12:30 81 21 100 45 03/08/20 12:00 99.6 97 23 155/76 (102) 95 03/08/20 12:00 99 03/08/20 12:00 Bi-pap 03/08/20 11:25 97 Venturi Mask 10.0 45 03/08/20 11:00 95 26 143/84 (103) 95 03/08/20 11:00 45 03/08/20 10:25 98 03/08/20 10:00 85 26 154/76 (102) 99 Intake and Output 03/08/20 03/09/20 19:00 07:00 Intake Total 50 ml 110.0 ml Output Total 850 ml 1200 ml Balance -800 ml -1090.0 ml IV Total 50 ml 110.0 ml Output Urine Total 850 ml 1200 ml # Bowel Movements 2 7 Laboratory Tests 03/09/20 05:27: White Blood Count 11.8H, Red Blood Count 3.21L, Hemoglobin 8.0L, Hematocrit 25.4L, Mean Corpuscular Volume 79L, Mean Corpuscular Hemoglobin 24.9L, Mean Corpuscular Hemoglobin Concent 31.4L, Red Cell Distribution Width 15.0H, Platelet Count 263, Mean Platelet Volume 5.4L, Neutrophils (%) (Auto) , Lymphocytes (%) (Auto) , Monocytes (%) (Auto) , Eosinophils (%) (Auto) , Basophils (%) (Auto) , Neutrophils % (Manual) [Pending], Lymphocytes % (Manual) [Pending], Platelet Estimate [Pending], Platelet Morphology [Pending], Sodium Level 149H, Potassium Level 2.9L, Chloride Level 111H, Carbon Dioxide Level 27, Anion Gap 11, Blood Urea Nitrogen 24H, Creatinine 1.2, Estimat Glomerular Filtration Rate 54.9, Glucose Level 140H, Calcium Level 9.9, Phosphorus Level 2.8, Magnesium Level 1.7L, Total Bilirubin 0.6, Aspartate Amino Transf (AST/SGOT ) 46H, Alanine Aminotransferase (ALT/SGPT) 38, Alkaline Phosphatase 180H, Total Protein 7.1, Albumin 2.3L, Globulin 4.8, Albumin/Globulin Ratio 0.5L Height (Feet): 5 Height (Inches): 10.00 Weight (Pounds): 324 General Appearance: no apparent distress EENT: other Cardiovascular: tachycardia Respiratory/Chest: decreased breath sounds - On BiPAP Abdomen: distended Sundar Camargo MD Mar 09, 2020 09:36
--- NOTE | 2020-03-09 10:23 | General Progress Note ---
Assessment/Plan Status: stable Assessment/Plan: Assessment - Dark stools, r/o GIB - microcytic anemia - resp failure4 - resolved renal failure - anasarca, abdominal distention Recommendations - Monitor H&H - IV Fe trial - PPI - Re check stool OB (neg on 02/22) - not candidate for endoscopy at this time Thank you Garry Barrera MD Subjective Allergies: Coded Allergies: No Known Allergies (Unverified , 03/03/20) Objective Last 24 Hour Vital Signs Date Time Temp Pulse Resp B/P (MAP) Pulse Ox O2 Delivery O2 Flow Rate FiO2 03/09/20 09:17 105 164/82 03/09/20 09:17 105 164/82 03/09/20 09:11 95 03/09/20 06:57 92 36 97 30 03/09/20 06:56 99 Bi-Pap 30 03/09/20 06:00 94 32 166/125 (139) 99 03/09/20 04:53 95 03/09/20 04:00 Bi-pap 03/09/20 04:00 45 03/09/20 04:00 91 34 163/77 (105) 99 03/09/20 04:00 94 03/09/20 03:00 94 31 147/69 (95) 100 03/09/20 02:58 94 148/64 03/09/20 02:31 95 32 99 45 03/09/20 02:00 98.5 93 32 156/78 (104) 99 03/09/20 01:00 82 24 144/74 (97) 99 03/09/20 01:00 91 32 99 45 03/09/20 00:00 Bi-pap 03/09/20 00:00 86 31 162/75 (104) 100 03/08/20 23:00 98.2 84 32 159/77 (104) 99 03/08/20 22:33 81 33 100 45 03/08/20 21:12 95 30 99 45 03/08/20 21:03 106 27 168/82 (110) 99 03/08/20 21:00 107 24 166/92 (116) 97 03/08/20 21:00 94 29 159/76 (103) 100 03/08/20 20:45 97 166/83 03/08/20 20:43 97 166/83 03/08/20 20:00 97 03/08/20 20:00 45 03/08/20 20:00 Bi-pap 03/08/20 20:00 94 29 159/76 (103) 100 03/08/20 19:06 97 Bi-Pap 45 03/08/20 19:00 87 23 148/69 (95) 100 03/08/20 18:45 84 32 100 45 03/08/20 18:00 95 30 156/72 (100) 100 03/08/20 17:28 102 31 97 45 03/08/20 17:00 102 26 154/90 (111) 99 03/08/20 16:00 Bi-pap 03/08/20 16:00 45 03/08/20 16:00 98.8 85 24 145/71 (95) 100 03/08/20 16:00 92 03/08/20 15:09 101 28 95 45 03/08/20 15:00 91 27 147/75 (99) 99 03/08/20 14:00 103 24 146/71 (96) 99 03/08/20 13:10 91 152/72 03/08/20 13:00 94 25 152/72 (98) 100 03/08/20 12:30 81 21 100 45 03/08/20 12:00 99.6 97 23 155/76 (102) 95 03/08/20 12:00 99 03/08/20 12:00 Bi-pap 03/08/20 11:25 97 Venturi Mask 10.0 45 03/08/20 11:00 95 26 143/84 (103) 95 03/08/20 11:00 45 03/08/20 10:25 98 Intake and Output 03/08/20 03/09/20 19:00 07:00 Intake Total 50 ml 210.0 ml Output Total 850 ml 1400 ml Balance -800 ml -1190.0 ml Intake Oral 100 ml IV Total 50 ml 110.0 ml Output Urine Total 850 ml 1400 ml # Bowel Movements 2 7 Laboratory Tests 03/09/20 05:27: White Blood Count 11.8H, Red Blood Count 3.21L, Hemoglobin 8.0L, Hematocrit 25.4L, Mean Corpuscular Volume 79L, Mean Corpuscular Hemoglobin 24.9L, Mean Corpuscular Hemoglobin Concent 31.4L, Red Cell Distribution Width 15.0H, Platelet Count 263, Mean Platelet Volume 5.4L, Neutrophils (%) (Auto) , Lymphocytes (%) (Auto) , Monocytes (%) (Auto) , Eosinophils (%) (Auto) , Basophils (%) (Auto) , Differential Total Cells Counted 100, Neutrophils % ( Manual) 88H, Lymphocytes % (Manual) 8L, Monocytes % (Manual) 4, Eosinophils % ( Manual) 0, Basophils % (Manual) 0, Band Neutrophils 0, Platelet Estimate Adequate, Platelet Morphology Normal, Hypochromasia 2+, Microcytosis 1+, Sodium Level 149H, Potassium Level 2.9L, Chloride Level 111H, Carbon Dioxide Level 27, Anion Gap 11, Blood Urea Nitrogen 24H, Creatinine 1.2, Estimat Glomerular Filtration Rate 54.9, Glucose Level 140H, Calcium Level 9.9, Phosphorus Level 2.8, Magnesium Level 1.7L, Total Bilirubin 0.6, Aspartate Amino Transf (AST/SGOT ) 46H, Alanine Aminotransferase (ALT/SGPT) 38, Alkaline Phosphatase 180H, Total Protein 7.1, Albumin 2.3L, Globulin 4.8, Albumin/Globulin Ratio 0.5L Height (Feet): 5 Height (Inches): 10.00 Weight (Pounds): 324 Garry Barrera MD Mar 09, 2020 10:23
--- NOTE | 2020-03-09 11:26 | Infectious Diseases Prog Note ---
Assessment/Plan Assessment/Plan antibiotics : zosyn A 1. pneumonia COVID 19 negative 2. respiratory failure 3. leucocytosis improving 4. renal failure improving 5. diabetes mellitus 6. hypertension P 1. continue zosyn 2. will follow up cultures Subjective ROS Limited/Unobtainable: Yes Allergies: Coded Allergies: No Known Allergies (Unverified , 03/03/20) Objective Last 24 Hour Vital Signs Date Time Temp Pulse Resp B/P (MAP) Pulse Ox O2 Delivery O2 Flow Rate FiO2 03/09/20 11:00 90 34 106/82 (90) 96 03/09/20 10:00 98 33 178/87 (117) 91 03/09/20 09:17 105 164/82 03/09/20 09:17 105 164/82 03/09/20 09:11 95 03/09/20 09:00 102 21 164/82 (109) 97 03/09/20 08:00 45 03/09/20 08:00 Bi-pap 03/09/20 08:00 93 03/09/20 08:00 105 24 163/110 (127) 92 03/09/20 07:00 98.0 97 30 167/74 (105) 94 03/09/20 06:57 92 36 97 30 03/09/20 06:56 99 Bi-Pap 30 03/09/20 06:00 94 32 166/125 (139) 99 03/09/20 04:53 95 03/09/20 04:00 Bi-pap 03/09/20 04:00 45 03/09/20 04:00 91 34 163/77 (105) 99 03/09/20 04:00 94 03/09/20 03:00 94 31 147/69 (95) 100 03/09/20 02:58 94 148/64 03/09/20 02:31 95 32 99 45 03/09/20 02:00 98.5 93 32 156/78 (104) 99 03/09/20 01:00 82 24 144/74 (97) 99 03/09/20 01:00 91 32 99 45 03/09/20 00:00 Bi-pap 03/09/20 00:00 86 31 162/75 (104) 100 03/08/20 23:00 98.2 84 32 159/77 (104) 99 03/08/20 22:33 81 33 100 45 03/08/20 21:12 95 30 99 45 03/08/20 21:03 106 27 168/82 (110) 99 03/08/20 21:00 107 24 166/92 (116) 97 03/08/20 21:00 94 29 159/76 (103) 100 03/08/20 20:45 97 166/83 03/08/20 20:43 97 166/83 03/08/20 20:00 97 03/08/20 20:00 45 03/08/20 20:00 Bi-pap 03/08/20 20:00 94 29 159/76 (103) 100 03/08/20 19:06 97 Bi-Pap 45 03/08/20 19:00 87 23 148/69 (95) 100 03/08/20 18:45 84 32 100 45 03/08/20 18:00 95 30 156/72 (100) 100 03/08/20 17:28 102 31 97 45 03/08/20 17:00 102 26 154/90 (111) 99 03/08/20 16:00 Bi-pap 03/08/20 16:00 45 03/08/20 16:00 98.8 85 24 145/71 (95) 100 03/08/20 16:00 92 03/08/20 15:09 101 28 95 45 03/08/20 15:00 91 27 147/75 (99) 99 03/08/20 14:00 103 24 146/71 (96) 99 03/08/20 13:10 91 152/72 03/08/20 13:00 94 25 152/72 (98) 100 03/08/20 12:30 81 21 100 45 03/08/20 12:00 99.6 97 23 155/76 (102) 95 03/08/20 12:00 99 03/08/20 12:00 Bi-pap 03/08/20 11:25 97 Venturi Mask 10.0 45 Height (Feet): 5 Height (Inches): 10.00 Weight (Pounds): 344 HEENT: other - on bipap Respiratory/Chest: lungs clear Cardiovascular: normal rate, regular rhythm, no gallop/murmur Abdomen: soft, non tender Extremities: other - + edema Laboratory Tests Test 03/09/20 05:27 White Blood Count 11.8 K/UL (4.8-10.8) H Red Blood Count 3.21 M/UL (4.20-5.40) L Hemoglobin 8.0 G/DL (12.0-16.0) L Hematocrit 25.4 % (37.0-47.0) L Mean Corpuscular Volume 79 FL (80-99) L Mean Corpuscular Hemoglobin 24.9 PG (27.0-31.0) L Mean Corpuscular Hemoglobin Concent 31.4 G/DL (32.0-36.0) L Red Cell Distribution Width 15.0 % (11.6-14.8) H Platelet Count 263 K/UL (150-450) Mean Platelet Volume 5.4 FL (6.5-10.1) L Neutrophils (%) (Auto) % (45.0-75.0) Lymphocytes (%) (Auto) % (20.0-45.0) Monocytes (%) (Auto) % (1.0-10.0) Eosinophils (%) (Auto) % (0.0-3.0) Basophils (%) (Auto) % (0.0-2.0) Differential Total Cells Counted 100 Neutrophils % (Manual) 88 % (45-75) H Lymphocytes % (Manual) 8 % (20-45) L Monocytes % (Manual) 4 % (1-10) Eosinophils % (Manual) 0 % (0-3) Basophils % (Manual) 0 % (0-2) Band Neutrophils 0 % (0-8) Platelet Estimate Adequate Platelet Morphology Normal Hypochromasia 2+ Microcytosis 1+ Sodium Level 149 MMOL/L (136-145) H Potassium Level 2.9 MMOL/L (3.5-5.1) L Chloride Level 111 MMOL/L (98-107) H Carbon Dioxide Level 27 MMOL/L (21-32) Anion Gap 11 mmol/L (5-15) Blood Urea Nitrogen 24 mg/dL (7-18) H Creatinine 1.2 MG/DL (0.55-1.30) Estimat Glomerular Filtration Rate 54.9 mL/min (>60) Glucose Level 140 MG/DL (74-106) H Calcium Level 9.9 MG/DL (8.5-10.1) Phosphorus Level 2.8 MG/DL (2.5-4.9) Magnesium Level 1.7 MG/DL (1.8-2.4) L Total Bilirubin 0.6 MG/DL (0.2-1.0) Aspartate Amino Transf (AST/SGOT) 46 U/L (15-37) H Alanine Aminotransferase (ALT/SGPT) 38 U/L (12-78) Alkaline Phosphatase 180 U/L (46-116) H Total Protein 7.1 G/DL (6.4-8.2) Albumin 2.3 G/DL (3.4-5.0) L Globulin 4.8 g/dL Albumin/Globulin Ratio 0.5 (1.0-2.7) L Current Medications Medications (Trade) Dose Ordered Sig/Francisco J Route PRN Reason Start Time Stop Time Status Last Admin Dose Admin Acetaminophen (Tylenol) 650 mg Q4H PRN ORAL Mild Pain (Pain Scale 1-3) 03/04/20 12:15 04/02/20 12:14 03/08/20 12:00 Clonidine HCl (Catapres TTS-3) 1 patch QWEEK TDERMAL 03/05/20 10:30 06/03/20 10:29 03/05/20 10:11 Clonidine HCl (Catapres Tab) 0.1 mg Q4H PRN ORAL bp over 160 syst 03/05/20 09:30 06/03/20 09:29 03/07/20 04:53 Dextrose (Dextrose 50%) 25 ml Q30M PRN IV Hypoglycemia 03/04/20 12:00 06/01/20 21:59 03/04/20 21:41 Dextrose (Dextrose 50%) 50 ml Q30M PRN IV Hypoglycemia 03/04/20 12:00 06/01/20 21:59 03/05/20 06:15 Diltiazem HCl (Cardizem Tab) 60 mg Q6H ORAL 03/09/20 03:00 04/08/20 02:59 03/09/20 09:17 Docusate Sodium (Colace) 100 mg THREE TIMES A DAY ORAL 03/09/20 09:00 04/08/20 08:59 Furosemide (Lasix) 40 mg DAILY IV 03/07/20 09:00 04/06/20 08:59 03/09/20 09:16 Glucagon (Glucagon) 1 mg Q2H PRN IM Hypoglycemia 03/05/20 11:00 06/03/20 10:59 Insulin Aspart (NovoLOG) BEFORE MEALS AND HS SUBQ 03/07/20 06:30 06/05/20 06:29 03/09/20 10:50 Iron Sucrose 100 mg/Sodium Chloride 60 ml @ 240 mls/hr BEDTIME IVPB 03/09/20 21:00 03/13/20 21:14 Metoprolol Tartrate (Lopressor) 25 mg Q12HR ORAL 03/06/20 15:15 06/04/20 15:14 03/09/20 09:17 Pantoprazole (Protonix) 40 mg EVERY 12 HOURS ORAL 03/09/20 09:00 04/08/20 08:59 03/09/20 09:17 Piperacillin Sod/ Tazobactam Sod 3.375 gm/Sodium Chloride 110 ml @ 27.5 mls/hr Q8HR IVPB 03/09/20 14:00 03/16/20 13:59 Polyethylene Glycol (Miralax) 17 gm DAILYPRN PRN ORAL Constipation 03/04/20 12:15 04/03/20 12:14 Potassium Chloride 100 ml @ 100 mls/hr Q1H IVPB 03/09/20 09:00 03/09/20 12:59 03/09/20 10:51 Potassium Chloride (K-Dur) 40 meq DAILY ORAL 03/09/20 09:00 06/07/20 08:59 03/09/20 09:16 Temazepam (RestoriL) 7.5 mg HSPRN PRN ORAL Insomnia 03/04/20 21:00 03/10/20 20:59 Yudelka Alcocer MD Mar 09, 2020 11:26
[2020-03-09 12:38] LABS: BASOPHILS % (AUTO) 3.7 % (0.0-2.0); EOSINOPHILS % (AUTO) 0.9 % (0.0-3.0); HEMATOCRIT 25.8 % (37.0-47.0); HEMOGLOBIN 8.1 G/DL (12.0-16.0); LYMPHOCYTES % (AUTO) 6.9 % (20.0-45.0); MEAN CORPUSCULAR VOLUME 79 FL (80-99); MONOCYTES % (AUTO) 7.5 % (1.0-10.0); PLATELET COUNT 277 K/UL (150-450); RED BLOOD COUNT 3.27 M/UL (4.20-5.40); RED CELL DISTRIBUTION WIDTH 15.1 % (11.6-14.8); WHITE BLOOD COUNT 12.7 K/UL (4.8-10.8)
[2020-03-09] MEDS: Piperacillin/Tazobactam 3.375 GM in NS 110 ML IVPB SCH ×2 (13:14→21:33)
[2020-03-09] MEDS: Iron Sucrose 100 MG in NS 55 ML IVPB SCH (21:10)
[2020-03-10] VITALS (25 sets, daily range): BP systolic 117–177; BP diastolic 56–106
--- NOTE | 2020-03-10 00:59 | Consultation ---
DATE OF CONSULTATION: 03/09/2020 GASTROENTEROLOGY CONSULTATION CONSULTING PHYSICIAN: Garry Barrera MD REFERRING PHYSICIAN: Sal Khanna MD CHIEF COMPLAINT: I was asked to see this patient by Dr. Sal Khanna for evaluation of dark stools, possible gastrointestinal bleeding. HISTORY OF PRESENT ILLNESS: The patient is a pleasant 64-year-old woman with multiple medical problems, who has been admitted to the hospital due to hypoglycemia. She is now in the ICU with respiratory insufficiency and has been seen by multiple consultants. The patient denies any abdominal pain, nausea, or vomiting. She has not had a history of gastrointestinal bleeding or peptic ulcer disease prior. She does complain of some pyrosis; however, she has felt short of breath and she is on an oxygen face mask. The patient states she has had a colonoscopy a few years ago; however, she also states that she has had anemia for a number of years. She feels that her abdomen is bigger than usual at this time. PAST MEDICAL HISTORY: Remarkable for history of hypertension, diabetes, recent renal failure, and anemia. FAMILY HISTORY: Positive for daughter having breast cancer. SOCIAL HISTORY: The patient has had no history of smoking or drinking. She is single. She has 3 daughters and 1 son. REVIEW OF SYSTEMS: Otherwise negative. PHYSICAL EXAMINATION: GENERAL: A pleasant obese woman, seen in the intensive care unit. HEENT: Normocephalic and atraumatic. Sclerae are anicteric. Oropharynx is clear. NECK: Supple. CHEST: Reveals coarse breath sounds. CARDIOVASCULAR: Reveals regular rate. ABDOMEN: Soft, but obese and distended without obvious masses, organomegaly, or ascites. EXTREMITIES: Reveal no edema. LABORATORY DATA: Noted. ASSESSMENT: This patient had some dark stools this morning suggestive of gastrointestinal bleeding. The stool will be sent for confirmation for occult blood testing since the patient actually had a negative Hemoccult stools about 5 days ago. Should gastrointestinal bleeding be confirmed, the patient can be considered for endoscopy, although at this time, she is not a good candidate for anesthesia and this procedure is best deferred. In the meantime, I will treat the patient with proton-pump inhibitor and we will follow her laboratory parameters closely. She will be transfused as necessary. RECOMMENDATIONS: Per above discussion and per orders written in the chart. Thank you for asking me to participate in the care of this patient. Garry Barrera M.D. DR: ANAY JOB#: [id number] CC:
--- NOTE | 2020-03-10 02:31 | Cardiology Progress Note ---
Subjective DATE OF SERVICE: Mar 09, 2020 Maintaining sinus rhythm Remains dependent on bipap support Still with electrolyte abnormalities Rising BP trend Objective Last 24 Hour Vital Signs Date Time Temp Pulse Resp B/P (MAP) Pulse Ox O2 Delivery O2 Flow Rate FiO2 03/10/20 01:30 80 31 96 30 03/10/20 00:00 98.5 93 30 147/83 (104) 97 03/10/20 00:00 Bi-pap 03/10/20 00:00 89 03/10/20 00:00 30 03/09/20 23:18 85 34 97 30 03/09/20 23:00 86 25 157/69 (98) 96 03/09/20 22:00 75 20 161/65 (97) 96 03/09/20 21:00 94 163/72 03/09/20 21:00 94 163/72 03/09/20 21:00 88 33 96 30 03/09/20 21:00 97 31 165/70 (101) 95 03/09/20 20:00 Bi-pap 03/09/20 20:00 96 Bi-Pap 30 03/09/20 20:00 93 26 159/69 (99) 94 03/09/20 20:00 30 03/09/20 20:00 Bi-pap 03/09/20 20:00 85 03/09/20 19:00 94 32 161/65 (97) 95 03/09/20 18:00 100 32 178/92 (120) 92 03/09/20 17:00 97 30 160/71 (100) 94 03/09/20 16:55 96 03/09/20 16:00 93 28 141/80 (100) 95 03/09/20 16:00 98.0 93 28 141/80 (100) 95 03/09/20 16:00 30 03/09/20 16:00 93 03/09/20 16:00 Bi-pap 03/09/20 15:00 82 27 157/66 (96) 97 03/09/20 14:56 87 30 97 30 03/09/20 14:56 85 30 97 Bi-Pap 30 03/09/20 14:36 91 158/72 03/09/20 14:00 92 21 94/72 (79) 97 03/09/20 13:00 95 28 161/75 (103) 93 03/09/20 12:42 90 03/09/20 12:00 90 03/09/20 12:00 Bi-pap 03/09/20 12:00 98.2 81 20 149/69 (95) 96 03/09/20 12:00 30 03/09/20 11:00 90 34 106/82 (90) 96 03/09/20 10:31 85 31 95 30 03/09/20 10:00 98 33 178/87 (117) 91 03/09/20 09:17 105 164/82 03/09/20 09:17 105 164/82 03/09/20 09:11 95 03/09/20 09:00 102 21 164/82 (109) 97 03/09/20 08:00 45 03/09/20 08:00 Bi-pap 03/09/20 08:00 93 03/09/20 08:00 105 24 163/110 (127) 92 03/09/20 07:00 98.0 97 30 167/74 (105) 94 03/09/20 06:57 92 36 97 30 03/09/20 06:56 99 Bi-Pap 30 03/09/20 06:00 94 32 166/125 (139) 99 03/09/20 04:53 95 03/09/20 04:00 Bi-pap 03/09/20 04:00 45 03/09/20 04:00 91 34 163/77 (105) 99 03/09/20 04:00 94 03/09/20 03:00 94 31 147/69 (95) 100 03/09/20 02:58 94 148/64 03/09/20 02:31 95 32 99 45 HEENT: normal ENT inspection RHYTHM: ST, PACs LUNGS: bilateral rhonchi CARDIAC: normal rate, normal S1 and S2 ABDOMEN: normal bowel sounds, non tender, soft, no organomegaly EXTREMITIES: No edema Laboratory Tests Test 03/09/20 05:27 03/09/20 12:15 White Blood Count 11.8 K/UL (4.8-10.8) H 12.7 K/UL (4.8-10.8) H Red Blood Count 3.21 M/UL (4.20-5.40) L 3.27 M/UL (4.20-5.40) L Hemoglobin 8.0 G/DL (12.0-16.0) L 8.1 G/DL (12.0-16.0) L Hematocrit 25.4 % (37.0-47.0) L 25.8 % (37.0-47.0) L Mean Corpuscular Volume 79 FL (80-99) L 79 FL (80-99) L Mean Corpuscular Hemoglobin 24.9 PG (27.0-31.0) L 24.8 PG (27.0-31.0) L Mean Corpuscular Hemoglobin Concent 31.4 G/DL (32.0-36.0) L 31.5 G/DL (32.0-36.0) L Red Cell Distribution Width 15.0 % (11.6-14.8) H 15.1 % (11.6-14.8) H Platelet Count 263 K/UL (150-450) 277 K/UL (150-450) Mean Platelet Volume 5.4 FL (6.5-10.1) L 5.5 FL (6.5-10.1) L Neutrophils (%) (Auto) % (45.0-75.0) 81.0 % (45.0-75.0) H Lymphocytes (%) (Auto) % (20.0-45.0) 6.9 % (20.0-45.0) L Monocytes (%) (Auto) % (1.0-10.0) 7.5 % (1.0-10.0) Eosinophils (%) (Auto) % (0.0-3.0) 0.9 % (0.0-3.0) Basophils (%) (Auto) % (0.0-2.0) 3.7 % (0.0-2.0) H Differential Total Cells Counted 100 Neutrophils % (Manual) 88 % (45-75) H Lymphocytes % (Manual) 8 % (20-45) L Monocytes % (Manual) 4 % (1-10) Eosinophils % (Manual) 0 % (0-3) Basophils % (Manual) 0 % (0-2) Band Neutrophils 0 % (0-8) Platelet Estimate Adequate Platelet Morphology Normal Hypochromasia 2+ Microcytosis 1+ Sodium Level 149 MMOL/L (136-145) H Potassium Level 2.9 MMOL/L (3.5-5.1) L Chloride Level 111 MMOL/L (98-107) H Carbon Dioxide Level 27 MMOL/L (21-32) Anion Gap 11 mmol/L (5-15) Blood Urea Nitrogen 24 mg/dL (7-18) H Creatinine 1.2 MG/DL (0.55-1.30) Estimat Glomerular Filtration Rate 54.9 mL/min (>60) Glucose Level 140 MG/DL (74-106) H Calcium Level 9.9 MG/DL (8.5-10.1) Phosphorus Level 2.8 MG/DL (2.5-4.9) Magnesium Level 1.7 MG/DL (1.8-2.4) L Total Bilirubin 0.6 MG/DL (0.2-1.0) Aspartate Amino Transf (AST/SGOT) 46 U/L (15-37) H Alanine Aminotransferase (ALT/SGPT) 38 U/L (12-78) Alkaline Phosphatase 180 U/L (46-116) H Total Protein 7.1 G/DL (6.4-8.2) Albumin 2.3 G/DL (3.4-5.0) L Globulin 4.8 g/dL Albumin/Globulin Ratio 0.5 (1.0-2.7) L Assessment/Plan Assessment/Plan Paroxysmal Atrial Fib Hypertension/HHD with rising BP trend Acute respiratory failure Metabolic acidosis Acute renal failure Anemia Anasarca Hypokalemia Hypomagnesemia HypoPO4 Dehydration/hypernatremia Bipap Free water replacement and potassium suppl Replace lytes Advance antiHTN meds Abx ICU care Off Actos Maintain current cardiovascular meds for arrhythmia suppression Miguel Gama MD Mar 10, 2020 02:31
[2020-03-10] MEDS: dilTIAZem HCl 60mg tab ORAL SCH ×4 (03:00→20:24)
[2020-03-10] MEDS: 1/2NS w/KCl 20mEq 1000ml 1,000 ML IV SCH ×2 (05:04→14:44)
[2020-03-10] MEDS: Piperacillin/Tazobactam 3.375 GM in NS 110 ML IVPB SCH ×3 (05:39→21:22)
[2020-03-10] MEDS: NovoLOG Insulin Flexpen SUBQ SCH ×4 (05:45→21:27)
--- NOTE | 2020-03-10 06:23 | General Progress Note ---
Assessment/Plan Problem List: (1) Anemia ICD Codes: D64.9 - Anemia, unspecified SNOMED: 936898416 (2) Hypoglycemia ICD Codes: E16.2 - Hypoglycemia, unspecified SNOMED: 797059194 (3) Acute kidney failure ICD Codes: N17.9 - Acute kidney failure, unspecified SNOMED: 39039173 (4) Syncope ICD Codes: R55 - Syncope and collapse SNOMED: 711908865 (5) UTI (urinary tract infection) ICD Codes: N39.0 - Urinary tract infection, site not specified SNOMED: 13648769 (6) FARIBA (acute kidney injury) ICD Codes: N17.9 - Acute kidney failure, unspecified SNOMED: 6689477, 35441070 Status: stable Assessment/Plan: start Januvia 50 mg daily continue glucose monitoring hypoglycemia protocol in order Subjective ROS Limited/Unobtainable: Yes Allergies: Coded Allergies: No Known Allergies (Unverified , 03/03/20) Subjective events noted interval notes reviewed glucose values are climbing Item Value Date Time Bedside Blood Glucose 202 mg/dl H 03/10/20 0545 Bedside Blood Glucose 128 mg/dl H 03/10/20 0000 Bedside Blood Glucose 126 mg/dl H 03/09/20 2100 Bedside Blood Glucose 139 mg/dl H 03/09/20 1611 Bedside Blood Glucose 143 mg/dl H 03/09/20 1200 Bedside Blood Glucose 143 mg/dl H 03/09/20 1050 Bedside Blood Glucose 148 mg/dl H 03/09/20 0553 Bedside Blood Glucose 142 mg/dl H 03/09/20 0000 Objective Last 24 Hour Vital Signs Date Time Temp Pulse Resp B/P (MAP) Pulse Ox O2 Delivery O2 Flow Rate FiO2 03/10/20 05:30 92 29 97 30 03/10/20 05:00 91 30 177/88 (117) 97 03/10/20 04:00 87 03/10/20 04:00 94 31 145/99 (114) 98 03/10/20 04:00 Bi-pap 03/10/20 04:00 30 03/10/20 03:30 89 30 99 30 03/10/20 03:00 99 24 117/78 (91) 98 03/10/20 03:00 97 167/86 03/10/20 02:00 103 26 137/105 (116) 94 03/10/20 01:30 80 31 96 30 03/10/20 01:00 82 28 165/72 (103) 98 03/10/20 00:00 98.5 93 30 147/83 (104) 97 03/10/20 00:00 Bi-pap 03/10/20 00:00 89 03/10/20 00:00 30 03/09/20 23:18 85 34 97 30 03/09/20 23:00 86 25 157/69 (98) 96 03/09/20 22:00 75 20 161/65 (97) 96 03/09/20 21:00 94 163/72 03/09/20 21:00 94 163/72 03/09/20 21:00 88 33 96 30 03/09/20 21:00 97 31 165/70 (101) 95 03/09/20 20:00 Bi-pap 03/09/20 20:00 96 Bi-Pap 30 03/09/20 20:00 93 26 159/69 (99) 94 03/09/20 20:00 30 03/09/20 20:00 Bi-pap 03/09/20 20:00 85 03/09/20 19:00 94 32 161/65 (97) 95 03/09/20 18:00 100 32 178/92 (120) 92 03/09/20 17:00 97 30 160/71 (100) 94 03/09/20 16:55 96 03/09/20 16:00 93 28 141/80 (100) 95 03/09/20 16:00 98.0 93 28 141/80 (100) 95 03/09/20 16:00 30 03/09/20 16:00 93 03/09/20 16:00 Bi-pap 03/09/20 15:00 82 27 157/66 (96) 97 03/09/20 14:56 87 30 97 30 03/09/20 14:56 85 30 97 Bi-Pap 30 03/09/20 14:36 91 158/72 03/09/20 14:00 92 21 94/72 (79) 97 03/09/20 13:00 95 28 161/75 (103) 93 03/09/20 12:42 90 03/09/20 12:00 90 03/09/20 12:00 Bi-pap 03/09/20 12:00 98.2 81 20 149/69 (95) 96 03/09/20 12:00 30 03/09/20 11:00 90 34 106/82 (90) 96 03/09/20 10:31 85 31 95 30 03/09/20 10:00 98 33 178/87 (117) 91 03/09/20 09:17 105 164/82 03/09/20 09:17 105 164/82 03/09/20 09:11 95 03/09/20 09:00 102 21 164/82 (109) 97 03/09/20 08:00 45 03/09/20 08:00 Bi-pap 03/09/20 08:00 93 03/09/20 08:00 105 24 163/110 (127) 92 03/09/20 07:00 98.0 97 30 167/74 (105) 94 03/09/20 06:57 92 36 97 30 03/09/20 06:56 99 Bi-Pap 30 Intake and Output 03/09/20 03/10/20 19:00 07:00 Intake Total 760.0 ml 270.0 ml Output Total 3400 ml 2150 ml Balance -2640.0 ml -1880.0 ml Intake Oral 150 ml 100 ml IV Total 610.0 ml 170.0 ml Output Urine Total 3400 ml 2150 ml # Bowel Movements 6 5 Laboratory Tests 03/09/20 12:15: White Blood Count 12.7H, Red Blood Count 3.27L, Hemoglobin 8.1L, Hematocrit 25.8L, Mean Corpuscular Volume 79L, Mean Corpuscular Hemoglobin 24.8L, Mean Corpuscular Hemoglobin Concent 31.5L, Red Cell Distribution Width 15.1H, Platelet Count 277, Mean Platelet Volume 5.5L, Neutrophils (%) (Auto) 81.0H, Lymphocytes (%) (Auto) 6.9L, Monocytes (%) (Auto) 7.5, Eosinophils (%) (Auto) 0.9, Basophils (%) (Auto) 3.7H Height (Feet): 5 Height (Inches): 10.00 Weight (Pounds): 344 General Appearance: no apparent distress Neck: normal alignment Cardiovascular: normal rate Respiratory/Chest: decreased breath sounds Abdomen: normal bowel sounds Objective Current Medications Medications (Trade) Dose Ordered Sig/Francisco J Route PRN Reason Start Time Stop Time Status Last Admin Dose Admin Acetaminophen (Tylenol) 650 mg Q4H PRN ORAL Mild Pain (Pain Scale 1-3) 03/04/20 12:15 04/02/20 12:14 03/08/20 12:00 Clonidine HCl (Catapres TTS-3) 1 patch QWEEK TDERMAL 03/05/20 10:30 06/03/20 10:29 03/05/20 10:11 Clonidine HCl (Catapres Tab) 0.1 mg Q4H PRN ORAL bp over 160 syst 03/05/20 09:30 06/03/20 09:29 03/07/20 04:53 Dextrose (Dextrose 50%) 25 ml Q30M PRN IV Hypoglycemia 03/04/20 12:00 06/01/20 21:59 03/04/20 21:41 Dextrose (Dextrose 50%) 50 ml Q30M PRN IV Hypoglycemia 03/04/20 12:00 06/01/20 21:59 03/05/20 06:15 Diltiazem HCl (Cardizem Tab) 60 mg Q6H ORAL 03/09/20 03:00 04/08/20 02:59 03/10/20 03:00 Docusate Sodium (Colace) 100 mg THREE TIMES A DAY ORAL 03/09/20 09:00 04/08/20 08:59 Glucagon (Glucagon) 1 mg Q2H PRN IM Hypoglycemia 03/05/20 11:00 06/03/20 10:59 Insulin Aspart (NovoLOG) BEFORE MEALS AND HS SUBQ 03/07/20 06:30 06/05/20 06:29 03/10/20 05:45 Iron Sucrose 100 mg/Sodium Chloride 60 ml @ 240 mls/hr BEDTIME IVPB 03/09/20 21:00 03/13/20 21:14 03/09/20 21:10 Metoprolol Tartrate (Lopressor) 25 mg Q12HR ORAL 03/06/20 15:15 06/04/20 15:14 03/09/20 21:00 Pantoprazole (Protonix) 40 mg EVERY 12 HOURS ORAL 03/09/20 09:00 04/08/20 08:59 03/09/20 20:59 Piperacillin Sod/ Tazobactam Sod 3.375 gm/Sodium Chloride 110 ml @ 27.5 mls/hr Q8HR IVPB 03/09/20 14:00 03/16/20 13:59 03/10/20 05:39 Polyethylene Glycol (Miralax) 17 gm DAILYPRN PRN ORAL Constipation 03/04/20 12:15 04/03/20 12:14 Potassium Chloride (K-Dur) 40 meq DAILY ORAL 03/09/20 09:00 06/07/20 08:59 03/09/20 09:16 Sodium 1,000 ml @ 100 mls/hr Q10H IV 03/10/20 03:00 04/09/20 02:59 03/10/20 05:04 Temazepam (RestoriL) 7.5 mg HSPRN PRN ORAL Insomnia 03/04/20 21:00 03/10/20 20:59 Sudhir Barrow MD Mar 10, 2020 06:23
--- NOTE | 2020-03-10 06:31 | General Progress Note ---
Assessment/Plan Problem List: (1) Syncope ICD Codes: R55 - Syncope and collapse SNOMED: 718407450 (2) Acute kidney failure ICD Codes: N17.9 - Acute kidney failure, unspecified SNOMED: 46697762 (3) Hypoglycemia ICD Codes: E16.2 - Hypoglycemia, unspecified SNOMED: 740222993 (4) UTI (urinary tract infection) ICD Codes: N39.0 - Urinary tract infection, site not specified SNOMED: 24393705 Status: stable Assessment/Plan: Continue D50 as well as glucagon prn monitor bs ivf per renal follow up pending labs replace lytes as needed BiPAP as needed- try to wean abx per ID repeat stool ob ppi trend cbc CT scan of the chest and abdomen when stable- ?hx of LAD/masses per dtr/pt Discussed with daughter Critical and guarded Subjective ROS Limited/Unobtainable: No Constitutional: Reports: malaise, weakness HEENT: Reports: no symptoms Cardiovascular: Reports: no symptoms Respiratory: Reports: cough, shortness of breath Gastrointestinal/Abdominal: Reports: no symptoms Genitourinary: Reports: no symptoms Neurologic/Psychiatric: Reports: no symptoms Endocrine: Reports: no symptoms Hematologic/Lymphatic: Reports: anemia Allergies: Coded Allergies: No Known Allergies (Unverified , 03/03/20) All Systems: reviewed and negative except above Subjective no events. able to come off bipap for several hours. on ivf. no hypoglycemia. no fever or chills. no chest pain has to be feed. Objective Last 24 Hour Vital Signs Date Time Temp Pulse Resp B/P (MAP) Pulse Ox O2 Delivery O2 Flow Rate FiO2 03/10/20 06:00 105 23 128/99 (109) 95 03/10/20 05:30 92 29 97 30 03/10/20 05:00 91 30 177/88 (117) 97 03/10/20 04:00 87 03/10/20 04:00 94 31 145/99 (114) 98 03/10/20 04:00 Bi-pap 03/10/20 04:00 30 03/10/20 03:30 89 30 99 30 03/10/20 03:00 99 24 117/78 (91) 98 03/10/20 03:00 97 167/86 03/10/20 02:00 103 26 137/105 (116) 94 03/10/20 01:30 80 31 96 30 03/10/20 01:00 82 28 165/72 (103) 98 03/10/20 00:00 98.5 93 30 147/83 (104) 97 03/10/20 00:00 Bi-pap 03/10/20 00:00 89 03/10/20 00:00 30 03/09/20 23:18 85 34 97 30 03/09/20 23:00 86 25 157/69 (98) 96 03/09/20 22:00 75 20 161/65 (97) 96 03/09/20 21:00 94 163/72 03/09/20 21:00 94 163/72 03/09/20 21:00 88 33 96 30 03/09/20 21:00 97 31 165/70 (101) 95 03/09/20 20:00 Bi-pap 03/09/20 20:00 96 Bi-Pap 30 03/09/20 20:00 93 26 159/69 (99) 94 03/09/20 20:00 30 03/09/20 20:00 Bi-pap 03/09/20 20:00 85 03/09/20 19:00 94 32 161/65 (97) 95 03/09/20 18:00 100 32 178/92 (120) 92 03/09/20 17:00 97 30 160/71 (100) 94 03/09/20 16:55 96 03/09/20 16:00 93 28 141/80 (100) 95 03/09/20 16:00 98.0 93 28 141/80 (100) 95 03/09/20 16:00 30 03/09/20 16:00 93 03/09/20 16:00 Bi-pap 03/09/20 15:00 82 27 157/66 (96) 97 03/09/20 14:56 87 30 97 30 03/09/20 14:56 85 30 97 Bi-Pap 30 03/09/20 14:36 91 158/72 03/09/20 14:00 92 21 94/72 (79) 97 03/09/20 13:00 95 28 161/75 (103) 93 03/09/20 12:42 90 03/09/20 12:00 90 03/09/20 12:00 Bi-pap 03/09/20 12:00 98.2 81 20 149/69 (95) 96 03/09/20 12:00 30 03/09/20 11:00 90 34 106/82 (90) 96 03/09/20 10:31 85 31 95 30 03/09/20 10:00 98 33 178/87 (117) 91 03/09/20 09:17 105 164/82 03/09/20 09:17 105 164/82 03/09/20 09:11 95 03/09/20 09:00 102 21 164/82 (109) 97 03/09/20 08:00 45 03/09/20 08:00 Bi-pap 03/09/20 08:00 93 03/09/20 08:00 105 24 163/110 (127) 92 03/09/20 07:00 98.0 97 30 167/74 (105) 94 03/09/20 06:57 92 36 97 30 03/09/20 06:56 99 Bi-Pap 30 Intake and Output 03/09/20 03/10/20 19:00 07:00 Intake Total 760.0 ml 370.0 ml Output Total 3400 ml 2350 ml Balance -2640.0 ml -1980.0 ml Intake Oral 150 ml 100 ml IV Total 610.0 ml 270.0 ml Output Urine Total 3400 ml 2350 ml # Bowel Movements 6 5 Laboratory Tests 03/09/20 12:15: White Blood Count 12.7H, Red Blood Count 3.27L, Hemoglobin 8.1L, Hematocrit 25.8L, Mean Corpuscular Volume 79L, Mean Corpuscular Hemoglobin 24.8L, Mean Corpuscular Hemoglobin Concent 31.5L, Red Cell Distribution Width 15.1H, Platelet Count 277, Mean Platelet Volume 5.5L, Neutrophils (%) (Auto) 81.0H, Lymphocytes (%) (Auto) 6.9L, Monocytes (%) (Auto) 7.5, Eosinophils (%) (Auto) 0.9, Basophils (%) (Auto) 3.7H Height (Feet): 5 Height (Inches): 10.00 Weight (Pounds): 300 Objective General Appearance: WD/WN, alert EENT: PERRL/EOMI Neck: non-tender, normal alignment Cardiovascular: normal peripheral pulses, normal rate Respiratory/Chest: chest wall non-tender, lungs clear, normal breath sounds, no respiratory distress Abdomen: normal bowel sounds, non tender, soft, no organomegaly Edema: moderate edema Neurologic: radiology administrator II-XII grossly normal, alert, oriented x 3, responsive Sal Khanna MD Mar 10, 2020 06:31
[2020-03-10] MEDS: sitaGLIPtin 50mg tab ORAL SCH (06:34)
--- NOTE | 2020-03-10 07:57 | Critical Care Progress Note ---
Assessment/Plan Assessment/Plan acute respiratory failure hypoxemia metabolic acidosis ARF diabetes leukocytosis anemia anasarca pulmonary infiltrates PLAN IV antibiotics keep negative repeat ABG for change follow up CT body DVT prophylaxis BIPAP as able - desats off diurese as able keep negative and monitor imaging renal noted- off iv fluids medications/laboratory data/nursing notes/ICU care reviewed in detail note reviewed and edited care discussed with RN and RT ICU time spent >40 minutes Critical Care - Subjective Interval Events: care noted unable to keep off BIPAP CT body ordered ROS Limited/Unobtainable: Yes Condition: critical EKG Rhythm: Sinus Tachycardia I&O: Intake and Output 03/09/20 03/10/20 19:00 07:00 Intake Total 760.0 ml 470.0 ml Output Total 3400 ml 2350 ml Balance -2640.0 ml -1880.0 ml Intake Oral 150 ml 100 ml IV Total 610.0 ml 370.0 ml Output Urine Total 3400 ml 2350 ml # Bowel Movements 6 5 Critical Care - Objective Last 24 Hour Vital Signs Date Time Temp Pulse Resp B/P (MAP) Pulse Ox O2 Delivery O2 Flow Rate FiO2 03/10/20 07:15 93 32 98 30 03/10/20 07:14 98 Bi-Pap 30 03/10/20 07:00 120 23 120/68 (85) 95 03/10/20 06:00 105 23 128/99 (109) 95 03/10/20 05:30 92 29 97 30 03/10/20 05:00 91 30 177/88 (117) 97 03/10/20 04:00 87 03/10/20 04:00 94 31 145/99 (114) 98 03/10/20 04:00 Bi-pap 03/10/20 04:00 30 03/10/20 03:30 89 30 99 30 03/10/20 03:00 99 24 117/78 (91) 98 03/10/20 03:00 97 167/86 03/10/20 02:00 103 26 137/105 (116) 94 03/10/20 01:30 80 31 96 30 03/10/20 01:00 82 28 165/72 (103) 98 03/10/20 00:00 98.5 93 30 147/83 (104) 97 03/10/20 00:00 Bi-pap 03/10/20 00:00 89 03/10/20 00:00 30 03/09/20 23:18 85 34 97 30 03/09/20 23:00 86 25 157/69 (98) 96 03/09/20 22:00 75 20 161/65 (97) 96 03/09/20 21:00 94 163/72 03/09/20 21:00 94 163/72 03/09/20 21:00 88 33 96 30 03/09/20 21:00 97 31 165/70 (101) 95 03/09/20 20:00 Bi-pap 03/09/20 20:00 96 Bi-Pap 30 03/09/20 20:00 93 26 159/69 (99) 94 03/09/20 20:00 30 03/09/20 20:00 Bi-pap 03/09/20 20:00 85 03/09/20 19:00 94 32 161/65 (97) 95 03/09/20 18:00 100 32 178/92 (120) 92 03/09/20 17:00 97 30 160/71 (100) 94 03/09/20 16:55 96 03/09/20 16:00 93 28 141/80 (100) 95 03/09/20 16:00 98.0 93 28 141/80 (100) 95 03/09/20 16:00 30 03/09/20 16:00 93 03/09/20 16:00 Bi-pap 03/09/20 15:00 82 27 157/66 (96) 97 03/09/20 14:56 87 30 97 30 03/09/20 14:56 85 30 97 Bi-Pap 30 03/09/20 14:36 91 158/72 03/09/20 14:00 92 21 94/72 (79) 97 03/09/20 13:00 95 28 161/75 (103) 93 03/09/20 12:42 90 03/09/20 12:00 90 03/09/20 12:00 Bi-pap 03/09/20 12:00 98.2 81 20 149/69 (95) 96 03/09/20 12:00 30 03/09/20 11:00 90 34 106/82 (90) 96 03/09/20 10:31 85 31 95 30 03/09/20 10:00 98 33 178/87 (117) 91 03/09/20 09:17 105 164/82 03/09/20 09:17 105 164/82 03/09/20 09:11 95 03/09/20 09:00 102 21 164/82 (109) 97 03/09/20 08:00 45 03/09/20 08:00 Bi-pap 03/09/20 08:00 93 03/09/20 08:00 105 24 163/110 (127) 92 Labs: Laboratory Tests 03/09/20 12:15: White Blood Count 12.7H, Red Blood Count 3.27L, Hemoglobin 8.1L, Hematocrit 25.8L, Mean Corpuscular Volume 79L, Mean Corpuscular Hemoglobin 24.8L, Mean Corpuscular Hemoglobin Concent 31.5L, Red Cell Distribution Width 15.1H, Platelet Count 277, Mean Platelet Volume 5.5L, Neutrophils (%) (Auto) 81.0H, Lymphocytes (%) (Auto) 6.9L, Monocytes (%) (Auto) 7.5, Eosinophils (%) (Auto) 0.9, Basophils (%) (Auto) 3.7H Objective: WDWN on BIPAP reduced breath sounds bilaterally without rhonchi or wheeze [id number] without MRG NABS nontender no HSM no CC noted edema nonfocal more alert Accucheck: 202 Charles Thomson MD Mar 10, 2020 07:57
[2020-03-10] MEDS: Docusate 100mg cap ORAL SCH ×3 (08:04→17:43)
[2020-03-10] MEDS ORDERED: Tubing IV Secondary IV ONE (08:17)
[2020-03-10] MEDS ORDERED: NS 275ml ONE (08:17)
[2020-03-10 09:40] LABS: HEMATOCRIT 26.8 % (37.0-47.0); HEMOGLOBIN 8.4 G/DL (12.0-16.0); MEAN CORPUSCULAR VOLUME 78 FL (80-99); PLATELET COUNT 255 K/UL (150-450); RED BLOOD COUNT 3.42 M/UL (4.20-5.40); RED CELL DISTRIBUTION WIDTH 15.3 % (11.6-14.8); WHITE BLOOD COUNT 11.6 K/UL (4.8-10.8)
[2020-03-10 09:52] LABS: PHOSPHORUS 2.9 MG/DL (2.5-4.9)
[2020-03-10 10:08] LABS: ALANINE AMINOTRANSFERASE 56 U/L (12-78); ALBUMIN 2.3 G/DL (3.4-5.0); ALBUMIN/GLOBULIN RATIO 0.5 (1.0-2.7); ALKALINE PHOSPHATASE 183 U/L (46-116); ANION GAP 14 mmol/L (5-15); ASPARTATE AMINO TRANSFERASE 69 U/L (15-37); BILIRUBIN,TOTAL 0.5 MG/DL (0.2-1.0); BLOOD UREA NITROGEN 24 mg/dL (7-18); CARBON DIOXIDE 25 MMOL/L (21-32); CHLORIDE 108 MMOL/L (98-107); CREATININE 1.2 MG/DL (0.55-1.30); POTASSIUM 2.8 MMOL/L (3.5-5.1); SODIUM 147 MMOL/L (136-145)
--- NOTE | 2020-03-10 11:19 | Infectious Diseases Prog Note ---
Assessment/Plan Assessment/Plan antibiotics : zosyn A 1. pneumonia COVID 19 negative 2. respiratory failure 3. leucocytosis improving 4. renal failure improving 5. diabetes mellitus 6. hypertension P 1. continue zosyn 2. will follow up cultures Subjective ROS Limited/Unobtainable: Yes Allergies: Coded Allergies: No Known Allergies (Unverified , 03/03/20) Objective Last 24 Hour Vital Signs Date Time Temp Pulse Resp B/P (MAP) Pulse Ox O2 Delivery O2 Flow Rate FiO2 03/10/20 11:07 93 35 89 30 03/10/20 09:11 94 34 97 30 03/10/20 09:00 100 24 161/78 (105) 97 03/10/20 08:25 102 171/86 03/10/20 08:24 101 171/86 03/10/20 08:00 98.4 98 28 171/86 (114) 98 03/10/20 08:00 30 03/10/20 08:00 97 03/10/20 07:15 93 32 98 30 03/10/20 07:14 98 Bi-Pap 30 03/10/20 07:00 120 23 120/68 (85) 95 03/10/20 06:00 105 23 128/99 (109) 95 03/10/20 05:30 92 29 97 30 03/10/20 05:00 91 30 177/88 (117) 97 03/10/20 04:00 87 03/10/20 04:00 94 31 145/99 (114) 98 03/10/20 04:00 Bi-pap 03/10/20 04:00 30 03/10/20 03:30 89 30 99 30 03/10/20 03:00 99 24 117/78 (91) 98 03/10/20 03:00 97 167/86 03/10/20 02:00 103 26 137/105 (116) 94 03/10/20 01:30 80 31 96 30 03/10/20 01:00 82 28 165/72 (103) 98 03/10/20 00:00 98.5 93 30 147/83 (104) 97 03/10/20 00:00 Bi-pap 03/10/20 00:00 89 03/10/20 00:00 30 03/09/20 23:18 85 34 97 30 03/09/20 23:00 86 25 157/69 (98) 96 03/09/20 22:00 75 20 161/65 (97) 96 03/09/20 21:00 94 163/72 03/09/20 21:00 94 163/72 03/09/20 21:00 88 33 96 30 03/09/20 21:00 97 31 165/70 (101) 95 03/09/20 20:00 Bi-pap 03/09/20 20:00 96 Bi-Pap 30 03/09/20 20:00 93 26 159/69 (99) 94 03/09/20 20:00 30 03/09/20 20:00 Bi-pap 03/09/20 20:00 85 03/09/20 19:00 94 32 161/65 (97) 95 03/09/20 18:00 100 32 178/92 (120) 92 03/09/20 17:00 97 30 160/71 (100) 94 03/09/20 16:55 96 03/09/20 16:00 93 28 141/80 (100) 95 03/09/20 16:00 98.0 93 28 141/80 (100) 95 03/09/20 16:00 30 03/09/20 16:00 93 03/09/20 16:00 Bi-pap 03/09/20 15:00 82 27 157/66 (96) 97 03/09/20 14:56 87 30 97 30 03/09/20 14:56 85 30 97 Bi-Pap 30 03/09/20 14:36 91 158/72 03/09/20 14:00 92 21 94/72 (79) 97 03/09/20 13:00 95 28 161/75 (103) 93 03/09/20 12:42 90 03/09/20 12:00 90 03/09/20 12:00 Bi-pap 03/09/20 12:00 98.2 81 20 149/69 (95) 96 03/09/20 12:00 30 Height (Feet): 5 Height (Inches): 10.00 Weight (Pounds): 300 HEENT: other - on bipap Respiratory/Chest: lungs clear Cardiovascular: normal rate, regular rhythm, no gallop/murmur Abdomen: soft, non tender Extremities: other - + edema bilaterally Laboratory Tests Test 03/09/20 12:15 03/10/20 08:40 03/10/20 09:00 White Blood Count 12.7 K/UL (4.8-10.8) H 11.6 K/UL (4.8-10.8) H Red Blood Count 3.27 M/UL (4.20-5.40) L 3.42 M/UL (4.20-5.40) L Hemoglobin 8.1 G/DL (12.0-16.0) L 8.4 G/DL (12.0-16.0) L Hematocrit 25.8 % (37.0-47.0) L 26.8 % (37.0-47.0) L Mean Corpuscular Volume 79 FL (80-99) L 78 FL (80-99) L Mean Corpuscular Hemoglobin 24.8 PG (27.0-31.0) L 24.6 PG (27.0-31.0) L Mean Corpuscular Hemoglobin Concent 31.5 G/DL (32.0-36.0) L 31.4 G/DL (32.0-36.0) L Red Cell Distribution Width 15.1 % (11.6-14.8) H 15.3 % (11.6-14.8) H Platelet Count 277 K/UL (150-450) 255 K/UL (150-450) Mean Platelet Volume 5.5 FL (6.5-10.1) L 5.6 FL (6.5-10.1) L Neutrophils (%) (Auto) 81.0 % (45.0-75.0) H % (45.0-75.0) Lymphocytes (%) (Auto) 6.9 % (20.0-45.0) L % (20.0-45.0) Monocytes (%) (Auto) 7.5 % (1.0-10.0) % (1.0-10.0) Eosinophils (%) (Auto) 0.9 % (0.0-3.0) % (0.0-3.0) Basophils (%) (Auto) 3.7 % (0.0-2.0) H % (0.0-2.0) Differential Total Cells Counted 100 Neutrophils % (Manual) 87 % (45-75) H Lymphocytes % (Manual) 9 % (20-45) L Monocytes % (Manual) 3 % (1-10) Eosinophils % (Manual) 1 % (0-3) Basophils % (Manual) 0 % (0-2) Band Neutrophils 0 % (0-8) Platelet Estimate Adequate Platelet Morphology Normal Polychromasia 1+ Hypochromasia 1+ Anisocytosis 1+ Microcytosis 1+ Sodium Level 147 MMOL/L (136-145) H Potassium Level 2.8 MMOL/L (3.5-5.1) L Chloride Level 108 MMOL/L (98-107) H Carbon Dioxide Level 25 MMOL/L (21-32) Anion Gap 14 mmol/L (5-15) Blood Urea Nitrogen 24 mg/dL (7-18) H Creatinine 1.2 MG/DL (0.55-1.30) Estimat Glomerular Filtration Rate 54.9 mL/min (>60) Glucose Level 126 MG/DL (74-106) H Calcium Level 10.0 MG/DL (8.5-10.1) Phosphorus Level 2.9 MG/DL (2.5-4.9) Magnesium Level 1.8 MG/DL (1.8-2.4) Total Bilirubin 0.5 MG/DL (0.2-1.0) Aspartate Amino Transf (AST/SGOT) 69 U/L (15-37) H Alanine Aminotransferase (ALT/SGPT) 56 U/L (12-78) Alkaline Phosphatase 183 U/L (46-116) H Total Protein 7.3 G/DL (6.4-8.2) Albumin 2.3 G/DL (3.4-5.0) L Globulin 5.0 g/dL Albumin/Globulin Ratio 0.5 (1.0-2.7) L Stool Occult Blood Pending Current Medications Medications (Trade) Dose Ordered Sig/Francisco J Route PRN Reason Start Time Stop Time Status Last Admin Dose Admin Acetaminophen (Tylenol) 650 mg Q4H PRN ORAL Mild Pain (Pain Scale 1-3) 03/04/20 12:15 04/02/20 12:14 03/08/20 12:00 Barium Sulfate (Readi-Cat 2) 450 ml NOW PRN ORAL Radiology Procedure 03/10/20 06:30 03/12/20 06:29 Clonidine HCl (Catapres TTS-3) 1 patch QWEEK TDERMAL 03/05/20 10:30 06/03/20 10:29 03/05/20 10:11 Clonidine HCl (Catapres Tab) 0.1 mg Q4H PRN ORAL bp over 160 syst 03/05/20 09:30 06/03/20 09:29 03/07/20 04:53 Dextrose (Dextrose 50%) 25 ml Q30M PRN IV Hypoglycemia 03/04/20 12:00 06/01/20 21:59 03/04/20 21:41 Dextrose (Dextrose 50%) 50 ml Q30M PRN IV Hypoglycemia 03/04/20 12:00 06/01/20 21:59 03/05/20 06:15 Diltiazem HCl (Cardizem Tab) 60 mg Q6H ORAL 03/09/20 03:00 04/08/20 02:59 03/10/20 08:24 Docusate Sodium (Colace) 100 mg THREE TIMES A DAY ORAL 03/09/20 09:00 04/08/20 08:59 Glucagon (Glucagon) 1 mg Q2H PRN IM Hypoglycemia 03/05/20 11:00 06/03/20 10:59 Insulin Aspart (NovoLOG) BEFORE MEALS AND HS SUBQ 03/07/20 06:30 06/05/20 06:29 03/10/20 05:45 Iron Sucrose 100 mg/Sodium Chloride 60 ml @ 240 mls/hr BEDTIME IVPB 03/09/20 21:00 03/13/20 21:14 03/09/20 21:10 Metoprolol Tartrate (Lopressor) 25 mg Q12HR ORAL 03/06/20 15:15 06/04/20 15:14 03/10/20 08:25 Pantoprazole (Protonix) 40 mg EVERY 12 HOURS ORAL 03/09/20 09:00 04/08/20 08:59 03/10/20 08:25 Piperacillin Sod/ Tazobactam Sod 3.375 gm/Sodium Chloride 110 ml @ 27.5 mls/hr Q8HR IVPB 03/09/20 14:00 03/16/20 13:59 03/10/20 05:39 Polyethylene Glycol (Miralax) 17 gm DAILYPRN PRN ORAL Constipation 03/04/20 12:15 04/03/20 12:14 Potassium Chloride 100 ml @ 100 mls/hr Q1H IVPB 03/10/20 11:30 03/10/20 17:29 Potassium Chloride (K-Dur) 40 meq DAILY ORAL 03/09/20 09:00 06/07/20 08:59 03/10/20 08:25 Sitagliptin Phosphate (Januvia) 50 mg ACBREAKFAST ORAL 03/10/20 06:30 04/09/20 06:29 03/10/20 06:34 Sodium 1,000 ml @ 100 mls/hr Q10H IV 03/10/20 03:00 04/09/20 02:59 03/10/20 05:04 Temazepam (RestoriL) 7.5 mg HSPRN PRN ORAL Insomnia 03/04/20 21:00 03/10/20 20:59 Yudelka Alcocer MD Mar 10, 2020 11:19
--- NOTE | 2020-03-10 13:18 | Diagnostic Imaging Report ---
CLINICAL INDICATION:Chest pain abdominal pain, history of acute kidney failure, history of urinary tract infection TECHNIQUE: Patient ingested oral contrast . No IV contrast, per referring physician request. Spiral acquisitions obtained through the chest, abdomen, and pelvis. Multiplanar reconstructions were generated. Total dose length product 1843 mGycm. CTDIvol(s) 23 mGy. Radiation dose was minimized using automated exposure control COMPARISON: none FINDINGS Chest: There are bilateral pleural effusions, moderate on the right, small on the left. There is dense consolidation of both lungs, in a predominantly perihilar distribution. There is also some groundglass opacity in both lower lobes. The heart is borderline enlarged. No pericardial effusion. The pulmonary arteries are dilated. There are prominent prevascular space lymph nodes, measuring up to 2 cm long axis dimension. The included thyroid is unremarkable. No axillary or chest wall mass or adenopathy. There is some edema of the lower chest wall subcutaneous fat. There is smooth thoracic kyphotic deformity without compression fracture. There are degenerative proliferative changes of the thoracic spine Abdomen pelvis: There is a large midline pelvic mass with central low-attenuation and peripheral calcification. This measures 18 x 15 x 15.8 cm, appears to be coming off of the uterus. However, it is suboptimally defined due to lack of IV contrast administration. There is a soft tissue mass posterolateral to the uterus which measures 10 x 4.9 cm. It is uncertain whether this is coming off of the uterus or a separate from it. There is a prominent soft tissue structure in the left adnexal region measuring 6.8 cm in diameter. Again, uncertain as to whether this is coming off of the uterus or separate. There is extensive bilateral inguinal and bilateral pelvic lymphadenopathy. Largest right pelvic sidewall nodes measure up to 6.7 x 3.7 cm in diameter. There is extensive perirectal lymphadenopathy, with numerous nodes present, some measuring up to 4 cm in diameter and demonstrating necrotic centers. There is edema of the presacral fat. There is extensive mesenteric root lymphadenopathy as well. There is extensive peripancreatic and lesser sac lymphadenopathy. There is some retroperitoneal adenopathy demonstrated. A few prominent retrocrural nodes are also demonstrated. There is a rectal tube in place. The appendix is not identified, but no findings to suggest acute appendicitis are evident. Ingested contrast is seen as far distally as the distal ascending colon. No small bowel distention or small bowel wall thickening. The proximal colon is prominent in caliber, gas filled. There is a small amount of free intraperitoneal fluid. The esophagus, stomach, duodenum are unremarkable. Lack of IV contrast limits assessment of solid organs. The liver is grossly unremarkable. The gallbladder and bile ducts are grossly unremarkable. The pancreas, spleen, right adrenal are unremarkable. The left adrenal appears somewhat bulky, and more inferiorly is inseparable from the surrounding lymphadenopathy. There is moderate right hydronephrosis and proximal hydroureter. The hydroureter extends to the level of the upper pelvis. There is mild left hydronephrosis and mild left hydroureter, hydroureter seen as far distally as the pelvis. The bladder is empty, contains a Baca catheter. There is extensive edema of the abdominal and pelvic subcutaneous fat. The bones demonstrate degenerative spondylosis changes. IMPRESSION: Very limited exam, due to lack of IV contrast administration. Large midline pelvic mass with central low attenuation and peripheral calcification, appearing to be part of an overall enlarged uterus with multiple masses. This may represent a large necrotic uterine fibroid. However, the possibility of uterine for other pelvic malignancy should also be considered as etiology of this. Other adjacent pelvic masses, could represent subserosal uterine fibroids but could also represent massive lymphadenopathy or ovarian masses. Distal rectal wall thickening. Could represent proctitis but the possibility of neoplasm should also be considered. Extensive pelvic and abdominal lymphadenopathy as detailed above. Less extensive prominent mediastinal nodes. Suspected be malignant, could be metastatic lymphadenopathy related to either of the above findings, or lymphadenopathy related to primary lymphoproliferative disorder Moderate right and mild left hydronephrosis, probably due to ureteral obstruction by the pelvic masses/lymphadenopathy Moderate right and small left pleural effusions. Dense consolidation of both lungs. Most likely on the basis of pulmonary edema but could also represent bilateral pneumonia Borderline cardiomegaly Dilated pulmonary arteries, consistent with pulmonary arterial hypertension Extensive edema of the subcutaneous fat Empty bladder with a Baca catheter Somewhat bulky left adrenal, which more inferiorly is inseparable from the surrounding lymphadenopathy; adrenal lesion not excludable Rectal tube Degenerative spondylosis The CT scanner at [facility] is accredited by the [employer] and the scans are performed using protocols designed to limit radiation exposure to as low as reasonably achievable to attain images of sufficient resolution adequate for diagnostic evaluation.
--- NOTE | 2020-03-10 15:29 | Nephrology Progress Note ---
Assessment/Plan Problem List: (1) FARIBA (acute kidney injury) (2) Renal failure (ARF), acute on chronic (3) UTI (urinary tract infection) (4) Hypoglycemia (5) Anemia (6) Morbid obesity with BMI of 45.0-49.9, adult (7) Acute respiratory failure (8) Obstructive sleep apnea Assessment Acute renal failure Possible underlying chronic kidney disease High likelihood of diabetic nephropathy, patient has proteinuria and hypoalbuminemia Persistent hypo-glycemia: The patient was on 3 oral hypoglycemic agents including Glucophage Morbid obesity Hypertension Severe anemia, low MCV UTI Most likely obstructive sleep apnea Plan March 10: Labs reviewed. Medication reviewed. Remains on BiPAP. Will DC IV fluid and changed to D5W. Blood pressure medication adjusted. Cozaar added. Potassium supplement given. Continue per consultants. March 09: Labs reviewed. Medication list reviewed. Remains on BiPAP. Venturi mask is being tried. Discussed with user interface engineer. Renal parameters stable. Magnesium and potassium supplement given. Blood sugar stable. March 08: Today's labs pending. Will discontinue IV fluid. Remains on BiPAP. Aim to take off BiPAP as possible. Transfusion if needed. Discussed with DARSHAN Iglesias. March 07: Marked improvement in renal parameters. Blood sugar improved. Main issue are respiratory, as patient remains on BiPAP. Hemoglobin lower. May require transfusion again. Abnormal electrolytes corrected March 06: Clinically improved. Remains on BiPAP. Blood sugar improved. Urine output well maintained. Serum creatinine lowered. Will adjust blood pressure medication for better control. D10 infusion down to 50 cc an hour. Continue monitor renal parameters. Lasix as needed. 24-hour urine for total protein. March 05: Discontinue Cozaar, labetalol Stop all oral oral hypoglycemics and insulin Start clonidine patch and clonidine PRN for high blood pressure Add Norvasc for blood pressure D10 infusion Check labs, thyroid panel, anemia work-up, lipid panel, hemoglobin A1c Urine for eosinophils and spot sodium Check ABG Per orders Subjective ROS Limited/Unobtainable: No Constitutional: Reports: malaise Objective Objective Last 24 Hour Vital Signs Date Time Temp Pulse Resp B/P (MAP) Pulse Ox O2 Delivery O2 Flow Rate FiO2 03/10/20 15:15 99 30 99 30 03/10/20 14:43 101 165/91 03/10/20 14:00 105 33 166/82 (110) 100 03/10/20 13:00 106 35 137/106 (116) 99 03/10/20 12:40 105 34 97 40 03/10/20 12:00 113 19 168/80 (109) 95 03/10/20 12:00 108 03/10/20 12:00 40 03/10/20 12:00 Bi-pap 03/10/20 11:07 93 35 89 30 03/10/20 11:00 96 20 148/97 (114) 95 03/10/20 10:00 98 20 134/98 (110) 96 03/10/20 09:11 94 34 97 30 03/10/20 09:00 100 24 161/78 (105) 97 03/10/20 08:25 102 171/86 03/10/20 08:24 101 171/86 03/10/20 08:00 Bi-pap 03/10/20 08:00 98.4 98 28 171/86 (114) 98 03/10/20 08:00 30 03/10/20 08:00 97 03/10/20 07:15 93 32 98 30 03/10/20 07:14 98 Bi-Pap 30 03/10/20 07:00 120 23 120/68 (85) 95 03/10/20 06:00 105 23 128/99 (109) 95 03/10/20 05:30 92 29 97 30 03/10/20 05:00 91 30 177/88 (117) 97 03/10/20 04:00 87 03/10/20 04:00 94 31 145/99 (114) 98 03/10/20 04:00 Bi-pap 03/10/20 04:00 30 03/10/20 03:30 89 30 99 30 03/10/20 03:00 99 24 117/78 (91) 98 03/10/20 03:00 97 167/86 03/10/20 02:00 103 26 137/105 (116) 94 03/10/20 01:30 80 31 96 30 03/10/20 01:00 82 28 165/72 (103) 98 03/10/20 00:00 98.5 93 30 147/83 (104) 97 03/10/20 00:00 Bi-pap 03/10/20 00:00 89 03/10/20 00:00 30 03/09/20 23:18 85 34 97 30 8/31/20 23:00 86 25 157/69 (98) 96 03/09/20 22:00 75 20 161/65 (97) 96 03/09/20 21:00 94 163/72 03/09/20 21:00 94 163/72 03/09/20 21:00 88 33 96 30 03/09/20 21:00 97 31 165/70 (101) 95 03/09/20 20:00 Bi-pap 03/09/20 20:00 96 Bi-Pap 30 03/09/20 20:00 93 26 159/69 (99) 94 03/09/20 20:00 30 03/09/20 20:00 Bi-pap 03/09/20 20:00 85 03/09/20 19:00 94 32 161/65 (97) 95 03/09/20 18:00 100 32 178/92 (120) 92 03/09/20 17:00 97 30 160/71 (100) 94 03/09/20 16:55 96 03/09/20 16:00 93 28 141/80 (100) 95 03/09/20 16:00 98.0 93 28 141/80 (100) 95 03/09/20 16:00 30 03/09/20 16:00 93 03/09/20 16:00 Bi-pap Intake and Output 03/09/20 03/10/20 19:00 07:00 Intake Total 760.0 ml 470.0 ml Output Total 3400 ml 2350 ml Balance -2640.0 ml -1880.0 ml Intake Oral 150 ml 100 ml IV Total 610.0 ml 370.0 ml Output Urine Total 3400 ml 2350 ml # Bowel Movements 6 5 Laboratory Tests 03/09/20 16:05: POC Whole Blood Glucose 139H 03/09/20 21:16: POC Whole Blood Glucose 126H 03/10/20 08:40: White Blood Count 11.6H, Red Blood Count 3.42L, Hemoglobin 8.4L, Hematocrit 26.8L, Mean Corpuscular Volume 78L, Mean Corpuscular Hemoglobin 24.6L, Mean Corpuscular Hemoglobin Concent 31.4L, Red Cell Distribution Width 15.3H, Platelet Count 255, Mean Platelet Volume 5.6L, Neutrophils (%) (Auto) , Lymphocytes (%) (Auto) , Monocytes (%) (Auto) , Eosinophils (%) (Auto) , Basophils (%) (Auto) , Differential Total Cells Counted 100, Neutrophils % ( Manual) 87H, Lymphocytes % (Manual) 9L, Monocytes % (Manual) 3, Eosinophils % ( Manual) 1, Basophils % (Manual) 0, Band Neutrophils 0, Platelet Estimate Adequate, Platelet Morphology Normal, Polychromasia 1+, Hypochromasia 1+, Anisocytosis 1+, Microcytosis 1+, Sodium Level 147H, Potassium Level 2.8L, Chloride Level 108H, Carbon Dioxide Level 25, Anion Gap 14, Blood Urea Nitrogen 24H, Creatinine 1.2, Estimat Glomerular Filtration Rate 54.9, Glucose Level 126H , Calcium Level 10.0, Phosphorus Level 2.9, Magnesium Level 1.8, Total Bilirubin 0.5, Aspartate Amino Transf (AST/SGOT) 69H, Alanine Aminotransferase ( ALT/SGPT) 56, Alkaline Phosphatase 183H, Total Protein 7.3, Albumin 2.3L, Globulin 5.0, Albumin/Globulin Ratio 0.5L 03/10/20 09:00: Stool Occult Blood [Pending] Height (Feet): 5 Height (Inches): 10.00 Weight (Pounds): 300 General Appearance: no apparent distress EENT: other - On BiPAP Cardiovascular: bradycardia Respiratory/Chest: decreased breath sounds Abdomen: distended Sundar Camargo MD Mar 10, 2020 15:29
[2020-03-10] MEDS: Losartan 50mg tab ORAL SCH (15:37)
[2020-03-10] MEDS: Iron Sucrose 100 MG in NS 55 ML IVPB SCH (20:23)
--- NOTE | 2020-03-10 21:05 | General Progress Note ---
Assessment/Plan Status: stable Assessment/Plan: Assessment - Dark stools, r/o GIB - microcytic anemia - pelvic / uterine masses with JACKY - r/o CA - hydronephrosis - rectal wall thickening - resp failure - resolved renal failure - anasarca, abdominal distention - pleural effusion - pulmonary HTN - abnormal LFT - ? mets, ? JOHNSON, ? passive congestion Recommendations - Monitor H&H - IV Fe trial - PPI - Re check stool OB (neg on 02/22) - not candidate for endoscopy at this time - ? 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 Subjective Allergies: Coded Allergies: No Known Allergies (Unverified , 03/03/20) Subjective above noted CT done today - many findings, including pelvic masses and JACKY patient with diarrhea Rectal tube placed stool OB pending Objective Last 24 Hour Vital Signs Date Time Temp Pulse Resp B/P (MAP) Pulse Ox O2 Delivery O2 Flow Rate FiO2 03/10/20 20:24 89 167/84 03/10/20 19:54 99 Bi-Pap 30 03/10/20 19:30 98 33 98 30 03/10/20 18:02 100 26 158/76 (103) 96 03/10/20 17:00 107 33 162/72 (102) 98 03/10/20 16:34 95 32 100 30 03/10/20 16:00 98.7 97 32 152/69 (96) 99 03/10/20 16:00 95 03/10/20 16:00 Bi-pap 03/10/20 16:00 40 03/10/20 15:37 132/79 03/10/20 15:15 99 30 99 30 03/10/20 15:00 101 33 132/79 (96) 98 03/10/20 14:43 101 165/91 03/10/20 14:00 105 33 166/82 (110) 100 03/10/20 13:00 106 35 137/106 (116) 99 03/10/20 12:40 105 34 97 40 03/10/20 12:00 98.8 03/10/20 12:00 113 19 168/80 (109) 95 03/10/20 12:00 108 03/10/20 12:00 40 03/10/20 12:00 Bi-pap 03/10/20 11:07 93 35 89 30 03/10/20 11:00 96 20 148/97 (114) 95 03/10/20 10:00 98 20 134/98 (110) 96 03/10/20 09:11 94 34 97 30 03/10/20 09:00 100 24 161/78 (105) 97 03/10/20 08:25 102 171/86 03/10/20 08:24 101 171/86 03/10/20 08:00 Bi-pap 03/10/20 08:00 98.4 98 28 171/86 (114) 98 03/10/20 08:00 30 03/10/20 08:00 97 03/10/20 07:15 93 32 98 30 03/10/20 07:14 98 Bi-Pap 30 03/10/20 07:00 120 23 120/68 (85) 95 03/10/20 06:00 105 23 128/99 (109) 95 03/10/20 05:30 92 29 97 30 03/10/20 05:00 91 30 177/88 (117) 97 03/10/20 04:00 87 03/10/20 04:00 94 31 145/99 (114) 98 03/10/20 04:00 Bi-pap 03/10/20 04:00 30 03/10/20 03:30 89 30 99 30 03/10/20 03:00 99 24 117/78 (91) 98 03/10/20 03:00 97 167/86 03/10/20 02:00 103 26 137/105 (116) 94 03/10/20 01:30 80 31 96 30 03/10/20 01:00 82 28 165/72 (103) 98 03/10/20 00:00 98.5 93 30 147/83 (104) 97 03/10/20 00:00 Bi-pap 03/10/20 00:00 89 03/10/20 00:00 30 03/09/20 23:18 85 34 97 30 03/09/20 23:00 86 25 157/69 (98) 96 03/09/20 22:00 75 20 161/65 (97) 96 Intake and Output 03/09/20 03/10/20 19:00 07:00 Intake Total 760.0 ml 470.0 ml Output Total 3400 ml 2350 ml Balance -2640.0 ml -1880.0 ml Intake Oral 150 ml 100 ml IV Total 610.0 ml 370.0 ml Output Urine Total 3400 ml 2350 ml # Bowel Movements 6 5 Laboratory Tests 03/09/20 21:16: POC Whole Blood Glucose 126H 03/10/20 08:40: White Blood Count 11.6H, Red Blood Count 3.42L, Hemoglobin 8.4L, Hematocrit 26.8L, Mean Corpuscular Volume 78L, Mean Corpuscular Hemoglobin 24.6L, Mean Corpuscular Hemoglobin Concent 31.4L, Red Cell Distribution Width 15.3H, Platelet Count 255, Mean Platelet Volume 5.6L, Neutrophils (%) (Auto) , Lymphocytes (%) (Auto) , Monocytes (%) (Auto) , Eosinophils (%) (Auto) , Basophils (%) (Auto) , Differential Total Cells Counted 100, Neutrophils % ( Manual) 87H, Lymphocytes % (Manual) 9L, Monocytes % (Manual) 3, Eosinophils % ( Manual) 1, Basophils % (Manual) 0, Band Neutrophils 0, Platelet Estimate Adequate, Platelet Morphology Normal, Polychromasia 1+, Hypochromasia 1+, Anisocytosis 1+, Microcytosis 1+, Sodium Level 147H, Potassium Level 2.8L, Chloride Level 108H, Carbon Dioxide Level 25, Anion Gap 14, Blood Urea Nitrogen 24H, Creatinine 1.2, Estimat Glomerular Filtration Rate 54.9, Glucose Level 126H , Calcium Level 10.0, Phosphorus Level 2.9, Magnesium Level 1.8, Total Bilirubin 0.5, Aspartate Amino Transf (AST/SGOT) 69H, Alanine Aminotransferase ( ALT/SGPT) 56, Alkaline Phosphatase 183H, Total Protein 7.3, Albumin 2.3L, Globulin 5.0, Albumin/Globulin Ratio 0.5L 03/10/20 09:00: Stool Occult Blood [Pending] Height (Feet): 5 Height (Inches): 10.00 Weight (Pounds): 300 Objective Debilitated WW HEENT (+) BIPAP mask Neck supple Coarse BS RR abd very distended (+) edema / anasarca Garry Barrera MD Mar 10, 2020 21:05
[2020-03-10] MEDS: Metoprolol Tartrate 50mg tab ORAL SCH (21:21)
[2020-03-11] VITALS (29 sets, daily range): BP systolic 115–178; BP diastolic 62–129
--- NOTE | 2020-03-11 02:34 | Cardiology Progress Note ---
Subjective DATE OF SERVICE: Mar 10, 2020 Maintaining sinus rhythm Remains dependent on bipap support - but able to stay off for a few hours now. Still with electrolyte abnormalities Rising BP trend Objective Last 24 Hour Vital Signs Date Time Temp Pulse Resp B/P (MAP) Pulse Ox O2 Delivery O2 Flow Rate FiO2 03/11/20 01:30 78 32 97 30 03/11/20 01:00 90 33 164/111 (128) 100 03/11/20 00:00 98.5 88 32 157/127 (137) 99 03/11/20 00:00 40 03/11/20 00:00 92 03/11/20 00:00 Bi-pap 03/10/20 23:00 79 33 147/56 (86) 95 03/10/20 22:55 79 36 96 30 03/10/20 22:00 92 29 156/64 (94) 92 03/10/20 21:21 89 169/64 03/10/20 21:18 99 35 96 30 03/10/20 21:00 98 33 164/66 (98) 97 03/10/20 20:24 89 167/84 03/10/20 20:00 Bi-pap 03/10/20 20:00 87 03/10/20 20:00 40 03/10/20 20:00 98.8 101 33 169/73 (105) 97 03/10/20 19:54 99 Bi-Pap 30 03/10/20 19:30 98 33 98 30 03/10/20 19:00 98 31 166/75 (105) 98 03/10/20 18:02 100 26 158/76 (103) 96 03/10/20 17:00 107 33 162/72 (102) 98 03/10/20 16:34 95 32 100 30 03/10/20 16:00 98.7 97 32 152/69 (96) 99 03/10/20 16:00 95 03/10/20 16:00 Bi-pap 03/10/20 16:00 40 03/10/20 15:37 132/79 03/10/20 15:15 99 30 99 30 03/10/20 15:00 101 33 132/79 (96) 98 03/10/20 14:43 101 165/91 03/10/20 14:00 105 33 166/82 (110) 100 03/10/20 13:00 106 35 137/106 (116) 99 03/10/20 12:40 105 34 97 40 03/10/20 12:00 98.8 03/10/20 12:00 113 19 168/80 (109) 95 03/10/20 12:00 108 03/10/20 12:00 40 03/10/20 12:00 Bi-pap 03/10/20 11:07 93 35 89 30 03/10/20 11:00 96 20 148/97 (114) 95 03/10/20 10:00 98 20 134/98 (110) 96 03/10/20 09:11 94 34 97 30 03/10/20 09:00 100 24 161/78 (105) 97 03/10/20 08:25 102 171/86 03/10/20 08:24 101 171/86 03/10/20 08:00 Bi-pap 03/10/20 08:00 98.4 98 28 171/86 (114) 98 03/10/20 08:00 30 03/10/20 08:00 97 03/10/20 07:15 93 32 98 30 03/10/20 07:14 98 Bi-Pap 30 03/10/20 07:00 120 23 120/68 (85) 95 03/10/20 06:00 105 23 128/99 (109) 95 03/10/20 05:30 92 29 97 30 03/10/20 05:00 91 30 177/88 (117) 97 03/10/20 04:00 87 03/10/20 04:00 94 31 145/99 (114) 98 03/10/20 04:00 Bi-pap 03/10/20 04:00 30 03/10/20 03:30 89 30 99 30 03/10/20 03:00 99 24 117/78 (91) 98 03/10/20 03:00 97 167/86 HEENT: normal ENT inspection RHYTHM: ST, PACs LUNGS: bilateral rhonchi CARDIAC: normal rate, normal S1 and S2 ABDOMEN: normal bowel sounds, non tender, soft, no organomegaly EXTREMITIES: No edema Laboratory Tests Test 03/10/20 08:40 03/10/20 09:00 White Blood Count 11.6 K/UL (4.8-10.8) H Red Blood Count 3.42 M/UL (4.20-5.40) L Hemoglobin 8.4 G/DL (12.0-16.0) L Hematocrit 26.8 % (37.0-47.0) L Mean Corpuscular Volume 78 FL (80-99) L Mean Corpuscular Hemoglobin 24.6 PG (27.0-31.0) L Mean Corpuscular Hemoglobin Concent 31.4 G/DL (32.0-36.0) L Red Cell Distribution Width 15.3 % (11.6-14.8) H Platelet Count 255 K/UL (150-450) Mean Platelet Volume 5.6 FL (6.5-10.1) L Neutrophils (%) (Auto) % (45.0-75.0) Lymphocytes (%) (Auto) % (20.0-45.0) Monocytes (%) (Auto) % (1.0-10.0) Eosinophils (%) (Auto) % (0.0-3.0) Basophils (%) (Auto) % (0.0-2.0) Differential Total Cells Counted 100 Neutrophils % (Manual) 87 % (45-75) H Lymphocytes % (Manual) 9 % (20-45) L Monocytes % (Manual) 3 % (1-10) Eosinophils % (Manual) 1 % (0-3) Basophils % (Manual) 0 % (0-2) Band Neutrophils 0 % (0-8) Platelet Estimate Adequate Platelet Morphology Normal Polychromasia 1+ Hypochromasia 1+ Anisocytosis 1+ Microcytosis 1+ Sodium Level 147 MMOL/L (136-145) H Potassium Level 2.8 MMOL/L (3.5-5.1) L Chloride Level 108 MMOL/L (98-107) H Carbon Dioxide Level 25 MMOL/L (21-32) Anion Gap 14 mmol/L (5-15) Blood Urea Nitrogen 24 mg/dL (7-18) H Creatinine 1.2 MG/DL (0.55-1.30) Estimat Glomerular Filtration Rate 54.9 mL/min (>60) Glucose Level 126 MG/DL (74-106) H Calcium Level 10.0 MG/DL (8.5-10.1) Phosphorus Level 2.9 MG/DL (2.5-4.9) Magnesium Level 1.8 MG/DL (1.8-2.4) Total Bilirubin 0.5 MG/DL (0.2-1.0) Aspartate Amino Transf (AST/SGOT) 69 U/L (15-37) H Alanine Aminotransferase (ALT/SGPT) 56 U/L (12-78) Alkaline Phosphatase 183 U/L (46-116) H Total Protein 7.3 G/DL (6.4-8.2) Albumin 2.3 G/DL (3.4-5.0) L Globulin 5.0 g/dL Albumin/Globulin Ratio 0.5 (1.0-2.7) L Stool Occult Blood Pending Assessment/Plan Assessment/Plan Paroxysmal Atrial Fib Hypertension/HHD with rising BP trend Acute respiratory failure Metabolic acidosis Acute renal failure Anemia Anasarca Hypokalemia Hypomagnesemia HypoPO4 Dehydration/hypernatremia Bipap Free water replacement and potassium suppl Replace lytes Advance antiHTN meds - add'l meds prn for BP spikes Abx ICU care Off Actos Maintain current cardiovascular meds for arrhythmia suppression Miguel Gama MD Mar 11, 2020 02:34
[2020-03-11] MEDS: dilTIAZem HCl 60mg tab ORAL SCH ×4 (02:45→20:49)
[2020-03-11 05:28] LABS: HEMATOCRIT 27.7 % (37.0-47.0); HEMOGLOBIN 8.6 G/DL (12.0-16.0); MEAN CORPUSCULAR VOLUME 79 FL (80-99); PLATELET COUNT 248 K/UL (150-450); RED CELL DISTRIBUTION WIDTH 15.4 % (11.6-14.8); WHITE BLOOD COUNT 13.2 K/UL (4.8-10.8)
[2020-03-11] MEDS: Piperacillin/Tazobactam 3.375 GM in NS 110 ML IVPB SCH ×3 (05:59→21:49)
[2020-03-11] MEDS: sitaGLIPtin 50mg tab ORAL SCH (05:59)
[2020-03-11] MEDS: NovoLOG Insulin Flexpen SUBQ SCH ×4 (06:04→20:50)
[2020-03-11 06:09] LABS: ALANINE AMINOTRANSFERASE 59 U/L (12-78); ALBUMIN 2.3 G/DL (3.4-5.0); ALBUMIN/GLOBULIN RATIO 0.5 (1.0-2.7); ALKALINE PHOSPHATASE 181 U/L (46-116); ANION GAP 12 mmol/L (5-15); ASPARTATE AMINO TRANSFERASE 62 U/L (15-37); BILIRUBIN,TOTAL 0.6 MG/DL (0.2-1.0); BLOOD UREA NITROGEN 20 mg/dL (7-18); CALCIUM 9.4 MG/DL (8.5-10.1); CARBON DIOXIDE 27 MMOL/L (21-32); CHLORIDE 110 MMOL/L (98-107); CREATININE 1.3 MG/DL (0.55-1.30); GAMMA GLUTAMYL TRANSPEPTIDASE 209 U/L (5-85); PHOSPHORUS 2.6 MG/DL (2.5-4.9); POTASSIUM 3.1 MMOL/L (3.5-5.1); SODIUM 149 MMOL/L (136-145)
--- NOTE | 2020-03-11 06:51 | General Progress Note ---
Assessment/Plan Problem List: (1) Anemia ICD Codes: D64.9 - Anemia, unspecified SNOMED: 519872809 (2) Hypoglycemia ICD Codes: E16.2 - Hypoglycemia, unspecified SNOMED: 997919535 (3) Acute kidney failure ICD Codes: N17.9 - Acute kidney failure, unspecified SNOMED: 54169318 (4) Syncope ICD Codes: R55 - Syncope and collapse SNOMED: 405655808 (5) UTI (urinary tract infection) ICD Codes: N39.0 - Urinary tract infection, site not specified SNOMED: 03630545 (6) FARIBA (acute kidney injury) ICD Codes: N17.9 - Acute kidney failure, unspecified SNOMED: 6489756, 26027560 Status: stable Assessment/Plan: continue Januvia 50 mg daily continue glucose monitoring hypoglycemia protocol in order Subjective Allergies: Coded Allergies: No Known Allergies (Unverified , 03/03/20) Subjective events noted interval notes reviewed glucose values improved Item Value Date Time Bedside Blood Glucose 187 mg/dl H 03/11/20 0604 Bedside Blood Glucose 148 mg/dl H 03/10/20 2127 Bedside Blood Glucose 142 mg/dl H 03/10/20 1643 Bedside Blood Glucose 178 mg/dl H 03/10/20 1137 Bedside Blood Glucose 202 mg/dl H 03/10/20 0545 Bedside Blood Glucose 128 mg/dl H 03/10/20 0000 Objective Last 24 Hour Vital Signs Date Time Temp Pulse Resp B/P (MAP) Pulse Ox O2 Delivery O2 Flow Rate FiO2 03/11/20 05:00 97 28 156/129 (138) 95 03/11/20 04:35 92 32 97 30 03/11/20 04:00 87 03/11/20 04:00 40 03/11/20 04:00 Bi-pap 03/11/20 04:00 98 25 150/90 (110) 99 03/11/20 03:17 98 33 96 30 03/11/20 03:04 98.5 90 32 166/94 (118) 97 03/11/20 02:45 93 166/94 03/11/20 02:00 87 33 168/69 (102) 99 03/11/20 01:30 78 32 97 30 03/11/20 01:00 90 33 164/111 (128) 100 03/11/20 00:00 98.5 88 32 157/127 (137) 99 03/11/20 00:00 40 03/11/20 00:00 92 03/11/20 00:00 Bi-pap 03/10/20 23:00 79 33 147/56 (86) 95 03/10/20 22:55 79 36 96 30 03/10/20 22:00 92 29 156/64 (94) 92 03/10/20 21:21 89 169/64 03/10/20 21:18 99 35 96 30 03/10/20 21:00 98 33 164/66 (98) 97 03/10/20 20:24 89 167/84 03/10/20 20:00 Bi-pap 03/10/20 20:00 87 03/10/20 20:00 40 03/10/20 20:00 98.8 101 33 169/73 (105) 97 03/10/20 19:54 99 Bi-Pap 30 03/10/20 19:30 98 33 98 30 03/10/20 19:00 98 31 166/75 (105) 98 03/10/20 18:02 100 26 158/76 (103) 96 03/10/20 17:00 107 33 162/72 (102) 98 03/10/20 16:34 95 32 100 30 03/10/20 16:00 98.7 97 32 152/69 (96) 99 03/10/20 16:00 95 03/10/20 16:00 Bi-pap 03/10/20 16:00 40 03/10/20 15:37 132/79 03/10/20 15:15 99 30 99 30 03/10/20 15:00 101 33 132/79 (96) 98 03/10/20 14:43 101 165/91 03/10/20 14:00 105 33 166/82 (110) 100 03/10/20 13:00 106 35 137/106 (116) 99 03/10/20 12:40 105 34 97 40 03/10/20 12:00 98.8 03/10/20 12:00 113 19 168/80 (109) 95 03/10/20 12:00 108 03/10/20 12:00 40 03/10/20 12:00 Bi-pap 03/10/20 11:07 93 35 89 30 03/10/20 11:00 96 20 148/97 (114) 95 03/10/20 10:00 98 20 134/98 (110) 96 03/10/20 09:11 94 34 97 30 03/10/20 09:00 100 24 161/78 (105) 97 03/10/20 08:25 102 171/86 03/10/20 08:24 101 171/86 03/10/20 08:00 Bi-pap 03/10/20 08:00 98.4 98 28 171/86 (114) 98 03/10/20 08:00 30 03/10/20 08:00 97 03/10/20 07:15 93 32 98 30 03/10/20 07:14 98 Bi-Pap 30 03/10/20 07:00 120 23 120/68 (85) 95 Intake and Output 03/10/20 03/11/20 19:00 07:00 Intake Total 500 ml 670.0 ml Output Total 2475 ml 2000 ml Balance -1975 ml -1330.0 ml Intake Oral 400 ml IV Total 100 ml 670.0 ml Output Urine Total 2375 ml 2000 ml Stool Total 100 ml # Bowel Movements 6 103 Laboratory Tests 03/10/20 08:40: White Blood Count 11.6H, Red Blood Count 3.42L, Hemoglobin 8.4L, Hematocrit 26.8L, Mean Corpuscular Volume 78L, Mean Corpuscular Hemoglobin 24.6L, Mean Corpuscular Hemoglobin Concent 31.4L, Red Cell Distribution Width 15.3H, Platelet Count 255, Mean Platelet Volume 5.6L, Neutrophils (%) (Auto) , Lymphocytes (%) (Auto) , Monocytes (%) (Auto) , Eosinophils (%) (Auto) , Basophils (%) (Auto) , Differential Total Cells Counted 100, Neutrophils % ( Manual) 87H, Lymphocytes % (Manual) 9L, Monocytes % (Manual) 3, Eosinophils % ( Manual) 1, Basophils % (Manual) 0, Band Neutrophils 0, Platelet Estimate Adequate, Platelet Morphology Normal, Polychromasia 1+, Hypochromasia 1+, Anisocytosis 1+, Microcytosis 1+, Sodium Level 147H, Potassium Level 2.8L, Chloride Level 108H, Carbon Dioxide Level 25, Anion Gap 14, Blood Urea Nitrogen 24H, Creatinine 1.2, Estimat Glomerular Filtration Rate 54.9, Glucose Level 126H , Calcium Level 10.0, Phosphorus Level 2.9, Magnesium Level 1.8, Total Bilirubin 0.5, Aspartate Amino Transf (AST/SGOT) 69H, Alanine Aminotransferase ( ALT/SGPT) 56, Alkaline Phosphatase 183H, Total Protein 7.3, Albumin 2.3L, Globulin 5.0, Albumin/Globulin Ratio 0.5L 03/10/20 09:00: Stool Occult Blood [Pending] 03/11/20 04:25: White Blood Count 13.2H, Red Blood Count 3.50L, Hemoglobin 8.6L, Hematocrit 27.7L, Mean Corpuscular Volume 79L, Mean Corpuscular Hemoglobin 24.7L, Mean Corpuscular Hemoglobin Concent 31.3L, Red Cell Distribution Width 15.4H, Platelet Count 248, Mean Platelet Volume 5.6L, Neutrophils (%) (Auto) , Lymphocytes (%) (Auto) , Monocytes (%) (Auto) , Eosinophils (%) (Auto) , Basophils (%) (Auto) , Sodium Level 149H, Potassium Level 3.1L, Chloride Level 110H, Carbon Dioxide Level 27, Anion Gap 12, Blood Urea Nitrogen 20H, Creatinine 1.3, Estimat Glomerular Filtration Rate 50.2, Glucose Level 150H, Calcium Level 9.4, Phosphorus Level 2.6, Magnesium Level 1.5L, Total Bilirubin 0.6, Aspartate Amino Transf (AST/SGOT) 62H, Alanine Aminotransferase (ALT/SGPT) 59, Alkaline Phosphatase 181H, Total Protein 7.1, Albumin 2.3L, Globulin 4.8, Albumin/Globulin Ratio 0.5L, Uric Acid 6.5, Gamma Glutamyl Transpeptidase 209H, Troponin I 0.022, C-Reactive Protein, Quantitative 6.5H, Pro-B-Type Natriuretic Peptide [id number] Height (Feet): 5 Height (Inches): 10.00 Weight (Pounds): 300 General Appearance: no apparent distress Neck: normal alignment Cardiovascular: normal rate Respiratory/Chest: decreased breath sounds Abdomen: normal bowel sounds Objective Current Medications Medications (Trade) Dose Ordered Sig/Francisco J Route PRN Reason Start Time Stop Time Status Last Admin Dose Admin Acetaminophen (Tylenol) 650 mg Q4H PRN ORAL Mild Pain (Pain Scale 1-3) 03/04/20 12:15 04/02/20 12:14 03/08/20 12:00 Barium Sulfate (Readi-Cat 2) 450 ml NOW PRN ORAL Radiology Procedure 03/10/20 06:30 03/12/20 06:29 Clonidine HCl (Catapres TTS-3) 1 patch QWEEK TDERMAL 03/05/20 10:30 06/03/20 10:29 03/05/20 10:11 Clonidine HCl (Catapres Tab) 0.1 mg Q4H PRN ORAL bp over 160 syst 03/05/20 09:30 06/03/20 09:29 03/07/20 04:53 Dextrose 1,000 ml @ 50 mls/hr Q20H IV 03/10/20 15:30 04/09/20 15:29 03/10/20 15:36 Dextrose (Dextrose 50%) 25 ml Q30M PRN IV Hypoglycemia 03/04/20 12:00 06/01/20 21:59 03/04/20 21:41 Dextrose (Dextrose 50%) 50 ml Q30M PRN IV Hypoglycemia 03/04/20 12:00 06/01/20 21:59 03/05/20 06:15 Diltiazem HCl (Cardizem Tab) 60 mg Q6H ORAL 03/09/20 03:00 04/08/20 02:59 03/11/20 02:45 Docusate Sodium (Colace) 100 mg THREE TIMES A DAY ORAL 03/09/20 09:00 04/08/20 08:59 Glucagon (Glucagon) 1 mg Q2H PRN IM Hypoglycemia 03/05/20 11:00 06/03/20 10:59 Insulin Aspart (NovoLOG) BEFORE MEALS AND HS SUBQ 03/07/20 06:30 06/05/20 06:29 03/11/20 06:04 Iron Sucrose 100 mg/Sodium Chloride 60 ml @ 240 mls/hr BEDTIME IVPB 03/09/20 21:00 03/13/20 21:14 03/10/20 20:23 Losartan Potassium (Cozaar) 50 mg DAILY ORAL 03/10/20 15:30 04/09/20 15:29 03/10/20 15:37 Metoprolol Tartrate (Lopressor) 50 mg Q12HR ORAL 03/10/20 21:00 06/04/20 15:14 03/10/20 21:21 Pantoprazole (Protonix) 40 mg EVERY 12 HOURS ORAL 03/09/20 09:00 04/08/20 08:59 03/10/20 20:24 Piperacillin Sod/ Tazobactam Sod 3.375 gm/Sodium Chloride 110 ml @ 27.5 mls/hr Q8HR IVPB 03/09/20 14:00 03/16/20 13:59 03/11/20 05:59 Polyethylene Glycol (Miralax) 17 gm DAILYPRN PRN ORAL Constipation 03/04/20 12:15 04/03/20 12:14 Potassium Chloride (K-Dur) 40 meq BID ORAL 03/10/20 18:00 06/07/20 08:59 03/10/20 17:52 Sitagliptin Phosphate (Januvia) 50 mg ACBREAKFAST ORAL 03/10/20 06:30 04/09/20 06:29 03/11/20 05:59 Sudhir Barrow MD Mar 11, 2020 06:51
--- NOTE | 2020-03-11 07:32 | General Progress Note ---
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 replace lytes guarded Subjective ROS Limited/Unobtainable: No Constitutional: Reports: malaise, weakness HEENT: Reports: no symptoms Cardiovascular: Reports: no symptoms Respiratory: Reports: cough, shortness of breath Gastrointestinal/Abdominal: Reports: no symptoms Genitourinary: Reports: no symptoms Neurologic/Psychiatric: Reports: no symptoms Endocrine: Reports: no symptoms Hematologic/Lymphatic: Reports: anemia Allergies: Coded Allergies: No Known Allergies (Unverified , 03/03/20) All Systems: reviewed and negative except above Subjective no events. remains stable on bipap. ct with large pelvic mass, pulm edema vs pna. no fevers or chills. labs reviewed, Objective Last 24 Hour Vital Signs Date Time Temp Pulse Resp B/P (MAP) Pulse Ox O2 Delivery O2 Flow Rate FiO2 03/11/20 05:00 97 28 156/129 (138) 95 03/11/20 04:35 92 32 97 30 03/11/20 04:00 87 03/11/20 04:00 40 03/11/20 04:00 Bi-pap 03/11/20 04:00 98 25 150/90 (110) 99 03/11/20 03:17 98 33 96 30 03/11/20 03:04 98.5 90 32 166/94 (118) 97 03/11/20 02:45 93 166/94 03/11/20 02:00 87 33 168/69 (102) 99 03/11/20 01:30 78 32 97 30 03/11/20 01:00 90 33 164/111 (128) 100 03/11/20 00:00 98.5 88 32 157/127 (137) 99 03/11/20 00:00 40 9/2/20 00:00 92 03/11/20 00:00 Bi-pap 03/10/20 23:00 79 33 147/56 (86) 95 03/10/20 22:55 79 36 96 30 03/10/20 22:00 92 29 156/64 (94) 92 03/10/20 21:21 89 169/64 03/10/20 21:18 99 35 96 30 03/10/20 21:00 98 33 164/66 (98) 97 03/10/20 20:24 89 167/84 03/10/20 20:00 Bi-pap 03/10/20 20:00 87 03/10/20 20:00 40 03/10/20 20:00 98.8 101 33 169/73 (105) 97 03/10/20 19:54 99 Bi-Pap 30 03/10/20 19:30 98 33 98 30 03/10/20 19:00 98 31 166/75 (105) 98 03/10/20 18:02 100 26 158/76 (103) 96 03/10/20 17:00 107 33 162/72 (102) 98 03/10/20 16:34 95 32 100 30 03/10/20 16:00 98.7 97 32 152/69 (96) 99 03/10/20 16:00 95 03/10/20 16:00 Bi-pap 03/10/20 16:00 40 03/10/20 15:37 132/79 03/10/20 15:15 99 30 99 30 03/10/20 15:00 101 33 132/79 (96) 98 03/10/20 14:43 101 165/91 03/10/20 14:00 105 33 166/82 (110) 100 03/10/20 13:00 106 35 137/106 (116) 99 03/10/20 12:40 105 34 97 40 03/10/20 12:00 98.8 03/10/20 12:00 113 19 168/80 (109) 95 03/10/20 12:00 108 03/10/20 12:00 40 03/10/20 12:00 Bi-pap 03/10/20 11:07 93 35 89 30 03/10/20 11:00 96 20 148/97 (114) 95 03/10/20 10:00 98 20 134/98 (110) 96 03/10/20 09:11 94 34 97 30 03/10/20 09:00 100 24 161/78 (105) 97 03/10/20 08:25 102 171/86 03/10/20 08:24 101 171/86 03/10/20 08:00 Bi-pap 03/10/20 08:00 98.4 98 28 171/86 (114) 98 03/10/20 08:00 30 03/10/20 08:00 97 Intake and Output 03/10/20 03/11/20 19:00 07:00 Intake Total 500 ml 670.0 ml Output Total 2475 ml 2000 ml Balance -1975 ml -1330.0 ml Intake Oral 400 ml IV Total 100 ml 670.0 ml Output Urine Total 2375 ml 2000 ml Stool Total 100 ml # Bowel Movements 6 103 Laboratory Tests 03/10/20 08:40: White Blood Count 11.6H, Red Blood Count 3.42L, Hemoglobin 8.4L, Hematocrit 26.8L, Mean Corpuscular Volume 78L, Mean Corpuscular Hemoglobin 24.6L, Mean Corpuscular Hemoglobin Concent 31.4L, Red Cell Distribution Width 15.3H, Platelet Count 255, Mean Platelet Volume 5.6L, Neutrophils (%) (Auto) , Lymphocytes (%) (Auto) , Monocytes (%) (Auto) , Eosinophils (%) (Auto) , Basophils (%) (Auto) , Differential Total Cells Counted 100, Neutrophils % ( Manual) 87H, Lymphocytes % (Manual) 9L, Monocytes % (Manual) 3, Eosinophils % ( Manual) 1, Basophils % (Manual) 0, Band Neutrophils 0, Platelet Estimate Adequate, Platelet Morphology Normal, Polychromasia 1+, Hypochromasia 1+, Anisocytosis 1+, Microcytosis 1+, Sodium Level 147H, Potassium Level 2.8L, Chloride Level 108H, Carbon Dioxide Level 25, Anion Gap 14, Blood Urea Nitrogen 24H, Creatinine 1.2, Estimat Glomerular Filtration Rate 54.9, Glucose Level 126H , Calcium Level 10.0, Phosphorus Level 2.9, Magnesium Level 1.8, Total Bilirubin 0.5, Aspartate Amino Transf (AST/SGOT) 69H, Alanine Aminotransferase ( ALT/SGPT) 56, Alkaline Phosphatase 183H, Total Protein 7.3, Albumin 2.3L, Globulin 5.0, Albumin/Globulin Ratio 0.5L 03/10/20 09:00: Stool Occult Blood [Pending] 03/11/20 04:25: White Blood Count 13.2H, Red Blood Count 3.50L, Hemoglobin 8.6L, Hematocrit 27.7L, Mean Corpuscular Volume 79L, Mean Corpuscular Hemoglobin 24.7L, Mean Corpuscular Hemoglobin Concent 31.3L, Red Cell Distribution Width 15.4H, Platelet Count 248, Mean Platelet Volume 5.6L, Neutrophils (%) (Auto) , Lymphocytes (%) (Auto) , Monocytes (%) (Auto) , Eosinophils (%) (Auto) , Basophils (%) (Auto) , Sodium Level 149H, Potassium Level 3.1L, Chloride Level 110H, Carbon Dioxide Level 27, Anion Gap 12, Blood Urea Nitrogen 20H, Creatinine 1.3, Estimat Glomerular Filtration Rate 50.2, Glucose Level 150H, Calcium Level 9.4, Phosphorus Level 2.6, Magnesium Level 1.5L, Total Bilirubin 0.6, Aspartate Amino Transf (AST/SGOT) 62H, Alanine Aminotransferase (ALT/SGPT) 59, Alkaline Phosphatase 181H, Total Protein 7.1, Albumin 2.3L, Globulin 4.8, Albumin/Globulin Ratio 0.5L, Uric Acid 6.5, Gamma Glutamyl Transpeptidase 209H, Troponin I 0.022, C-Reactive Protein, Quantitative 6.5H, Pro-B-Type Natriuretic Peptide [id number] Height (Feet): 5 Height (Inches): 10.00 Weight (Pounds): 300 Objective General Appearance: WD/WN, alert EENT: PERRL/EOMI Neck: non-tender, normal alignment Cardiovascular: normal peripheral pulses, normal rate Respiratory/Chest: chest wall non-tender, lungs clear, normal breath sounds, no respiratory distress Abdomen: normal bowel sounds, non tender, soft, no organomegaly Edema: moderate edema Neurologic: vp treasurer II-XII grossly normal, alert, oriented x 3, responsive Sal Khanna MD Mar 11, 2020 07:32
[2020-03-11] MEDS: Metoprolol Tartrate 50mg tab ORAL SCH ×2 (08:26→20:48)
[2020-03-11] MEDS: Losartan 50mg tab ORAL SCH (08:26)
--- NOTE | 2020-03-11 09:18 | Critical Care Progress Note ---
Assessment/Plan Assessment/Plan acute respiratory failure hypoxemia metabolic acidosis ARF diabetes leukocytosis anemia anasarca pulmonary infiltrates uterine mass pleural effusion hydronephrosis PLAN IV antibiotics keep negative ? 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 medications/laboratory data/nursing notes/ICU care reviewed in detail note reviewed and edited care discussed with RN and RT ICU time spent >40 minutes Critical Care - Subjective Interval Events: CT reviewed patient afraid to remove BIPAP d/w RN in ICU ROS Limited/Unobtainable: Yes Condition: critical EKG Rhythm: Sinus Rhythm I&O: Intake and Output 03/10/20 03/11/20 19:00 07:00 Intake Total 500 ml 747.5 ml Output Total 2475 ml 2390 ml Balance -1975 ml -1642.5 ml Intake Oral 400 ml IV Total 100 ml 747.5 ml Output Urine Total 2375 ml 2390 ml Stool Total 100 ml # Bowel Movements 6 103 Critical Care - Objective Last 24 Hour Vital Signs Date Time Temp Pulse Resp B/P (MAP) Pulse Ox O2 Delivery O2 Flow Rate FiO2 03/11/20 08:26 178/62 03/11/20 08:26 105 178/62 03/11/20 08:25 105 178/62 03/11/20 08:00 98.2 100 28 178/76 (110) 99 03/11/20 08:00 Bi-pap 03/11/20 08:00 30 03/11/20 07:00 97 28 173/74 (107) 99 03/11/20 06:30 99 32 138/89 (105) 97 03/11/20 06:12 98 31 173/78 (109) 97 03/11/20 06:00 98 31 167/73 (104) 98 03/11/20 05:00 97 28 156/129 (138) 95 03/11/20 04:35 92 32 97 30 03/11/20 04:00 87 03/11/20 04:00 40 03/11/20 04:00 Bi-pap 03/11/20 04:00 98 25 150/90 (110) 99 03/11/20 03:17 98 33 96 30 03/11/20 03:04 98.5 90 32 166/94 (118) 97 03/11/20 02:45 93 166/94 03/11/20 02:00 87 33 168/69 (102) 99 03/11/20 01:30 78 32 97 30 03/11/20 01:00 90 33 164/111 (128) 100 03/11/20 00:00 98.5 88 32 157/127 (137) 99 03/11/20 00:00 40 03/11/20 00:00 92 03/11/20 00:00 Bi-pap 03/10/20 23:00 79 33 147/56 (86) 95 03/10/20 22:55 79 36 96 30 03/10/20 22:00 92 29 156/64 (94) 92 03/10/20 21:21 89 169/64 03/10/20 21:18 99 35 96 30 03/10/20 21:00 98 33 164/66 (98) 97 03/10/20 20:24 89 167/84 03/10/20 20:00 Bi-pap 03/10/20 20:00 87 03/10/20 20:00 40 03/10/20 20:00 98.8 101 33 169/73 (105) 97 03/10/20 19:54 99 Bi-Pap 30 03/10/20 19:30 98 33 98 30 03/10/20 19:00 98 31 166/75 (105) 98 03/10/20 18:02 100 26 158/76 (103) 96 03/10/20 17:00 107 33 162/72 (102) 98 03/10/20 16:34 95 32 100 30 03/10/20 16:00 98.7 97 32 152/69 (96) 99 03/10/20 16:00 95 03/10/20 16:00 Bi-pap 03/10/20 16:00 40 03/10/20 15:37 132/79 03/10/20 15:15 99 30 99 30 03/10/20 15:00 101 33 132/79 (96) 98 03/10/20 14:43 101 165/91 03/10/20 14:00 105 33 166/82 (110) 100 03/10/20 13:00 106 35 137/106 (116) 99 03/10/20 12:40 105 34 97 40 03/10/20 12:00 98.8 03/10/20 12:00 113 19 168/80 (109) 95 03/10/20 12:00 108 03/10/20 12:00 40 03/10/20 12:00 Bi-pap 03/10/20 11:07 93 35 89 30 03/10/20 11:00 96 20 148/97 (114) 95 03/10/20 10:00 98 20 134/98 (110) 96 Labs: Labs Test 03/09/20 05:27 03/09/20 12:15 03/09/20 16:05 03/09/20 21:16 White Blood Count 11.8 K/UL (4.8-10.8) 12.7 K/UL (4.8-10.8) Red Blood Count 3.21 M/UL (4.20-5.40) 3.27 M/UL (4.20-5.40) Hemoglobin 8.0 G/DL (12.0-16.0) 8.1 G/DL (12.0-16.0) Hematocrit 25.4 % (37.0-47.0) 25.8 % (37.0-47.0) Mean Corpuscular Volume 79 FL (80-99) 79 FL (80-99) Mean Corpuscular Hemoglobin 24.9 PG (27.0-31.0) 24.8 PG (27.0-31.0) Mean Corpuscular Hemoglobin Concent 31.4 G/DL (32.0-36.0) 31.5 G/DL (32.0-36.0) Red Cell Distribution Width 15.0 % (11.6-14.8) 15.1 % (11.6-14.8) Platelet Count 263 K/UL (150-450) 277 K/UL (150-450) Mean Platelet Volume 5.4 FL (6.5-10.1) 5.5 FL (6.5-10.1) Neutrophils (%) (Auto) % (45.0-75.0) 81.0 % (45.0-75.0) Lymphocytes (%) (Auto) % (20.0-45.0) 6.9 % (20.0-45.0) Monocytes (%) (Auto) % (1.0-10.0) 7.5 % (1.0-10.0) Eosinophils (%) (Auto) % (0.0-3.0) 0.9 % (0.0-3.0) Basophils (%) (Auto) % (0.0-2.0) 3.7 % (0.0-2.0) Differential Total Cells Counted 100 Neutrophils % (Manual) 88 % (45-75) Lymphocytes % (Manual) 8 % (20-45) Monocytes % (Manual) 4 % (1-10) Eosinophils % (Manual) 0 % (0-3) Basophils % (Manual) 0 % (0-2) Band Neutrophils 0 % (0-8) Platelet Estimate Adequate Platelet Morphology Normal Hypochromasia 2+ Microcytosis 1+ Sodium Level 149 MMOL/L (136-145) Potassium Level 2.9 MMOL/L (3.5-5.1) Chloride Level 111 MMOL/L (98-107) Carbon Dioxide Level 27 MMOL/L (21-32) Anion Gap 11 mmol/L (5-15) Blood Urea Nitrogen 24 mg/dL (7-18) Creatinine 1.2 MG/DL (0.55-1.30) Estimat Glomerular Filtration Rate 54.9 mL/min (>60) Glucose Level 140 MG/DL (74-106) Calcium Level 9.9 MG/DL (8.5-10.1) Phosphorus Level 2.8 MG/DL (2.5-4.9) Magnesium Level 1.7 MG/DL (1.8-2.4) Total Bilirubin 0.6 MG/DL (0.2-1.0) Aspartate Amino Transf (AST/SGOT) 46 U/L (15-37) Alanine Aminotransferase (ALT/SGPT) 38 U/L (12-78) Alkaline Phosphatase 180 U/L (46-116) Total Protein 7.1 G/DL (6.4-8.2) Albumin 2.3 G/DL (3.4-5.0) Globulin 4.8 g/dL Albumin/Globulin Ratio 0.5 (1.0-2.7) POC Whole Blood Glucose 139 MG/DL (74-106) 126 MG/DL (74-106) Test 03/10/20 08:40 03/10/20 09:00 03/11/20 04:25 White Blood Count 11.6 K/UL (4.8-10.8) 13.2 K/UL (4.8-10.8) Red Blood Count 3.42 M/UL (4.20-5.40) 3.50 M/UL (4.20-5.40) Hemoglobin 8.4 G/DL (12.0-16.0) 8.6 G/DL (12.0-16.0) Hematocrit 26.8 % (37.0-47.0) 27.7 % (37.0-47.0) Mean Corpuscular Volume 78 FL (80-99) 79 FL (80-99) Mean Corpuscular Hemoglobin 24.6 PG (27.0-31.0) 24.7 PG (27.0-31.0) Mean Corpuscular Hemoglobin Concent 31.4 G/DL (32.0-36.0) 31.3 G/DL (32.0-36.0) Red Cell Distribution Width 15.3 % (11.6-14.8) 15.4 % (11.6-14.8) Platelet Count 255 K/UL (150-450) 248 K/UL (150-450) Mean Platelet Volume 5.6 FL (6.5-10.1) 5.6 FL (6.5-10.1) Neutrophils (%) (Auto) % (45.0-75.0) % (45.0-75.0) Lymphocytes (%) (Auto) % (20.0-45.0) % (20.0-45.0) Monocytes (%) (Auto) % (1.0-10.0) % (1.0-10.0) Eosinophils (%) (Auto) % (0.0-3.0) % (0.0-3.0) Basophils (%) (Auto) % (0.0-2.0) % (0.0-2.0) Differential Total Cells Counted 100 Neutrophils % (Manual) 87 % (45-75) Lymphocytes % (Manual) 9 % (20-45) Monocytes % (Manual) 3 % (1-10) Eosinophils % (Manual) 1 % (0-3) Basophils % (Manual) 0 % (0-2) Band Neutrophils 0 % (0-8) Platelet Estimate Adequate Platelet Morphology Normal Polychromasia 1+ Hypochromasia 1+ Anisocytosis 1+ Microcytosis 1+ Sodium Level 147 MMOL/L (136-145) 149 MMOL/L (136-145) Potassium Level 2.8 MMOL/L (3.5-5.1) 3.1 MMOL/L (3.5-5.1) Chloride Level 108 MMOL/L (98-107) 110 MMOL/L (98-107) Carbon Dioxide Level 25 MMOL/L (21-32) 27 MMOL/L (21-32) Anion Gap 14 mmol/L (5-15) 12 mmol/L (5-15) Blood Urea Nitrogen 24 mg/dL (7-18) 20 mg/dL (7-18) Creatinine 1.2 MG/DL (0.55-1.30) 1.3 MG/DL (0.55-1.30) Estimat Glomerular Filtration Rate 54.9 mL/min (>60) 50.2 mL/min (>60) Glucose Level 126 MG/DL (74-106) 150 MG/DL (74-106) Calcium Level 10.0 MG/DL (8.5-10.1) 9.4 MG/DL (8.5-10.1) Phosphorus Level 2.9 MG/DL (2.5-4.9) 2.6 MG/DL (2.5-4.9) Magnesium Level 1.8 MG/DL (1.8-2.4) 1.5 MG/DL (1.8-2.4) Total Bilirubin 0.5 MG/DL (0.2-1.0) 0.6 MG/DL (0.2-1.0) Aspartate Amino Transf (AST/SGOT) 69 U/L (15-37) 62 U/L (15-37) Alanine Aminotransferase (ALT/SGPT) 56 U/L (12-78) 59 U/L (12-78) Alkaline Phosphatase 183 U/L (46-116) 181 U/L (46-116) Total Protein 7.3 G/DL (6.4-8.2) 7.1 G/DL (6.4-8.2) Albumin 2.3 G/DL (3.4-5.0) 2.3 G/DL (3.4-5.0) Globulin 5.0 g/dL 4.8 g/dL Albumin/Globulin Ratio 0.5 (1.0-2.7) 0.5 (1.0-2.7) Uric Acid 6.5 MG/DL (2.6-7.2) Gamma Glutamyl Transpeptidase 209 U/L (5-85) Troponin I 0.022 ng/mL (0.000-0.056) C-Reactive Protein, Quantitative 6.5 mg/dL (0.00-0.90) Pro-B-Type Natriuretic Peptide 14654 pg/mL (0-125) Objective: WDWN on BIPAP reduced breath sounds bilaterally without rhonchi or wheeze [id number] without MRG NABS nontender no HSM no CC noted edema nonfocal more alert Accucheck: 187 Charles Thomson MD Mar 11, 2020 09:18
--- NOTE | 2020-03-11 09:24 | Nephrology Progress Note ---
Assessment/Plan Problem List: (1) FARIBA (acute kidney injury) (2) Renal failure (ARF), acute on chronic (3) UTI (urinary tract infection) (4) Hypoglycemia (5) Anemia (6) Morbid obesity with BMI of 45.0-49.9, adult (7) Acute respiratory failure (8) Obstructive sleep apnea Assessment Acute renal failure Possible underlying chronic kidney disease High likelihood of diabetic nephropathy, patient has proteinuria and hypoalbuminemia Persistent hypo-glycemia: The patient was on 3 oral hypoglycemic agents including Glucophage Morbid obesity Hypertension Severe anemia, low MCV UTI Most likely obstructive sleep apnea Plan March 11: Labs are reviewed. Potassium and magnesium supplement given. Continue per pulmonary. March 10: Labs reviewed. Medication reviewed. Remains on BiPAP. Will DC IV fluid and changed to D5W. Blood pressure medication adjusted. Cozaar added. Potassium supplement given. Continue per consultants. March 09: Labs reviewed. Medication list reviewed. Remains on BiPAP. Venturi mask is being tried. Discussed with meter setter. Renal parameters stable. Magnesium and potassium supplement given. Blood sugar stable. March 08: Today's labs pending. Will discontinue IV fluid. Remains on BiPAP. Aim to take off BiPAP as possible. Transfusion if needed. Discussed with DARSHAN Iglesias. March 07: Marked improvement in renal parameters. Blood sugar improved. Main issue are respiratory, as patient remains on BiPAP. Hemoglobin lower. May require transfusion again. Abnormal electrolytes corrected March 06: Clinically improved. Remains on BiPAP. Blood sugar improved. Urine output well maintained. Serum creatinine lowered. Will adjust blood pressure medication for better control. D10 infusion down to 50 cc an hour. Continue monitor renal parameters. Lasix as needed. 24-hour urine for total protein. March 05: Discontinue Cozaar, labetalol Stop all oral oral hypoglycemics and insulin Start clonidine patch and clonidine PRN for high blood pressure Add Norvasc for blood pressure D10 infusion Check labs, thyroid panel, anemia work-up, lipid panel, hemoglobin A1c Urine for eosinophils and spot sodium Check ABG Per orders Subjective ROS Limited/Unobtainable: Yes Objective Objective Last 24 Hour Vital Signs Date Time Temp Pulse Resp B/P (MAP) Pulse Ox O2 Delivery O2 Flow Rate FiO2 03/11/20 08:26 178/62 03/11/20 08:26 105 178/62 03/11/20 08:25 105 178/62 03/11/20 08:00 98.2 100 28 178/76 (110) 99 03/11/20 08:00 Bi-pap 03/11/20 08:00 30 03/11/20 07:00 97 28 173/74 (107) 99 03/11/20 06:30 99 32 138/89 (105) 97 03/11/20 06:12 98 31 173/78 (109) 97 03/11/20 06:00 98 31 167/73 (104) 98 03/11/20 05:00 97 28 156/129 (138) 95 03/11/20 04:35 92 32 97 30 03/11/20 04:00 87 03/11/20 04:00 40 03/11/20 04:00 Bi-pap 03/11/20 04:00 98 25 150/90 (110) 99 03/11/20 03:17 98 33 96 30 03/11/20 03:04 98.5 90 32 166/94 (118) 97 03/11/20 02:45 93 166/94 03/11/20 02:00 87 33 168/69 (102) 99 03/11/20 01:30 78 32 97 30 03/11/20 01:00 90 33 164/111 (128) 100 03/11/20 00:00 98.5 88 32 157/127 (137) 99 03/11/20 00:00 40 03/11/20 00:00 92 03/11/20 00:00 Bi-pap 03/10/20 23:00 79 33 147/56 (86) 95 03/10/20 22:55 79 36 96 30 03/10/20 22:00 92 29 156/64 (94) 92 03/10/20 21:21 89 169/64 03/10/20 21:18 99 35 96 30 03/10/20 21:00 98 33 164/66 (98) 97 03/10/20 20:24 89 167/84 03/10/20 20:00 Bi-pap 03/10/20 20:00 87 03/10/20 20:00 40 03/10/20 20:00 98.8 101 33 169/73 (105) 97 03/10/20 19:54 99 Bi-Pap 30 03/10/20 19:30 98 33 98 30 03/10/20 19:00 98 31 166/75 (105) 98 03/10/20 18:02 100 26 158/76 (103) 96 03/10/20 17:00 107 33 162/72 (102) 98 03/10/20 16:34 95 32 100 30 03/10/20 16:00 98.7 97 32 152/69 (96) 99 03/10/20 16:00 95 03/10/20 16:00 Bi-pap 03/10/20 16:00 40 03/10/20 15:37 132/79 03/10/20 15:15 99 30 99 30 03/10/20 15:00 101 33 132/79 (96) 98 03/10/20 14:43 101 165/91 03/10/20 14:00 105 33 166/82 (110) 100 03/10/20 13:00 106 35 137/106 (116) 99 03/10/20 12:40 105 34 97 40 03/10/20 12:00 98.8 03/10/20 12:00 113 19 168/80 (109) 95 03/10/20 12:00 108 03/10/20 12:00 40 03/10/20 12:00 Bi-pap 03/10/20 11:07 93 35 89 30 03/10/20 11:00 96 20 148/97 (114) 95 03/10/20 10:00 98 20 134/98 (110) 96 Intake and Output 03/10/20 03/11/20 19:00 07:00 Intake Total 500 ml 747.5 ml Output Total 2475 ml 2390 ml Balance -1975 ml -1642.5 ml Intake Oral 400 ml IV Total 100 ml 747.5 ml Output Urine Total 2375 ml 2390 ml Stool Total 100 ml # Bowel Movements 6 103 Current Medications Medications (Trade) Dose Ordered Sig/Francisco J Route PRN Reason Start Time Stop Time Status Last Admin Dose Admin Acetaminophen (Tylenol) 650 mg Q4H PRN ORAL Mild Pain (Pain Scale 1-3) 03/04/20 12:15 04/02/20 12:14 03/08/20 12:00 Barium Sulfate (Readi-Cat 2) 450 ml NOW PRN ORAL Radiology Procedure 03/10/20 06:30 03/12/20 06:29 Clonidine HCl (Catapres TTS-3) 1 patch QWEEK TDERMAL 03/05/20 10:30 06/03/20 10:29 03/05/20 10:11 Clonidine HCl (Catapres Tab) 0.1 mg Q4H PRN ORAL bp over 160 syst 03/05/20 09:30 06/03/20 09:29 03/07/20 04:53 Dextrose 1,000 ml @ 50 mls/hr Q20H IV 03/10/20 15:30 04/09/20 15:29 03/10/20 15:36 Dextrose (Dextrose 50%) 25 ml Q30M PRN IV Hypoglycemia 03/04/20 12:00 06/01/20 21:59 03/04/20 21:41 Dextrose (Dextrose 50%) 50 ml Q30M PRN IV Hypoglycemia 03/04/20 12:00 06/01/20 21:59 03/05/20 06:15 Diltiazem HCl (Cardizem Tab) 60 mg Q6H ORAL 03/09/20 03:00 04/08/20 02:59 03/11/20 08:25 Glucagon (Glucagon) 1 mg Q2H PRN IM Hypoglycemia 03/05/20 11:00 06/03/20 10:59 Insulin Aspart (NovoLOG) BEFORE MEALS AND HS SUBQ 03/07/20 06:30 06/05/20 06:29 03/11/20 06:04 Iron Sucrose 100 mg/Sodium Chloride 60 ml @ 240 mls/hr BEDTIME IVPB 03/09/20 21:00 03/13/20 21:14 03/10/20 20:23 Losartan Potassium (Cozaar) 50 mg DAILY ORAL 03/10/20 15:30 04/09/20 15:29 03/11/20 08:26 Magnesium Sulfate 100 ml @ 100 mls/hr Q1H IVPB 03/11/20 09:00 03/11/20 12:59 03/11/20 08:25 Metoprolol Tartrate (Lopressor) 50 mg Q12HR ORAL 03/10/20 21:00 06/04/20 15:14 03/11/20 08:26 Pantoprazole (Protonix) 40 mg EVERY 12 HOURS ORAL 03/09/20 09:00 04/08/20 08:59 03/11/20 08:26 Piperacillin Sod/ Tazobactam Sod 3.375 gm/Sodium Chloride 110 ml @ 27.5 mls/hr Q8HR IVPB 03/09/20 14:00 03/16/20 13:59 03/11/20 05:59 Polyethylene Glycol (Miralax) 17 gm DAILYPRN PRN ORAL Constipation 03/04/20 12:15 04/03/20 12:14 Potassium Chloride 60 meq/ Dextrose 1,030 ml @ 171.667 mls/hr Q6H IV 03/11/20 10:00 03/11/20 15:59 Sitagliptin Phosphate (Januvia) 50 mg ACBREAKFAST ORAL 03/10/20 06:30 04/09/20 06:29 03/11/20 05:59 Laboratory Tests 03/11/20 04:25: White Blood Count 13.2H, Red Blood Count 3.50L, Hemoglobin 8.6L, Hematocrit 27.7L, Mean Corpuscular Volume 79L, Mean Corpuscular Hemoglobin 24.7L, Mean Corpuscular Hemoglobin Concent 31.3L, Red Cell Distribution Width 15.4H, Platelet Count 248, Mean Platelet Volume 5.6L, Neutrophils (%) (Auto) , Lymphocytes (%) (Auto) , Monocytes (%) (Auto) , Eosinophils (%) (Auto) , Basophils (%) (Auto) , Sodium Level 149H, Potassium Level 3.1L, Chloride Level 110H, Carbon Dioxide Level 27, Anion Gap 12, Blood Urea Nitrogen 20H, Creatinine 1.3, Estimat Glomerular Filtration Rate 50.2, Glucose Level 150H, Uric Acid 6.5, Calcium Level 9.4, Phosphorus Level 2.6, Magnesium Level 1.5L, Total Bilirubin 0.6, Gamma Glutamyl Transpeptidase 209H, Aspartate Amino Transf (AST/SGOT) 62H, Alanine Aminotransferase (ALT/SGPT) 59, Alkaline Phosphatase 181H, Troponin I 0.022, C-Reactive Protein, Quantitative 6.5H, Pro-B-Type Natriuretic Peptide 22808I, Total Protein 7.1, Albumin 2.3L, Globulin 4.8, Albumin/Globulin Ratio 0.5L Height (Feet): 5 Height (Inches): 10.00 Weight (Pounds): 300 General Appearance: no apparent distress EENT: other - On BiPAP Cardiovascular: tachycardia Respiratory/Chest: decreased breath sounds Abdomen: distended Fouladian,Sundar MD Mar 11, 2020 09:24
[2020-03-11] MEDS ORDERED: D5W IV SCH (10:00)
[2020-03-11] MEDS ORDERED: POTASSIUM CHLORIDE IV SCH (10:00)
--- NOTE | 2020-03-11 11:26 | Infectious Diseases Prog Note ---
Assessment/Plan Assessment/Plan antibiotics : zosyn A 1. pneumonia COVID 19 negative 2. respiratory failure 3. leucocytosis 4. renal failure improving 5. diabetes mellitus 6. hypertension P 1. continue zosyn 2. will follow up cultures Subjective ROS Limited/Unobtainable: Yes Allergies: Coded Allergies: No Known Allergies (Unverified , 03/03/20) Objective Last 24 Hour Vital Signs Date Time Temp Pulse Resp B/P (MAP) Pulse Ox O2 Delivery O2 Flow Rate FiO2 03/11/20 10:00 76 32 153/67 (95) 98 03/11/20 09:15 104 23 99 30 03/11/20 09:00 103 33 160/83 (108) 98 03/11/20 08:26 178/62 03/11/20 08:26 105 178/62 03/11/20 08:25 105 178/62 03/11/20 08:00 98 03/11/20 08:00 98.2 100 28 178/76 (110) 99 03/11/20 08:00 Bi-pap 03/11/20 08:00 30 03/11/20 07:09 96 31 98 30 03/11/20 07:00 97 28 173/74 (107) 99 03/11/20 06:59 96 Bi-Pap 30 03/11/20 06:30 99 32 138/89 (105) 97 03/11/20 06:12 98 31 173/78 (109) 97 03/11/20 06:00 98 31 167/73 (104) 98 03/11/20 05:00 97 28 156/129 (138) 95 03/11/20 04:35 92 32 97 30 03/11/20 04:00 87 03/11/20 04:00 40 03/11/20 04:00 Bi-pap 03/11/20 04:00 98 25 150/90 (110) 99 03/11/20 03:17 98 33 96 30 03/11/20 03:04 98.5 90 32 166/94 (118) 97 03/11/20 02:45 93 166/94 03/11/20 02:00 87 33 168/69 (102) 99 03/11/20 01:30 78 32 97 30 03/11/20 01:00 90 33 164/111 (128) 100 03/11/20 00:00 98.5 88 32 157/127 (137) 99 03/11/20 00:00 40 03/11/20 00:00 92 03/11/20 00:00 Bi-pap 03/10/20 23:00 79 33 147/56 (86) 95 03/10/20 22:55 79 36 96 30 03/10/20 22:00 92 29 156/64 (94) 92 03/10/20 21:21 89 169/64 03/10/20 21:18 99 35 96 30 03/10/20 21:00 98 33 164/66 (98) 97 03/10/20 20:24 89 167/84 03/10/20 20:00 Bi-pap 03/10/20 20:00 87 03/10/20 20:00 40 03/10/20 20:00 98.8 101 33 169/73 (105) 97 03/10/20 19:54 99 Bi-Pap 30 03/10/20 19:30 98 33 98 30 03/10/20 19:00 98 31 166/75 (105) 98 03/10/20 18:02 100 26 158/76 (103) 96 03/10/20 17:00 107 33 162/72 (102) 98 03/10/20 16:34 95 32 100 30 03/10/20 16:00 98.7 97 32 152/69 (96) 99 03/10/20 16:00 95 03/10/20 16:00 Bi-pap 03/10/20 16:00 40 03/10/20 15:37 132/79 03/10/20 15:15 99 30 99 30 03/10/20 15:00 101 33 132/79 (96) 98 03/10/20 14:43 101 165/91 03/10/20 14:00 105 33 166/82 (110) 100 03/10/20 13:00 106 35 137/106 (116) 99 03/10/20 12:40 105 34 97 40 03/10/20 12:00 98.8 03/10/20 12:00 113 19 168/80 (109) 95 03/10/20 12:00 108 03/10/20 12:00 40 03/10/20 12:00 Bi-pap Height (Feet): 5 Height (Inches): 10.00 Weight (Pounds): 300 HEENT: other - on bipap Respiratory/Chest: lungs clear Cardiovascular: normal rate, regular rhythm, no gallop/murmur Abdomen: soft, non tender Extremities: no edema - + edema Laboratory Tests Test 03/11/20 04:25 White Blood Count 13.2 K/UL (4.8-10.8) H Red Blood Count 3.50 M/UL (4.20-5.40) L Hemoglobin 8.6 G/DL (12.0-16.0) L Hematocrit 27.7 % (37.0-47.0) L Mean Corpuscular Volume 79 FL (80-99) L Mean Corpuscular Hemoglobin 24.7 PG (27.0-31.0) L Mean Corpuscular Hemoglobin Concent 31.3 G/DL (32.0-36.0) L Red Cell Distribution Width 15.4 % (11.6-14.8) H Platelet Count 248 K/UL (150-450) Mean Platelet Volume 5.6 FL (6.5-10.1) L Neutrophils (%) (Auto) % (45.0-75.0) Lymphocytes (%) (Auto) % (20.0-45.0) Monocytes (%) (Auto) % (1.0-10.0) Eosinophils (%) (Auto) % (0.0-3.0) Basophils (%) (Auto) % (0.0-2.0) Sodium Level 149 MMOL/L (136-145) H Potassium Level 3.1 MMOL/L (3.5-5.1) L Chloride Level 110 MMOL/L (98-107) H Carbon Dioxide Level 27 MMOL/L (21-32) Anion Gap 12 mmol/L (5-15) Blood Urea Nitrogen 20 mg/dL (7-18) H Creatinine 1.3 MG/DL (0.55-1.30) Estimat Glomerular Filtration Rate 50.2 mL/min (>60) Glucose Level 150 MG/DL (74-106) H Uric Acid 6.5 MG/DL (2.6-7.2) Calcium Level 9.4 MG/DL (8.5-10.1) Phosphorus Level 2.6 MG/DL (2.5-4.9) Magnesium Level 1.5 MG/DL (1.8-2.4) L Total Bilirubin 0.6 MG/DL (0.2-1.0) Gamma Glutamyl Transpeptidase 209 U/L (5-85) H Aspartate Amino Transf (AST/SGOT) 62 U/L (15-37) H Alanine Aminotransferase (ALT/SGPT) 59 U/L (12-78) Alkaline Phosphatase 181 U/L (46-116) H Troponin I 0.022 ng/mL (0.000-0.056) C-Reactive Protein, Quantitative 6.5 mg/dL (0.00-0.90) H Pro-B-Type Natriuretic Peptide 49895 pg/mL (0-125) H Total Protein 7.1 G/DL (6.4-8.2) Albumin 2.3 G/DL (3.4-5.0) L Globulin 4.8 g/dL Albumin/Globulin Ratio 0.5 (1.0-2.7) L Current Medications Medications (Trade) Dose Ordered Sig/Francisco J Route PRN Reason Start Time Stop Time Status Last Admin Dose Admin Acetaminophen (Tylenol) 650 mg Q4H PRN ORAL Mild Pain (Pain Scale 1-3) 03/04/20 12:15 04/02/20 12:14 03/08/20 12:00 Barium Sulfate (Readi-Cat 2) 450 ml NOW PRN ORAL Radiology Procedure 03/10/20 06:30 03/12/20 06:29 Clonidine HCl (Catapres TTS-3) 1 patch QWEEK TDERMAL 03/05/20 10:30 06/03/20 10:29 03/05/20 10:11 Clonidine HCl (Catapres Tab) 0.1 mg Q4H PRN ORAL bp over 160 syst 03/05/20 09:30 06/03/20 09:29 03/07/20 04:53 Dextrose 1,000 ml @ 50 mls/hr Q20H IV 03/10/20 15:30 04/09/20 15:29 03/10/20 15:36 Dextrose (Dextrose 50%) 25 ml Q30M PRN IV Hypoglycemia 03/04/20 12:00 06/01/20 21:59 03/04/20 21:41 Dextrose (Dextrose 50%) 50 ml Q30M PRN IV Hypoglycemia 03/04/20 12:00 06/01/20 21:59 03/05/20 06:15 Diltiazem HCl (Cardizem Tab) 60 mg Q6H ORAL 03/09/20 03:00 04/08/20 02:59 03/11/20 08:25 Glucagon (Glucagon) 1 mg Q2H PRN IM Hypoglycemia 03/05/20 11:00 06/03/20 10:59 Insulin Aspart (NovoLOG) BEFORE MEALS AND HS SUBQ 03/07/20 06:30 06/05/20 06:29 03/11/20 06:04 Iron Sucrose 100 mg/Sodium Chloride 60 ml @ 240 mls/hr BEDTIME IVPB 03/09/20 21:00 03/13/20 21:14 03/10/20 20:23 Losartan Potassium (Cozaar) 50 mg DAILY ORAL 03/10/20 15:30 04/09/20 15:29 03/11/20 08:26 Magnesium Sulfate 100 ml @ 100 mls/hr Q1H IVPB 03/11/20 09:00 03/11/20 12:59 03/11/20 10:30 Metoprolol Tartrate (Lopressor) 50 mg Q12HR ORAL 03/10/20 21:00 06/04/20 15:14 03/11/20 08:26 Pantoprazole (Protonix) 40 mg EVERY 12 HOURS ORAL 03/09/20 09:00 04/08/20 08:59 03/11/20 08:26 Piperacillin Sod/ Tazobactam Sod 3.375 gm/Sodium Chloride 110 ml @ 27.5 mls/hr Q8HR IVPB 03/09/20 14:00 03/16/20 13:59 03/11/20 05:59 Polyethylene Glycol (Miralax) 17 gm DAILYPRN PRN ORAL Constipation 03/04/20 12:15 04/03/20 12:14 Potassium Chloride 60 meq/ Dextrose 1,030 ml @ 171.667 mls/hr Q6H IV 03/11/20 10:00 03/11/20 15:59 03/11/20 09:31 Sitagliptin Phosphate (Januvia) 50 mg ACBREAKFAST ORAL 03/10/20 06:30 04/09/20 06:29 03/11/20 05:59 Yudelka Alcocer MD Mar 11, 2020 11:26
--- NOTE | 2020-03-11 12:32 | Diagnostic Imaging Report ---
Indication: Reason For Exam: DVT Technique: Grayscale and duplex images of the bilateral lower extremity veins Comparison: None Findings: Exam is technically limited due to patient body habitus superficial edema. Bilaterally, grayscale and duplex images demonstrate no evidence of intraluminal thrombus. Normal phasic Doppler waveforms, demonstrating normal augmentation response and no evidence of valvular insufficiency. Greater saphenous vein(s) and tibial veins are patent. Normal compressibility. Impression: Negative for evidence of lower extremity deep venous thrombosis bilaterally
[2020-03-11 15:41] LABS: ANION GAP 12 mmol/L (5-15); BLOOD UREA NITROGEN 18 mg/dL (7-18); CALCIUM 9.4 MG/DL (8.5-10.1); CARBON DIOXIDE 28 MMOL/L (21-32); CHLORIDE 109 MMOL/L (98-107); CREATININE 1.2 MG/DL (0.55-1.30); POTASSIUM 3.6 MMOL/L (3.5-5.1); SODIUM 148 MMOL/L (136-145)
[2020-03-11] MEDS: Iron Sucrose 100 MG in NS 55 ML IVPB SCH (20:48)
--- NOTE | 2020-03-11 21:45 | General Progress Note ---
Assessment/Plan Status: stable Assessment/Plan: Assessment - Dark stools, r/o GIB - OB (+) 1/2 - microcytic anemia - pelvic / uterine masses with JACKY - r/o CA - hydronephrosis - rectal wall thickening - resp failure - resolved renal failure - anasarca, abdominal distention - pleural effusion - pulmonary HTN - abnormal LFT - ? mets, ? JOHNSON, ? passive congestion Recommendations - Monitor H&H - IV Fe trial - PPI - not candidate for endoscopy at this time - Await TEAM LEAD input Subjective Allergies: Coded Allergies: No Known Allergies (Unverified , 03/03/20) Subjective above noted patient with diarrhea OB (+) 1/2 Objective Last 24 Hour Vital Signs Date Time Temp Pulse Resp B/P (MAP) Pulse Ox O2 Delivery O2 Flow Rate FiO2 03/11/20 21:08 77 28 98 30 03/11/20 20:49 99 146/71 03/11/20 20:48 99 146/71 03/11/20 19:29 98 Bi-Pap 30 03/11/20 19:29 94 30 98 30 03/11/20 19:00 94 29 141/71 (94) 98 03/11/20 18:00 84 29 158/78 (104) 85 03/11/20 17:00 97 30 166/77 (106) 95 03/11/20 16:38 88 25 98 03/11/20 16:00 98.4 86 28 140/62 (88) 95 03/11/20 16:00 40 03/11/20 16:00 Bi-pap 03/11/20 16:00 81 03/11/20 15:00 91 27 176/73 (107) 95 03/11/20 14:43 93 28 97 03/11/20 14:39 96 176/76 03/11/20 14:39 176/76 03/11/20 14:00 100 23 171/77 (108) 97 03/11/20 13:00 97 28 160/78 (105) 97 03/11/20 12:00 Bi-pap 03/11/20 12:00 92 03/11/20 12:00 98.0 90 28 158/71 (100) 99 03/11/20 12:00 40 03/11/20 11:29 89 25 98 03/11/20 11:00 76 28 115/95 (102) 99 03/11/20 10:00 76 32 153/67 (95) 98 03/11/20 09:15 104 23 99 30 03/11/20 09:00 103 33 160/83 (108) 98 03/11/20 08:26 178/62 03/11/20 08:26 105 178/62 03/11/20 08:25 105 178/62 03/11/20 08:00 98 03/11/20 08:00 98.2 100 28 178/76 (110) 99 03/11/20 08:00 Bi-pap 03/11/20 08:00 30 03/11/20 07:09 96 31 98 30 03/11/20 07:00 97 28 173/74 (107) 99 03/11/20 06:59 96 Bi-Pap 30 03/11/20 06:30 99 32 138/89 (105) 97 03/11/20 06:12 98 31 173/78 (109) 97 03/11/20 06:00 98 31 167/73 (104) 98 03/11/20 05:00 97 28 156/129 (138) 95 03/11/20 04:35 92 32 97 30 03/11/20 04:00 87 03/11/20 04:00 40 03/11/20 04:00 Bi-pap 03/11/20 04:00 98 25 150/90 (110) 99 03/11/20 03:17 98 33 96 30 03/11/20 03:04 98.5 90 32 166/94 (118) 97 03/11/20 02:45 93 166/94 03/11/20 02:00 87 33 168/69 (102) 99 03/11/20 01:30 78 32 97 30 03/11/20 01:00 90 33 164/111 (128) 100 03/11/20 00:00 98.5 88 32 157/127 (137) 99 03/11/20 00:00 40 03/11/20 00:00 92 03/11/20 00:00 Bi-pap 03/10/20 23:00 79 33 147/56 (86) 95 03/10/20 22:55 79 36 96 30 03/10/20 22:00 92 29 156/64 (94) 92 Intake and Output 03/10/20 03/11/20 19:00 07:00 Intake Total 500 ml 747.5 ml Output Total 2475 ml 2390 ml Balance -1975 ml -1642.5 ml Intake Oral 400 ml IV Total 100 ml 747.5 ml Output Urine Total 2375 ml 2390 ml Stool Total 100 ml # Bowel Movements 6 103 Laboratory Tests 03/11/20 04:25: White Blood Count 13.2H, Red Blood Count 3.50L, Hemoglobin 8.6L, Hematocrit 27.7L, Mean Corpuscular Volume 79L, Mean Corpuscular Hemoglobin 24.7L, Mean Corpuscular Hemoglobin Concent 31.3L, Red Cell Distribution Width 15.4H, Platelet Count 248, Mean Platelet Volume 5.6L, Neutrophils (%) (Auto) , Lymphocytes (%) (Auto) , Monocytes (%) (Auto) , Eosinophils (%) (Auto) , Basophils (%) (Auto) , Sodium Level 149H, Potassium Level 3.1L, Chloride Level 110H, Carbon Dioxide Level 27, Anion Gap 12, Blood Urea Nitrogen 20H, Creatinine 1.3, Estimat Glomerular Filtration Rate 50.2, Glucose Level 150H, Uric Acid 6.5, Calcium Level 9.4, Phosphorus Level 2.6, Magnesium Level 1.5L, Total Bilirubin 0.6, Gamma Glutamyl Transpeptidase 209H, Aspartate Amino Transf (AST/SGOT) 62H, Alanine Aminotransferase (ALT/SGPT) 59, Alkaline Phosphatase 181H, Troponin I 0.022, C-Reactive Protein, Quantitative 6.5H, Pro-B-Type Natriuretic Peptide 95598S, Total Protein 7.1, Albumin 2.3L, Globulin 4.8, Albumin/Globulin Ratio 0.5L 03/11/20 15:20: Sodium Level 148H, Potassium Level 3.6, Chloride Level 109H, Carbon Dioxide Level 28, Anion Gap 12, Blood Urea Nitrogen 18, Creatinine 1.2, Estimat Glomerular Filtration Rate 54.9, Glucose Level 149H, Calcium Level 9.4 Height (Feet): 5 Height (Inches): 10.00 Weight (Pounds): 300 Objective Debilitated WW HEENT (+) BIPAP mask Neck supple Coarse BS RR abd very distended (+) edema / anasarca Garry Barrera MD Mar 11, 2020 21:45
--- NOTE | 2020-03-11 23:33 | Cardiology Progress Note ---
Subjective DATE OF SERVICE: Mar 11, 2020 Maintaining sinus rhythm Remains dependent on bipap support - but able to stay off for a few hours now. Still with electrolyte abnormalities Rising BP trend at times Monitor: sinus with PAC's - PAFib CT noted; large pelvic mass Venous duplex: negative for DVT Objective Last 24 Hour Vital Signs Date Time Temp Pulse Resp B/P (MAP) Pulse Ox O2 Delivery O2 Flow Rate FiO2 03/11/20 22:57 70 26 99 30 03/11/20 22:00 72 25 150/73 (98) 99 03/11/20 21:30 80 31 157/66 (96) 98 03/11/20 21:08 77 28 98 30 03/11/20 21:00 99 30 158/79 (105) 99 03/11/20 20:49 99 146/71 03/11/20 20:48 99 146/71 03/11/20 20:41 97 33 146/71 (96) 98 03/11/20 20:30 101 33 122/90 (101) 98 03/11/20 20:00 98.5 95 31 151/73 (99) 99 03/11/20 20:00 Bi-pap 03/11/20 20:00 30 03/11/20 19:37 94 03/11/20 19:29 98 Bi-Pap 30 03/11/20 19:29 94 30 98 30 03/11/20 19:00 94 29 141/71 (94) 98 03/11/20 18:00 84 29 158/78 (104) 85 03/11/20 17:00 97 30 166/77 (106) 95 03/11/20 16:38 88 25 98 03/11/20 16:00 98.4 86 28 140/62 (88) 95 03/11/20 16:00 40 03/11/20 16:00 Bi-pap 03/11/20 16:00 81 03/11/20 15:00 91 27 176/73 (107) 95 03/11/20 14:43 93 28 97 03/11/20 14:39 96 176/76 03/11/20 14:39 176/76 03/11/20 14:00 100 23 171/77 (108) 97 03/11/20 13:00 97 28 160/78 (105) 97 03/11/20 12:00 Bi-pap 03/11/20 12:00 92 03/11/20 12:00 98.0 90 28 158/71 (100) 99 03/11/20 12:00 40 03/11/20 11:29 89 25 98 03/11/20 11:00 76 28 115/95 (102) 99 03/11/20 10:00 76 32 153/67 (95) 98 03/11/20 09:15 104 23 99 30 03/11/20 09:00 103 33 160/83 (108) 98 03/11/20 08:26 178/62 03/11/20 08:26 105 178/62 03/11/20 08:25 105 178/62 03/11/20 08:00 98 03/11/20 08:00 98.2 100 28 178/76 (110) 99 03/11/20 08:00 Bi-pap 03/11/20 08:00 30 03/11/20 07:09 96 31 98 30 03/11/20 07:00 97 28 173/74 (107) 99 03/11/20 06:59 96 Bi-Pap 30 03/11/20 06:30 99 32 138/89 (105) 97 03/11/20 06:12 98 31 173/78 (109) 97 03/11/20 06:00 98 31 167/73 (104) 98 03/11/20 05:00 97 28 156/129 (138) 95 03/11/20 04:35 92 32 97 30 03/11/20 04:00 87 03/11/20 04:00 40 03/11/20 04:00 Bi-pap 03/11/20 04:00 98 25 150/90 (110) 99 03/11/20 03:17 98 33 96 30 03/11/20 03:04 98.5 90 32 166/94 (118) 97 03/11/20 02:45 93 166/94 03/11/20 02:00 87 33 168/69 (102) 99 03/11/20 01:30 78 32 97 30 03/11/20 01:00 90 33 164/111 (128) 100 03/11/20 00:00 98.5 88 32 157/127 (137) 99 03/11/20 00:00 40 03/11/20 00:00 92 03/11/20 00:00 Bi-pap HEENT: normal ENT inspection RHYTHM: ST, PACs LUNGS: bilateral rhonchi CARDIAC: normal rate, normal S1 and S2 ABDOMEN: normal bowel sounds, non tender, soft, no organomegaly EXTREMITIES: No edema Laboratory Tests Test 03/11/20 04:25 03/11/20 15:20 White Blood Count 13.2 K/UL (4.8-10.8) H Red Blood Count 3.50 M/UL (4.20-5.40) L Hemoglobin 8.6 G/DL (12.0-16.0) L Hematocrit 27.7 % (37.0-47.0) L Mean Corpuscular Volume 79 FL (80-99) L Mean Corpuscular Hemoglobin 24.7 PG (27.0-31.0) L Mean Corpuscular Hemoglobin Concent 31.3 G/DL (32.0-36.0) L Red Cell Distribution Width 15.4 % (11.6-14.8) H Platelet Count 248 K/UL (150-450) Mean Platelet Volume 5.6 FL (6.5-10.1) L Neutrophils (%) (Auto) % (45.0-75.0) Lymphocytes (%) (Auto) % (20.0-45.0) Monocytes (%) (Auto) % (1.0-10.0) Eosinophils (%) (Auto) % (0.0-3.0) Basophils (%) (Auto) % (0.0-2.0) Sodium Level 149 MMOL/L (136-145) H 148 MMOL/L (136-145) H Potassium Level 3.1 MMOL/L (3.5-5.1) L 3.6 MMOL/L (3.5-5.1) Chloride Level 110 MMOL/L (98-107) H 109 MMOL/L (98-107) H Carbon Dioxide Level 27 MMOL/L (21-32) 28 MMOL/L (21-32) Anion Gap 12 mmol/L (5-15) 12 mmol/L (5-15) Blood Urea Nitrogen 20 mg/dL (7-18) H 18 mg/dL (7-18) Creatinine 1.3 MG/DL (0.55-1.30) 1.2 MG/DL (0.55-1.30) Estimat Glomerular Filtration Rate 50.2 mL/min (>60) 54.9 mL/min (>60) Glucose Level 150 MG/DL (74-106) H 149 MG/DL (74-106) H Uric Acid 6.5 MG/DL (2.6-7.2) Calcium Level 9.4 MG/DL (8.5-10.1) 9.4 MG/DL (8.5-10.1) Phosphorus Level 2.6 MG/DL (2.5-4.9) Magnesium Level 1.5 MG/DL (1.8-2.4) L Total Bilirubin 0.6 MG/DL (0.2-1.0) Gamma Glutamyl Transpeptidase 209 U/L (5-85) H Aspartate Amino Transf (AST/SGOT) 62 U/L (15-37) H Alanine Aminotransferase (ALT/SGPT) 59 U/L (12-78) Alkaline Phosphatase 181 U/L (46-116) H Troponin I 0.022 ng/mL (0.000-0.056) C-Reactive Protein, Quantitative 6.5 mg/dL (0.00-0.90) H Pro-B-Type Natriuretic Peptide 58065 pg/mL (0-125) H Total Protein 7.1 G/DL (6.4-8.2) Albumin 2.3 G/DL (3.4-5.0) L Globulin 4.8 g/dL Albumin/Globulin Ratio 0.5 (1.0-2.7) L Microbiology Date/Time Source Procedure Growth Status 03/10/20 16:45 Sputum Gram Stain - Final Resulted 03/10/20 16:45 Sputum Sputum Culture Pending Resulted Assessment/Plan Assessment/Plan Paroxysmal Atrial Fib Hypertension/HHD with rising BP trend Acute respiratory failure Metabolic acidosis Acute renal failure Anemia Anasarca Hypokalemia Hypomagnesemia HypoPO4 Dehydration/hypernatremia Bipap Free water replacement and potassium suppl Replace lytes Advance antiHTN meds - add'l meds prn for BP spikes Abx ICU care Off Actos Maintain current cardiovascular meds for arrhythmia suppression Miguel Gama MD Mar 11, 2020 23:33
[2020-03-12] VITALS (29 sets, daily range): BP systolic 127–170; BP diastolic 61–135
[2020-03-12] MEDS: dilTIAZem HCl 60mg tab ORAL SCH ×2 (03:10→08:23)
[2020-03-12] MEDS: Piperacillin/Tazobactam 3.375 GM in NS 110 ML IVPB SCH ×3 (05:45→22:13)
[2020-03-12 05:47] LABS: ALANINE AMINOTRANSFERASE 54 U/L (12-78); ALBUMIN 2.2 G/DL (3.4-5.0); ALBUMIN/GLOBULIN RATIO 0.5 (1.0-2.7); ALKALINE PHOSPHATASE 165 U/L (46-116); ANION GAP 10 mmol/L (5-15); ASPARTATE AMINO TRANSFERASE 56 U/L (15-37); BILIRUBIN,TOTAL 0.5 MG/DL (0.2-1.0); BLOOD UREA NITROGEN 18 mg/dL (7-18); CALCIUM 9.1 MG/DL (8.5-10.1); CARBON DIOXIDE 28 MMOL/L (21-32); CHLORIDE 108 MMOL/L (98-107); CREATININE 1.2 MG/DL (0.55-1.30); POTASSIUM 3.2 MMOL/L (3.5-5.1); SODIUM 145 MMOL/L (136-145)
[2020-03-12] MEDS: NovoLOG Insulin Flexpen SUBQ SCH ×4 (06:08→21:07)
[2020-03-12] MEDS: sitaGLIPtin 50mg tab ORAL SCH (06:09)
[2020-03-12] MEDS: Losartan 50mg tab ORAL SCH ×2 (08:23→17:00)
[2020-03-12] MEDS: Metoprolol Tartrate 50mg tab ORAL SCH ×2 (08:24→20:35)
--- NOTE | 2020-03-12 08:25 | Critical Care Progress Note ---
Assessment/Plan Assessment/Plan acute respiratory failure hypoxemia metabolic acidosis ARF diabetes leukocytosis anemia anasarca pulmonary infiltrates uterine mass pleural effusion hydronephrosis PLAN IV antibiotics keep negative ? 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 medications/laboratory data/nursing notes/ICU care reviewed in detail note reviewed and edited care discussed with RN and RT ICU time spent >40 minutes Critical Care - Subjective Interval Events: care noted on BIPAP difficulty off care noted ROS Limited/Unobtainable: Yes Condition: critical EKG Rhythm: Sinus Rhythm I&O: Intake and Output 03/11/20 03/12/20 19:00 07:00 Intake Total 2543.5855 ml 1137.5 ml Output Total 3750 ml 1090 ml Balance -1206.4145 ml 47.5 ml Intake Oral 270 ml 340 ml IV Total 2273.5855 ml 797.5 ml Output Urine Total 3600 ml 990 ml Stool Total 150 ml 100 ml # Bowel Movements 3 Critical Care - Objective Last 24 Hour Vital Signs Date Time Temp Pulse Resp B/P (MAP) Pulse Ox O2 Delivery O2 Flow Rate FiO2 03/12/20 07:14 100 Bi-Pap 30 03/12/20 07:13 72 25 100 30 03/12/20 07:00 75 22 162/68 (99) 100 03/12/20 06:30 79 26 163/67 (99) 99 03/12/20 06:09 161/71 03/12/20 06:00 82 25 161/71 (101) 100 03/12/20 05:30 80 27 159/68 (98) 99 03/12/20 05:21 82 29 100 30 03/12/20 05:00 88 28 162/80 (107) 99 03/12/20 04:00 30 03/12/20 04:00 97.6 80 24 160/64 (96) 100 03/12/20 04:00 80 03/12/20 04:00 Bi-pap 03/12/20 03:23 88 31 99 30 03/12/20 03:14 88 30 149/90 (109) 100 03/12/20 03:10 86 31 136/120 (125) 99 03/12/20 03:10 93 144/120 9/3/20 03:00 89 27 163/135 (144) 100 03/12/20 02:00 90 29 148/75 (99) 98 03/12/20 01:00 82 31 132/82 (99) 99 03/12/20 00:55 80 32 100 30 03/12/20 00:00 30 03/12/20 00:00 Bi-pap 03/12/20 00:00 97.6 81 25 160/61 (94) 100 03/12/20 00:00 81 03/11/20 23:00 73 25 150/62 (91) 99 03/11/20 22:57 70 26 99 30 03/11/20 22:00 72 25 150/73 (98) 99 03/11/20 21:30 80 31 157/66 (96) 98 03/11/20 21:08 77 28 98 30 03/11/20 21:00 99 30 158/79 (105) 99 03/11/20 20:49 99 146/71 03/11/20 20:48 99 146/71 03/11/20 20:41 97 33 146/71 (96) 98 03/11/20 20:30 101 33 122/90 (101) 98 03/11/20 20:00 98.5 95 31 151/73 (99) 99 03/11/20 20:00 Bi-pap 03/11/20 20:00 30 03/11/20 19:37 94 03/11/20 19:29 98 Bi-Pap 30 03/11/20 19:29 94 30 98 30 03/11/20 19:00 94 29 141/71 (94) 98 03/11/20 18:00 84 29 158/78 (104) 85 03/11/20 17:00 97 30 166/77 (106) 95 03/11/20 16:38 88 25 98 03/11/20 16:00 98.4 86 28 140/62 (88) 95 03/11/20 16:00 40 03/11/20 16:00 Bi-pap 03/11/20 16:00 81 03/11/20 15:00 91 27 176/73 (107) 95 03/11/20 14:43 93 28 97 03/11/20 14:39 96 176/76 9/2/20 14:39 176/76 03/11/20 14:00 100 23 171/77 (108) 97 03/11/20 13:00 97 28 160/78 (105) 97 03/11/20 12:00 Bi-pap 03/11/20 12:00 92 03/11/20 12:00 98.0 90 28 158/71 (100) 99 03/11/20 12:00 40 03/11/20 11:29 89 25 98 03/11/20 11:00 76 28 115/95 (102) 99 03/11/20 10:00 76 32 153/67 (95) 98 03/11/20 09:15 104 23 99 30 03/11/20 09:00 103 33 160/83 (108) 98 03/11/20 08:26 178/62 03/11/20 08:26 105 178/62 03/11/20 08:25 105 178/62 Labs: Laboratory Tests 03/11/20 15:20: Sodium Level 148H, Potassium Level 3.6, Chloride Level 109H, Carbon Dioxide Level 28, Anion Gap 12, Blood Urea Nitrogen 18, Creatinine 1.2, Estimat Glomerular Filtration Rate 54.9, Glucose Level 149H, Calcium Level 9.4 03/12/20 04:00: Sodium Level 145, Potassium Level 3.2L, Chloride Level 108H, Carbon Dioxide Level 28, Anion Gap 10, Blood Urea Nitrogen 18, Creatinine 1.2, Estimat Glomerular Filtration Rate 54.9, Glucose Level 145H, Calcium Level 9.1, Total Bilirubin 0.5, Aspartate Amino Transf (AST/SGOT) 56H, Alanine Aminotransferase ( ALT/SGPT) 54, Alkaline Phosphatase 165H, Total Protein 6.8, Albumin 2.2L, Globulin 4.6, Albumin/Globulin Ratio 0.5L Objective: WDWN on BIPAP reduced breath sounds bilaterally without rhonchi or wheeze [id number] without MRG NABS nontender no HSM no CC noted edema nonfocal more alert Micro: Microbiology Date/Time Source Procedure Growth Status 03/10/20 16:45 Sputum Gram Stain - Final Resulted 03/10/20 16:45 Sputum Sputum Culture Pending Resulted Accucheck: 136 Charles Thomson MD Mar 12, 2020 08:24
--- NOTE | 2020-03-12 09:12 | General Progress Note ---
Assessment/Plan Status: stable Assessment/Plan: Assessment - Dark stools - OB (+) 1/2 - microcytic anemia - pelvic / uterine masses with JACKY - r/o CA - hydronephrosis - rectal wall thickening - resp failure - resolved renal failure - anasarca, abdominal distention - pleural effusion - pulmonary HTN - abnormal LFT - ? mets, ? JOHNSON, ? passive congestion Recommendations - Monitor H&H - IV Fe trial - PPI - not candidate for endoscopy at this time - Await WINDLASSER input Subjective Allergies: Coded Allergies: No Known Allergies (Unverified , 03/03/20) Subjective above noted no new complaints on BIPAP OB (+) 1/2 Objective Last 24 Hour Vital Signs Date Time Temp Pulse Resp B/P (MAP) Pulse Ox O2 Delivery O2 Flow Rate FiO2 03/12/20 08:24 85 155/68 03/12/20 08:23 155/68 03/12/20 08:23 87 155/68 03/12/20 08:00 30 03/12/20 07:14 100 Bi-Pap 30 03/12/20 07:13 72 25 100 30 03/12/20 07:00 75 22 162/68 (99) 100 03/12/20 06:30 79 26 163/67 (99) 99 03/12/20 06:09 161/71 03/12/20 06:00 82 25 161/71 (101) 100 03/12/20 05:30 80 27 159/68 (98) 99 03/12/20 05:21 82 29 100 30 03/12/20 05:00 88 28 162/80 (107) 99 03/12/20 04:00 30 03/12/20 04:00 97.6 80 24 160/64 (96) 100 03/12/20 04:00 80 03/12/20 04:00 Bi-pap 03/12/20 03:23 88 31 99 30 03/12/20 03:14 88 30 149/90 (109) 100 03/12/20 03:10 86 31 136/120 (125) 99 03/12/20 03:10 93 144/120 03/12/20 03:00 89 27 163/135 (144) 100 03/12/20 02:00 90 29 148/75 (99) 98 03/12/20 01:00 82 31 132/82 (99) 99 03/12/20 00:55 80 32 100 30 03/12/20 00:00 30 03/12/20 00:00 Bi-pap 03/12/20 00:00 97.6 81 25 160/61 (94) 100 03/12/20 00:00 81 03/11/20 23:00 73 25 150/62 (91) 99 03/11/20 22:57 70 26 99 30 03/11/20 22:00 72 25 150/73 (98) 99 03/11/20 21:30 80 31 157/66 (96) 98 03/11/20 21:08 77 28 98 30 03/11/20 21:00 99 30 158/79 (105) 99 03/11/20 20:49 99 146/71 03/11/20 20:48 99 146/71 03/11/20 20:41 97 33 146/71 (96) 98 03/11/20 20:30 101 33 122/90 (101) 98 03/11/20 20:00 98.5 95 31 151/73 (99) 99 03/11/20 20:00 Bi-pap 03/11/20 20:00 30 03/11/20 19:37 94 03/11/20 19:29 98 Bi-Pap 30 03/11/20 19:29 94 30 98 30 03/11/20 19:00 94 29 141/71 (94) 98 03/11/20 18:00 84 29 158/78 (104) 85 03/11/20 17:00 97 30 166/77 (106) 95 03/11/20 16:38 88 25 98 03/11/20 16:00 98.4 86 28 140/62 (88) 95 03/11/20 16:00 40 03/11/20 16:00 Bi-pap 03/11/20 16:00 81 03/11/20 15:00 91 27 176/73 (107) 95 03/11/20 14:43 93 28 97 03/11/20 14:39 96 176/76 03/11/20 14:39 176/76 03/11/20 14:00 100 23 171/77 (108) 97 03/11/20 13:00 97 28 160/78 (105) 97 03/11/20 12:00 Bi-pap 03/11/20 12:00 92 03/11/20 12:00 98.0 90 28 158/71 (100) 99 03/11/20 12:00 40 03/11/20 11:29 89 25 98 03/11/20 11:00 76 28 115/95 (102) 99 03/11/20 10:00 76 32 153/67 (95) 98 03/11/20 09:15 104 23 99 30 Intake and Output 03/11/20 03/12/20 19:00 07:00 Intake Total 2543.5855 ml 1137.5 ml Output Total 3750 ml 1090 ml Balance -1206.4145 ml 47.5 ml Intake Oral 270 ml 340 ml IV Total 2273.5855 ml 797.5 ml Output Urine Total 3600 ml 990 ml Stool Total 150 ml 100 ml # Bowel Movements 3 Laboratory Tests 03/11/20 15:20: Sodium Level 148H, Potassium Level 3.6, Chloride Level 109H, Carbon Dioxide Level 28, Anion Gap 12, Blood Urea Nitrogen 18, Creatinine 1.2, Estimat Glomerular Filtration Rate 54.9, Glucose Level 149H, Calcium Level 9.4 03/12/20 04:00: Sodium Level 145, Potassium Level 3.2L, Chloride Level 108H, Carbon Dioxide Level 28, Anion Gap 10, Blood Urea Nitrogen 18, Creatinine 1.2, Estimat Glomerular Filtration Rate 54.9, Glucose Level 145H, Calcium Level 9.1, Total Bilirubin 0.5, Aspartate Amino Transf (AST/SGOT) 56H, Alanine Aminotransferase ( ALT/SGPT) 54, Alkaline Phosphatase 165H, Total Protein 6.8, Albumin 2.2L, Globulin 4.6, Albumin/Globulin Ratio 0.5L Height (Feet): 5 Height (Inches): 10.00 Weight (Pounds): 300 Objective Debilitated WW HEENT (+) BIPAP mask Neck supple Coarse BS RR abd very distended (+) edema / anasarca Garry Barrera MD Mar 12, 2020 09:12
--- NOTE | 2020-03-12 10:10 | Infectious Diseases Prog Note ---
Assessment/Plan Assessment/Plan A: 1. Pneumonia. 2. Acute renal failure 3. DM type 2 with hyperglycemia 4. Respiratory failure with hypoxemia 5. Morbid obesity 6. GISSELLE 7. Anemia 8. Hydronephrosis 9. Abdomen & pelvic adenopathy PLAN: 1. Continue Zosyn. 2. We will follow up cultures and adjust antibiotics accordingly. Subjective ROS Limited/Unobtainable: Yes Constitutional: Denies: fever Allergies: Coded Allergies: No Known Allergies (Unverified , 03/03/20) Objective Last 24 Hour Vital Signs Date Time Temp Pulse Resp B/P (MAP) Pulse Ox O2 Delivery O2 Flow Rate FiO2 03/12/20 08:24 85 155/68 03/12/20 08:23 155/68 03/12/20 08:23 87 155/68 03/12/20 08:00 30 03/12/20 07:14 100 Bi-Pap 30 03/12/20 07:13 72 25 100 30 03/12/20 07:00 75 22 162/68 (99) 100 03/12/20 06:30 79 26 163/67 (99) 99 03/12/20 06:09 161/71 03/12/20 06:00 82 25 161/71 (101) 100 03/12/20 05:30 80 27 159/68 (98) 99 03/12/20 05:21 82 29 100 30 03/12/20 05:00 88 28 162/80 (107) 99 03/12/20 04:00 30 03/12/20 04:00 97.6 80 24 160/64 (96) 100 03/12/20 04:00 80 03/12/20 04:00 Bi-pap 03/12/20 03:23 88 31 99 30 03/12/20 03:14 88 30 149/90 (109) 100 03/12/20 03:10 86 31 136/120 (125) 99 03/12/20 03:10 93 144/120 03/12/20 03:00 89 27 163/135 (144) 100 03/12/20 02:00 90 29 148/75 (99) 98 03/12/20 01:00 82 31 132/82 (99) 99 03/12/20 00:55 80 32 100 30 03/12/20 00:00 30 03/12/20 00:00 Bi-pap 03/12/20 00:00 97.6 81 25 160/61 (94) 100 03/12/20 00:00 81 03/11/20 23:00 73 25 150/62 (91) 99 03/11/20 22:57 70 26 99 30 03/11/20 22:00 72 25 150/73 (98) 99 03/11/20 21:30 80 31 157/66 (96) 98 03/11/20 21:08 77 28 98 30 03/11/20 21:00 99 30 158/79 (105) 99 03/11/20 20:49 99 146/71 03/11/20 20:48 99 146/71 03/11/20 20:41 97 33 146/71 (96) 98 03/11/20 20:30 101 33 122/90 (101) 98 03/11/20 20:00 98.5 95 31 151/73 (99) 99 03/11/20 20:00 Bi-pap 03/11/20 20:00 30 03/11/20 19:37 94 03/11/20 19:29 98 Bi-Pap 30 03/11/20 19:29 94 30 98 30 03/11/20 19:00 94 29 141/71 (94) 98 03/11/20 18:00 84 29 158/78 (104) 85 03/11/20 17:00 97 30 166/77 (106) 95 03/11/20 16:38 88 25 98 03/11/20 16:00 98.4 86 28 140/62 (88) 95 03/11/20 16:00 40 03/11/20 16:00 Bi-pap 03/11/20 16:00 81 03/11/20 15:00 91 27 176/73 (107) 95 03/11/20 14:43 93 28 97 03/11/20 14:39 96 176/76 03/11/20 14:39 176/76 03/11/20 14:00 100 23 171/77 (108) 97 03/11/20 13:00 97 28 160/78 (105) 97 03/11/20 12:00 Bi-pap 03/11/20 12:00 92 03/11/20 12:00 98.0 90 28 158/71 (100) 99 03/11/20 12:00 40 03/11/20 11:29 89 25 98 03/11/20 11:00 76 28 115/95 (102) 99 Height (Feet): 5 Height (Inches): 10.00 Weight (Pounds): 300 HEENT: mucous membranes moist Respiratory/Chest: decreased breath sounds, other - on BIPAP Cardiovascular: normal rate Abdomen: soft, non tender Extremities: other - SCD of legs Neurologic/Psychiatric: other - Sleeping Microbiology Date/Time Source Procedure Growth Status 03/10/20 16:45 Sputum Gram Stain - Final Resulted 03/10/20 16:45 Sputum Sputum Culture Pending Resulted Laboratory Tests Test 03/11/20 15:20 03/12/20 04:00 Sodium Level 148 MMOL/L (136-145) H 145 MMOL/L (136-145) Potassium Level 3.6 MMOL/L (3.5-5.1) 3.2 MMOL/L (3.5-5.1) L Chloride Level 109 MMOL/L (98-107) H 108 MMOL/L (98-107) H Carbon Dioxide Level 28 MMOL/L (21-32) 28 MMOL/L (21-32) Anion Gap 12 mmol/L (5-15) 10 mmol/L (5-15) Blood Urea Nitrogen 18 mg/dL (7-18) 18 mg/dL (7-18) Creatinine 1.2 MG/DL (0.55-1.30) 1.2 MG/DL (0.55-1.30) Estimat Glomerular Filtration Rate 54.9 mL/min (>60) 54.9 mL/min (>60) Glucose Level 149 MG/DL (74-106) H 145 MG/DL (74-106) H Calcium Level 9.4 MG/DL (8.5-10.1) 9.1 MG/DL (8.5-10.1) Total Bilirubin 0.5 MG/DL (0.2-1.0) Aspartate Amino Transf (AST/SGOT) 56 U/L (15-37) H Alanine Aminotransferase (ALT/SGPT) 54 U/L (12-78) Alkaline Phosphatase 165 U/L (46-116) H Total Protein 6.8 G/DL (6.4-8.2) Albumin 2.2 G/DL (3.4-5.0) L Globulin 4.6 g/dL Albumin/Globulin Ratio 0.5 (1.0-2.7) L Current Medications Medications (Trade) Dose Ordered Sig/Francisco J Route PRN Reason Start Time Stop Time Status Last Admin Dose Admin Acetaminophen (Tylenol) 650 mg Q4H PRN ORAL Mild Pain (Pain Scale 1-3) 03/04/20 12:15 04/02/20 12:14 03/08/20 12:00 Clonidine HCl (Catapres TTS-3) 1 patch QWEEK TDERMAL 03/05/20 10:30 06/03/20 10:29 03/05/20 10:11 Clonidine HCl (Catapres Tab) 0.1 mg Q4H PRN ORAL bp over 160 syst 03/05/20 09:30 06/03/20 09:29 03/12/20 06:09 Dextrose 1,000 ml @ 50 mls/hr Q20H IV 03/10/20 15:30 04/09/20 15:29 03/12/20 08:21 Dextrose (Dextrose 50%) 25 ml Q30M PRN IV Hypoglycemia 03/04/20 12:00 06/01/20 21:59 03/04/20 21:41 Dextrose (Dextrose 50%) 50 ml Q30M PRN IV Hypoglycemia 03/04/20 12:00 06/01/20 21:59 03/05/20 06:15 Diltiazem HCl (Cardizem Tab) 60 mg Q6H ORAL 03/09/20 03:00 04/08/20 02:59 03/12/20 08:23 Glucagon (Glucagon) 1 mg Q2H PRN IM Hypoglycemia 03/05/20 11:00 06/03/20 10:59 Insulin Aspart (NovoLOG) BEFORE MEALS AND HS SUBQ 03/07/20 06:30 06/05/20 06:29 03/11/20 20:50 Iron Sucrose 100 mg/Sodium Chloride 60 ml @ 240 mls/hr BEDTIME IVPB 03/09/20 21:00 03/13/20 21:14 03/11/20 20:48 Losartan Potassium (Cozaar) 50 mg DAILY ORAL 03/10/20 15:30 04/09/20 15:29 03/12/20 08:23 Metoprolol Tartrate (Lopressor) 50 mg Q12HR ORAL 03/10/20 21:00 06/04/20 15:14 03/12/20 08:24 Pantoprazole (Protonix) 40 mg EVERY 12 HOURS ORAL 03/09/20 09:00 04/08/20 08:59 03/12/20 08:24 Piperacillin Sod/ Tazobactam Sod 3.375 gm/Sodium Chloride 110 ml @ 27.5 mls/hr Q8HR IVPB 03/09/20 14:00 03/16/20 13:59 03/12/20 05:45 Polyethylene Glycol (Miralax) 17 gm DAILYPRN PRN ORAL Constipation 03/04/20 12:15 04/03/20 12:14 Potassium Chloride 100 ml @ 100 mls/hr Q1HR IVPB 03/12/20 08:00 03/12/20 11:59 03/12/20 08:30 Sitagliptin Phosphate (Januvia) 50 mg ACBREAKFAST ORAL 03/10/20 06:30 04/09/20 06:29 03/12/20 06:09 Carlos Enrique Rodrigez MD Mar 12, 2020 10:10
--- NOTE | 2020-03-12 11:21 | Cardiology Progress Note ---
Subjective DATE OF SERVICE: Mar 12, 2020 Maintaining sinus rhythm Remains dependent on bipap support - but able to stay off longer. Rising BP trend at times Monitor: sinus with PAC's - PAFib CT noted; large pelvic mass Venous duplex: negative for DVT Objective Last 24 Hour Vital Signs Date Time Temp Pulse Resp B/P (MAP) Pulse Ox O2 Delivery O2 Flow Rate FiO2 03/12/20 08:24 85 155/68 03/12/20 08:23 155/68 03/12/20 08:23 87 155/68 03/12/20 08:00 30 03/12/20 07:14 100 Bi-Pap 30 03/12/20 07:13 72 25 100 30 03/12/20 07:00 75 22 162/68 (99) 100 03/12/20 06:30 79 26 163/67 (99) 99 03/12/20 06:09 161/71 03/12/20 06:00 82 25 161/71 (101) 100 03/12/20 05:30 80 27 159/68 (98) 99 03/12/20 05:21 82 29 100 30 03/12/20 05:00 88 28 162/80 (107) 99 03/12/20 04:00 30 03/12/20 04:00 97.6 80 24 160/64 (96) 100 03/12/20 04:00 80 03/12/20 04:00 Bi-pap 03/12/20 03:23 88 31 99 30 03/12/20 03:14 88 30 149/90 (109) 100 03/12/20 03:10 86 31 136/120 (125) 99 03/12/20 03:10 93 144/120 03/12/20 03:00 89 27 163/135 (144) 100 03/12/20 02:00 90 29 148/75 (99) 98 03/12/20 01:00 82 31 132/82 (99) 99 03/12/20 00:55 80 32 100 30 03/12/20 00:00 30 03/12/20 00:00 Bi-pap 03/12/20 00:00 97.6 81 25 160/61 (94) 100 03/12/20 00:00 81 03/11/20 23:00 73 25 150/62 (91) 99 03/11/20 22:57 70 26 99 30 03/11/20 22:00 72 25 150/73 (98) 99 03/11/20 21:30 80 31 157/66 (96) 98 03/11/20 21:08 77 28 98 30 03/11/20 21:00 99 30 158/79 (105) 99 03/11/20 20:49 99 146/71 03/11/20 20:48 99 146/71 03/11/20 20:41 97 33 146/71 (96) 98 03/11/20 20:30 101 33 122/90 (101) 98 03/11/20 20:00 98.5 95 31 151/73 (99) 99 03/11/20 20:00 Bi-pap 03/11/20 20:00 30 03/11/20 19:37 94 03/11/20 19:29 98 Bi-Pap 30 03/11/20 19:29 94 30 98 30 03/11/20 19:00 94 29 141/71 (94) 98 03/11/20 18:00 84 29 158/78 (104) 85 03/11/20 17:00 97 30 166/77 (106) 95 03/11/20 16:38 88 25 98 03/11/20 16:00 98.4 86 28 140/62 (88) 95 03/11/20 16:00 40 03/11/20 16:00 Bi-pap 03/11/20 16:00 81 03/11/20 15:00 91 27 176/73 (107) 95 03/11/20 14:43 93 28 97 03/11/20 14:39 96 176/76 03/11/20 14:39 176/76 03/11/20 14:00 100 23 171/77 (108) 97 03/11/20 13:00 97 28 160/78 (105) 97 03/11/20 12:00 Bi-pap 03/11/20 12:00 92 03/11/20 12:00 98.0 90 28 158/71 (100) 99 03/11/20 12:00 40 03/11/20 11:29 89 25 98 HEENT: normal ENT inspection RHYTHM: ST, PACs LUNGS: bilateral rhonchi CARDIAC: normal rate, normal S1 and S2 ABDOMEN: normal bowel sounds, non tender, soft, no organomegaly EXTREMITIES: No edema Laboratory Tests Test 03/11/20 15:20 03/12/20 04:00 Sodium Level 148 MMOL/L (136-145) H 145 MMOL/L (136-145) Potassium Level 3.6 MMOL/L (3.5-5.1) 3.2 MMOL/L (3.5-5.1) L Chloride Level 109 MMOL/L (98-107) H 108 MMOL/L (98-107) H Carbon Dioxide Level 28 MMOL/L (21-32) 28 MMOL/L (21-32) Anion Gap 12 mmol/L (5-15) 10 mmol/L (5-15) Blood Urea Nitrogen 18 mg/dL (7-18) 18 mg/dL (7-18) Creatinine 1.2 MG/DL (0.55-1.30) 1.2 MG/DL (0.55-1.30) Estimat Glomerular Filtration Rate 54.9 mL/min (>60) 54.9 mL/min (>60) Glucose Level 149 MG/DL (74-106) H 145 MG/DL (74-106) H Calcium Level 9.4 MG/DL (8.5-10.1) 9.1 MG/DL (8.5-10.1) Total Bilirubin 0.5 MG/DL (0.2-1.0) Aspartate Amino Transf (AST/SGOT) 56 U/L (15-37) H Alanine Aminotransferase (ALT/SGPT) 54 U/L (12-78) Alkaline Phosphatase 165 U/L (46-116) H Total Protein 6.8 G/DL (6.4-8.2) Albumin 2.2 G/DL (3.4-5.0) L Globulin 4.6 g/dL Albumin/Globulin Ratio 0.5 (1.0-2.7) L Microbiology Date/Time Source Procedure Growth Status 03/10/20 16:45 Sputum Gram Stain - Final Resulted 03/10/20 16:45 Sputum Sputum Culture Pending Resulted Assessment/Plan Assessment/Plan Paroxysmal Atrial Fib Hypertension/HHD with rising BP trend Acute respiratory failure Metabolic acidosis Acute renal failure Anemia Anasarca Hypokalemia Hypomagnesemia HypoPO4 Dehydration/hypernatremia Bipap Free water replacement and potassium suppl as needed Replace lytes Advance antiHTN meds - add'l meds prn for BP spikes Abx ICU care Off Actos Maintain current cardiovascular meds for arrhythmia suppression Miguel Gama MD Mar 12, 2020 11:21
--- NOTE | 2020-03-12 11:58 | Nephrology Progress Note ---
Assessment/Plan Problem List: (1) FARIBA (acute kidney injury) (2) Renal failure (ARF), acute on chronic (3) UTI (urinary tract infection) (4) Hypoglycemia (5) Anemia (6) Morbid obesity with BMI of 45.0-49.9, adult (7) Acute respiratory failure (8) Obstructive sleep apnea Assessment Acute renal failure Possible underlying chronic kidney disease High likelihood of diabetic nephropathy, patient has proteinuria and hypoalbuminemia Persistent hypo-glycemia: The patient was on 3 oral hypoglycemic agents including Glucophage Morbid obesity Hypertension Severe anemia, low MCV UTI Most likely obstructive sleep apnea Plan March 12: Lab reviewed. Electrolytes adjusted. Blood pressure medication adjusted. Patient remains on BiPAP. Continue per consultants. Discontinue IV fluid. Lasix 20 mg IV once. March 11: Labs are reviewed. Potassium and magnesium supplement given. Continue per pulmonary. March 10: Labs reviewed. Medication reviewed. Remains on BiPAP. Will DC IV fluid and changed to D5W. Blood pressure medication adjusted. Cozaar added. Potassium supplement given. Continue per consultants. March 09: Labs reviewed. Medication list reviewed. Remains on BiPAP. Venturi mask is being tried. Discussed with diet technician registered. Renal parameters stable. Magnesium and potassium supplement given. Blood sugar stable. March 08: Today's labs pending. Will discontinue IV fluid. Remains on BiPAP. Aim to take off BiPAP as possible. Transfusion if needed. Discussed with DARSHAN Iglesias. March 07: Marked improvement in renal parameters. Blood sugar improved. Main issue are respiratory, as patient remains on BiPAP. Hemoglobin lower. May require transfusion again. Abnormal electrolytes corrected March 06: Clinically improved. Remains on BiPAP. Blood sugar improved. Urine output well maintained. Serum creatinine lowered. Will adjust blood pressure medication for better control. D10 infusion down to 50 cc an hour. Continue monitor renal parameters. Lasix as needed. 24-hour urine for total protein. March 05: Discontinue Cozaar, labetalol Stop all oral oral hypoglycemics and insulin Start clonidine patch and clonidine PRN for high blood pressure Add Norvasc for blood pressure D10 infusion Check labs, thyroid panel, anemia work-up, lipid panel, hemoglobin A1c Urine for eosinophils and spot sodium Check ABG Per orders Subjective ROS Limited/Unobtainable: Yes Objective Objective Last 24 Hour Vital Signs Date Time Temp Pulse Resp B/P (MAP) Pulse Ox O2 Delivery O2 Flow Rate FiO2 9/3/20 08:24 85 155/68 03/12/20 08:23 155/68 03/12/20 08:23 87 155/68 03/12/20 08:00 30 03/12/20 07:14 100 Bi-Pap 30 03/12/20 07:13 72 25 100 30 03/12/20 07:00 75 22 162/68 (99) 100 03/12/20 06:30 79 26 163/67 (99) 99 03/12/20 06:09 161/71 03/12/20 06:00 82 25 161/71 (101) 100 03/12/20 05:30 80 27 159/68 (98) 99 03/12/20 05:21 82 29 100 30 03/12/20 05:00 88 28 162/80 (107) 99 03/12/20 04:00 30 03/12/20 04:00 97.6 80 24 160/64 (96) 100 03/12/20 04:00 80 03/12/20 04:00 Bi-pap 03/12/20 03:23 88 31 99 30 03/12/20 03:14 88 30 149/90 (109) 100 03/12/20 03:10 86 31 136/120 (125) 99 03/12/20 03:10 93 144/120 03/12/20 03:00 89 27 163/135 (144) 100 03/12/20 02:00 90 29 148/75 (99) 98 03/12/20 01:00 82 31 132/82 (99) 99 03/12/20 00:55 80 32 100 30 03/12/20 00:00 30 03/12/20 00:00 Bi-pap 03/12/20 00:00 97.6 81 25 160/61 (94) 100 03/12/20 00:00 81 03/11/20 23:00 73 25 150/62 (91) 99 03/11/20 22:57 70 26 99 30 03/11/20 22:00 72 25 150/73 (98) 99 03/11/20 21:30 80 31 157/66 (96) 98 03/11/20 21:08 77 28 98 30 03/11/20 21:00 99 30 158/79 (105) 99 03/11/20 20:49 99 146/71 9/2/20 20:48 99 146/71 03/11/20 20:41 97 33 146/71 (96) 98 03/11/20 20:30 101 33 122/90 (101) 98 03/11/20 20:00 98.5 95 31 151/73 (99) 99 03/11/20 20:00 Bi-pap 03/11/20 20:00 30 03/11/20 19:37 94 03/11/20 19:29 98 Bi-Pap 30 03/11/20 19:29 94 30 98 30 03/11/20 19:00 94 29 141/71 (94) 98 03/11/20 18:00 84 29 158/78 (104) 85 03/11/20 17:00 97 30 166/77 (106) 95 03/11/20 16:38 88 25 98 03/11/20 16:00 98.4 86 28 140/62 (88) 95 03/11/20 16:00 40 03/11/20 16:00 Bi-pap 03/11/20 16:00 81 03/11/20 15:00 91 27 176/73 (107) 95 03/11/20 14:43 93 28 97 03/11/20 14:39 96 176/76 03/11/20 14:39 176/76 03/11/20 14:00 100 23 171/77 (108) 97 03/11/20 13:00 97 28 160/78 (105) 97 03/11/20 12:00 Bi-pap 03/11/20 12:00 92 03/11/20 12:00 98.0 90 28 158/71 (100) 99 03/11/20 12:00 40 Intake and Output 03/11/20 03/12/20 19:00 07:00 Intake Total 2543.5855 ml 1137.5 ml Output Total 3750 ml 1090 ml Balance -1206.4145 ml 47.5 ml Intake Oral 270 ml 340 ml IV Total 2273.5855 ml 797.5 ml Output Urine Total 3600 ml 990 ml Stool Total 150 ml 100 ml # Bowel Movements 3 Current Medications Medications (Trade) Dose Ordered Sig/Francisco J Route PRN Reason Start Time Stop Time Status Last Admin Dose Admin Acetaminophen (Tylenol) 650 mg Q4H PRN ORAL Mild Pain (Pain Scale 1-3) 03/04/20 12:15 04/02/20 12:14 03/08/20 12:00 Clonidine HCl (Catapres TTS-3) 1 patch QWEEK TDERMAL 03/05/20 10:30 06/03/20 10:29 03/05/20 10:11 Clonidine HCl (Catapres Tab) 0.1 mg Q4H PRN ORAL bp over 160 syst 03/05/20 09:30 06/03/20 09:29 03/12/20 06:09 Dextrose 1,000 ml @ 50 mls/hr Q20H IV 03/10/20 15:30 04/09/20 15:29 03/12/20 08:21 Dextrose (Dextrose 50%) 25 ml Q30M PRN IV Hypoglycemia 03/04/20 12:00 06/01/20 21:59 03/04/20 21:41 Dextrose (Dextrose 50%) 50 ml Q30M PRN IV Hypoglycemia 03/04/20 12:00 06/01/20 21:59 03/05/20 06:15 Diltiazem HCl (Cardizem Tab) 60 mg Q6H ORAL 03/09/20 03:00 04/08/20 02:59 03/12/20 08:23 Glucagon (Glucagon) 1 mg Q2H PRN IM Hypoglycemia 03/05/20 11:00 06/03/20 10:59 Insulin Aspart (NovoLOG) BEFORE MEALS AND HS SUBQ 03/07/20 06:30 06/05/20 06:29 03/11/20 20:50 Iron Sucrose 100 mg/Sodium Chloride 60 ml @ 240 mls/hr BEDTIME IVPB 03/09/20 21:00 03/13/20 21:14 03/11/20 20:48 Losartan Potassium (Cozaar) 50 mg DAILY ORAL 03/10/20 15:30 04/09/20 15:29 03/12/20 08:23 Metoprolol Tartrate (Lopressor) 50 mg Q12HR ORAL 03/10/20 21:00 06/04/20 15:14 03/12/20 08:24 Pantoprazole (Protonix) 40 mg EVERY 12 HOURS ORAL 03/09/20 09:00 04/08/20 08:59 03/12/20 08:24 Piperacillin Sod/ Tazobactam Sod 3.375 gm/Sodium Chloride 110 ml @ 27.5 mls/hr Q8HR IVPB 03/09/20 14:00 03/16/20 13:59 03/12/20 05:45 Polyethylene Glycol (Miralax) 17 gm DAILYPRN PRN ORAL Constipation 03/04/20 12:15 04/03/20 12:14 Potassium Chloride 100 ml @ 100 mls/hr Q1HR IVPB 03/12/20 08:00 03/12/20 11:59 03/12/20 11:24 Sitagliptin Phosphate (Januvia) 50 mg ACBREAKFAST ORAL 03/10/20 06:30 04/09/20 06:29 03/12/20 06:09 Laboratory Tests 03/11/20 15:20: Sodium Level 148H, Potassium Level 3.6, Chloride Level 109H, Carbon Dioxide Level 28, Anion Gap 12, Blood Urea Nitrogen 18, Creatinine 1.2, Estimat Glomerular Filtration Rate 54.9, Glucose Level 149H, Calcium Level 9.4 03/12/20 04:00: Sodium Level 145, Potassium Level 3.2L, Chloride Level 108H, Carbon Dioxide Level 28, Anion Gap 10, Blood Urea Nitrogen 18, Creatinine 1.2, Estimat Glomerular Filtration Rate 54.9, Glucose Level 145H, Calcium Level 9.1, Total Bilirubin 0.5, Aspartate Amino Transf (AST/SGOT) 56H, Alanine Aminotransferase ( ALT/SGPT) 54, Alkaline Phosphatase 165H, Total Protein 6.8, Albumin 2.2L, Globulin 4.6, Albumin/Globulin Ratio 0.5L Height (Feet): 5 Height (Inches): 10.00 Weight (Pounds): 300 General Appearance: mild distress EENT: other - On BiPAP Cardiovascular: normal rate Respiratory/Chest: decreased breath sounds Abdomen: soft Sundar Camargo MD Mar 12, 2020 11:58
[2020-03-12] MEDS ORDERED: dilTIAZem HCl 90mg tab ORAL SCH (17:00)
[2020-03-12] MEDS ORDERED: Sodium Chloride for KCL Premix X 1hr IV SCH (20:00)
[2020-03-12] MEDS: Iron Sucrose 100 MG in NS 55 ML IVPB SCH (20:35)
[2020-03-12] MEDS: dilTIAZem HCl 90mg tab ORAL SCH (20:52)
[2020-03-13] VITALS (25 sets, daily range): BP systolic 110–168; BP diastolic 57–116
[2020-03-13 05:22] LABS: HEMATOCRIT 25.8 % (37.0-47.0); HEMOGLOBIN 8.1 G/DL (12.0-16.0); MEAN CORPUSCULAR VOLUME 79 FL (80-99); PLATELET COUNT 200 K/UL (150-450); RED BLOOD COUNT 3.26 M/UL (4.20-5.40); RED CELL DISTRIBUTION WIDTH 15.4 % (11.6-14.8); WHITE BLOOD COUNT 10.8 K/UL (4.8-10.8)
[2020-03-13] MEDS: Piperacillin/Tazobactam 3.375 GM in NS 110 ML IVPB SCH (05:51)
[2020-03-13] MEDS: dilTIAZem HCl 90mg tab ORAL SCH ×3 (05:52→21:09)
[2020-03-13] MEDS: NovoLOG Insulin Flexpen SUBQ SCH ×4 (05:52→21:00)
[2020-03-13] MEDS: sitaGLIPtin 50mg tab ORAL SCH (05:52)
[2020-03-13 06:08] LABS: ALANINE AMINOTRANSFERASE 55 U/L (12-78); ALBUMIN 2.3 G/DL (3.4-5.0); ALBUMIN/GLOBULIN RATIO 0.6 (1.0-2.7); ALKALINE PHOSPHATASE 155 U/L (46-116); ANION GAP 13 mmol/L (5-15); ASPARTATE AMINO TRANSFERASE 58 U/L (15-37); BILIRUBIN,TOTAL 0.6 MG/DL (0.2-1.0); BLOOD UREA NITROGEN 16 mg/dL (7-18); CALCIUM 9.2 MG/DL (8.5-10.1); CARBON DIOXIDE 27 MMOL/L (21-32); CHLORIDE 106 MMOL/L (98-107); PHOSPHORUS 3.5 MG/DL (2.5-4.9); POTASSIUM 3.6 MMOL/L (3.5-5.1); SODIUM 145 MMOL/L (136-145)
[2020-03-13] MEDS: Losartan 50mg tab ORAL SCH ×2 (09:14→17:09)
[2020-03-13] MEDS: Metoprolol Tartrate 50mg tab ORAL SCH ×2 (09:15→20:52)
[2020-03-13] MEDS ORDERED: Tubing IV Secondary IV ONE ×2 (09:26→18:40)
[2020-03-13] MEDS ORDERED: NS 275ml ONE ×2 (09:26→18:40)
--- NOTE | 2020-03-13 09:35 | Critical Care Progress Note ---
Assessment/Plan Assessment/Plan acute respiratory failure hypoxemia metabolic acidosis ARF diabetes leukocytosis anemia anasarca pulmonary infiltrates uterine mass pleural effusion hydronephrosis PLAN IV antibiotics keep negative ? tap repeat ABG PRN off BIPAP DVT prophylaxis BIPAP as able diurese as able keep negative and monitor imaging renal noted and discussed heme and architectural administrative assistant eval medications/laboratory data/nursing notes/ICU care reviewed in detail note reviewed and edited care discussed with RN and RT ICU time spent >40 minutes Critical Care - Subjective Interval Events: was on BIPAP now on venturimask oxygen ROS Limited/Unobtainable: Yes Condition: critical EKG Rhythm: Sinus Rhythm I&O: Intake and Output 03/12/20 03/13/20 19:00 07:00 Intake Total 410.0 ml 563.93020 ml Output Total 1480 ml 1415 ml Balance -1070.0 ml -851.66186 ml Intake Oral 240 ml IV Total 410.0 ml 323.88112 ml Output Urine Total 1455 ml 1415 ml Stool Total 25 ml # Bowel Movements 100 Critical Care - Objective Last 24 Hour Vital Signs Date Time Temp Pulse Resp B/P (MAP) Pulse Ox O2 Delivery O2 Flow Rate FiO2 03/13/20 09:15 82 147/63 03/13/20 09:14 147/63 03/13/20 07:11 99 Venturi Mask 8.0 40 03/13/20 07:00 88 24 165/65 (98) 97 03/13/20 06:02 165/73 03/13/20 06:00 94 27 165/73 (103) 97 03/13/20 05:52 86 159/78 03/13/20 05:00 78 25 160/71 (100) 100 03/13/20 04:46 87 27 100 30 03/13/20 04:00 40 03/13/20 04:00 98.1 74 20 163/74 (103) 100 03/13/20 04:00 Bi-pap 03/13/20 04:00 81 03/13/20 03:15 75 24 100 30 03/13/20 03:00 74 22 157/77 (103) 100 03/13/20 02:00 77 25 160/72 (101) 100 03/13/20 01:00 80 25 160/71 (100) 100 03/13/20 00:53 81 32 100 30 03/13/20 00:00 40 03/13/20 00:00 99.5 68 23 148/65 (92) 100 03/13/20 00:00 Bi-pap 03/13/20 00:00 71 03/12/20 23:30 76 24 100 30 03/12/20 23:00 72 21 152/73 (99) 100 03/12/20 22:00 70 23 158/88 (111) 100 03/12/20 21:02 82 29 100 30 03/12/20 21:00 Bi-pap 03/12/20 21:00 90 16 169/79 (109) 100 03/12/20 21:00 40 03/12/20 20:52 95 167/96 03/12/20 20:35 91 167/86 03/12/20 20:00 96 03/12/20 20:00 99.8 86 25 169/80 (109) 100 03/12/20 19:36 91 32 99 30 03/12/20 19:00 96 28 170/79 (109) 97 03/12/20 19:00 99 Venturi Mask 8.0 40 03/12/20 18:00 95 31 167/75 (105) 97 03/12/20 17:00 167/70 03/12/20 17:00 167/70 03/12/20 17:00 97 27 127/85 (99) 98 03/12/20 16:00 Bi-pap 03/12/20 16:00 98.8 92 29 167/70 (102) 98 03/12/20 16:00 40 03/12/20 16:00 98 03/12/20 15:00 93 23 159/65 (96) 97 03/12/20 14:00 94 19 161/77 (105) 90 03/12/20 13:00 85 23 151/66 (94) 98 03/12/20 12:00 40 03/12/20 12:00 98.0 77 27 145/69 (94) 97 03/12/20 12:00 78 03/12/20 12:00 Bi-pap 03/12/20 11:00 71 19 143/66 (91) 100 03/12/20 10:00 72 28 149/74 (99) 100 Labs: Labs Test 03/11/20 04:25 03/11/20 15:20 03/12/20 04:00 03/13/20 04:10 White Blood Count 13.2 K/UL (4.8-10.8) 10.8 K/UL (4.8-10.8) Red Blood Count 3.50 M/UL (4.20-5.40) 3.26 M/UL (4.20-5.40) Hemoglobin 8.6 G/DL (12.0-16.0) 8.1 G/DL (12.0-16.0) Hematocrit 27.7 % (37.0-47.0) 25.8 % (37.0-47.0) Mean Corpuscular Volume 79 FL (80-99) 79 FL (80-99) Mean Corpuscular Hemoglobin 24.7 PG (27.0-31.0) 24.8 PG (27.0-31.0) Mean Corpuscular Hemoglobin Concent 31.3 G/DL (32.0-36.0) 31.3 G/DL (32.0-36.0) Red Cell Distribution Width 15.4 % (11.6-14.8) 15.4 % (11.6-14.8) Platelet Count 248 K/UL (150-450) 200 K/UL (150-450) Mean Platelet Volume 5.6 FL (6.5-10.1) 6.2 FL (6.5-10.1) Neutrophils (%) (Auto) % (45.0-75.0) % (45.0-75.0) Lymphocytes (%) (Auto) % (20.0-45.0) % (20.0-45.0) Monocytes (%) (Auto) % (1.0-10.0) % (1.0-10.0) Eosinophils (%) (Auto) % (0.0-3.0) % (0.0-3.0) Basophils (%) (Auto) % (0.0-2.0) % (0.0-2.0) Sodium Level 149 MMOL/L (136-145) 148 MMOL/L (136-145) 145 MMOL/L (136-145) 145 MMOL/L (136-145) Potassium Level 3.1 MMOL/L (3.5-5.1) 3.6 MMOL/L (3.5-5.1) 3.2 MMOL/L (3.5-5.1) 3.6 MMOL/L (3.5-5.1) Chloride Level 110 MMOL/L (98-107) 109 MMOL/L (98-107) 108 MMOL/L (98-107) 106 MMOL/L (98-107) Carbon Dioxide Level 27 MMOL/L (21-32) 28 MMOL/L (21-32) 28 MMOL/L (21-32) 27 MMOL/L (21-32) Anion Gap 12 mmol/L (5-15) 12 mmol/L (5-15) 10 mmol/L (5-15) 13 mmol/L (5-15) Blood Urea Nitrogen 20 mg/dL (7-18) 18 mg/dL (7-18) 18 mg/dL (7-18) 16 mg/dL (7-18) Creatinine 1.3 MG/DL (0.55-1.30) 1.2 MG/DL (0.55-1.30) 1.2 MG/DL (0.55-1.30) 1.0 MG/DL (0.55-1.30) Estimat Glomerular Filtration Rate 50.2 mL/min (>60) 54.9 mL/min (>60) 54.9 mL/min (>60) > 60 mL/min (>60) Glucose Level 150 MG/DL (74-106) 149 MG/DL (74-106) 145 MG/DL (74-106) 121 MG/DL (74-106) Uric Acid 6.5 MG/DL (2.6-7.2) Calcium Level 9.4 MG/DL (8.5-10.1) 9.4 MG/DL (8.5-10.1) 9.1 MG/DL (8.5-10.1) 9.2 MG/DL (8.5-10.1) Phosphorus Level 2.6 MG/DL (2.5-4.9) 3.5 MG/DL (2.5-4.9) Magnesium Level 1.5 MG/DL (1.8-2.4) 1.6 MG/DL (1.8-2.4) Total Bilirubin 0.6 MG/DL (0.2-1.0) 0.5 MG/DL (0.2-1.0) 0.6 MG/DL (0.2-1.0) Gamma Glutamyl Transpeptidase 209 U/L (5-85) Aspartate Amino Transf (AST/SGOT) 62 U/L (15-37) 56 U/L (15-37) 58 U/L (15-37) Alanine Aminotransferase (ALT/SGPT) 59 U/L (12-78) 54 U/L (12-78) 55 U/L (12-78) Alkaline Phosphatase 181 U/L (46-116) 165 U/L (46-116) 155 U/L (46-116) Troponin I 0.022 ng/mL (0.000-0.056) C-Reactive Protein, Quantitative 6.5 mg/dL (0.00-0.90) Pro-B-Type Natriuretic Peptide 33829 pg/mL (0-125) 05688 pg/mL (0-125) Total Protein 7.1 G/DL (6.4-8.2) 6.8 G/DL (6.4-8.2) 6.2 G/DL (6.4-8.2) Albumin 2.3 G/DL (3.4-5.0) 2.2 G/DL (3.4-5.0) 2.3 G/DL (3.4-5.0) Globulin 4.8 g/dL 4.6 g/dL 3.9 g/dL Albumin/Globulin Ratio 0.5 (1.0-2.7) 0.5 (1.0-2.7) 0.6 (1.0-2.7) Test 03/13/20 04:16 Objective: WDWN off BIPAP reduced breath sounds bilaterally without rhonchi or wheeze [id number] without MRG NABS nontender no HSM no CC noted edema nonfocal more alert Micro: Microbiology Date/Time Source Procedure Growth Status 03/10/20 16:45 Sputum Gram Stain - Final Resulted 03/10/20 16:45 Sputum Culture - Preliminary YEAST Resulted Accucheck: 121 Charles Thomson MD Mar 13, 2020 09:35
--- NOTE | 2020-03-13 09:59 | Consultation ---
Consult Note Consult Note GYNECOLOGY CONSULTATION REPORT Patient seen on 03/12/20 at approximately 1700, unable to document at time of encounter due to EMR system issues. This report reflects findings at time of exam. CC: Pelvic mass HPI: Patient is a 64yo who was admitted for syncope secondary to hypoglycemia. The patient was also found to be in acute renal failure and is currently in the ICU. Her condition is improving. She has a history of diabetes , not on insulin. SPORTS UMPIRE consulted for new finding of a pelvic mass on imaging. The patient reports that for the last 4-5 months she has been experiencing bouts of decreased food intake due to early satiety. Initially these episodes were intermittent, however over the last few weeks she has become progressively unable to eat more than a few bites of food. She also reports worsening abdominal bloating, and leg swelling up to her thighs. She denies pelvic pain or vaginal bleeding. She denies abdominal pain, nausea, vomiting, or GI bleeding. No other complaints. SPORTS UMPIRE was consulted due to finding of a large (18 x 15 cm) pelvic mass on CT on admission. The mass is described as possibly uterine in origin. There are additional soft tissue masses (posterolateral to the uterus measuring 10 x 5cm, and in the left adnexa measuring 6cm), as well as extensive bilateral inguinal and pelvic lymphadenopathy. Fecal occult blood test was negative on 03/04, however the patient was noted to have dark stools and repeat occult blood test was positive. GI has been consulted. PMH: Diabetes, Hypertension, Anxiety/Depression PSH: Denies Meds: Home meds are as follows: Lasix 20mg BID Docusate 100mg BID Labetalol 300mg BID Hydralazine 100mg TID Benazapril 40mg BID Diltiazem 120mg BID Metformin 1000mg BID Glimepiride 1mg BID Ciprofloxacin 500mg BID Clonidine 0.3mg TID Allergies: NKDA OBHx: - x 4, children ages 44, 42, 36, 33 GYNHx: - Last visit to [employer] was approximately 30 years ago. No known history. SOCHx: - Denies T/E/E, but is a former smoker/drinker - Lives with her youngest daughter and her grandchildren FAMHx: - Oldest daughter (44yo) recently diagnosed with breast cancer, currently undergoing chemo-radiation. Per patient, the cancer has spread to other parts of her body. She is unsure of any genetic testing that has been done, or whether her daughter has or will undergo surgery anytime soon. Vitals: T 98.8, BP 167/70, P 92, RR 29, O2 Venturi at 8L, previously on Bi-Pap at 40 FiO2 Physical Exam: GEN: NAD, pleasant and resting comfortably in bed HEENT: Venturi mask in place, OP clear, MMM Neck: No obvious thyromegaly CV: No tachycardia Pulm: Some increased work of breathing, and breath sounds are coarse Abd: Obese, somewhat firm in the upper midline region, non-tender, +distention, no rebound or guarding Pelvic: Internal exam deferred - moore catheter and rectal tube in place, no vaginal bleeding noted Ext: Bilateral edema in lower extremities, SCDs in place Labs: Test 03/13/20 04:10 03/13/20 04:16 White Blood Count 10.8 K/UL (4.8-10.8) Red Blood Count 3.26 M/UL (4.20-5.40) L Hemoglobin 8.1 G/DL (12.0-16.0) L Hematocrit 25.8 % (37.0-47.0) L Mean Corpuscular Volume 79 FL (80-99) L Mean Corpuscular Hemoglobin 24.8 PG (27.0-31.0) L Mean Corpuscular Hemoglobin Concent 31.3 G/DL (32.0-36.0) L Red Cell Distribution Width 15.4 % (11.6-14.8) H Platelet Count 200 K/UL (150-450) Mean Platelet Volume 6.2 FL (6.5-10.1) L Neutrophils (%) (Auto) % (45.0-75.0) Lymphocytes (%) (Auto) % (20.0-45.0) Monocytes (%) (Auto) % (1.0-10.0) Eosinophils (%) (Auto) % (0.0-3.0) Basophils (%) (Auto) % (0.0-2.0) Sodium Level 145 MMOL/L (136-145) Potassium Level 3.6 MMOL/L (3.5-5.1) Chloride Level 106 MMOL/L (98-107) Carbon Dioxide Level 27 MMOL/L (21-32) Anion Gap 13 mmol/L (5-15) Blood Urea Nitrogen 16 mg/dL (7-18) Creatinine 1.0 MG/DL (0.55-1.30) Estimat Glomerular Filtration Rate > 60 mL/min (>60) Glucose Level 121 MG/DL (74-106) H Calcium Level 9.2 MG/DL (8.5-10.1) Phosphorus Level 3.5 MG/DL (2.5-4.9) Magnesium Level 1.6 MG/DL (1.8-2.4) L Total Bilirubin 0.6 MG/DL (0.2-1.0) Aspartate Amino Transf (AST/SGOT) 58 U/L (15-37) H Alanine Aminotransferase (ALT/SGPT) 55 U/L (12-78) Alkaline Phosphatase 155 U/L (46-116) H Pro-B-Type Natriuretic Peptide 95388 pg/mL (0-125) H Total Protein 6.2 G/DL (6.4-8.2) L Albumin 2.3 G/DL (3.4-5.0) L Globulin 3.9 g/dL Albumin/Globulin Ratio 0.6 (1.0-2.7) L Carcinoembryonic Antigen Pending CA 125 Antigen Pending Imaging: CT A/P w/o contrast: FINDINGS Chest: There are bilateral pleural effusions, moderate on the right, small on the left. There is dense consolidation of both lungs, in a predominantly perihilar distribution. There is also some groundglass opacity in both lower lobes. The heart is borderline enlarged. No pericardial effusion. The pulmonary arteries are dilated. There are prominent prevascular space lymph nodes, measuring up to 2 cm long axis dimension. The included thyroid is unremarkable. No axillary or chest wall mass or adenopathy. There is some edema of the lower chest wall subcutaneous fat. There is smooth thoracic kyphotic deformity without compression fracture. There are degenerative proliferative changes of the thoracic spine Abdomen pelvis: There is a large midline pelvic mass with central low-attenuation and peripheral calcification. This measures 18 x 15 x 15.8 cm, appears to be coming off of the uterus. However, it is suboptimally defined due to lack of IV contrast administration. There is a soft tissue mass posterolateral to the uterus which measures 10 x 4.9 cm. It is uncertain whether this is coming off of the uterus or a separate from it. There is a prominent soft tissue structure in the left adnexal region measuring 6.8 cm in diameter. Again, uncertain as to whether this is coming off of the uterus or separate. There is extensive bilateral inguinal and bilateral pelvic lymphadenopathy. Largest right pelvic sidewall nodes measure up to 6.7 x 3.7 cm in diameter. There is extensive perirectal lymphadenopathy, with numerous nodes present, some measuring up to 4 cm in diameter and demonstrating necrotic centers. There is edema of the presacral fat. There is extensive mesenteric root lymphadenopathy as well. There is extensive peripancreatic and lesser sac lymphadenopathy. There is some retroperitoneal adenopathy demonstrated. A few prominent retrocrural nodes are also demonstrated. There is a rectal tube in place. The appendix is not identified, but no findings to suggest acute appendicitis are evident. Ingested contrast is seen as far distally as the distal ascending colon. No small bowel distention or small bowel wall thickening. The proximal colon is prominent in caliber, gas filled. There is a small amount of free intraperitoneal fluid. The esophagus, stomach, duodenum are unremarkable. Lack of IV contrast limits assessment of solid organs. The liver is grossly unremarkable. The gallbladder and bile ducts are grossly unremarkable. The pancreas, spleen, right adrenal are unremarkable. The left adrenal appears somewhat bulky , and more inferiorly is inseparable from the surrounding lymphadenopathy. There is moderate right hydronephrosis and proximal hydroureter. The hydroureter extends to the level of the upper pelvis. There is mild left hydronephrosis and mild left hydroureter, hydroureter seen as far distally as the pelvis. The bladder is empty, contains a Moore catheter. There is extensive edema of the abdominal and pelvic subcutaneous fat. The bones demonstrate degenerative spondylosis changes. IMPRESSION: Very limited exam, due to lack of IV contrast administration. Large midline pelvic mass with central low attenuation and peripheral calcification, appearing to be part of an overall enlarged uterus with multiple masses. This may represent a large necrotic uterine fibroid. However, the possibility of uterine for other pelvic malignancy should also be considered as etiology of this. Other adjacent pelvic masses, could represent subserosal uterine fibroids but could also represent massive lymphadenopathy or ovarian masses. Distal rectal wall thickening. Could represent proctitis but the possibility of neoplasm should also be considered. Extensive pelvic and abdominal lymphadenopathy as detailed above. Less extensive prominent mediastinal nodes. Suspected be malignant, could be metastatic lymphadenopathy related to either of the above findings, or lymphadenopathy related to primary lymphoproliferative disorder Moderate right and mild left hydronephrosis, probably due to ureteral obstruction by the pelvic masses/lymphadenopathy Moderate right and small left pleural effusions. Dense consolidation of both lungs. Most likely on the basis of pulmonary edema but could also represent bilateral pneumonia Borderline cardiomegaly Dilated pulmonary arteries, consistent with pulmonary arterial hypertension Extensive edema of the subcutaneous fat Empty bladder with a Moore catheter Somewhat bulky left adrenal, which more inferiorly is inseparable from the surrounding lymphadenopathy; adrenal lesion not excludable Rectal tube Degenerative spondylosis Assessment/Plan 64yo with large (18cm) pelvic mass, admitted for syncope secondary to hypoglycemia, also with acute renal failure now resolving. - The overall constellation of symptoms are concerning for primary SPORTS UMPIRE malignancy, ovarian tumor vs uterine sarcoma (based on report of imaging findings). - CA-125 pending, however it may be non-specific. - Imaging done in-house is not definitive and some images are sub-optimal. Would anticipate the need for repeat imaging with and without contrast once patient has established care with a SPORTS UMPIRE-Oncologist. - Of note, the patients daughter was recently diagnosed with breast CA in her early 40's, raising concern for a genetic component/predisposition. - While the overall picture is concerning for SPORTS UMPIRE malignancy, GI malignancy cannot be entirely ruled out - stool occult blood was initially negative, repeat was positive. Consider endoscopy/colonoscopy if indicated. - At this time, I would recommend urgent follow up with SPORTS UMPIRE-Oncology. Patient will likely require surgical management. - Dr. Sera Keith's office at [facility] is aware of the patient, and Dr. Keith will see her as an outpatient. - Her office will require an authorization for the patient to be seen, Dr. Khanna is aware of this and has kindly offered to assist in obtaining authorization. - Once discharge planning has commenced, the patient should be scheduled to be seen urgently at Dr. Keith's office. - No indication for emergent inpatient transfer, unless the patient is unable to be stabilized and cannot be discharged home safely. - Call Dr. Keith's office at [phone], option 2, to schedule outpatient appointment. - Fax number for Dr. Keith's office (for authorization) is [phone]. - Please let me know if I can be of any more assistance, I can be reached through my office phone at [phone]. Thank you for allowing me to participate in the care of this patient. Rosita Burnett M.D. Mar 13, 2020 09:59
--- NOTE | 2020-03-13 10:27 | Infectious Diseases Prog Note ---
Assessment/Plan Assessment/Plan antibiotics : zosyn A 1. pneumonia s/p rx COVID 19 negative 2. respiratory failure resolved 3. leucocytosis resolved 4. renal failure improving 5. diabetes mellitus 6. hypertension 7. pelvic mass P 1. d/c zosyn 2. observe off antibiotics Subjective Constitutional: Denies: fever, chills Respiratory: Denies: shortness of breath, dry cough Gastrointestinal/Abdominal: Denies: nausea, vomiting, diarrhea Musculoskeletal: Denies: pain Allergies: Coded Allergies: No Known Allergies (Unverified , 03/03/20) Objective Last 24 Hour Vital Signs Date Time Temp Pulse Resp B/P (MAP) Pulse Ox O2 Delivery O2 Flow Rate FiO2 03/13/20 09:15 82 147/63 03/13/20 09:14 147/63 03/13/20 07:11 99 Venturi Mask 8.0 40 03/13/20 07:00 88 24 165/65 (98) 97 03/13/20 06:02 165/73 03/13/20 06:00 94 27 165/73 (103) 97 03/13/20 05:52 86 159/78 03/13/20 05:00 78 25 160/71 (100) 100 03/13/20 04:46 87 27 100 30 03/13/20 04:00 40 03/13/20 04:00 98.1 74 20 163/74 (103) 100 03/13/20 04:00 Bi-pap 03/13/20 04:00 81 03/13/20 03:15 75 24 100 30 03/13/20 03:00 74 22 157/77 (103) 100 03/13/20 02:00 77 25 160/72 (101) 100 03/13/20 01:00 80 25 160/71 (100) 100 03/13/20 00:53 81 32 100 30 03/13/20 00:00 40 03/13/20 00:00 99.5 68 23 148/65 (92) 100 03/13/20 00:00 Bi-pap 03/13/20 00:00 71 03/12/20 23:30 76 24 100 30 03/12/20 23:00 72 21 152/73 (99) 100 03/12/20 22:00 70 23 158/88 (111) 100 03/12/20 21:02 82 29 100 30 03/12/20 21:00 Bi-pap 03/12/20 21:00 90 16 169/79 (109) 100 03/12/20 21:00 40 03/12/20 20:52 95 167/96 03/12/20 20:35 91 167/86 03/12/20 20:00 96 03/12/20 20:00 99.8 86 25 169/80 (109) 100 03/12/20 19:36 91 32 99 30 03/12/20 19:00 96 28 170/79 (109) 97 03/12/20 19:00 99 Venturi Mask 8.0 40 03/12/20 18:00 95 31 167/75 (105) 97 03/12/20 17:00 167/70 03/12/20 17:00 167/70 03/12/20 17:00 97 27 127/85 (99) 98 03/12/20 16:00 Bi-pap 03/12/20 16:00 98.8 92 29 167/70 (102) 98 03/12/20 16:00 40 03/12/20 16:00 98 03/12/20 15:00 93 23 159/65 (96) 97 03/12/20 14:00 94 19 161/77 (105) 90 03/12/20 13:00 85 23 151/66 (94) 98 03/12/20 12:00 40 03/12/20 12:00 98.0 77 27 145/69 (94) 97 03/12/20 12:00 78 03/12/20 12:00 Bi-pap 03/12/20 11:00 71 19 143/66 (91) 100 Height (Feet): 5 Height (Inches): 10.00 Weight (Pounds): 300 Respiratory/Chest: lungs clear Cardiovascular: normal rate, regular rhythm, no gallop/murmur Abdomen: soft, non tender Extremities: other - + edema bilaterally Microbiology Date/Time Source Procedure Growth Status 03/10/20 16:45 Sputum Gram Stain - Final Resulted 03/10/20 16:45 Sputum Culture - Preliminary YEAST Resulted Laboratory Tests Test 03/13/20 04:10 03/13/20 04:16 White Blood Count 10.8 K/UL (4.8-10.8) Red Blood Count 3.26 M/UL (4.20-5.40) L Hemoglobin 8.1 G/DL (12.0-16.0) L Hematocrit 25.8 % (37.0-47.0) L Mean Corpuscular Volume 79 FL (80-99) L Mean Corpuscular Hemoglobin 24.8 PG (27.0-31.0) L Mean Corpuscular Hemoglobin Concent 31.3 G/DL (32.0-36.0) L Red Cell Distribution Width 15.4 % (11.6-14.8) H Platelet Count 200 K/UL (150-450) Mean Platelet Volume 6.2 FL (6.5-10.1) L Neutrophils (%) (Auto) % (45.0-75.0) Lymphocytes (%) (Auto) % (20.0-45.0) Monocytes (%) (Auto) % (1.0-10.0) Eosinophils (%) (Auto) % (0.0-3.0) Basophils (%) (Auto) % (0.0-2.0) Sodium Level 145 MMOL/L (136-145) Potassium Level 3.6 MMOL/L (3.5-5.1) Chloride Level 106 MMOL/L (98-107) Carbon Dioxide Level 27 MMOL/L (21-32) Anion Gap 13 mmol/L (5-15) Blood Urea Nitrogen 16 mg/dL (7-18) Creatinine 1.0 MG/DL (0.55-1.30) Estimat Glomerular Filtration Rate > 60 mL/min (>60) Glucose Level 121 MG/DL (74-106) H Calcium Level 9.2 MG/DL (8.5-10.1) Phosphorus Level 3.5 MG/DL (2.5-4.9) Magnesium Level 1.6 MG/DL (1.8-2.4) L Total Bilirubin 0.6 MG/DL (0.2-1.0) Aspartate Amino Transf (AST/SGOT) 58 U/L (15-37) H Alanine Aminotransferase (ALT/SGPT) 55 U/L (12-78) Alkaline Phosphatase 155 U/L (46-116) H Pro-B-Type Natriuretic Peptide 31449 pg/mL (0-125) H Total Protein 6.2 G/DL (6.4-8.2) L Albumin 2.3 G/DL (3.4-5.0) L Globulin 3.9 g/dL Albumin/Globulin Ratio 0.6 (1.0-2.7) L Carcinoembryonic Antigen Pending CA 125 Antigen Pending Current Medications Medications (Trade) Dose Ordered Sig/Francisco J Route PRN Reason Start Time Stop Time Status Last Admin Dose Admin Acetaminophen (Tylenol) 650 mg Q4H PRN ORAL Mild Pain (Pain Scale 1-3) 03/04/20 12:15 04/02/20 12:14 03/08/20 12:00 Clonidine HCl (Catapres TTS-3) 1 patch QWEEK TDERMAL 03/05/20 10:30 06/03/20 10:29 03/12/20 17:00 Clonidine HCl (Catapres Tab) 0.1 mg Q4H PRN ORAL bp over 160 syst 03/05/20 09:30 06/03/20 09:29 03/13/20 06:02 Dextrose (Dextrose 50%) 25 ml Q30M PRN IV Hypoglycemia 03/04/20 12:00 06/01/20 21:59 03/04/20 21:41 Dextrose (Dextrose 50%) 50 ml Q30M PRN IV Hypoglycemia 03/04/20 12:00 06/01/20 21:59 03/05/20 06:15 Diltiazem HCl (Cardizem Tab) 90 mg Q8HR ORAL 03/12/20 20:00 04/11/20 19:59 03/13/20 05:52 Glucagon (Glucagon) 1 mg Q2H PRN IM Hypoglycemia 03/05/20 11:00 06/03/20 10:59 Insulin Aspart (NovoLOG) BEFORE MEALS AND HS SUBQ 03/07/20 06:30 06/05/20 06:29 03/12/20 21:07 Iron Sucrose 100 mg/Sodium Chloride 60 ml @ 240 mls/hr BEDTIME IVPB 03/09/20 21:00 03/13/20 21:14 03/12/20 20:35 Losartan Potassium (Cozaar) 50 mg BID ORAL 03/12/20 18:00 04/09/20 15:29 03/13/20 09:14 Magnesium Sulfate 100 ml @ 100 mls/hr Q1H IVPB 03/13/20 19:00 03/13/20 20:59 Metoprolol Tartrate (Lopressor) 50 mg Q12HR ORAL 03/10/20 21:00 06/04/20 15:14 03/13/20 09:15 Pantoprazole (Protonix) 40 mg EVERY 12 HOURS ORAL 03/09/20 09:00 04/08/20 08:59 03/13/20 09:15 Piperacillin Sod/ Tazobactam Sod 3.375 gm/Sodium Chloride 110 ml @ 27.5 mls/hr Q8HR IVPB 03/09/20 14:00 03/16/20 13:59 03/13/20 05:51 Polyethylene Glycol (Miralax) 17 gm DAILYPRN PRN ORAL Constipation 03/04/20 12:15 04/03/20 12:14 Sitagliptin Phosphate (Januvia) 50 mg ACBREAKFAST ORAL 03/10/20 06:30 04/09/20 06:29 03/13/20 05:52 Yudelka Alcocer MD Mar 13, 2020 10:27
--- NOTE | 2020-03-13 11:22 | Nephrology Progress Note ---
Assessment/Plan Problem List: (1) FARIBA (acute kidney injury) (2) Renal failure (ARF), acute on chronic (3) UTI (urinary tract infection) (4) Hypoglycemia (5) Anemia (6) Morbid obesity with BMI of 45.0-49.9, adult (7) Acute respiratory failure (8) Obstructive sleep apnea Assessment Acute renal failure Possible underlying chronic kidney disease High likelihood of diabetic nephropathy, patient has proteinuria and hypoalbuminemia Persistent hypo-glycemia: The patient was on 3 oral hypoglycemic agents including Glucophage Morbid obesity Hypertension Severe anemia, low MCV UTI Most likely obstructive sleep apnea Plan March 13: Labs reviewed. Magnesium supplement given. Blood pressure better controlled. Another dose of IV Lasix 20 mg given. Will watch electrolytes and renal parameters. Continue per pulmonary and management of respiratory status. March 12: Lab reviewed. Electrolytes adjusted. Blood pressure medication adjusted. Patient remains on BiPAP. Continue per consultants. Discontinue IV fluid. Lasix 20 mg IV once. March 11: Labs are reviewed. Potassium and magnesium supplement given. Continue per pulmonary. March 10: Labs reviewed. Medication reviewed. Remains on BiPAP. Will DC IV fluid and changed to D5W. Blood pressure medication adjusted. Cozaar added. Potassium supplement given. Continue per consultants. March 09: Labs reviewed. Medication list reviewed. Remains on BiPAP. Venturi mask is being tried. Discussed with residential pest control technician. Renal parameters stable. Magnesium and potassium supplement given. Blood sugar stable. March 08: Today's labs pending. Will discontinue IV fluid. Remains on BiPAP. Aim to take off BiPAP as possible. Transfusion if needed. Discussed with DARSHAN Iglesias. March 07: Marked improvement in renal parameters. Blood sugar improved. Main issue are respiratory, as patient remains on BiPAP. Hemoglobin lower. May require transfusion again. Abnormal electrolytes corrected March 06: Clinically improved. Remains on BiPAP. Blood sugar improved. Urine output well maintained. Serum creatinine lowered. Will adjust blood pressure medication for better control. D10 infusion down to 50 cc an hour. Continue monitor renal parameters. Lasix as needed. 24-hour urine for total protein. March 05: Discontinue Cozaar, labetalol Stop all oral oral hypoglycemics and insulin Start clonidine patch and clonidine PRN for high blood pressure Add Norvasc for blood pressure D10 infusion Check labs, thyroid panel, anemia work-up, lipid panel, hemoglobin A1c Urine for eosinophils and spot sodium Check ABG Per orders Subjective ROS Limited/Unobtainable: No Constitutional: Reports: malaise, weakness Objective Objective Last 24 Hour Vital Signs Date Time Temp Pulse Resp B/P (MAP) Pulse Ox O2 Delivery O2 Flow Rate FiO2 03/13/20 11:00 76 23 149/64 (92) 99 03/13/20 10:00 73 24 143/63 (89) 99 03/13/20 09:15 82 147/63 03/13/20 09:14 147/63 03/13/20 09:00 78 20 147/63 (91) 100 03/13/20 08:00 40 03/13/20 08:00 98.6 89 23 151/66 (94) 100 03/13/20 08:00 90 03/13/20 07:11 99 Venturi Mask 8.0 40 03/13/20 07:00 88 24 165/65 (98) 97 03/13/20 06:02 165/73 03/13/20 06:00 94 27 165/73 (103) 97 03/13/20 05:52 86 159/78 03/13/20 05:00 78 25 160/71 (100) 100 03/13/20 04:46 87 27 100 30 03/13/20 04:00 40 03/13/20 04:00 98.1 74 20 163/74 (103) 100 03/13/20 04:00 Bi-pap 03/13/20 04:00 81 03/13/20 03:15 75 24 100 30 03/13/20 03:00 74 22 157/77 (103) 100 03/13/20 02:00 77 25 160/72 (101) 100 03/13/20 01:00 80 25 160/71 (100) 100 03/13/20 00:53 81 32 100 30 03/13/20 00:00 40 03/13/20 00:00 99.5 68 23 148/65 (92) 100 03/13/20 00:00 Bi-pap 03/13/20 00:00 71 03/12/20 23:30 76 24 100 30 03/12/20 23:00 72 21 152/73 (99) 100 03/12/20 22:00 70 23 158/88 (111) 100 03/12/20 21:02 82 29 100 30 03/12/20 21:00 Bi-pap 03/12/20 21:00 90 16 169/79 (109) 100 03/12/20 21:00 40 03/12/20 20:52 95 167/96 03/12/20 20:35 91 167/86 03/12/20 20:00 96 03/12/20 20:00 99.8 86 25 169/80 (109) 100 03/12/20 19:36 91 32 99 30 03/12/20 19:00 96 28 170/79 (109) 97 03/12/20 19:00 99 Venturi Mask 8.0 40 03/12/20 18:00 95 31 167/75 (105) 97 03/12/20 17:00 167/70 03/12/20 17:00 167/70 03/12/20 17:00 97 27 127/85 (99) 98 03/12/20 16:00 Bi-pap 03/12/20 16:00 98.8 92 29 167/70 (102) 98 03/12/20 16:00 40 03/12/20 16:00 98 03/12/20 15:00 93 23 159/65 (96) 97 03/12/20 14:00 94 19 161/77 (105) 90 03/12/20 13:00 85 23 151/66 (94) 98 03/12/20 12:00 40 03/12/20 12:00 98.0 77 27 145/69 (94) 97 03/12/20 12:00 78 03/12/20 12:00 Bi-pap Intake and Output 03/12/20 03/13/20 19:00 07:00 Intake Total 410.0 ml 563.08495 ml Output Total 1480 ml 1415 ml Balance -1070.0 ml -851.04008 ml Intake Oral 240 ml IV Total 410.0 ml 323.70356 ml Output Urine Total 1455 ml 1415 ml Stool Total 25 ml # Bowel Movements 100 Laboratory Tests 03/13/20 04:10: White Blood Count 10.8, Red Blood Count 3.26L, Hemoglobin 8.1L, Hematocrit 25.8L , Mean Corpuscular Volume 79L, Mean Corpuscular Hemoglobin 24.8L, Mean Corpuscular Hemoglobin Concent 31.3L, Red Cell Distribution Width 15.4H, Platelet Count 200, Mean Platelet Volume 6.2L, Neutrophils (%) (Auto) , Lymphocytes (%) (Auto) , Monocytes (%) (Auto) , Eosinophils (%) (Auto) , Basophils (%) (Auto) , Sodium Level 145, Potassium Level 3.6, Chloride Level 106 , Carbon Dioxide Level 27, Anion Gap 13, Blood Urea Nitrogen 16, Creatinine 1.0 , Estimat Glomerular Filtration Rate > 60, Glucose Level 121H, Calcium Level 9.2 , Phosphorus Level 3.5, Magnesium Level 1.6L, Total Bilirubin 0.6, Aspartate Amino Transf (AST/SGOT) 58H, Alanine Aminotransferase (ALT/SGPT) 55, Alkaline Phosphatase 155H, Pro-B-Type Natriuretic Peptide 80914J, Total Protein 6.2L, Albumin 2.3L, Globulin 3.9, Albumin/Globulin Ratio 0.6L 03/13/20 04:16: Carcinoembryonic Antigen [Pending], CA 125 Antigen [Pending] Height (Feet): 5 Height (Inches): 10.00 Weight (Pounds): 300 General Appearance: no apparent distress EENT: other - On BiPAP and Ventimask alternating Cardiovascular: normal rate Respiratory/Chest: decreased breath sounds Abdomen: distended Sundar Camargo MD Mar 13, 2020 11:22
--- NOTE | 2020-03-13 14:30 | General Progress Note ---
Assessment/Plan Problem List: (1) Syncope ICD Codes: R55 - Syncope and collapse SNOMED: 169211679 (2) Acute kidney failure ICD Codes: N17.9 - Acute kidney failure, unspecified SNOMED: 38240942 (3) Hypoglycemia ICD Codes: E16.2 - Hypoglycemia, unspecified SNOMED: 603665750 (4) UTI (urinary tract infection) ICD Codes: N39.0 - Urinary tract infection, site not specified SNOMED: 40555300 Status: stable Assessment/Plan: wean bipap monitor cxr observe off abx may need to tap effusion monitor sugars d50 as needed diabetes rx per endo check duplex rn obgyn eval.appreciated- outpt rn obgyn onc eval replace lytes guarded Subjective ROS Limited/Unobtainable: No Constitutional: Reports: no symptoms HEENT: Reports: no symptoms Cardiovascular: Reports: no symptoms Respiratory: Reports: cough, shortness of breath Gastrointestinal/Abdominal: Reports: abdominal pain Genitourinary: Reports: no symptoms Neurologic/Psychiatric: Reports: no symptoms Endocrine: Reports: no symptoms Hematologic/Lymphatic: Reports: anemia Allergies: Coded Allergies: No Known Allergies (Unverified , 03/03/20) All Systems: reviewed and negative except above Subjective no events. remains stable on bipap at night. venti mask during the day. ct with large pelvic mass, pulm edema vs pna. no fevers or chills. labs reviewed, Objective Last 24 Hour Vital Signs Date Time Temp Pulse Resp B/P (MAP) Pulse Ox O2 Delivery O2 Flow Rate FiO2 03/13/20 14:00 86 24 159/63 (95) 100 03/13/20 13:54 84 158/60 03/13/20 13:00 81 24 151/65 (93) 99 03/13/20 12:30 82 25 158/69 (98) 99 03/13/20 12:00 98.4 79 24 144/67 (92) 99 03/13/20 12:00 79 03/13/20 12:00 Bi-pap 03/13/20 12:00 40 03/13/20 11:00 76 23 149/64 (92) 99 03/13/20 10:00 73 24 143/63 (89) 99 03/13/20 09:15 82 147/63 03/13/20 09:14 147/63 03/13/20 09:00 78 20 147/63 (91) 100 03/13/20 08:00 40 03/13/20 08:00 Bi-pap 03/13/20 08:00 98.6 89 23 151/66 (94) 100 03/13/20 08:00 90 03/13/20 07:11 99 Venturi Mask 8.0 40 03/13/20 07:00 88 24 165/65 (98) 97 03/13/20 06:02 165/73 03/13/20 06:00 94 27 165/73 (103) 97 03/13/20 05:52 86 159/78 03/13/20 05:00 78 25 160/71 (100) 100 03/13/20 04:46 87 27 100 30 03/13/20 04:00 40 03/13/20 04:00 98.1 74 20 163/74 (103) 100 03/13/20 04:00 Bi-pap 03/13/20 04:00 81 03/13/20 03:15 75 24 100 30 03/13/20 03:00 74 22 157/77 (103) 100 03/13/20 02:00 77 25 160/72 (101) 100 03/13/20 01:00 80 25 160/71 (100) 100 03/13/20 00:53 81 32 100 30 03/13/20 00:00 40 03/13/20 00:00 99.5 68 23 148/65 (92) 100 03/13/20 00:00 Bi-pap 03/13/20 00:00 71 03/12/20 23:30 76 24 100 30 03/12/20 23:00 72 21 152/73 (99) 100 03/12/20 22:00 70 23 158/88 (111) 100 03/12/20 21:02 82 29 100 30 03/12/20 21:00 Bi-pap 03/12/20 21:00 90 16 169/79 (109) 100 03/12/20 21:00 40 03/12/20 20:52 95 167/96 03/12/20 20:35 91 167/86 03/12/20 20:00 96 03/12/20 20:00 99.8 86 25 169/80 (109) 100 03/12/20 19:36 91 32 99 30 03/12/20 19:00 96 28 170/79 (109) 97 03/12/20 19:00 99 Venturi Mask 8.0 40 03/12/20 18:00 95 31 167/75 (105) 97 03/12/20 17:00 167/70 03/12/20 17:00 167/70 03/12/20 17:00 97 27 127/85 (99) 98 03/12/20 16:00 Bi-pap 03/12/20 16:00 98.8 92 29 167/70 (102) 98 03/12/20 16:00 40 03/12/20 16:00 98 03/12/20 15:00 93 23 159/65 (96) 97 Intake and Output 03/12/20 03/13/20 19:00 07:00 Intake Total 410.0 ml 563.24856 ml Output Total 1480 ml 1415 ml Balance -1070.0 ml -851.35875 ml Intake Oral 240 ml IV Total 410.0 ml 323.73560 ml Output Urine Total 1455 ml 1415 ml Stool Total 25 ml # Bowel Movements 100 Laboratory Tests 03/13/20 04:10: White Blood Count 10.8, Red Blood Count 3.26L, Hemoglobin 8.1L, Hematocrit 25.8L , Mean Corpuscular Volume 79L, Mean Corpuscular Hemoglobin 24.8L, Mean Corpuscular Hemoglobin Concent 31.3L, Red Cell Distribution Width 15.4H, Platelet Count 200, Mean Platelet Volume 6.2L, Neutrophils (%) (Auto) , Lymphocytes (%) (Auto) , Monocytes (%) (Auto) , Eosinophils (%) (Auto) , Basophils (%) (Auto) , Sodium Level 145, Potassium Level 3.6, Chloride Level 106 , Carbon Dioxide Level 27, Anion Gap 13, Blood Urea Nitrogen 16, Creatinine 1.0 , Estimat Glomerular Filtration Rate > 60, Glucose Level 121H, Calcium Level 9.2 , Phosphorus Level 3.5, Magnesium Level 1.6L, Total Bilirubin 0.6, Aspartate Amino Transf (AST/SGOT) 58H, Alanine Aminotransferase (ALT/SGPT) 55, Alkaline Phosphatase 155H, Pro-B-Type Natriuretic Peptide 11962J, Total Protein 6.2L, Albumin 2.3L, Globulin 3.9, Albumin/Globulin Ratio 0.6L 03/13/20 04:16: Carcinoembryonic Antigen [Pending], CA 125 Antigen [Pending] Height (Feet): 5 Height (Inches): 10.00 Weight (Pounds): 300 Objective General Appearance: WD/WN, alert EENT: PERRL/EOMI Neck: non-tender, normal alignment Cardiovascular: normal peripheral pulses, normal rate Respiratory/Chest: chest wall non-tender, lungs clear, normal breath sounds, no respiratory distress Abdomen: normal bowel sounds, non tender, soft, no organomegaly Edema: moderate edema Neurologic: kaiawhina II-XII grossly normal, alert, oriented x 3, responsive Sal Khanna MD Mar 13, 2020 14:30
--- NOTE | 2020-03-13 14:44 | Consultation ---
History of Present Illness General Chief Complaint: Altered Level of Consciousness Referring physician: Sal Khanna MD Reason for Consultation: Diabetic foot evaluation Present Illness Allergies: Coded Allergies: No Known Allergies (Unverified , 03/03/20) Medication History Scheduled Clonidine Hcl* (Catapres*), 0.1 MG ORAL EVERY 6 HOURS, (Reported) Diltiazem Hcl* (Cardizem*), 30 MG PO QID, (Reported) Furosemide* (Lasix*), 40 MG ORAL DAILY, (Reported) Hydralazine Hcl* (Hydralazine Hcl*), 25 MG ORAL EVERY 8 HOURS, (Reported) Labetalol HCl (Labetalol HCl), 100 MG ORAL EVERY 12 HOURS, (Reported) Losartan Potassium (Losartan Potassium), 100 MG ORAL DAILY, (Reported) Metformin Hcl* (Metformin Hcl*), 500 MG ORAL TWICE A DAY, (Reported) Patient History Healthcare decision maker Resuscitation status Advanced Directive on File Physical Exam Last 24 Hour Vital Signs Date Time Temp Pulse Resp B/P (MAP) Pulse Ox O2 Delivery O2 Flow Rate FiO2 03/13/20 14:00 86 24 159/63 (95) 100 03/13/20 13:54 84 158/60 03/13/20 13:00 81 24 151/65 (93) 99 03/13/20 12:30 82 25 158/69 (98) 99 03/13/20 12:00 98.4 79 24 144/67 (92) 99 03/13/20 12:00 79 03/13/20 12:00 Bi-pap 03/13/20 12:00 40 03/13/20 11:00 76 23 149/64 (92) 99 03/13/20 10:00 73 24 143/63 (89) 99 03/13/20 09:15 82 147/63 03/13/20 09:14 147/63 03/13/20 09:00 78 20 147/63 (91) 100 03/13/20 08:00 40 03/13/20 08:00 Bi-pap 03/13/20 08:00 98.6 89 23 151/66 (94) 100 03/13/20 08:00 90 03/13/20 07:11 99 Venturi Mask 8.0 40 03/13/20 07:00 88 24 165/65 (98) 97 03/13/20 06:02 165/73 03/13/20 06:00 94 27 165/73 (103) 97 03/13/20 05:52 86 159/78 03/13/20 05:00 78 25 160/71 (100) 100 03/13/20 04:46 87 27 100 30 03/13/20 04:00 40 03/13/20 04:00 98.1 74 20 163/74 (103) 100 03/13/20 04:00 Bi-pap 03/13/20 04:00 81 03/13/20 03:15 75 24 100 30 03/13/20 03:00 74 22 157/77 (103) 100 03/13/20 02:00 77 25 160/72 (101) 100 03/13/20 01:00 80 25 160/71 (100) 100 03/13/20 00:53 81 32 100 30 03/13/20 00:00 40 03/13/20 00:00 99.5 68 23 148/65 (92) 100 03/13/20 00:00 Bi-pap 03/13/20 00:00 71 03/12/20 23:30 76 24 100 30 03/12/20 23:00 72 21 152/73 (99) 100 03/12/20 22:00 70 23 158/88 (111) 100 03/12/20 21:02 82 29 100 30 03/12/20 21:00 Bi-pap 03/12/20 21:00 90 16 169/79 (109) 100 03/12/20 21:00 40 03/12/20 20:52 95 167/96 03/12/20 20:35 91 167/86 03/12/20 20:00 96 03/12/20 20:00 99.8 86 25 169/80 (109) 100 03/12/20 19:36 91 32 99 30 03/12/20 19:00 96 28 170/79 (109) 97 03/12/20 19:00 99 Venturi Mask 8.0 40 03/12/20 18:00 95 31 167/75 (105) 97 03/12/20 17:00 167/70 03/12/20 17:00 167/70 03/12/20 17:00 97 27 127/85 (99) 98 03/12/20 16:00 Bi-pap 03/12/20 16:00 98.8 92 29 167/70 (102) 98 03/12/20 16:00 40 03/12/20 16:00 98 03/12/20 15:00 93 23 159/65 (96) 97 Intake and Output 03/12/20 03/13/20 19:00 07:00 Intake Total 410.0 ml 563.37636 ml Output Total 1480 ml 1415 ml Balance -1070.0 ml -851.60723 ml Intake Oral 240 ml IV Total 410.0 ml 323.46846 ml Output Urine Total 1455 ml 1415 ml Stool Total 25 ml # Bowel Movements 100 Laboratory Tests Test 03/13/20 04:10 03/13/20 04:16 White Blood Count 10.8 K/UL (4.8-10.8) Red Blood Count 3.26 M/UL (4.20-5.40) L Hemoglobin 8.1 G/DL (12.0-16.0) L Hematocrit 25.8 % (37.0-47.0) L Mean Corpuscular Volume 79 FL (80-99) L Mean Corpuscular Hemoglobin 24.8 PG (27.0-31.0) L Mean Corpuscular Hemoglobin Concent 31.3 G/DL (32.0-36.0) L Red Cell Distribution Width 15.4 % (11.6-14.8) H Platelet Count 200 K/UL (150-450) Mean Platelet Volume 6.2 FL (6.5-10.1) L Neutrophils (%) (Auto) % (45.0-75.0) Lymphocytes (%) (Auto) % (20.0-45.0) Monocytes (%) (Auto) % (1.0-10.0) Eosinophils (%) (Auto) % (0.0-3.0) Basophils (%) (Auto) % (0.0-2.0) Sodium Level 145 MMOL/L (136-145) Potassium Level 3.6 MMOL/L (3.5-5.1) Chloride Level 106 MMOL/L (98-107) Carbon Dioxide Level 27 MMOL/L (21-32) Anion Gap 13 mmol/L (5-15) Blood Urea Nitrogen 16 mg/dL (7-18) Creatinine 1.0 MG/DL (0.55-1.30) Estimat Glomerular Filtration Rate > 60 mL/min (>60) Glucose Level 121 MG/DL (74-106) H Calcium Level 9.2 MG/DL (8.5-10.1) Phosphorus Level 3.5 MG/DL (2.5-4.9) Magnesium Level 1.6 MG/DL (1.8-2.4) L Total Bilirubin 0.6 MG/DL (0.2-1.0) Aspartate Amino Transf (AST/SGOT) 58 U/L (15-37) H Alanine Aminotransferase (ALT/SGPT) 55 U/L (12-78) Alkaline Phosphatase 155 U/L (46-116) H Pro-B-Type Natriuretic Peptide 75780 pg/mL (0-125) H Total Protein 6.2 G/DL (6.4-8.2) L Albumin 2.3 G/DL (3.4-5.0) L Globulin 3.9 g/dL Albumin/Globulin Ratio 0.6 (1.0-2.7) L Carcinoembryonic Antigen Pending CA 125 Antigen Pending Height (Feet): 5 Height (Inches): 10.00 Weight (Pounds): 300 Medications Current Medications Medications (Trade) Dose Ordered Sig/Francisco J Route PRN Reason Start Time Stop Time Status Last Admin Dose Admin Acetaminophen (Tylenol) 650 mg Q4H PRN ORAL Mild Pain (Pain Scale 1-3) 03/04/20 12:15 04/02/20 12:14 03/08/20 12:00 Clonidine HCl (Catapres TTS-3) 1 patch QWEEK TDERMAL 03/05/20 10:30 06/03/20 10:29 03/12/20 17:00 Clonidine HCl (Catapres Tab) 0.1 mg Q4H PRN ORAL bp over 160 syst 03/05/20 09:30 06/03/20 09:29 03/13/20 06:02 Dextrose (Dextrose 50%) 25 ml Q30M PRN IV Hypoglycemia 03/04/20 12:00 06/01/20 21:59 03/04/20 21:41 Dextrose (Dextrose 50%) 50 ml Q30M PRN IV Hypoglycemia 03/04/20 12:00 06/01/20 21:59 03/05/20 06:15 Diltiazem HCl (Cardizem Tab) 90 mg Q8HR ORAL 03/12/20 20:00 04/11/20 19:59 03/13/20 13:54 Glucagon (Glucagon) 1 mg Q2H PRN IM Hypoglycemia 03/05/20 11:00 06/03/20 10:59 Insulin Aspart (NovoLOG) BEFORE MEALS AND HS SUBQ 03/07/20 06:30 06/05/20 06:29 03/13/20 12:18 Iron Sucrose 100 mg/Sodium Chloride 60 ml @ 240 mls/hr BEDTIME IVPB 03/09/20 21:00 03/13/20 21:14 03/12/20 20:35 Losartan Potassium (Cozaar) 50 mg BID ORAL 03/12/20 18:00 04/09/20 15:29 03/13/20 09:14 Magnesium Sulfate 100 ml @ 100 mls/hr Q1H IVPB 03/13/20 19:00 03/13/20 20:59 Metoprolol Tartrate (Lopressor) 50 mg Q12HR ORAL 03/10/20 21:00 06/04/20 15:14 03/13/20 09:15 Pantoprazole (Protonix) 40 mg EVERY 12 HOURS ORAL 03/09/20 09:00 04/08/20 08:59 03/13/20 09:15 Polyethylene Glycol (Miralax) 17 gm DAILYPRN PRN ORAL Constipation 03/04/20 12:15 04/03/20 12:14 Potassium Chloride (K-Dur) 20 meq TWICE A DAY ORAL 03/13/20 11:30 06/11/20 11:29 03/13/20 12:17 Sitagliptin Phosphate (Januvia) 50 mg ACBREAKFAST ORAL 03/10/20 06:30 04/09/20 06:29 03/13/20 05:52 Assessment/Plan Assessment/Plan: Oncology Consultation REQ : Marian Khanna RFC: [employer] Malignancy DOS 03/13/2020 ID 64-year-old female presents for evaluation after syncopal episode. She was found at home unconscious by EMS. Patient reports feeling lightheaded getting out of bed laying on the ground and believes she had a loss of consciousness which was brief. No history of seizures. No history of diabetes and takes glipizide and metformin. She has not been eating much due to lack of appetite over the past few days only having soup for about a week. She reports abdominal distention and findings of inflamed lymph limits her abdomen for which she is being evaluated by MRI later this week scheduled by her PMD. EMS found her awake and alert no hypoglycemic started running D10 prior to their arrival. On arrival her fingerstick is in the 20s. She is awake, alert, denies headache, vision change, chest pain, palpitations, nausea, recent vomiting, diarrhea, fevers, chills, cough or other symptoms. At this time is on bipap and difficult to obtain further history from her. 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 No scalp lacerations abrasions hematomas++ bipap Cardiovascular: RRR. S1 and S2 normal. No murmur appreciated Resp: Normal work of breathing. No cough, wheezing or crackles appreciated Abdomen: Abdomen is soft. Obese abdomen, nontender Skin: Intact. No abrasions, laceration or rash over the exposed skin MSK: Normal tone and bulk. Moving all extremities. No obvious deformity. Neuro: Awake and alert. Mentating appropriately. Spine: No tenderness in midline Labs; reviewed Imaging: noted Assessment and recs # Pelvic mass, large 18cm, admitted for syncope secondary to hypoglycemia, also with acute renal failure now resolving. --> obtain ca 125, is non-secific --> imaging has been noted and gynecology recs reviewed --> agree with healthcare risk control consultant is most likely a healthcare risk control consultant cancer, uterine v sarcoma --> needs to see healthcare risk control consultant-oncologist as outpatient for surgical option/resection --> may after that require adjuvant chemo based on results --> family cancer screening --> to schedule to see Dr. Keith as outpatient # Anemia of chronic disease due to underlying chronic medical issues, multifactorial v Gi bleed --> Anemia workup has been ordered, rule out gi bleed --> No evidence of hemolysis is noted, peripheral smear has been reviewed. --> Hgb goal >7. Transfuse prn. --> Epogen or iron at this time is not particularly indicated --> Medications have been reviewed --> low threshold for gi evaluation in case has occult + --> hgb 8.7 # Pneumonia s/p rx --> COVID 19 negative # Respiratory failure resolved --> bipap # Renal failure improving --> per renal # Diabetes mellitus # Hypertension # Dvt ppx scds The timing of this note does not necessarily reflect the time of the patient was seen. Greatly appreciate consultation. Ponce Iyer MD Mar 13, 2020 14:44
--- NOTE | 2020-03-13 15:41 | General Progress Note ---
Assessment/Plan Status: stable Assessment/Plan: Assessment - Dark stools - OB (+) 1/2 - microcytic anemia - pelvic / uterine masses with JACKY - suspect malignancy - hydronephrosis - rectal wall thickening - resp failure - resolved renal failure - anasarca, abdominal distention - pleural effusion - pulmonary HTN - abnormal LFT - ? mets, ? JOHNSON, ? 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 Subjective Allergies: Coded Allergies: No Known Allergies (Unverified , 03/03/20) Subjective above noted on FM O2 poor appetite Objective Last 24 Hour Vital Signs Date Time Temp Pulse Resp B/P (MAP) Pulse Ox O2 Delivery O2 Flow Rate FiO2 03/13/20 15:00 86 22 168/116 (133) 99 03/13/20 14:00 86 24 159/63 (95) 100 03/13/20 13:54 84 158/60 03/13/20 13:00 81 24 151/65 (93) 99 03/13/20 12:30 82 25 158/69 (98) 99 03/13/20 12:00 98.4 79 24 144/67 (92) 99 03/13/20 12:00 79 03/13/20 12:00 Venturi Mask 03/13/20 12:00 40 03/13/20 11:00 76 23 149/64 (92) 99 03/13/20 10:00 73 24 143/63 (89) 99 03/13/20 09:15 82 147/63 03/13/20 09:14 147/63 03/13/20 09:00 78 20 147/63 (91) 100 03/13/20 08:00 40 03/13/20 08:00 Venturi Mask 03/13/20 08:00 98.6 89 23 151/66 (94) 100 03/13/20 08:00 90 03/13/20 07:11 99 Venturi Mask 8.0 40 03/13/20 07:00 88 24 165/65 (98) 97 03/13/20 06:02 165/73 03/13/20 06:00 94 27 165/73 (103) 97 03/13/20 05:52 86 159/78 03/13/20 05:00 78 25 160/71 (100) 100 03/13/20 04:46 87 27 100 30 03/13/20 04:00 40 03/13/20 04:00 98.1 74 20 163/74 (103) 100 03/13/20 04:00 Bi-pap 03/13/20 04:00 81 03/13/20 03:15 75 24 100 30 03/13/20 03:00 74 22 157/77 (103) 100 03/13/20 02:00 77 25 160/72 (101) 100 03/13/20 01:00 80 25 160/71 (100) 100 03/13/20 00:53 81 32 100 30 03/13/20 00:00 40 03/13/20 00:00 99.5 68 23 148/65 (92) 100 03/13/20 00:00 Bi-pap 03/13/20 00:00 71 03/12/20 23:30 76 24 100 30 03/12/20 23:00 72 21 152/73 (99) 100 03/12/20 22:00 70 23 158/88 (111) 100 03/12/20 21:02 82 29 100 30 03/12/20 21:00 Bi-pap 03/12/20 21:00 90 16 169/79 (109) 100 03/12/20 21:00 40 03/12/20 20:52 95 167/96 03/12/20 20:35 91 167/86 03/12/20 20:00 96 03/12/20 20:00 99.8 86 25 169/80 (109) 100 03/12/20 19:36 91 32 99 30 03/12/20 19:00 96 28 170/79 (109) 97 03/12/20 19:00 99 Venturi Mask 8.0 40 03/12/20 18:00 95 31 167/75 (105) 97 03/12/20 17:00 167/70 03/12/20 17:00 167/70 03/12/20 17:00 97 27 127/85 (99) 98 03/12/20 16:00 Bi-pap 03/12/20 16:00 98.8 92 29 167/70 (102) 98 03/12/20 16:00 40 03/12/20 16:00 98 Intake and Output 03/12/20 03/13/20 19:00 07:00 Intake Total 410.0 ml 563.31194 ml Output Total 1480 ml 1415 ml Balance -1070.0 ml -851.34226 ml Intake Oral 240 ml IV Total 410.0 ml 323.16393 ml Output Urine Total 1455 ml 1415 ml Stool Total 25 ml # Bowel Movements 100 Laboratory Tests 03/13/20 04:10: White Blood Count 10.8, Red Blood Count 3.26L, Hemoglobin 8.1L, Hematocrit 25.8L , Mean Corpuscular Volume 79L, Mean Corpuscular Hemoglobin 24.8L, Mean Corpuscular Hemoglobin Concent 31.3L, Red Cell Distribution Width 15.4H, Platelet Count 200, Mean Platelet Volume 6.2L, Neutrophils (%) (Auto) , Lymphocytes (%) (Auto) , Monocytes (%) (Auto) , Eosinophils (%) (Auto) , Basophils (%) (Auto) , Sodium Level 145, Potassium Level 3.6, Chloride Level 106 , Carbon Dioxide Level 27, Anion Gap 13, Blood Urea Nitrogen 16, Creatinine 1.0 , Estimat Glomerular Filtration Rate > 60, Glucose Level 121H, Calcium Level 9.2 , Phosphorus Level 3.5, Magnesium Level 1.6L, Total Bilirubin 0.6, Aspartate Amino Transf (AST/SGOT) 58H, Alanine Aminotransferase (ALT/SGPT) 55, Alkaline Phosphatase 155H, Pro-B-Type Natriuretic Peptide 53103P, Total Protein 6.2L, Albumin 2.3L, Globulin 3.9, Albumin/Globulin Ratio 0.6L 03/13/20 04:16: Carcinoembryonic Antigen [Pending], CA 125 Antigen [Pending] Height (Feet): 5 Height (Inches): 10.00 Weight (Pounds): 300 Objective Debilitated WW HEENT (+) BIPAP mask Neck supple Coarse BS RR abd very distended (+) edema / anasarca Garry Barrera MD Mar 13, 2020 15:41
[2020-03-13] MEDS ORDERED: NS 500ML ONE (18:40)
[2020-03-13] MEDS: Iron Sucrose 100 MG in NS 55 ML IVPB SCH (20:07)
[2020-03-14] VITALS (18 sets, daily range): BP systolic 141–173; BP diastolic 62–95
[2020-03-14 04:30] LABS: HEMATOCRIT 27.7 % (37.0-47.0); HEMOGLOBIN 8.6 G/DL (12.0-16.0); MEAN CORPUSCULAR VOLUME 79 FL (80-99); PLATELET COUNT 213 K/UL (150-450); RED BLOOD COUNT 3.48 M/UL (4.20-5.40)
[2020-03-14 05:21] LABS: ALANINE AMINOTRANSFERASE 51 U/L (12-78); ALBUMIN 2.3 G/DL (3.4-5.0); ALBUMIN/GLOBULIN RATIO 0.5 (1.0-2.7); ALKALINE PHOSPHATASE 175 U/L (46-116); ANION GAP 10 mmol/L (5-15); ASPARTATE AMINO TRANSFERASE 51 U/L (15-37); BILIRUBIN,TOTAL 0.5 MG/DL (0.2-1.0); BLOOD UREA NITROGEN 14 mg/dL (7-18); CARBON DIOXIDE 28 MMOL/L (21-32); CHLORIDE 105 MMOL/L (98-107); PHOSPHORUS 3.6 MG/DL (2.5-4.9); POTASSIUM 3.4 MMOL/L (3.5-5.1); SODIUM 143 MMOL/L (136-145)
[2020-03-14] MEDS: sitaGLIPtin 50mg tab ORAL SCH (06:10)
[2020-03-14] MEDS: dilTIAZem HCl 90mg tab ORAL SCH ×3 (06:10→22:18)
[2020-03-14] MEDS: NovoLOG Insulin Flexpen SUBQ SCH ×4 (06:14→20:10)
--- NOTE | 2020-03-14 08:12 | General Progress Note ---
Assessment/Plan Status: stable Assessment/Plan: Assessment - Dark stools - OB (+) 1/2 - microcytic anemia - pelvic / uterine masses with JACKY - suspect malignancy - hydronephrosis - rectal wall thickening - resp failure - resolved renal failure - anasarca, abdominal distention - pleural effusion - pulmonary HTN - abnormal LFT - ? mets, ? JOHNSON, ? 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 Subjective ROS Limited/Unobtainable: No Allergies: Coded Allergies: No Known Allergies (Unverified , 03/03/20) Objective Last 24 Hour Vital Signs Date Time Temp Pulse Resp B/P (MAP) Pulse Ox O2 Delivery O2 Flow Rate FiO2 03/14/20 07:58 99 Venturi Mask 8.0 40 03/14/20 07:00 85 20 161/95 (117) 100 03/14/20 06:10 90 159/71 03/14/20 06:00 87 23 159/71 (100) 100 03/14/20 05:00 89 27 172/76 (108) 100 03/14/20 04:30 92 24 173/73 (106) 99 03/14/20 04:26 165/73 03/14/20 04:00 80 03/14/20 04:00 97.9 89 22 165/73 (103) 100 03/14/20 04:00 40 03/14/20 04:00 Venturi Mask 03/14/20 03:00 78 23 168/82 (110) 100 03/14/20 02:30 75 21 160/75 (103) 100 03/14/20 02:00 74 21 160/66 (97) 100 03/14/20 01:20 73 21 100 30 03/14/20 01:00 73 25 150/70 (96) 100 03/14/20 00:00 97.8 70 28 143/62 (89) 100 03/14/20 00:00 Venturi Mask 03/14/20 00:00 35 03/14/20 00:00 69 03/13/20 23:00 70 26 139/65 (89) 100 03/13/20 22:49 74 22 99 30 03/13/20 22:00 74 23 160/72 (101) 100 03/13/20 21:09 84 149/74 9/4/20 21:00 80 26 149/74 (99) 100 03/13/20 20:52 80 167/77 03/13/20 20:40 84 30 99 30 03/13/20 20:00 81 03/13/20 20:00 Venturi Mask 03/13/20 20:00 40 03/13/20 20:00 82 20 158/67 (97) 100 03/13/20 19:10 99 Venturi Mask 8.0 40 03/13/20 19:00 84 20 158/67 (97) 99 03/13/20 18:00 84 17 110/81 (91) 100 03/13/20 17:09 155/64 03/13/20 17:00 83 17 127/107 (114) 98 03/13/20 16:00 Venturi Mask 03/13/20 16:00 98.8 78 27 152/57 (88) 99 03/13/20 16:00 40 03/13/20 16:00 79 03/13/20 15:00 86 22 168/116 (133) 99 03/13/20 14:00 86 24 159/63 (95) 100 03/13/20 13:54 84 158/60 03/13/20 13:00 81 24 151/65 (93) 99 03/13/20 12:30 82 25 158/69 (98) 99 03/13/20 12:00 98.4 79 24 144/67 (92) 99 03/13/20 12:00 79 03/13/20 12:00 Venturi Mask 03/13/20 12:00 40 03/13/20 11:00 76 23 149/64 (92) 99 03/13/20 10:00 73 24 143/63 (89) 99 03/13/20 09:15 82 147/63 03/13/20 09:14 147/63 03/13/20 09:00 78 20 147/63 (91) 100 Intake and Output 03/13/20 03/14/20 19:00 07:00 Intake Total 799.5 ml 740 ml Output Total 2910 ml 1205 ml Balance -2110.5 ml -465 ml Intake Oral 717 ml 480 ml IV Total 82.5 ml 260 ml Output Urine Total 2810 ml 1105 ml Stool Total 100 ml 100 ml Laboratory Tests 03/14/20 04:00: White Blood Count 10.0, Red Blood Count 3.48L, Hemoglobin 8.6L, Hematocrit 27.7L , Mean Corpuscular Volume 79L, Mean Corpuscular Hemoglobin 24.8L, Mean Corpuscular Hemoglobin Concent 31.2L, Red Cell Distribution Width 16.0H, Platelet Count 213, Mean Platelet Volume 6.8, Neutrophils (%) (Auto) , Lymphocytes (%) (Auto) , Monocytes (%) (Auto) , Eosinophils (%) (Auto) , Basophils (%) (Auto) , Sodium Level 143, Potassium Level 3.4L, Chloride Level 105, Carbon Dioxide Level 28, Anion Gap 10, Blood Urea Nitrogen 14, Creatinine 1.0, Estimat Glomerular Filtration Rate > 60, Glucose Level 121H, Calcium Level 9.0, Phosphorus Level 3.6, Magnesium Level 1.8, Total Bilirubin 0.5, Aspartate Amino Transf (AST/SGOT) 51H, Alanine Aminotransferase (ALT/SGPT) 51, Alkaline Phosphatase 175H, Pro-B-Type Natriuretic Peptide 8590H, Total Protein 7.1, Albumin 2.3L, Globulin 4.8, Albumin/Globulin Ratio 0.5L Height (Feet): 5 Height (Inches): 10.00 Weight (Pounds): 300 General Appearance: no apparent distress EENT: normal ENT inspection Neck: supple Cardiovascular: normal rate Respiratory/Chest: decreased breath sounds Abdomen: hypoactive bowel sounds Extremities: non-tender Nikunj Eli MD Mar 14, 2020 08:12
[2020-03-14] MEDS: Losartan 50mg tab ORAL SCH ×2 (08:15→17:06)
[2020-03-14] MEDS: Metoprolol Tartrate 50mg tab ORAL SCH ×2 (08:15→20:09)
--- NOTE | 2020-03-14 10:42 | Pulmonolgy Critical Care Note ---
Critical Care - Asmt/Plan Assessment/Plan: Pulmonary CCM Progress Note Assessment/Plan acute respiratory failure improving hypoxemia metabolic acidosis ARF diabetes leukocytosis anemia anasarca pulmonary infiltrates uterine mass pleural effusion hydronephrosis PLAN IV antibiotics keep negative BIPAP prn DVT prophylaxis BIPAP as able diurese as able keep negative and monitor imaging renal noted and discussed heme and vascular technologist sonographer following medications/laboratory data/nursing notes/ICU care reviewed in detail note reviewed and edited care discussed with RN and RT ICU time spent >40 minutes Critical Care - Subjective Interval Events: BIPAP PRN stable on oxygen ROS Limited/Unobtainable: Yes Condition: critical EKG Rhythm: Sinus Rhythm Critical Care - Objective Vital Signs Noted Labs: noted Objective: WDWN off BIPAP reduced breath sounds bilaterally without rhonchi or wheeze [id number] without MRG NABS nontender no HSM no CC noted edema nonfocal more alert Critical Care - Objective Last 24 Hour Vital Signs Date Time Temp Pulse Resp B/P (MAP) Pulse Ox O2 Delivery O2 Flow Rate FiO2 03/14/20 09:00 81 19 159/62 (94) 100 03/14/20 08:15 152/66 03/14/20 08:15 80 152/66 03/14/20 08:00 86 03/14/20 08:00 Venturi Mask 03/14/20 08:00 98.0 84 24 152/66 (94) 100 03/14/20 07:58 99 Venturi Mask 8.0 40 03/14/20 07:00 85 20 161/95 (117) 100 03/14/20 06:10 90 159/71 03/14/20 06:00 87 23 159/71 (100) 100 03/14/20 05:00 89 27 172/76 (108) 100 03/14/20 04:30 92 24 173/73 (106) 99 03/14/20 04:26 165/73 03/14/20 04:00 80 03/14/20 04:00 97.9 89 22 165/73 (103) 100 03/14/20 04:00 40 03/14/20 04:00 Venturi Mask 03/14/20 03:00 78 23 168/82 (110) 100 03/14/20 02:30 75 21 160/75 (103) 100 03/14/20 02:00 74 21 160/66 (97) 100 03/14/20 01:20 73 21 100 30 03/14/20 01:00 73 25 150/70 (96) 100 03/14/20 00:00 97.8 70 28 143/62 (89) 100 03/14/20 00:00 Venturi Mask 03/14/20 00:00 35 03/14/20 00:00 69 03/13/20 23:00 70 26 139/65 (89) 100 03/13/20 22:49 74 22 99 30 03/13/20 22:00 74 23 160/72 (101) 100 03/13/20 21:09 84 149/74 03/13/20 21:00 80 26 149/74 (99) 100 03/13/20 20:52 80 167/77 03/13/20 20:40 84 30 99 30 03/13/20 20:00 81 03/13/20 20:00 Venturi Mask 03/13/20 20:00 40 03/13/20 20:00 82 20 158/67 (97) 100 03/13/20 19:10 99 Venturi Mask 8.0 40 03/13/20 19:00 84 20 158/67 (97) 99 03/13/20 18:00 84 17 110/81 (91) 100 03/13/20 17:09 155/64 03/13/20 17:00 83 17 127/107 (114) 98 03/13/20 16:00 Venturi Mask 03/13/20 16:00 98.8 78 27 152/57 (88) 99 03/13/20 16:00 40 03/13/20 16:00 79 03/13/20 15:00 86 22 168/116 (133) 99 03/13/20 14:00 86 24 159/63 (95) 100 03/13/20 13:54 84 158/60 03/13/20 13:00 81 24 151/65 (93) 99 03/13/20 12:30 82 25 158/69 (98) 99 03/13/20 12:00 98.4 79 24 144/67 (92) 99 03/13/20 12:00 79 03/13/20 12:00 Venturi Mask 03/13/20 12:00 40 03/13/20 11:00 76 23 149/64 (92) 99 Accucheck: 152 Critical Care - Subjective Condition: improving FI02: 40 Vent Support Mode: CPAP Sputum Amount: None I&O: Intake and Output 03/13/20 03/14/20 19:00 07:00 Intake Total 799.5 ml 740 ml Output Total 2910 ml 1205 ml Balance -2110.5 ml -465 ml Intake Oral 717 ml 480 ml IV Total 82.5 ml 260 ml Output Urine Total 2810 ml 1105 ml Stool Total 100 ml 100 ml Miguel Guzmán MD Mar 14, 2020 10:42
--- NOTE | 2020-03-14 10:47 | Infectious Diseases Prog Note ---
Assessment/Plan Assessment/Plan antibiotics : none A 1. pneumonia s/p rx COVID 19 negative 2. respiratory failure resolved 3. leucocytosis resolved 4. renal failure improving 5. diabetes mellitus 6. hypertension 7. pelvic mass P 1. observe off antibiotics 2. stool for c,diff 3. will follow up cultures Subjective Constitutional: Denies: fever, chills Respiratory: Denies: shortness of breath, dry cough Gastrointestinal/Abdominal: Reports: diarrhea; Denies: nausea, vomiting Musculoskeletal: Denies: pain Allergies: Coded Allergies: No Known Allergies (Unverified , 03/03/20) Objective Last 24 Hour Vital Signs Date Time Temp Pulse Resp B/P (MAP) Pulse Ox O2 Delivery O2 Flow Rate FiO2 03/14/20 09:00 81 19 159/62 (94) 100 03/14/20 08:15 152/66 03/14/20 08:15 80 152/66 03/14/20 08:00 86 03/14/20 08:00 Venturi Mask 03/14/20 08:00 98.0 84 24 152/66 (94) 100 03/14/20 07:58 99 Venturi Mask 8.0 40 03/14/20 07:00 85 20 161/95 (117) 100 03/14/20 06:10 90 159/71 03/14/20 06:00 87 23 159/71 (100) 100 03/14/20 05:00 89 27 172/76 (108) 100 03/14/20 04:30 92 24 173/73 (106) 99 03/14/20 04:26 165/73 03/14/20 04:00 80 03/14/20 04:00 97.9 89 22 165/73 (103) 100 03/14/20 04:00 40 03/14/20 04:00 Venturi Mask 03/14/20 03:00 78 23 168/82 (110) 100 03/14/20 02:30 75 21 160/75 (103) 100 03/14/20 02:00 74 21 160/66 (97) 100 03/14/20 01:20 73 21 100 30 03/14/20 01:00 73 25 150/70 (96) 100 03/14/20 00:00 97.8 70 28 143/62 (89) 100 03/14/20 00:00 Venturi Mask 03/14/20 00:00 35 03/14/20 00:00 69 03/13/20 23:00 70 26 139/65 (89) 100 03/13/20 22:49 74 22 99 30 03/13/20 22:00 74 23 160/72 (101) 100 03/13/20 21:09 84 149/74 03/13/20 21:00 80 26 149/74 (99) 100 03/13/20 20:52 80 167/77 03/13/20 20:40 84 30 99 30 03/13/20 20:00 81 03/13/20 20:00 Venturi Mask 03/13/20 20:00 40 03/13/20 20:00 82 20 158/67 (97) 100 03/13/20 19:10 99 Venturi Mask 8.0 40 03/13/20 19:00 84 20 158/67 (97) 99 03/13/20 18:00 84 17 110/81 (91) 100 03/13/20 17:09 155/64 03/13/20 17:00 83 17 127/107 (114) 98 03/13/20 16:00 Venturi Mask 03/13/20 16:00 98.8 78 27 152/57 (88) 99 03/13/20 16:00 40 03/13/20 16:00 79 03/13/20 15:00 86 22 168/116 (133) 99 03/13/20 14:00 86 24 159/63 (95) 100 03/13/20 13:54 84 158/60 03/13/20 13:00 81 24 151/65 (93) 99 03/13/20 12:30 82 25 158/69 (98) 99 03/13/20 12:00 98.4 79 24 144/67 (92) 99 03/13/20 12:00 79 03/13/20 12:00 Venturi Mask 03/13/20 12:00 40 03/13/20 11:00 76 23 149/64 (92) 99 Height (Feet): 5 Height (Inches): 10.00 Weight (Pounds): 300 Respiratory/Chest: lungs clear Cardiovascular: normal rate, regular rhythm, no gallop/murmur Abdomen: soft, non tender Extremities: no edema Laboratory Tests Test 03/14/20 04:00 White Blood Count 10.0 K/UL (4.8-10.8) Red Blood Count 3.48 M/UL (4.20-5.40) L Hemoglobin 8.6 G/DL (12.0-16.0) L Hematocrit 27.7 % (37.0-47.0) L Mean Corpuscular Volume 79 FL (80-99) L Mean Corpuscular Hemoglobin 24.8 PG (27.0-31.0) L Mean Corpuscular Hemoglobin Concent 31.2 G/DL (32.0-36.0) L Red Cell Distribution Width 16.0 % (11.6-14.8) H Platelet Count 213 K/UL (150-450) Mean Platelet Volume 6.8 FL (6.5-10.1) Neutrophils (%) (Auto) % (45.0-75.0) Lymphocytes (%) (Auto) % (20.0-45.0) Monocytes (%) (Auto) % (1.0-10.0) Eosinophils (%) (Auto) % (0.0-3.0) Basophils (%) (Auto) % (0.0-2.0) Sodium Level 143 MMOL/L (136-145) Potassium Level 3.4 MMOL/L (3.5-5.1) L Chloride Level 105 MMOL/L (98-107) Carbon Dioxide Level 28 MMOL/L (21-32) Anion Gap 10 mmol/L (5-15) Blood Urea Nitrogen 14 mg/dL (7-18) Creatinine 1.0 MG/DL (0.55-1.30) Estimat Glomerular Filtration Rate > 60 mL/min (>60) Glucose Level 121 MG/DL (74-106) H Calcium Level 9.0 MG/DL (8.5-10.1) Phosphorus Level 3.6 MG/DL (2.5-4.9) Magnesium Level 1.8 MG/DL (1.8-2.4) Total Bilirubin 0.5 MG/DL (0.2-1.0) Aspartate Amino Transf (AST/SGOT) 51 U/L (15-37) H Alanine Aminotransferase (ALT/SGPT) 51 U/L (12-78) Alkaline Phosphatase 175 U/L (46-116) H Pro-B-Type Natriuretic Peptide 8590 pg/mL (0-125) H Total Protein 7.1 G/DL (6.4-8.2) Albumin 2.3 G/DL (3.4-5.0) L Globulin 4.8 g/dL Albumin/Globulin Ratio 0.5 (1.0-2.7) L Current Medications Medications (Trade) Dose Ordered Sig/Francisco J Route PRN Reason Start Time Stop Time Status Last Admin Dose Admin Acetaminophen (Tylenol) 650 mg Q4H PRN ORAL Mild Pain (Pain Scale 1-3) 03/04/20 12:15 04/02/20 12:14 03/08/20 12:00 Clonidine HCl (Catapres TTS-3) 1 patch QWEEK TDERMAL 03/05/20 10:30 06/03/20 10:29 03/12/20 17:00 Clonidine HCl (Catapres Tab) 0.1 mg Q4H PRN ORAL bp over 160 syst 03/05/20 09:30 06/03/20 09:29 03/14/20 04:26 Dextrose (Dextrose 50%) 25 ml Q30M PRN IV Hypoglycemia 03/04/20 12:00 06/01/20 21:59 03/04/20 21:41 Dextrose (Dextrose 50%) 50 ml Q30M PRN IV Hypoglycemia 03/04/20 12:00 06/01/20 21:59 03/05/20 06:15 Diltiazem HCl (Cardizem Tab) 90 mg Q8HR ORAL 03/12/20 20:00 04/11/20 19:59 03/14/20 06:10 Glucagon (Glucagon) 1 mg Q2H PRN IM Hypoglycemia 03/05/20 11:00 06/03/20 10:59 Insulin Aspart (NovoLOG) BEFORE MEALS AND HS SUBQ 03/07/20 06:30 06/05/20 06:29 03/14/20 06:14 Losartan Potassium (Cozaar) 50 mg BID ORAL 03/12/20 18:00 04/09/20 15:29 03/14/20 08:15 Metoprolol Tartrate (Lopressor) 50 mg Q12HR ORAL 03/10/20 21:00 06/04/20 15:14 03/14/20 08:15 Pantoprazole (Protonix) 40 mg EVERY 12 HOURS ORAL 03/09/20 09:00 04/08/20 08:59 03/14/20 08:15 Polyethylene Glycol (Miralax) 17 gm DAILYPRN PRN ORAL Constipation 03/04/20 12:15 04/03/20 12:14 Potassium Chloride (K-Dur) 20 meq TWICE A DAY ORAL 03/13/20 11:30 06/11/20 11:29 03/14/20 08:14 Sitagliptin Phosphate (Januvia) 50 mg ACBREAKFAST ORAL 03/10/20 06:30 04/09/20 06:29 03/14/20 06:10 Yudelka Alcocer MD Mar 14, 2020 10:47
--- NOTE | 2020-03-14 11:17 | General Progress Note ---
Assessment/Plan Problem List: (1) Anemia ICD Codes: D64.9 - Anemia, unspecified SNOMED: 767630714 (2) Hypoglycemia ICD Codes: E16.2 - Hypoglycemia, unspecified SNOMED: 439345429 (3) Acute kidney failure ICD Codes: N17.9 - Acute kidney failure, unspecified SNOMED: 93789510 (4) Syncope ICD Codes: R55 - Syncope and collapse SNOMED: 875584842 (5) UTI (urinary tract infection) ICD Codes: N39.0 - Urinary tract infection, site not specified SNOMED: 35596747 (6) FARIBA (acute kidney injury) ICD Codes: N17.9 - Acute kidney failure, unspecified SNOMED: 9140030, 27274845 Status: stable Assessment/Plan: continue Januvia 50 mg daily continue glucose monitoring hypoglycemia protocol in order Subjective ROS Limited/Unobtainable: Yes Allergies: Coded Allergies: No Known Allergies (Unverified , 03/03/20) Subjective events noted interval notes reviewed glucose values are stable Item Value Date Time Bedside Blood Glucose 152 mg/dl H 03/14/20 0630 Bedside Blood Glucose 138 mg/dl H 03/13/20 2100 Bedside Blood Glucose 152 mg/dl H 03/13/20 1710 Bedside Blood Glucose 145 mg/dl H 03/13/20 1218 Bedside Blood Glucose 121 mg/dl H 03/13/20 0630 Objective Last 24 Hour Vital Signs Date Time Temp Pulse Resp B/P (MAP) Pulse Ox O2 Delivery O2 Flow Rate FiO2 03/14/20 09:00 81 19 159/62 (94) 100 03/14/20 08:15 152/66 03/14/20 08:15 80 152/66 03/14/20 08:00 86 03/14/20 08:00 Venturi Mask 03/14/20 08:00 98.0 84 24 152/66 (94) 100 03/14/20 07:58 99 Venturi Mask 8.0 40 03/14/20 07:00 85 20 161/95 (117) 100 03/14/20 06:10 90 159/71 03/14/20 06:00 87 23 159/71 (100) 100 03/14/20 05:00 89 27 172/76 (108) 100 03/14/20 04:30 92 24 173/73 (106) 99 03/14/20 04:26 165/73 03/14/20 04:00 80 03/14/20 04:00 97.9 89 22 165/73 (103) 100 03/14/20 04:00 40 03/14/20 04:00 Venturi Mask 03/14/20 03:00 78 23 168/82 (110) 100 03/14/20 02:30 75 21 160/75 (103) 100 03/14/20 02:00 74 21 160/66 (97) 100 03/14/20 01:20 73 21 100 30 03/14/20 01:00 73 25 150/70 (96) 100 03/14/20 00:00 97.8 70 28 143/62 (89) 100 03/14/20 00:00 Venturi Mask 03/14/20 00:00 35 03/14/20 00:00 69 03/13/20 23:00 70 26 139/65 (89) 100 03/13/20 22:49 74 22 99 30 03/13/20 22:00 74 23 160/72 (101) 100 03/13/20 21:09 84 149/74 03/13/20 21:00 80 26 149/74 (99) 100 03/13/20 20:52 80 167/77 03/13/20 20:40 84 30 99 30 03/13/20 20:00 81 03/13/20 20:00 Venturi Mask 03/13/20 20:00 40 03/13/20 20:00 82 20 158/67 (97) 100 03/13/20 19:10 99 Venturi Mask 8.0 40 03/13/20 19:00 84 20 158/67 (97) 99 03/13/20 18:00 84 17 110/81 (91) 100 03/13/20 17:09 155/64 03/13/20 17:00 83 17 127/107 (114) 98 03/13/20 16:00 Venturi Mask 03/13/20 16:00 98.8 78 27 152/57 (88) 99 03/13/20 16:00 40 03/13/20 16:00 79 03/13/20 15:00 86 22 168/116 (133) 99 03/13/20 14:00 86 24 159/63 (95) 100 9/4/20 13:54 84 158/60 03/13/20 13:00 81 24 151/65 (93) 99 03/13/20 12:30 82 25 158/69 (98) 99 03/13/20 12:00 98.4 79 24 144/67 (92) 99 03/13/20 12:00 79 03/13/20 12:00 Venturi Mask 03/13/20 12:00 40 Intake and Output 03/13/20 03/14/20 19:00 07:00 Intake Total 799.5 ml 740 ml Output Total 2910 ml 1205 ml Balance -2110.5 ml -465 ml Intake Oral 717 ml 480 ml IV Total 82.5 ml 260 ml Output Urine Total 2810 ml 1105 ml Stool Total 100 ml 100 ml Laboratory Tests 03/14/20 04:00: White Blood Count 10.0, Red Blood Count 3.48L, Hemoglobin 8.6L, Hematocrit 27.7L , Mean Corpuscular Volume 79L, Mean Corpuscular Hemoglobin 24.8L, Mean Corpuscular Hemoglobin Concent 31.2L, Red Cell Distribution Width 16.0H, Platelet Count 213, Mean Platelet Volume 6.8, Neutrophils (%) (Auto) , Lymphocytes (%) (Auto) , Monocytes (%) (Auto) , Eosinophils (%) (Auto) , Basophils (%) (Auto) , Sodium Level 143, Potassium Level 3.4L, Chloride Level 105, Carbon Dioxide Level 28, Anion Gap 10, Blood Urea Nitrogen 14, Creatinine 1.0, Estimat Glomerular Filtration Rate > 60, Glucose Level 121H, Calcium Level 9.0, Phosphorus Level 3.6, Magnesium Level 1.8, Total Bilirubin 0.5, Aspartate Amino Transf (AST/SGOT) 51H, Alanine Aminotransferase (ALT/SGPT) 51, Alkaline Phosphatase 175H, Pro-B-Type Natriuretic Peptide 8590H, Total Protein 7.1, Albumin 2.3L, Globulin 4.8, Albumin/Globulin Ratio 0.5L Height (Feet): 5 Height (Inches): 10.00 Weight (Pounds): 300 General Appearance: no apparent distress Neck: normal alignment Respiratory/Chest: decreased breath sounds Abdomen: normal bowel sounds Objective Current Medications Medications (Trade) Dose Ordered Sig/Francisco J Route PRN Reason Start Time Stop Time Status Last Admin Dose Admin Acetaminophen (Tylenol) 650 mg Q4H PRN ORAL Mild Pain (Pain Scale 1-3) 03/04/20 12:15 04/02/20 12:14 03/08/20 12:00 Clonidine HCl (Catapres TTS-3) 1 patch QWEEK TDERMAL 03/05/20 10:30 06/03/20 10:29 03/12/20 17:00 Clonidine HCl (Catapres Tab) 0.1 mg Q4H PRN ORAL bp over 160 syst 03/05/20 09:30 06/03/20 09:29 03/14/20 04:26 Dextrose (Dextrose 50%) 25 ml Q30M PRN IV Hypoglycemia 03/04/20 12:00 06/01/20 21:59 03/04/20 21:41 Dextrose (Dextrose 50%) 50 ml Q30M PRN IV Hypoglycemia 03/04/20 12:00 06/01/20 21:59 03/05/20 06:15 Diltiazem HCl (Cardizem Tab) 90 mg Q8HR ORAL 03/12/20 20:00 04/11/20 19:59 03/14/20 06:10 Glucagon (Glucagon) 1 mg Q2H PRN IM Hypoglycemia 03/05/20 11:00 06/03/20 10:59 Insulin Aspart (NovoLOG) BEFORE MEALS AND HS SUBQ 03/07/20 06:30 06/05/20 06:29 03/14/20 06:14 Losartan Potassium (Cozaar) 50 mg BID ORAL 03/12/20 18:00 04/09/20 15:29 03/14/20 08:15 Metoprolol Tartrate (Lopressor) 50 mg Q12HR ORAL 03/10/20 21:00 06/04/20 15:14 03/14/20 08:15 Pantoprazole (Protonix) 40 mg EVERY 12 HOURS ORAL 03/09/20 09:00 04/08/20 08:59 03/14/20 08:15 Polyethylene Glycol (Miralax) 17 gm DAILYPRN PRN ORAL Constipation 03/04/20 12:15 04/03/20 12:14 Potassium Chloride (K-Dur) 20 meq TWICE A DAY ORAL 03/13/20 11:30 06/11/20 11:29 03/14/20 08:14 Sitagliptin Phosphate (Januvia) 50 mg ACBREAKFAST ORAL 03/10/20 06:30 04/09/20 06:29 03/14/20 06:10 Sudhir Barrow MD Mar 14, 2020 11:17
--- NOTE | 2020-03-14 11:25 | Nephrology Progress Note ---
Assessment/Plan Problem List: (1) FARIBA (acute kidney injury) (2) Renal failure (ARF), acute on chronic (3) UTI (urinary tract infection) (4) Hypoglycemia (5) Anemia (6) Morbid obesity with BMI of 45.0-49.9, adult (7) Acute respiratory failure (8) Obstructive sleep apnea Assessment Acute renal failure Possible underlying chronic kidney disease High likelihood of diabetic nephropathy, patient has proteinuria and hypoalbuminemia Persistent hypo-glycemia: The patient was on 3 oral hypoglycemic agents including Glucophage Morbid obesity Hypertension Severe anemia, low MCV UTI Most likely obstructive sleep apnea Plan March 14: Labs reviewed. Abnormal electrolytes adjusted with supplements. Continue per consultants. Change clonidine patch to clonidine p.o. every 6 hours 0.1 mg for blood pressure. March 13: Labs reviewed. Magnesium supplement given. Blood pressure better controlled. Another dose of IV Lasix 20 mg given. Will watch electrolytes and renal parameters. Continue per pulmonary and management of respiratory status. March 12: Lab reviewed. Electrolytes adjusted. Blood pressure medication adjusted. Patient remains on BiPAP. Continue per consultants. Discontinue IV fluid. Lasix 20 mg IV once. March 11: Labs are reviewed. Potassium and magnesium supplement given. Continue per pulmonary. March 10: Labs reviewed. Medication reviewed. Remains on BiPAP. Will DC IV fluid and changed to D5W. Blood pressure medication adjusted. Cozaar added. Potassium supplement given. Continue per consultants. March 09: Labs reviewed. Medication list reviewed. Remains on BiPAP. Venturi mask is being tried. Discussed with industrial relations officer. Renal parameters stable. Magnesium and potassium supplement given. Blood sugar stable. March 08: Today's labs pending. Will discontinue IV fluid. Remains on BiPAP. Aim to take off BiPAP as possible. Transfusion if needed. Discussed with DARSHAN Iglesias. March 07: Marked improvement in renal parameters. Blood sugar improved. Main issue are respiratory, as patient remains on BiPAP. Hemoglobin lower. May require transfusion again. Abnormal electrolytes corrected March 06: Clinically improved. Remains on BiPAP. Blood sugar improved. Urine output well maintained. Serum creatinine lowered. Will adjust blood pressure medication for better control. D10 infusion down to 50 cc an hour. Continue monitor renal parameters. Lasix as needed. 24-hour urine for total protein. March 05: Discontinue Cozaar, labetalol Stop all oral oral hypoglycemics and insulin Start clonidine patch and clonidine PRN for high blood pressure Add Norvasc for blood pressure D10 infusion Check labs, thyroid panel, anemia work-up, lipid panel, hemoglobin A1c Urine for eosinophils and spot sodium Check ABG Per orders Subjective ROS Limited/Unobtainable: No Constitutional: Reports: malaise Objective Objective Last 24 Hour Vital Signs Date Time Temp Pulse Resp B/P (MAP) Pulse Ox O2 Delivery O2 Flow Rate FiO2 03/14/20 09:00 81 19 159/62 (94) 100 03/14/20 08:15 152/66 03/14/20 08:15 80 152/66 03/14/20 08:00 86 03/14/20 08:00 Venturi Mask 03/14/20 08:00 98.0 84 24 152/66 (94) 100 03/14/20 07:58 99 Venturi Mask 8.0 40 03/14/20 07:00 85 20 161/95 (117) 100 03/14/20 06:10 90 159/71 03/14/20 06:00 87 23 159/71 (100) 100 03/14/20 05:00 89 27 172/76 (108) 100 03/14/20 04:30 92 24 173/73 (106) 99 03/14/20 04:26 165/73 03/14/20 04:00 80 03/14/20 04:00 97.9 89 22 165/73 (103) 100 03/14/20 04:00 40 03/14/20 04:00 Venturi Mask 03/14/20 03:00 78 23 168/82 (110) 100 03/14/20 02:30 75 21 160/75 (103) 100 03/14/20 02:00 74 21 160/66 (97) 100 03/14/20 01:20 73 21 100 30 03/14/20 01:00 73 25 150/70 (96) 100 03/14/20 00:00 97.8 70 28 143/62 (89) 100 03/14/20 00:00 Venturi Mask 03/14/20 00:00 35 03/14/20 00:00 69 03/13/20 23:00 70 26 139/65 (89) 100 03/13/20 22:49 74 22 99 30 03/13/20 22:00 74 23 160/72 (101) 100 03/13/20 21:09 84 149/74 03/13/20 21:00 80 26 149/74 (99) 100 03/13/20 20:52 80 167/77 03/13/20 20:40 84 30 99 30 03/13/20 20:00 81 03/13/20 20:00 Venturi Mask 03/13/20 20:00 40 03/13/20 20:00 82 20 158/67 (97) 100 03/13/20 19:10 99 Venturi Mask 8.0 40 03/13/20 19:00 84 20 158/67 (97) 99 03/13/20 18:00 84 17 110/81 (91) 100 03/13/20 17:09 155/64 03/13/20 17:00 83 17 127/107 (114) 98 03/13/20 16:00 Venturi Mask 03/13/20 16:00 98.8 78 27 152/57 (88) 99 03/13/20 16:00 40 03/13/20 16:00 79 03/13/20 15:00 86 22 168/116 (133) 99 03/13/20 14:00 86 24 159/63 (95) 100 03/13/20 13:54 84 158/60 03/13/20 13:00 81 24 151/65 (93) 99 03/13/20 12:30 82 25 158/69 (98) 99 03/13/20 12:00 98.4 79 24 144/67 (92) 99 03/13/20 12:00 79 03/13/20 12:00 Venturi Mask 03/13/20 12:00 40 Intake and Output 03/13/20 03/14/20 19:00 07:00 Intake Total 799.5 ml 740 ml Output Total 2910 ml 1205 ml Balance -2110.5 ml -465 ml Intake Oral 717 ml 480 ml IV Total 82.5 ml 260 ml Output Urine Total 2810 ml 1105 ml Stool Total 100 ml 100 ml Laboratory Tests 03/14/20 04:00: White Blood Count 10.0, Red Blood Count 3.48L, Hemoglobin 8.6L, Hematocrit 27.7L , Mean Corpuscular Volume 79L, Mean Corpuscular Hemoglobin 24.8L, Mean Corpuscular Hemoglobin Concent 31.2L, Red Cell Distribution Width 16.0H, Platelet Count 213, Mean Platelet Volume 6.8, Neutrophils (%) (Auto) , Lymphocytes (%) (Auto) , Monocytes (%) (Auto) , Eosinophils (%) (Auto) , Basophils (%) (Auto) , Sodium Level 143, Potassium Level 3.4L, Chloride Level 105, Carbon Dioxide Level 28, Anion Gap 10, Blood Urea Nitrogen 14, Creatinine 1.0, Estimat Glomerular Filtration Rate > 60, Glucose Level 121H, Calcium Level 9.0, Phosphorus Level 3.6, Magnesium Level 1.8, Total Bilirubin 0.5, Aspartate Amino Transf (AST/SGOT) 51H, Alanine Aminotransferase (ALT/SGPT) 51, Alkaline Phosphatase 175H, Pro-B-Type Natriuretic Peptide 8590H, Total Protein 7.1, Albumin 2.3L, Globulin 4.8, Albumin/Globulin Ratio 0.5L Height (Feet): 5 Height (Inches): 10.00 Weight (Pounds): 300 General Appearance: no apparent distress EENT: other - On Venturi mask Cardiovascular: normal rate Respiratory/Chest: decreased breath sounds Abdomen: soft Sundar Camargo MD Mar 14, 2020 11:25
--- NOTE | 2020-03-14 12:27 | General Progress Note ---
Assessment/Plan Problem List: (1) Syncope ICD Codes: R55 - Syncope and collapse SNOMED: 372472727 (2) Acute kidney failure ICD Codes: N17.9 - Acute kidney failure, unspecified SNOMED: 94071807 (3) Hypoglycemia ICD Codes: E16.2 - Hypoglycemia, unspecified SNOMED: 518240977 (4) UTI (urinary tract infection) ICD Codes: N39.0 - Urinary tract infection, site not specified SNOMED: 73305668 Status: stable Assessment/Plan: wean o2 monitor cxr observe off abx may need to tap effusion monitor sugars d50 as needed diabetes rx per endo cotton seed culler eval.appreciated- outpt cotton seed culler onc eval replace lytes guarded Subjective ROS Limited/Unobtainable: No Constitutional: Reports: malaise, weakness HEENT: Reports: no symptoms Cardiovascular: Reports: no symptoms Respiratory: Reports: shortness of breath Gastrointestinal/Abdominal: Reports: no symptoms Genitourinary: Reports: no symptoms Neurologic/Psychiatric: Reports: no symptoms Endocrine: Reports: no symptoms Hematologic/Lymphatic: Reports: anemia Allergies: Coded Allergies: No Known Allergies (Unverified , 03/03/20) Subjective no events. stable on venti mask. no chest pain labs noted. no fevers or chills. Objective Last 24 Hour Vital Signs Date Time Temp Pulse Resp B/P (MAP) Pulse Ox O2 Delivery O2 Flow Rate FiO2 03/14/20 12:13 160/64 03/14/20 09:00 81 19 159/62 (94) 100 03/14/20 08:15 152/66 03/14/20 08:15 80 152/66 03/14/20 08:00 86 03/14/20 08:00 Venturi Mask 03/14/20 08:00 98.0 84 24 152/66 (94) 100 03/14/20 07:58 99 Venturi Mask 8.0 40 03/14/20 07:00 85 20 161/95 (117) 100 03/14/20 06:10 90 159/71 03/14/20 06:00 87 23 159/71 (100) 100 03/14/20 05:00 89 27 172/76 (108) 100 03/14/20 04:30 92 24 173/73 (106) 99 03/14/20 04:26 165/73 03/14/20 04:00 80 03/14/20 04:00 97.9 89 22 165/73 (103) 100 03/14/20 04:00 40 03/14/20 04:00 Venturi Mask 03/14/20 03:00 78 23 168/82 (110) 100 03/14/20 02:30 75 21 160/75 (103) 100 03/14/20 02:00 74 21 160/66 (97) 100 03/14/20 01:20 73 21 100 30 03/14/20 01:00 73 25 150/70 (96) 100 03/14/20 00:00 97.8 70 28 143/62 (89) 100 03/14/20 00:00 Venturi Mask 03/14/20 00:00 35 03/14/20 00:00 69 03/13/20 23:00 70 26 139/65 (89) 100 03/13/20 22:49 74 22 99 30 03/13/20 22:00 74 23 160/72 (101) 100 03/13/20 21:09 84 149/74 03/13/20 21:00 80 26 149/74 (99) 100 03/13/20 20:52 80 167/77 03/13/20 20:40 84 30 99 30 03/13/20 20:00 81 03/13/20 20:00 Venturi Mask 03/13/20 20:00 40 03/13/20 20:00 82 20 158/67 (97) 100 03/13/20 19:10 99 Venturi Mask 8.0 40 03/13/20 19:00 84 20 158/67 (97) 99 03/13/20 18:00 84 17 110/81 (91) 100 03/13/20 17:09 155/64 03/13/20 17:00 83 17 127/107 (114) 98 03/13/20 16:00 Venturi Mask 03/13/20 16:00 98.8 78 27 152/57 (88) 99 03/13/20 16:00 40 03/13/20 16:00 79 03/13/20 15:00 86 22 168/116 (133) 99 03/13/20 14:00 86 24 159/63 (95) 100 03/13/20 13:54 84 158/60 03/13/20 13:00 81 24 151/65 (93) 99 03/13/20 12:30 82 25 158/69 (98) 99 Intake and Output 03/13/20 03/14/20 19:00 07:00 Intake Total 799.5 ml 740 ml Output Total 2910 ml 1205 ml Balance -2110.5 ml -465 ml Intake Oral 717 ml 480 ml IV Total 82.5 ml 260 ml Output Urine Total 2810 ml 1105 ml Stool Total 100 ml 100 ml Laboratory Tests 03/14/20 04:00: White Blood Count 10.0, Red Blood Count 3.48L, Hemoglobin 8.6L, Hematocrit 27.7L , Mean Corpuscular Volume 79L, Mean Corpuscular Hemoglobin 24.8L, Mean Corpuscular Hemoglobin Concent 31.2L, Red Cell Distribution Width 16.0H, Platelet Count 213, Mean Platelet Volume 6.8, Neutrophils (%) (Auto) , Lymphocytes (%) (Auto) , Monocytes (%) (Auto) , Eosinophils (%) (Auto) , Basophils (%) (Auto) , Sodium Level 143, Potassium Level 3.4L, Chloride Level 105, Carbon Dioxide Level 28, Anion Gap 10, Blood Urea Nitrogen 14, Creatinine 1.0, Estimat Glomerular Filtration Rate > 60, Glucose Level 121H, Calcium Level 9.0, Phosphorus Level 3.6, Magnesium Level 1.8, Total Bilirubin 0.5, Aspartate Amino Transf (AST/SGOT) 51H, Alanine Aminotransferase (ALT/SGPT) 51, Alkaline Phosphatase 175H, Pro-B-Type Natriuretic Peptide 8590H, Total Protein 7.1, Albumin 2.3L, Globulin 4.8, Albumin/Globulin Ratio 0.5L Height (Feet): 5 Height (Inches): 10.00 Weight (Pounds): 300 Objective General Appearance: WD/WN, alert EENT: PERRL/EOMI Neck: non-tender, normal alignment Cardiovascular: normal peripheral pulses, normal rate Respiratory/Chest: chest wall non-tender, lungs clear, normal breath sounds, no respiratory distress Abdomen: normal bowel sounds, non tender, soft, no organomegaly Edema: moderate edema Neurologic: breastfeeding program coordinator II-XII grossly normal, alert, oriented x 3, responsive Sal Khanna MD Mar 14, 2020 12:27
[2020-03-14] MEDS ORDERED: Glucagon 1mg Inj IM PRN (13:00)
[2020-03-15] VITALS: BP 135/72
[2020-03-15 03:47] VITALS: BP 139/74
[2020-03-15] MEDS: dilTIAZem HCl 90mg tab ORAL SCH ×3 (05:01→22:08)
[2020-03-15] MEDS: NovoLOG Insulin Flexpen SUBQ SCH ×4 (05:29→20:47)
[2020-03-15] MEDS: sitaGLIPtin 50mg tab ORAL SCH (05:32)
[2020-03-15 06:59] LABS: HEMATOCRIT 26.5 % (37.0-47.0); HEMOGLOBIN 8.3 G/DL (12.0-16.0); MEAN CORPUSCULAR VOLUME 80 FL (80-99); PLATELET COUNT 197 K/UL (150-450); RED BLOOD COUNT 3.32 M/UL (4.20-5.40); RED CELL DISTRIBUTION WIDTH 16.3 % (11.6-14.8); WHITE BLOOD COUNT 10.1 K/UL (4.8-10.8)
--- NOTE | 2020-03-15 07:25 | Hematology/Onc Progress Note ---
Assessment/Plan Assessment/Plan Assessment and recs # Pelvic mass, large 18cm, admitted for syncope secondary to hypoglycemia, also with acute renal failure now resolving. 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 Keith as outpatient # Anemia of chronic disease due to underlying chronic medical issues, multifactorial v Gi bleed --> Anemia workup has been ordered, rule out gi bleed --> No evidence of hemolysis is noted, peripheral smear has been reviewed. --> Hgb goal >7. Transfuse prn. --> Epogen or iron at this time is not particularly indicated --> Medications have been reviewed --> low threshold for gi evaluation in case has occult + --> hgb 8.7->8.3 # Pneumonia s/p rx --> COVID 19 negative # Respiratory failure resolved --> bipap # Renal failure improving --> per renal # Diabetes mellitus # Hypertension # Dvt ppx scds The timing of this note does not necessarily reflect the time of the patient was seen. Greatly appreciate consultation. Subjective Constitutional: Denies: no symptoms, chills, fever, malaise, weakness, other HEENT: Denies: no symptoms, eye pain, blurred vision, tearing, double vision, ear pain, ear discharge, nose pain, nose congestion, throat pain, throat swelling, mouth pain, mouth swelling, other Cardiovascular: Denies: no symptoms, chest pain, edema, irregular heart rate, lightheadedness, palpitations, syncope, other Respiratory: Denies: no symptoms, cough, shortness of breath, SOB with excertion, SOB at rest, sputum, wheezing, other Gastrointestinal/Abdominal: Denies: no symptoms, abdomen distended, abdominal pain, black stools, tarry stools, blood in stool, constipated, diarrhea, difficulty swallowing, nausea, poor appetite, poor fluid intake, rectal bleeding , vomiting, other Genitourinary: Denies: no symptoms, burning, discharge, frequency, flank pain, hematuria, incontinence, pain, urgency, other Endocrine: Denies: no symptoms, excessive sweating, flushing, intolerance to cold, intolerance to heat, increased hunger, increased thirst, increased urine, unexplained weight gain, unexplained weight loss, other Allergies: Coded Allergies: No Known Allergies (Unverified , 03/03/20) Subjective 03/15 has been requesting overnight to be off cpap, labs for am pending, dw her plan of care Objective Objective Current Medications Medications (Trade) Dose Ordered Sig/Francisco J Route PRN Reason Start Time Stop Time Status Last Admin Dose Admin Acetaminophen (Tylenol) 650 mg Q4H PRN ORAL Mild Pain (Pain Scale 1-3) 03/14/20 12:58 04/02/20 12:57 Clonidine HCl (Catapres Tab) 0.1 mg EVERY 6 HOURS ORAL 03/14/20 18:00 06/12/20 11:59 03/15/20 05:34 Clonidine HCl (Catapres Tab) 0.1 mg Q4H PRN ORAL bp over 160 syst 03/14/20 13:30 06/03/20 09:29 Dextrose (Dextrose 50%) 25 ml Q30M PRN IV Hypoglycemia 03/14/20 13:00 06/01/20 21:59 Dextrose (Dextrose 50%) 50 ml Q30M PRN IV Hypoglycemia 03/14/20 13:00 06/01/20 21:59 Diltiazem HCl (Cardizem Tab) 90 mg Q8HR ORAL 03/14/20 14:00 04/11/20 19:59 03/15/20 05:01 Glucagon (Glucagon) 1 mg Q2H PRN IM Hypoglycemia 03/14/20 13:00 06/03/20 10:59 Insulin Aspart (NovoLOG) BEFORE MEALS AND HS SUBQ 03/14/20 16:30 06/05/20 06:29 03/14/20 17:04 Losartan Potassium (Cozaar) 50 mg BID ORAL 03/14/20 18:00 04/09/20 15:29 03/14/20 17:06 Metoprolol Tartrate (Lopressor) 50 mg Q12HR ORAL 03/14/20 21:00 06/04/20 15:14 03/14/20 20:09 Pantoprazole (Protonix) 40 mg EVERY 12 HOURS ORAL 03/14/20 21:00 04/08/20 08:59 03/14/20 20:09 Polyethylene Glycol (Miralax) 17 gm DAILYPRN PRN ORAL Constipation 03/15/20 12:15 04/03/20 12:14 Potassium Chloride (K-Dur) 20 meq TWICE A DAY ORAL 03/14/20 18:00 06/11/20 11:29 03/14/20 17:05 Sitagliptin Phosphate (Januvia) 50 mg ACBREAKFAST ORAL 03/15/20 06:30 04/09/20 06:29 03/15/20 05:32 Last 24 Hour Vital Signs Date Time Temp Pulse Resp B/P (MAP) Pulse Ox O2 Delivery O2 Flow Rate FiO2 03/15/20 05:34 134/70 03/15/20 05:01 77 139/74 03/15/20 04:39 6.0 35 03/15/20 04:00 30 03/15/20 04:00 Venturi Mask 03/15/20 03:47 98.0 77 18 139/74 (95) 100 03/15/20 03:41 80 03/15/20 01:30 81 35 97 30 03/15/20 00:07 135/72 03/15/20 00:00 30 03/15/20 00:00 97.9 73 18 135/72 (93) 100 03/15/20 00:00 76 03/15/20 00:00 Venturi Mask 03/14/20 23:30 80 34 96 30 03/14/20 22:18 78 141/70 03/14/20 22:15 78 18 141/70 (93) 100 03/14/20 20:46 82 36 98 30 03/14/20 20:32 84 39 92 30 03/14/20 20:09 87 147/77 03/14/20 20:00 30 03/14/20 20:00 Venturi Mask 03/14/20 20:00 98.2 87 18 147/77 (100) 100 03/14/20 19:30 92 Bi-Pap 30 03/14/20 19:25 79 03/14/20 17:06 153/75 03/14/20 17:06 153/75 03/14/20 16:00 40 03/14/20 16:00 Venturi Mask 03/14/20 16:00 86 03/14/20 16:00 97.6 96 18 153/75 (101) 96 03/14/20 14:33 79 30 99 Venturi Mask 8.0 40 03/14/20 13:50 87 157/76 03/14/20 12:13 160/64 03/14/20 12:00 Venturi Mask 03/14/20 12:00 40 03/14/20 12:00 98.2 79 23 160/64 (96) 97 03/14/20 12:00 80 03/14/20 11:00 74 20 152/70 (97) 96 03/14/20 10:00 71 22 148/84 (105) 99 03/14/20 09:00 81 19 159/62 (94) 100 03/14/20 08:15 152/66 03/14/20 08:15 80 152/66 03/14/20 08:00 86 03/14/20 08:00 Venturi Mask 03/14/20 08:00 98.0 84 24 152/66 (94) 100 03/14/20 07:58 99 Venturi Mask 8.0 40 03/14/20 07:00 85 20 161/95 (117) 100 03/14/20 06:10 90 159/71 03/14/20 06:00 87 23 159/71 (100) 100 03/14/20 05:00 89 27 172/76 (108) 100 03/14/20 04:30 92 24 173/73 (106) 99 03/14/20 04:26 165/73 03/14/20 04:00 80 03/14/20 04:00 97.9 89 22 165/73 (103) 100 03/14/20 04:00 40 03/14/20 04:00 Venturi Mask 03/14/20 03:00 78 23 168/82 (110) 100 03/14/20 02:30 75 21 160/75 (103) 100 03/14/20 02:00 74 21 160/66 (97) 100 03/14/20 01:20 73 21 100 30 03/14/20 01:00 73 25 150/70 (96) 100 03/14/20 00:00 97.8 70 28 143/62 (89) 100 03/14/20 00:00 Venturi Mask 03/14/20 00:00 35 03/14/20 00:00 69 03/13/20 23:00 70 26 139/65 (89) 100 03/13/20 22:49 74 22 99 30 03/13/20 22:00 74 23 160/72 (101) 100 03/13/20 21:09 84 149/74 03/13/20 21:00 80 26 149/74 (99) 100 03/13/20 20:52 80 167/77 03/13/20 20:40 84 30 99 30 03/13/20 20:00 81 03/13/20 20:00 Venturi Mask 03/13/20 20:00 40 03/13/20 20:00 82 20 158/67 (97) 100 03/13/20 19:10 99 Venturi Mask 8.0 40 03/13/20 19:00 84 20 158/67 (97) 99 03/13/20 18:00 84 17 110/81 (91) 100 03/13/20 17:09 155/64 03/13/20 17:00 83 17 127/107 (114) 98 03/13/20 16:00 Venturi Mask 03/13/20 16:00 98.8 78 27 152/57 (88) 99 03/13/20 16:00 40 03/13/20 16:00 79 03/13/20 15:00 86 22 168/116 (133) 99 03/13/20 14:00 86 24 159/63 (95) 100 03/13/20 13:54 84 158/60 03/13/20 13:00 81 24 151/65 (93) 99 03/13/20 12:30 82 25 158/69 (98) 99 03/13/20 12:00 98.4 79 24 144/67 (92) 99 03/13/20 12:00 79 03/13/20 12:00 Venturi Mask 03/13/20 12:00 40 03/13/20 11:00 76 23 149/64 (92) 99 03/13/20 10:00 73 24 143/63 (89) 99 03/13/20 09:15 82 147/63 03/13/20 09:14 147/63 03/13/20 09:00 78 20 147/63 (91) 100 03/13/20 08:00 40 03/13/20 08:00 Venturi Mask 03/13/20 08:00 98.6 89 23 151/66 (94) 100 03/13/20 08:00 90 Intake and Output 03/14/20 03/15/20 19:00 07:00 Intake Total 790 ml Output Total 1700 ml 425 ml Balance -910 ml -425 ml Intake Oral 790 ml Output Urine Total 1700 ml 400 ml Stool Total 25 ml # Bowel Movements 1 Labs Test 03/13/20 04:10 03/13/20 04:16 03/14/20 04:00 03/15/20 05:20 White Blood Count 10.8 K/UL (4.8-10.8) 10.0 K/UL (4.8-10.8) 10.1 K/UL (4.8-10.8) Red Blood Count 3.26 M/UL (4.20-5.40) 3.48 M/UL (4.20-5.40) 3.32 M/UL (4.20-5.40) Hemoglobin 8.1 G/DL (12.0-16.0) 8.6 G/DL (12.0-16.0) 8.3 G/DL (12.0-16.0) Hematocrit 25.8 % (37.0-47.0) 27.7 % (37.0-47.0) 26.5 % (37.0-47.0) Mean Corpuscular Volume 79 FL (80-99) 79 FL (80-99) 80 FL (80-99) Mean Corpuscular Hemoglobin 24.8 PG (27.0-31.0) 24.8 PG (27.0-31.0) 24.9 PG (27.0-31.0) Mean Corpuscular Hemoglobin Concent 31.3 G/DL (32.0-36.0) 31.2 G/DL (32.0-36.0) 31.1 G/DL (32.0-36.0) Red Cell Distribution Width 15.4 % (11.6-14.8) 16.0 % (11.6-14.8) 16.3 % (11.6-14.8) Platelet Count 200 K/UL (150-450) 213 K/UL (150-450) 197 K/UL (150-450) Mean Platelet Volume 6.2 FL (6.5-10.1) 6.8 FL (6.5-10.1) 6.5 FL (6.5-10.1) Neutrophils (%) (Auto) % (45.0-75.0) % (45.0-75.0) % (45.0-75.0) Lymphocytes (%) (Auto) % (20.0-45.0) % (20.0-45.0) % (20.0-45.0) Monocytes (%) (Auto) % (1.0-10.0) % (1.0-10.0) % (1.0-10.0) Eosinophils (%) (Auto) % (0.0-3.0) % (0.0-3.0) % (0.0-3.0) Basophils (%) (Auto) % (0.0-2.0) % (0.0-2.0) % (0.0-2.0) Sodium Level 145 MMOL/L (136-145) 143 MMOL/L (136-145) Potassium Level 3.6 MMOL/L (3.5-5.1) 3.4 MMOL/L (3.5-5.1) Chloride Level 106 MMOL/L (98-107) 105 MMOL/L (98-107) Carbon Dioxide Level 27 MMOL/L (21-32) 28 MMOL/L (21-32) Anion Gap 13 mmol/L (5-15) 10 mmol/L (5-15) Blood Urea Nitrogen 16 mg/dL (7-18) 14 mg/dL (7-18) Creatinine 1.0 MG/DL (0.55-1.30) 1.0 MG/DL (0.55-1.30) Estimat Glomerular Filtration Rate > 60 mL/min (>60) > 60 mL/min (>60) Glucose Level 121 MG/DL (74-106) 121 MG/DL (74-106) Calcium Level 9.2 MG/DL (8.5-10.1) 9.0 MG/DL (8.5-10.1) Phosphorus Level 3.5 MG/DL (2.5-4.9) 3.6 MG/DL (2.5-4.9) Magnesium Level 1.6 MG/DL (1.8-2.4) 1.8 MG/DL (1.8-2.4) Total Bilirubin 0.6 MG/DL (0.2-1.0) 0.5 MG/DL (0.2-1.0) Aspartate Amino Transf (AST/SGOT) 58 U/L (15-37) 51 U/L (15-37) Alanine Aminotransferase (ALT/SGPT) 55 U/L (12-78) 51 U/L (12-78) Alkaline Phosphatase 155 U/L (46-116) 175 U/L (46-116) Pro-B-Type Natriuretic Peptide 95929 pg/mL (0-125) 8590 pg/mL (0-125) Total Protein 6.2 G/DL (6.4-8.2) 7.1 G/DL (6.4-8.2) Albumin 2.3 G/DL (3.4-5.0) 2.3 G/DL (3.4-5.0) Globulin 3.9 g/dL 4.8 g/dL Albumin/Globulin Ratio 0.6 (1.0-2.7) 0.5 (1.0-2.7) Height (Feet): 5 Height (Inches): 10.00 Weight (Pounds): 300 Objective Physical Exam General: Awake and alert, no acute distress HEENT: NC/AT. No scalp lacerations abrasions hematomas++ bipap Cardiovascular: RRR. S1 and S2 normal. No murmur appreciated Resp: Normal work of breathing. No cough, wheezing or crackles appreciated Abdomen: Abdomen is soft. Obese abdomen, nontender Skin: Intact. No abrasions, laceration or rash over the exposed skin MSK: Normal tone and bulk. Moving all extremities. No obvious deformity. Neuro: Awake and alert. Mentating appropriately. Spine: No tenderness in midline Ponce Iyer MD Mar 15, 2020 07:25
[2020-03-15 07:36] LABS: ALANINE AMINOTRANSFERASE 44 U/L (12-78); ALBUMIN 2.2 G/DL (3.4-5.0); ALBUMIN/GLOBULIN RATIO 0.5 (1.0-2.7); ALKALINE PHOSPHATASE 173 U/L (46-116); ANION GAP 10 mmol/L (5-15); ASPARTATE AMINO TRANSFERASE 47 U/L (15-37); BILIRUBIN,TOTAL 0.5 MG/DL (0.2-1.0); BLOOD UREA NITROGEN 18 mg/dL (7-18); CALCIUM 9.2 MG/DL (8.5-10.1); CARBON DIOXIDE 29 MMOL/L (21-32); CHLORIDE 105 MMOL/L (98-107); CREATININE 1.1 MG/DL (0.55-1.30); POTASSIUM 3.9 MMOL/L (3.5-5.1); SODIUM 143 MMOL/L (136-145)
--- NOTE | 2020-03-15 07:36 | General Progress Note ---
Assessment/Plan Status: stable Assessment/Plan: Assessment - Dark stools - OB (+) 1/2 - microcytic anemia - pelvic / uterine masses with JACKY - suspect malignancy - hydronephrosis - rectal wall thickening - resp failure - resolved renal failure - anasarca, abdominal distention - pleural effusion - pulmonary HTN - abnormal LFT - ? mets, ? JOHNSON, ? passive congestion Recommendations - Monitor H&H>>>stable - IV Fe trial - PPI - not candidate for endoscopy at this time - [employer] ONC follow up Subjective ROS Limited/Unobtainable: Yes Allergies: Coded Allergies: No Known Allergies (Unverified , 03/03/20) Objective Last 24 Hour Vital Signs Date Time Temp Pulse Resp B/P (MAP) Pulse Ox O2 Delivery O2 Flow Rate FiO2 03/15/20 05:34 134/70 03/15/20 05:01 77 139/74 03/15/20 04:39 6.0 35 03/15/20 04:00 30 03/15/20 04:00 Venturi Mask 03/15/20 03:47 98.0 77 18 139/74 (95) 100 03/15/20 03:41 80 03/15/20 01:30 81 35 97 30 03/15/20 00:07 135/72 03/15/20 00:00 30 03/15/20 00:00 97.9 73 18 135/72 (93) 100 03/15/20 00:00 76 03/15/20 00:00 Venturi Mask 03/14/20 23:30 80 34 96 30 03/14/20 22:18 78 141/70 03/14/20 22:15 78 18 141/70 (93) 100 03/14/20 20:46 82 36 98 30 03/14/20 20:32 84 39 92 30 03/14/20 20:09 87 147/77 03/14/20 20:00 30 03/14/20 20:00 Venturi Mask 03/14/20 20:00 98.2 87 18 147/77 (100) 100 03/14/20 19:30 92 Bi-Pap 30 03/14/20 19:25 79 03/14/20 17:06 153/75 03/14/20 17:06 153/75 03/14/20 16:00 40 03/14/20 16:00 Venturi Mask 03/14/20 16:00 86 03/14/20 16:00 97.6 96 18 153/75 (101) 96 03/14/20 14:33 79 30 99 Venturi Mask 8.0 40 03/14/20 13:50 87 157/76 03/14/20 12:13 160/64 03/14/20 12:00 Venturi Mask 03/14/20 12:00 40 03/14/20 12:00 98.2 79 23 160/64 (96) 97 03/14/20 12:00 80 03/14/20 11:00 74 20 152/70 (97) 96 03/14/20 10:00 71 22 148/84 (105) 99 03/14/20 09:00 81 19 159/62 (94) 100 03/14/20 08:15 152/66 03/14/20 08:15 80 152/66 03/14/20 08:00 86 03/14/20 08:00 Venturi Mask 03/14/20 08:00 98.0 84 24 152/66 (94) 100 03/14/20 07:58 99 Venturi Mask 8.0 40 Intake and Output 03/14/20 03/15/20 19:00 07:00 Intake Total 790 ml Output Total 1700 ml 425 ml Balance -910 ml -425 ml Intake Oral 790 ml Output Urine Total 1700 ml 400 ml Stool Total 25 ml # Bowel Movements 1 Laboratory Tests 03/15/20 05:20: White Blood Count 10.1, Red Blood Count 3.32L, Hemoglobin 8.3L, Hematocrit 26.5L , Mean Corpuscular Volume 80, Mean Corpuscular Hemoglobin 24.9L, Mean Corpuscular Hemoglobin Concent 31.1L, Red Cell Distribution Width 16.3H, Platelet Count 197, Mean Platelet Volume 6.5, Neutrophils (%) (Auto) , Lymphocytes (%) (Auto) , Monocytes (%) (Auto) , Eosinophils (%) (Auto) , Basophils (%) (Auto) , Neutrophils % (Manual) [Pending], Lymphocytes % (Manual) [Pending], Platelet Estimate [Pending], Platelet Morphology [Pending], Sodium Level [Pending], Potassium Level [Pending], Chloride Level [Pending], Carbon Dioxide Level [Pending], Blood Urea Nitrogen [Pending], Creatinine [Pending], Estimat Glomerular Filtration Rate [Pending], Glucose Level [Pending], Calcium Level [Pending], Total Bilirubin [Pending], Aspartate Amino Transf (AST/SGOT) [ Pending], Alanine Aminotransferase (ALT/SGPT) [Pending], Alkaline Phosphatase [ Pending], Total Protein [Pending], Albumin [Pending], Globulin [Pending] Height (Feet): 5 Height (Inches): 10.00 Weight (Pounds): 300 General Appearance: no apparent distress EENT: normal ENT inspection Neck: supple Cardiovascular: normal rate Respiratory/Chest: decreased breath sounds Abdomen: normal bowel sounds, non tender, soft Extremities: non-tender Nikunj Eli MD Mar 15, 2020 07:36
[2020-03-15 08:00] VITALS: BP 137/73
[2020-03-15] MEDS: Losartan 50mg tab ORAL SCH ×2 (08:46→18:10)
[2020-03-15] MEDS: Metoprolol Tartrate 50mg tab ORAL SCH ×2 (08:46→20:37)
--- NOTE | 2020-03-15 10:26 | General Progress Note ---
Assessment/Plan Problem List: (1) Syncope ICD Codes: R55 - Syncope and collapse SNOMED: 276549090 (2) Acute kidney failure ICD Codes: N17.9 - Acute kidney failure, unspecified SNOMED: 61516152 (3) Hypoglycemia ICD Codes: E16.2 - Hypoglycemia, unspecified SNOMED: 307742926 (4) UTI (urinary tract infection) ICD Codes: N39.0 - Urinary tract infection, site not specified SNOMED: 20520530 Status: stable Assessment/Plan: wean o2 monitor cxr observe off abx monitor sugars d50 as needed diabetes rx per endo recep eval.appreciated- outpt recep onc eval replace lytes as needed pt/ot eval improving Subjective ROS Limited/Unobtainable: No Constitutional: Reports: no symptoms HEENT: Reports: no symptoms Cardiovascular: Reports: no symptoms Respiratory: Reports: cough Gastrointestinal/Abdominal: Reports: no symptoms Genitourinary: Reports: no symptoms Neurologic/Psychiatric: Reports: no symptoms Endocrine: Reports: no symptoms Hematologic/Lymphatic: Reports: anemia Allergies: Coded Allergies: No Known Allergies (Unverified , 03/03/20) All Systems: reviewed and negative except above Subjective better today. off o2 and on room air. no chest pain or sob. no fever or chills. no nausea or vomiting/ Objective Last 24 Hour Vital Signs Date Time Temp Pulse Resp B/P (MAP) Pulse Ox O2 Delivery O2 Flow Rate FiO2 03/15/20 08:46 82 137/73 03/15/20 08:46 137/73 03/15/20 08:00 98.5 85 17 137/73 (94) 96 03/15/20 08:00 82 03/15/20 06:43 96 Room Air 21 03/15/20 05:34 134/70 03/15/20 05:01 77 139/74 03/15/20 04:39 6.0 35 03/15/20 04:00 30 03/15/20 04:00 Venturi Mask 03/15/20 03:47 98.0 77 18 139/74 (95) 100 03/15/20 03:41 80 03/15/20 01:30 81 35 97 30 03/15/20 00:07 135/72 03/15/20 00:00 30 03/15/20 00:00 97.9 73 18 135/72 (93) 100 9/6/20 00:00 76 03/15/20 00:00 Venturi Mask 03/14/20 23:30 80 34 96 30 03/14/20 22:18 78 141/70 03/14/20 22:15 78 18 141/70 (93) 100 03/14/20 20:46 82 36 98 30 03/14/20 20:32 84 39 92 30 03/14/20 20:09 87 147/77 03/14/20 20:00 30 03/14/20 20:00 Venturi Mask 03/14/20 20:00 98.2 87 18 147/77 (100) 100 03/14/20 19:30 92 Bi-Pap 30 03/14/20 19:25 79 03/14/20 17:06 153/75 03/14/20 17:06 153/75 03/14/20 16:00 40 03/14/20 16:00 Venturi Mask 03/14/20 16:00 86 03/14/20 16:00 97.6 96 18 153/75 (101) 96 03/14/20 14:33 79 30 99 Venturi Mask 8.0 40 03/14/20 13:50 87 157/76 03/14/20 12:13 160/64 03/14/20 12:00 Venturi Mask 03/14/20 12:00 40 03/14/20 12:00 98.2 79 23 160/64 (96) 97 03/14/20 12:00 80 03/14/20 11:00 74 20 152/70 (97) 96 Intake and Output 03/14/20 03/15/20 19:00 07:00 Intake Total 790 ml Output Total 1700 ml 425 ml Balance -910 ml -425 ml Intake Oral 790 ml Output Urine Total 1700 ml 400 ml Stool Total 25 ml # Bowel Movements 1 Laboratory Tests 03/15/20 05:20: White Blood Count 10.1, Red Blood Count 3.32L, Hemoglobin 8.3L, Hematocrit 26.5L , Mean Corpuscular Volume 80, Mean Corpuscular Hemoglobin 24.9L, Mean Corpuscular Hemoglobin Concent 31.1L, Red Cell Distribution Width 16.3H, Platelet Count 197, Mean Platelet Volume 6.5, Neutrophils (%) (Auto) , Lymphocytes (%) (Auto) , Monocytes (%) (Auto) , Eosinophils (%) (Auto) , Basophils (%) (Auto) , Neutrophils % (Manual) [Pending], Lymphocytes % (Manual) [Pending], Platelet Estimate [Pending], Platelet Morphology [Pending], Sodium Level 143, Potassium Level 3.9, Chloride Level 105, Carbon Dioxide Level 29, Anion Gap 10, Blood Urea Nitrogen 18, Creatinine 1.1, Estimat Glomerular Filtration Rate > 60, Glucose Level 122H, Calcium Level 9.2, Total Bilirubin 0.5 , Aspartate Amino Transf (AST/SGOT) 47H, Alanine Aminotransferase (ALT/SGPT) 44 , Alkaline Phosphatase 173H, Total Protein 6.8, Albumin 2.2L, Globulin 4.6, Albumin/Globulin Ratio 0.5L Height (Feet): 5 Height (Inches): 10.00 Weight (Pounds): 300 Objective General Appearance: WD/WN, alert EENT: PERRL/EOMI Neck: non-tender, normal alignment Cardiovascular: normal peripheral pulses, normal rate Respiratory/Chest: chest wall non-tender, lungs clear, normal breath sounds, no respiratory distress Abdomen: normal bowel sounds, non tender, soft, no organomegaly Edema: moderate edema 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
--- NOTE | 2020-03-15 10:32 | General Progress Note ---
Assessment/Plan Problem List: (1) Anemia ICD Codes: D64.9 - Anemia, unspecified SNOMED: 156748166 (2) Hypoglycemia ICD Codes: E16.2 - Hypoglycemia, unspecified SNOMED: 527809197 (3) Acute kidney failure ICD Codes: N17.9 - Acute kidney failure, unspecified SNOMED: 92696283 (4) Syncope ICD Codes: R55 - Syncope and collapse SNOMED: 955609356 (5) UTI (urinary tract infection) ICD Codes: N39.0 - Urinary tract infection, site not specified SNOMED: 55709478 (6) FARIBA (acute kidney injury) ICD Codes: N17.9 - Acute kidney failure, unspecified SNOMED: 8478230, 64010610 Status: stable Assessment/Plan: continue Januvia 50 mg daily continue glucose monitoring hypoglycemia protocol in order Subjective Allergies: Coded Allergies: No Known Allergies (Unverified , 03/03/20) All Systems: reviewed and negative except above Subjective events noted interval notes reviewed glucose values are stable Item Value Date Time Bedside Blood Glucose 122 mg/dl H 03/15/20 0529 Bedside Blood Glucose 99 mg/dl 03/14/202009 Bedside Blood Glucose 149 mg/dl H 03/14/20 1704 Bedside Blood Glucose 131 mg/dl H 03/14/20 1130 Bedside Blood Glucose 152 mg/dl H 03/14/20 0630 Objective Last 24 Hour Vital Signs Date Time Temp Pulse Resp B/P (MAP) Pulse Ox O2 Delivery O2 Flow Rate FiO2 03/15/20 08:46 82 137/73 03/15/20 08:46 137/73 03/15/20 08:00 98.5 85 17 137/73 (94) 96 03/15/20 08:00 82 03/15/20 06:43 96 Room Air 21 03/15/20 05:34 134/70 03/15/20 05:01 77 139/74 03/15/20 04:39 6.0 35 03/15/20 04:00 30 03/15/20 04:00 Venturi Mask 03/15/20 03:47 98.0 77 18 139/74 (95) 100 03/15/20 03:41 80 03/15/20 01:30 81 35 97 30 03/15/20 00:07 135/72 03/15/20 00:00 30 03/15/20 00:00 97.9 73 18 135/72 (93) 100 03/15/20 00:00 76 03/15/20 00:00 Venturi Mask 03/14/20 23:30 80 34 96 30 03/14/20 22:18 78 141/70 03/14/20 22:15 78 18 141/70 (93) 100 03/14/20 20:46 82 36 98 30 03/14/20 20:32 84 39 92 30 03/14/20 20:09 87 147/77 03/14/20 20:00 30 03/14/20 20:00 Venturi Mask 03/14/20 20:00 98.2 87 18 147/77 (100) 100 03/14/20 19:30 92 Bi-Pap 30 03/14/20 19:25 79 03/14/20 17:06 153/75 03/14/20 17:06 153/75 03/14/20 16:00 40 03/14/20 16:00 Venturi Mask 03/14/20 16:00 86 03/14/20 16:00 97.6 96 18 153/75 (101) 96 03/14/20 14:33 79 30 99 Venturi Mask 8.0 40 03/14/20 13:50 87 157/76 03/14/20 12:13 160/64 03/14/20 12:00 Venturi Mask 03/14/20 12:00 40 03/14/20 12:00 98.2 79 23 160/64 (96) 97 03/14/20 12:00 80 03/14/20 11:00 74 20 152/70 (97) 96 Intake and Output 03/14/20 03/15/20 19:00 07:00 Intake Total 790 ml Output Total 1700 ml 425 ml Balance -910 ml -425 ml Intake Oral 790 ml Output Urine Total 1700 ml 400 ml Stool Total 25 ml # Bowel Movements 1 Laboratory Tests 03/15/20 05:20: White Blood Count 10.1, Red Blood Count 3.32L, Hemoglobin 8.3L, Hematocrit 26.5L , Mean Corpuscular Volume 80, Mean Corpuscular Hemoglobin 24.9L, Mean Corpuscular Hemoglobin Concent 31.1L, Red Cell Distribution Width 16.3H, Platelet Count 197, Mean Platelet Volume 6.5, Neutrophils (%) (Auto) , Lymphocytes (%) (Auto) , Monocytes (%) (Auto) , Eosinophils (%) (Auto) , Basophils (%) (Auto) , Neutrophils % (Manual) [Pending], Lymphocytes % (Manual) [Pending], Platelet Estimate [Pending], Platelet Morphology [Pending], Sodium Level 143, Potassium Level 3.9, Chloride Level 105, Carbon Dioxide Level 29, Anion Gap 10, Blood Urea Nitrogen 18, Creatinine 1.1, Estimat Glomerular Filtration Rate > 60, Glucose Level 122H, Calcium Level 9.2, Total Bilirubin 0.5 , Aspartate Amino Transf (AST/SGOT) 47H, Alanine Aminotransferase (ALT/SGPT) 44 , Alkaline Phosphatase 173H, Total Protein 6.8, Albumin 2.2L, Globulin 4.6, Albumin/Globulin Ratio 0.5L Height (Feet): 5 Height (Inches): 10.00 Weight (Pounds): 300 General Appearance: no apparent distress Neck: normal alignment Cardiovascular: normal rate Respiratory/Chest: lungs clear Abdomen: normal bowel sounds Pelvis: normal external exam Objective Current Medications Medications (Trade) Dose Ordered Sig/Francisco J Route PRN Reason Start Time Stop Time Status Last Admin Dose Admin Acetaminophen (Tylenol) 650 mg Q4H PRN ORAL Mild Pain (Pain Scale 1-3) 03/14/20 12:58 04/02/20 12:57 Clonidine HCl (Catapres Tab) 0.1 mg EVERY 6 HOURS ORAL 03/14/20 18:00 06/12/20 11:59 03/15/20 05:34 Clonidine HCl (Catapres Tab) 0.1 mg Q4H PRN ORAL bp over 160 syst 03/14/20 13:30 06/03/20 09:29 Dextrose (Dextrose 50%) 25 ml Q30M PRN IV Hypoglycemia 03/14/20 13:00 06/01/20 21:59 Dextrose (Dextrose 50%) 50 ml Q30M PRN IV Hypoglycemia 03/14/20 13:00 06/01/20 21:59 Diltiazem HCl (Cardizem Tab) 90 mg Q8HR ORAL 03/14/20 14:00 04/11/20 19:59 03/15/20 05:01 Glucagon (Glucagon) 1 mg Q2H PRN IM Hypoglycemia 03/14/20 13:00 06/03/20 10:59 Insulin Aspart (NovoLOG) BEFORE MEALS AND HS SUBQ 03/14/20 16:30 06/05/20 06:29 03/14/20 17:04 Losartan Potassium (Cozaar) 50 mg BID ORAL 03/14/20 18:00 04/09/20 15:29 03/15/20 08:46 Metoprolol Tartrate (Lopressor) 50 mg Q12HR ORAL 03/14/20 21:00 06/04/20 15:14 03/15/20 08:46 Pantoprazole (Protonix) 40 mg EVERY 12 HOURS ORAL 03/14/20 21:00 04/08/20 08:59 03/15/20 08:46 Polyethylene Glycol (Miralax) 17 gm DAILYPRN PRN ORAL Constipation 03/15/20 12:15 04/03/20 12:14 Potassium Chloride (K-Dur) 20 meq TWICE A DAY ORAL 03/14/20 18:00 06/11/20 11:29 03/15/20 08:45 Sitagliptin Phosphate (Januvia) 50 mg ACBREAKFAST ORAL 03/15/20 06:30 04/09/20 06:29 03/15/20 05:32 Sudhir Barrow MD Mar 15, 2020 10:32
--- NOTE | 2020-03-15 11:20 | Nephrology Progress Note ---
Assessment/Plan Problem List: (1) FARIBA (acute kidney injury) (2) Renal failure (ARF), acute on chronic (3) UTI (urinary tract infection) (4) Hypoglycemia (5) Anemia (6) Morbid obesity with BMI of 45.0-49.9, adult (7) Acute respiratory failure (8) Obstructive sleep apnea Assessment Acute renal failure Possible underlying chronic kidney disease High likelihood of diabetic nephropathy, patient has proteinuria and hypoalbuminemia Persistent hypo-glycemia: The patient was on 3 oral hypoglycemic agents including Glucophage Morbid obesity Hypertension Severe anemia, low MCV UTI Most likely obstructive sleep apnea Plan March 15: Labs reviewed. Stable from renal standpoint of view. Patient improved clinically. Blood pressure is much stable. Continue per consultants. March 14: Labs reviewed. Abnormal electrolytes adjusted with supplements. Continue per consultants. Change clonidine patch to clonidine p.o. every 6 hours 0.1 mg for blood pressure. March 13: Labs reviewed. Magnesium supplement given. Blood pressure better controlled. Another dose of IV Lasix 20 mg given. Will watch electrolytes and renal parameters. Continue per pulmonary and management of respiratory status. March 12: Lab reviewed. Electrolytes adjusted. Blood pressure medication adjusted. Patient remains on BiPAP. Continue per consultants. Discontinue IV fluid. Lasix 20 mg IV once. March 11: Labs are reviewed. Potassium and magnesium supplement given. Continue per pulmonary. March 10: Labs reviewed. Medication reviewed. Remains on BiPAP. Will DC IV fluid and changed to D5W. Blood pressure medication adjusted. Cozaar added. Potassium supplement given. Continue per consultants. March 09: Labs reviewed. Medication list reviewed. Remains on BiPAP. Venturi mask is being tried. Discussed with book store associate. Renal parameters stable. Magnesium and potassium supplement given. Blood sugar stable. March 08: Today's labs pending. Will discontinue IV fluid. Remains on BiPAP. Aim to take off BiPAP as possible. Transfusion if needed. Discussed with DARSHAN Iglesias. March 07: Marked improvement in renal parameters. Blood sugar improved. Main issue are respiratory, as patient remains on BiPAP. Hemoglobin lower. May require transfusion again. Abnormal electrolytes corrected March 06: Clinically improved. Remains on BiPAP. Blood sugar improved. Urine output well maintained. Serum creatinine lowered. Will adjust blood pressure medication for better control. D10 infusion down to 50 cc an hour. Continue monitor renal parameters. Lasix as needed. 24-hour urine for total protein. March 05: Discontinue Cozaar, labetalol Stop all oral oral hypoglycemics and insulin Start clonidine patch and clonidine PRN for high blood pressure Add Norvasc for blood pressure D10 infusion Check labs, thyroid panel, anemia work-up, lipid panel, hemoglobin A1c Urine for eosinophils and spot sodium Check ABG Per orders Subjective ROS Limited/Unobtainable: No Constitutional: Reports: other - Feels much better Objective Objective Last 24 Hour Vital Signs Date Time Temp Pulse Resp B/P (MAP) Pulse Ox O2 Delivery O2 Flow Rate FiO2 03/15/20 08:46 82 137/73 03/15/20 08:46 137/73 03/15/20 08:00 98.5 85 17 137/73 (94) 96 03/15/20 08:00 82 03/15/20 06:43 96 Room Air 21 03/15/20 05:34 134/70 03/15/20 05:01 77 139/74 03/15/20 04:39 6.0 35 03/15/20 04:00 30 03/15/20 04:00 Venturi Mask 03/15/20 03:47 98.0 77 18 139/74 (95) 100 03/15/20 03:41 80 03/15/20 01:30 81 35 97 30 03/15/20 00:07 135/72 03/15/20 00:00 30 03/15/20 00:00 97.9 73 18 135/72 (93) 100 03/15/20 00:00 76 03/15/20 00:00 Venturi Mask 03/14/20 23:30 80 34 96 30 03/14/20 22:18 78 141/70 03/14/20 22:15 78 18 141/70 (93) 100 03/14/20 20:46 82 36 98 30 03/14/20 20:32 84 39 92 30 03/14/20 20:09 87 147/77 03/14/20 20:00 30 03/14/20 20:00 Venturi Mask 03/14/20 20:00 98.2 87 18 147/77 (100) 100 03/14/20 19:30 92 Bi-Pap 30 03/14/20 19:25 79 03/14/20 17:06 153/75 03/14/20 17:06 153/75 03/14/20 16:00 40 03/14/20 16:00 Venturi Mask 03/14/20 16:00 86 03/14/20 16:00 97.6 96 18 153/75 (101) 96 03/14/20 14:33 79 30 99 Venturi Mask 8.0 40 03/14/20 13:50 87 157/76 03/14/20 12:13 160/64 03/14/20 12:00 Venturi Mask 03/14/20 12:00 40 03/14/20 12:00 98.2 79 23 160/64 (96) 97 03/14/20 12:00 80 Intake and Output 03/14/20 03/15/20 19:00 07:00 Intake Total 790 ml Output Total 1700 ml 425 ml Balance -910 ml -425 ml Intake Oral 790 ml Output Urine Total 1700 ml 400 ml Stool Total 25 ml # Bowel Movements 1 Laboratory Tests 03/15/20 05:20: White Blood Count 10.1, Red Blood Count 3.32L, Hemoglobin 8.3L, Hematocrit 26.5L , Mean Corpuscular Volume 80, Mean Corpuscular Hemoglobin 24.9L, Mean Corpuscular Hemoglobin Concent 31.1L, Red Cell Distribution Width 16.3H, Platelet Count 197, Mean Platelet Volume 6.5, Neutrophils (%) (Auto) , Lymphocytes (%) (Auto) , Monocytes (%) (Auto) , Eosinophils (%) (Auto) , Basophils (%) (Auto) , Differential Total Cells Counted 100, Neutrophils % ( Manual) 84H, Lymphocytes % (Manual) 8L, Monocytes % (Manual) 5, Eosinophils % ( Manual) 3, Basophils % (Manual) 0, Band Neutrophils 0, Platelet Estimate Adequate, Platelet Morphology Normal, Polychromasia 1+, Hypochromasia 1+, Anisocytosis 1+, Sodium Level 143, Potassium Level 3.9, Chloride Level 105, Carbon Dioxide Level 29, Anion Gap 10, Blood Urea Nitrogen 18, Creatinine 1.1, Estimat Glomerular Filtration Rate > 60, Glucose Level 122H, Calcium Level 9.2, Total Bilirubin 0.5, Aspartate Amino Transf (AST/SGOT) 47H, Alanine Aminotransferase (ALT/SGPT) 44, Alkaline Phosphatase 173H, Total Protein 6.8, Albumin 2.2L, Globulin 4.6, Albumin/Globulin Ratio 0.5L Height (Feet): 5 Height (Inches): 10.00 Weight (Pounds): 300 General Appearance: no apparent distress EENT: other - On oxygen by cannula Cardiovascular: normal rate Respiratory/Chest: decreased breath sounds Abdomen: soft Sundar Camargo MD Mar 15, 2020 11:20
--- NOTE | 2020-03-15 11:54 | Infectious Diseases Prog Note ---
Assessment/Plan Assessment/Plan A: 1. Pneumonia treated 2. Acute renal failure 3. DM type 2 with hyperglycemia 4. Respiratory failure with hypoxemia 5. Morbid obesity 6. GISSELLE 7. Anemia 8. Hydronephrosis 9. Abdomen & pelvic adenopathy, mass PLAN: 1. Observe off antibiotic Subjective ROS Limited/Unobtainable: No Constitutional: Reports: no symptoms Respiratory: Reports: no symptoms Cardiovascular: Reports: no symptoms Gastrointestinal/Abdominal: Reports: no symptoms Genitourinary: Reports: no symptoms Allergies: Coded Allergies: No Known Allergies (Unverified , 03/03/20) Objective Last 24 Hour Vital Signs Date Time Temp Pulse Resp B/P (MAP) Pulse Ox O2 Delivery O2 Flow Rate FiO2 03/15/20 08:46 82 137/73 03/15/20 08:46 137/73 03/15/20 08:00 98.5 85 17 137/73 (94) 96 03/15/20 08:00 Venturi Mask 03/15/20 08:00 82 03/15/20 06:43 96 Room Air 21 03/15/20 05:34 134/70 03/15/20 05:01 77 139/74 03/15/20 04:39 6.0 35 03/15/20 04:00 30 03/15/20 04:00 Venturi Mask 03/15/20 03:47 98.0 77 18 139/74 (95) 100 03/15/20 03:41 80 03/15/20 01:30 81 35 97 30 03/15/20 00:07 135/72 03/15/20 00:00 30 03/15/20 00:00 97.9 73 18 135/72 (93) 100 03/15/20 00:00 76 03/15/20 00:00 Venturi Mask 03/14/20 23:30 80 34 96 30 03/14/20 22:18 78 141/70 03/14/20 22:15 78 18 141/70 (93) 100 03/14/20 20:46 82 36 98 30 03/14/20 20:32 84 39 92 30 03/14/20 20:09 87 147/77 03/14/20 20:00 30 03/14/20 20:00 Venturi Mask 03/14/20 20:00 98.2 87 18 147/77 (100) 100 03/14/20 19:30 92 Bi-Pap 30 03/14/20 19:25 79 03/14/20 17:06 153/75 03/14/20 17:06 153/75 03/14/20 16:00 40 03/14/20 16:00 Venturi Mask 03/14/20 16:00 86 03/14/20 16:00 97.6 96 18 153/75 (101) 96 03/14/20 14:33 79 30 99 Venturi Mask 8.0 40 03/14/20 13:50 87 157/76 03/14/20 12:13 160/64 03/14/20 12:00 Venturi Mask 03/14/20 12:00 40 03/14/20 12:00 98.2 79 23 160/64 (96) 97 03/14/20 12:00 80 Height (Feet): 5 Height (Inches): 10.00 Weight (Pounds): 300 General Appearance: no acute distress HEENT: mucous membranes moist Respiratory/Chest: lungs clear Cardiovascular: normal rate Abdomen: soft, non tender Extremities: other - bilateral SCA of legs Neurologic/Psychiatric: alert, oriented x 3, responsive Laboratory Tests Test 03/15/20 05:20 White Blood Count 10.1 K/UL (4.8-10.8) Red Blood Count 3.32 M/UL (4.20-5.40) L Hemoglobin 8.3 G/DL (12.0-16.0) L Hematocrit 26.5 % (37.0-47.0) L Mean Corpuscular Volume 80 FL (80-99) Mean Corpuscular Hemoglobin 24.9 PG (27.0-31.0) L Mean Corpuscular Hemoglobin Concent 31.1 G/DL (32.0-36.0) L Red Cell Distribution Width 16.3 % (11.6-14.8) H Platelet Count 197 K/UL (150-450) Mean Platelet Volume 6.5 FL (6.5-10.1) Neutrophils (%) (Auto) % (45.0-75.0) Lymphocytes (%) (Auto) % (20.0-45.0) Monocytes (%) (Auto) % (1.0-10.0) Eosinophils (%) (Auto) % (0.0-3.0) Basophils (%) (Auto) % (0.0-2.0) Differential Total Cells Counted 100 Neutrophils % (Manual) 84 % (45-75) H Lymphocytes % (Manual) 8 % (20-45) L Monocytes % (Manual) 5 % (1-10) Eosinophils % (Manual) 3 % (0-3) Basophils % (Manual) 0 % (0-2) Band Neutrophils 0 % (0-8) Platelet Estimate Adequate Platelet Morphology Normal Polychromasia 1+ Hypochromasia 1+ Anisocytosis 1+ Sodium Level 143 MMOL/L (136-145) Potassium Level 3.9 MMOL/L (3.5-5.1) Chloride Level 105 MMOL/L (98-107) Carbon Dioxide Level 29 MMOL/L (21-32) Anion Gap 10 mmol/L (5-15) Blood Urea Nitrogen 18 mg/dL (7-18) Creatinine 1.1 MG/DL (0.55-1.30) Estimat Glomerular Filtration Rate > 60 mL/min (>60) Glucose Level 122 MG/DL (74-106) H Calcium Level 9.2 MG/DL (8.5-10.1) Total Bilirubin 0.5 MG/DL (0.2-1.0) Aspartate Amino Transf (AST/SGOT) 47 U/L (15-37) H Alanine Aminotransferase (ALT/SGPT) 44 U/L (12-78) Alkaline Phosphatase 173 U/L (46-116) H Total Protein 6.8 G/DL (6.4-8.2) Albumin 2.2 G/DL (3.4-5.0) L Globulin 4.6 g/dL Albumin/Globulin Ratio 0.5 (1.0-2.7) L Current Medications Medications (Trade) Dose Ordered Sig/Francisco J Route PRN Reason Start Time Stop Time Status Last Admin Dose Admin Acetaminophen (Tylenol) 650 mg Q4H PRN ORAL Mild Pain (Pain Scale 1-3) 03/14/20 12:58 04/02/20 12:57 Clonidine HCl (Catapres Tab) 0.1 mg EVERY 6 HOURS ORAL 03/14/20 18:00 06/12/20 11:59 03/15/20 05:34 Clonidine HCl (Catapres Tab) 0.1 mg Q4H PRN ORAL bp over 160 syst 03/14/20 13:30 06/03/20 09:29 Dextrose (Dextrose 50%) 25 ml Q30M PRN IV Hypoglycemia 03/14/20 13:00 06/01/20 21:59 Dextrose (Dextrose 50%) 50 ml Q30M PRN IV Hypoglycemia 03/14/20 13:00 06/01/20 21:59 Diltiazem HCl (Cardizem Tab) 90 mg Q8HR ORAL 03/14/20 14:00 04/11/20 19:59 03/15/20 05:01 Glucagon (Glucagon) 1 mg Q2H PRN IM Hypoglycemia 03/14/20 13:00 06/03/20 10:59 Insulin Aspart (NovoLOG) BEFORE MEALS AND HS SUBQ 03/14/20 16:30 06/05/20 06:29 03/15/20 11:38 Losartan Potassium (Cozaar) 50 mg BID ORAL 03/14/20 18:00 04/09/20 15:29 03/15/20 08:46 Metoprolol Tartrate (Lopressor) 50 mg Q12HR ORAL 03/14/20 21:00 06/04/20 15:14 03/15/20 08:46 Pantoprazole (Protonix) 40 mg EVERY 12 HOURS ORAL 03/14/20 21:00 04/08/20 08:59 03/15/20 08:46 Polyethylene Glycol (Miralax) 17 gm DAILYPRN PRN ORAL Constipation 03/15/20 12:15 04/03/20 12:14 Potassium Chloride (K-Dur) 20 meq TWICE A DAY ORAL 03/14/20 18:00 06/11/20 11:29 03/15/20 08:45 Sitagliptin Phosphate (Januvia) 50 mg ACBREAKFAST ORAL 03/15/20 06:30 04/09/20 06:29 03/15/20 05:32 Carlos Enrique Rodrigez MD Mar 15, 2020 11:54
[2020-03-15 12:00] VITALS: BP 134/69
--- NOTE | 2020-03-15 12:06 | Pulmonolgy Critical Care Note ---
Critical Care - Asmt/Plan Assessment/Plan: Pulmonary CCM Progress Note Assessment/Plan acute respiratory failure improved hypoxemia metabolic acidosis ARF diabetes leukocytosis anemia anasarca pulmonary infiltrates uterine mass pleural effusion hydronephrosis PLAN IV antibiotics keep negative BIPAP prn DVT prophylaxis diurese PRN keep negative and monitor imaging renal noted and discussed heme and core sucker following medications/laboratory data/nursing notes/ICU care reviewed in detail note reviewed and edited care discussed with RN and RT ICU time spent >40 minutes Critical Care - Subjective Interval Events: BIPAP PRN stable on oxygen ROS Limited/Unobtainable: Yes Condition: critical EKG Rhythm: Sinus Rhythm Critical Care - Objective Vital Signs Noted Labs: noted Objective: WDWN off BIPAP reduced breath sounds bilaterally without rhonchi or wheeze [id number] without MRG NABS nontender no HSM no CC noted edema nonfocal,alert Critical Care - Objective Last 24 Hour Vital Signs Date Time Temp Pulse Resp B/P (MAP) Pulse Ox O2 Delivery O2 Flow Rate FiO2 03/15/20 12:00 98.4 87 17 134/69 (90) 97 03/15/20 12:00 Venturi Mask 03/15/20 08:46 82 137/73 03/15/20 08:46 137/73 03/15/20 08:00 98.5 85 17 137/73 (94) 96 03/15/20 08:00 Venturi Mask 03/15/20 08:00 82 03/15/20 06:43 96 Room Air 21 03/15/20 05:34 134/70 03/15/20 05:01 77 139/74 03/15/20 04:39 6.0 35 03/15/20 04:00 30 03/15/20 04:00 Venturi Mask 03/15/20 03:47 98.0 77 18 139/74 (95) 100 03/15/20 03:41 80 03/15/20 01:30 81 35 97 30 03/15/20 00:07 135/72 03/15/20 00:00 30 03/15/20 00:00 97.9 73 18 135/72 (93) 100 03/15/20 00:00 76 03/15/20 00:00 Venturi Mask 03/14/20 23:30 80 34 96 30 03/14/20 22:18 78 141/70 03/14/20 22:15 78 18 141/70 (93) 100 03/14/20 20:46 82 36 98 30 03/14/20 20:32 84 39 92 30 03/14/20 20:09 87 147/77 03/14/20 20:00 30 03/14/20 20:00 Venturi Mask 03/14/20 20:00 98.2 87 18 147/77 (100) 100 03/14/20 19:30 92 Bi-Pap 30 03/14/20 19:25 79 03/14/20 17:06 153/75 03/14/20 17:06 153/75 03/14/20 16:00 40 03/14/20 16:00 Venturi Mask 03/14/20 16:00 86 03/14/20 16:00 97.6 96 18 153/75 (101) 96 03/14/20 14:33 79 30 99 Venturi Mask 8.0 40 03/14/20 13:50 87 157/76 03/14/20 12:13 160/64 Accucheck: 163 Critical Care - Subjective ROS Limited/Unobtainable: No FI02: 21 Vent Support Mode: CPAP Sputum Amount: None I&O: Intake and Output 03/14/20 03/15/20 19:00 07:00 Intake Total 790 ml Output Total 1700 ml 425 ml Balance -910 ml -425 ml Intake Oral 790 ml Output Urine Total 1700 ml 400 ml Stool Total 25 ml # Bowel Movements 1 Miguel Guzmán MD Mar 15, 2020 12:06
[2020-03-15] MEDS ORDERED: Miralax 17gm pkt ORAL PRN (12:15)
[2020-03-15 16:00] VITALS: BP 142/72
[2020-03-15 20:00] VITALS: BP 138/74
[2020-03-16] VITALS: BP 136/67
[2020-03-16 04:00] VITALS: BP 140/78
[2020-03-16] MEDS: dilTIAZem HCl 90mg tab ORAL SCH ×3 (05:38→22:24)
[2020-03-16] MEDS: NovoLOG Insulin Flexpen SUBQ SCH ×5 (05:39→20:53)
[2020-03-16] MEDS: sitaGLIPtin 50mg tab ORAL SCH ×2 (05:39→06:30)
[2020-03-16 05:49] LABS: BASOPHILS % (AUTO) 0.6 % (0.0-2.0); EOSINOPHILS % (AUTO) 0.9 % (0.0-3.0); HEMATOCRIT 26.8 % (37.0-47.0); HEMOGLOBIN 8.3 G/DL (12.0-16.0); LYMPHOCYTES % (AUTO) 9.5 % (20.0-45.0); MEAN CORPUSCULAR VOLUME 81 FL (80-99); MONOCYTES % (AUTO) 5.6 % (1.0-10.0); NEUTROPHILS % (AUTO) 83.4 % (45.0-75.0); PLATELET COUNT 199 K/UL (150-450); RED BLOOD COUNT 3.33 M/UL (4.20-5.40); RED CELL DISTRIBUTION WIDTH 17.1 % (11.6-14.8); WHITE BLOOD COUNT 9.9 K/UL (4.8-10.8)
[2020-03-16 06:20] LABS: ALANINE AMINOTRANSFERASE 34 U/L (12-78); ALBUMIN 2.2 G/DL (3.4-5.0); ALBUMIN/GLOBULIN RATIO 0.5 (1.0-2.7); ALKALINE PHOSPHATASE 155 U/L (46-116); ANION GAP 7 mmol/L (5-15); ASPARTATE AMINO TRANSFERASE 40 U/L (15-37); BILIRUBIN,TOTAL 0.5 MG/DL (0.2-1.0); BLOOD UREA NITROGEN 19 mg/dL (7-18); CALCIUM 9.1 MG/DL (8.5-10.1); CARBON DIOXIDE 27 MMOL/L (21-32); CHLORIDE 104 MMOL/L (98-107); CREATININE 1.3 MG/DL (0.55-1.30); POTASSIUM 3.7 MMOL/L (3.5-5.1); SODIUM 138 MMOL/L (136-145)
[2020-03-16] MEDS ORDERED: Glucagon 1mg Inj IM PRN (07:00)
[2020-03-16] MEDS ORDERED: Miralax 17gm pkt ORAL PRN (07:00)
--- NOTE | 2020-03-16 07:44 | General Progress Note ---
Assessment/Plan Problem List: (1) Anemia ICD Codes: D64.9 - Anemia, unspecified SNOMED: 012028075 (2) Hypoglycemia ICD Codes: E16.2 - Hypoglycemia, unspecified SNOMED: 312805869 (3) Acute kidney failure ICD Codes: N17.9 - Acute kidney failure, unspecified SNOMED: 38070921 (4) Syncope ICD Codes: R55 - Syncope and collapse SNOMED: 944587119 (5) UTI (urinary tract infection) ICD Codes: N39.0 - Urinary tract infection, site not specified SNOMED: 15808870 (6) FARIBA (acute kidney injury) ICD Codes: N17.9 - Acute kidney failure, unspecified SNOMED: 9087765, 32589565 Status: stable Assessment/Plan: continue Januvia 50 mg daily continue glucose monitoring hypoglycemia protocol in order no need for insulin after discharge I sign off Subjective Allergies: Coded Allergies: No Known Allergies (Unverified , 03/03/20) All Systems: reviewed and negative except above Subjective events noted interval notes reviewed glucose values are stable without hypoglycemia Item Value Date Time Bedside Blood Glucose 136 mg/dl H 03/16/20 0630 Bedside Blood Glucose 136 mg/dl H 03/15/20 2100 Bedside Blood Glucose 122 mg/dl H 03/15/20 1630 Bedside Blood Glucose 163 mg/dl H 03/15/20 1138 Bedside Blood Glucose 122 mg/dl H 03/15/20 0529 Objective Last 24 Hour Vital Signs Date Time Temp Pulse Resp B/P (MAP) Pulse Ox O2 Delivery O2 Flow Rate FiO2 03/16/20 05:39 126/67 03/16/20 05:38 126/67 03/16/20 04:00 Room Air 03/16/20 04:00 81 03/16/20 04:00 98.0 88 20 140/78 (98) 98 03/16/20 01:41 86 31 100 30 03/16/20 00:00 84 03/16/20 00:00 Room Air 03/16/20 00:00 136/67 03/16/20 00:00 98.1 83 24 136/67 (90) 100 03/15/20 22:41 81 34 100 30 03/15/20 22:08 131/78 03/15/20 20:52 88 30 100 30 03/15/20 20:37 134/58 03/15/20 20:18 94 Room Air 21 03/15/20 20:00 88 03/15/20 20:00 96.7 86 18 138/74 (95) 98 03/15/20 20:00 Room Air 03/15/20 18:10 142/72 03/15/20 16:00 Venturi Mask 03/15/20 16:00 85 03/15/20 16:00 98.6 86 18 142/72 (95) 97 03/15/20 13:26 87 134/69 03/15/20 13:26 134/69 03/15/20 12:00 98.4 87 17 134/69 (90) 97 03/15/20 12:00 Venturi Mask 03/15/20 12:00 83 03/15/20 08:46 82 137/73 03/15/20 08:46 137/73 03/15/20 08:00 98.5 85 17 137/73 (94) 96 03/15/20 08:00 Venturi Mask 03/15/20 08:00 82 Intake and Output 03/15/20 03/16/20 19:00 07:00 Intake Total 420 ml Output Total 800 ml 400 ml Balance -380 ml -400 ml Intake Oral 420 ml Output Urine Total 800 ml 400 ml # Bowel Movements 8 Laboratory Tests 03/16/20 03:14: White Blood Count 9.9, Red Blood Count 3.33L, Hemoglobin 8.3L, Hematocrit 26.8L , Mean Corpuscular Volume 81, Mean Corpuscular Hemoglobin 25.1L, Mean Corpuscular Hemoglobin Concent 31.1L, Red Cell Distribution Width 17.1H, Platelet Count 199, Mean Platelet Volume 6.9, Neutrophils (%) (Auto) 83.4H, Lymphocytes (%) (Auto) 9.5L, Monocytes (%) (Auto) 5.6, Eosinophils (%) (Auto) 0.9, Basophils (%) (Auto) 0.6, Sodium Level 138, Potassium Level 3.7, Chloride Level 104, Carbon Dioxide Level 27, Anion Gap 7, Blood Urea Nitrogen 19H, Creatinine 1.3, Estimat Glomerular Filtration Rate 50.2, Glucose Level 122H, Calcium Level 9.1, Total Bilirubin 0.5, Aspartate Amino Transf (AST/SGOT) 40H, Alanine Aminotransferase (ALT/SGPT) 34, Alkaline Phosphatase 155H, Total Protein 6.9, Albumin 2.2L, Globulin 4.7, Albumin/Globulin Ratio 0.5L Height (Feet): 5 Height (Inches): 10.00 Weight (Pounds): 300 General Appearance: no apparent distress Neck: normal alignment Cardiovascular: normal rate Respiratory/Chest: lungs clear Abdomen: normal bowel sounds Pelvis: normal external exam Objective Current Medications Medications (Trade) Dose Ordered Sig/Francisco J Route PRN Reason Start Time Stop Time Status Last Admin Dose Admin Acetaminophen (Tylenol) 650 mg Q4H PRN ORAL Mild Pain (Pain Scale 1-3) 03/16/20 07:00 04/02/20 06:59 Clonidine HCl (Catapres Tab) 0.1 mg EVERY 6 HOURS ORAL 03/16/20 12:00 06/12/20 11:59 Clonidine HCl (Catapres Tab) 0.1 mg Q4H PRN ORAL bp over 160 syst 03/16/20 07:00 06/03/20 06:59 Dextrose (Dextrose 50%) 25 ml Q30M PRN IV Hypoglycemia 03/16/20 06:30 06/01/20 21:59 Dextrose (Dextrose 50%) 50 ml Q30M PRN IV Hypoglycemia 03/16/20 06:30 06/01/20 21:59 Diltiazem HCl (Cardizem Tab) 90 mg Q8HR ORAL 03/16/20 14:00 04/11/20 19:59 Glucagon (Glucagon) 1 mg Q2H PRN IM Hypoglycemia 03/16/20 07:00 06/03/20 10:59 Insulin Aspart (NovoLOG) BEFORE MEALS AND HS SUBQ 03/16/20 06:30 06/05/20 06:29 Losartan Potassium (Cozaar) 50 mg BID ORAL 03/16/20 09:00 04/09/20 15:29 Metoprolol Tartrate (Lopressor) 50 mg Q12HR ORAL 03/16/20 09:00 06/04/20 15:14 Pantoprazole (Protonix) 40 mg EVERY 12 HOURS ORAL 03/16/20 09:00 04/08/20 08:59 Polyethylene Glycol (Miralax) 17 gm DAILYPRN PRN ORAL Constipation 03/16/20 07:00 04/03/20 06:59 Potassium Chloride (K-Dur) 20 meq TWICE A DAY ORAL 03/16/20 09:00 06/11/20 11:29 Sitagliptin Phosphate (Januvia) 50 mg ACBREAKFAST ORAL 03/16/20 06:30 04/09/20 06:29 Sudhir Barrow MD Mar 16, 2020 07:44
[2020-03-16 08:00] VITALS: BP 121/55
--- NOTE | 2020-03-16 08:10 | Hematology/Onc Progress Note ---
Assessment/Plan Assessment/Plan Assessment and recs # Pelvic mass, large 18cm, admitted for syncope secondary to hypoglycemia, also with acute renal failure now resolving. 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 Keith as outpatient # Anemia of chronic disease due to underlying chronic medical issues, multifactorial v Gi bleed --> Anemia workup has been ordered, rule out gi bleed --> No evidence of hemolysis is noted, peripheral smear has been reviewed. --> Hgb goal >7. Transfuse prn. --> Epogen or iron at this time is not particularly indicated --> Medications have been reviewed --> low threshold for gi evaluation in case has occult + --> hgb 8.7->8.3 # Pneumonia s/p rx --> COVID 19 negative # Respiratory failure resolved --> bipap # Renal failure improving --> per renal # Diabetes mellitus # Hypertension # Dvt ppx scds The timing of this note does not necessarily reflect the time of the patient was seen. Greatly appreciate consultation. Subjective HEENT: Denies: no symptoms, eye pain, blurred vision, tearing, double vision, ear pain, ear discharge, nose pain, nose congestion, throat pain, throat swelling, mouth pain, mouth swelling, other Cardiovascular: Denies: no symptoms, chest pain, edema, irregular heart rate, lightheadedness, palpitations, syncope, other Gastrointestinal/Abdominal: Denies: no symptoms, abdomen distended, abdominal pain, black stools, tarry stools, blood in stool, constipated, diarrhea, difficulty swallowing, nausea, poor appetite, poor fluid intake, rectal bleeding , vomiting, other Genitourinary: Denies: no symptoms, burning, discharge, frequency, flank pain, hematuria, incontinence, pain, urgency, other Neurologic/Psychiatric: Denies: no symptoms, anxiety, depressed, emotional problems, headache, numbness, paresthesia, pre-existing deficit, seizure, tingling, tremors, weakness, other Endocrine: Denies: no symptoms, excessive sweating, flushing, intolerance to cold, intolerance to heat, increased hunger, increased thirst, increased urine, unexplained weight gain, unexplained weight loss, other Hematologic/Lymphatic: Denies: no symptoms, anemia, easy bleeding, easy bruising, adenopathy, other Allergies: Coded Allergies: No Known Allergies (Unverified , 03/03/20) Subjective 03/15 has been requesting overnight to be off cpap, labs for am pending, dw her plan of care 03/16 labs have been reviewed, getting cpap overnight, ca 125 of 141 Objective Objective Current Medications Medications (Trade) Dose Ordered Sig/Francisco J Route PRN Reason Start Time Stop Time Status Last Admin Dose Admin Acetaminophen (Tylenol) 650 mg Q4H PRN ORAL Mild Pain (Pain Scale 1-3) 03/16/20 07:00 04/02/20 06:59 Clonidine HCl (Catapres Tab) 0.1 mg EVERY 6 HOURS ORAL 03/16/20 12:00 06/12/20 11:59 Clonidine HCl (Catapres Tab) 0.1 mg Q4H PRN ORAL bp over 160 syst 03/16/20 07:00 06/03/20 06:59 Dextrose (Dextrose 50%) 25 ml Q30M PRN IV Hypoglycemia 03/16/20 06:30 06/01/20 21:59 Dextrose (Dextrose 50%) 50 ml Q30M PRN IV Hypoglycemia 03/16/20 06:30 06/01/20 21:59 Diltiazem HCl (Cardizem Tab) 90 mg Q8HR ORAL 03/16/20 14:00 04/11/20 19:59 Glucagon (Glucagon) 1 mg Q2H PRN IM Hypoglycemia 03/16/20 07:00 06/03/20 10:59 Insulin Aspart (NovoLOG) BEFORE MEALS AND HS SUBQ 03/16/20 06:30 06/05/20 06:29 Losartan Potassium (Cozaar) 50 mg BID ORAL 03/16/20 09:00 04/09/20 15:29 Metoprolol Tartrate (Lopressor) 50 mg Q12HR ORAL 03/16/20 09:00 06/04/20 15:14 Pantoprazole (Protonix) 40 mg EVERY 12 HOURS ORAL 03/16/20 09:00 04/08/20 08:59 Polyethylene Glycol (Miralax) 17 gm DAILYPRN PRN ORAL Constipation 03/16/20 07:00 04/03/20 06:59 Potassium Chloride (K-Dur) 20 meq TWICE A DAY ORAL 03/16/20 09:00 06/11/20 11:29 Sitagliptin Phosphate (Januvia) 50 mg ACBREAKFAST ORAL 03/16/20 06:30 04/09/20 06:29 Last 24 Hour Vital Signs Date Time Temp Pulse Resp B/P (MAP) Pulse Ox O2 Delivery O2 Flow Rate FiO2 03/16/20 05:39 126/67 03/16/20 05:38 126/67 03/16/20 04:00 Room Air 03/16/20 04:00 81 03/16/20 04:00 98.0 88 20 140/78 (98) 98 03/16/20 01:41 86 31 100 30 03/16/20 00:00 84 03/16/20 00:00 Room Air 03/16/20 00:00 136/67 03/16/20 00:00 98.1 83 24 136/67 (90) 100 03/15/20 22:41 81 34 100 30 03/15/20 22:08 131/78 03/15/20 20:52 88 30 100 30 03/15/20 20:37 134/58 03/15/20 20:18 94 Room Air 21 03/15/20 20:00 88 03/15/20 20:00 96.7 86 18 138/74 (95) 98 03/15/20 20:00 Room Air 03/15/20 18:10 142/72 03/15/20 16:00 Venturi Mask 03/15/20 16:00 85 03/15/20 16:00 98.6 86 18 142/72 (95) 97 03/15/20 13:26 87 134/69 03/15/20 13:26 134/69 03/15/20 12:00 98.4 87 17 134/69 (90) 97 03/15/20 12:00 Venturi Mask 03/15/20 12:00 83 03/15/20 08:46 82 137/73 03/15/20 08:46 137/73 03/15/20 08:00 98.5 85 17 137/73 (94) 96 03/15/20 08:00 Venturi Mask 03/15/20 08:00 82 03/15/20 06:43 96 Room Air 21 03/15/20 05:34 134/70 03/15/20 05:01 77 139/74 03/15/20 04:39 6.0 35 03/15/20 04:00 30 03/15/20 04:00 Venturi Mask 03/15/20 03:47 98.0 77 18 139/74 (95) 100 03/15/20 03:41 80 03/15/20 01:30 81 35 97 30 03/15/20 00:07 135/72 03/15/20 00:00 30 03/15/20 00:00 97.9 73 18 135/72 (93) 100 03/15/20 00:00 76 03/15/20 00:00 Venturi Mask 03/14/20 23:30 80 34 96 30 03/14/20 22:18 78 141/70 03/14/20 22:15 78 18 141/70 (93) 100 03/14/20 20:46 82 36 98 30 03/14/20 20:32 84 39 92 30 03/14/20 20:09 87 147/77 03/14/20 20:00 30 03/14/20 20:00 Venturi Mask 03/14/20 20:00 98.2 87 18 147/77 (100) 100 03/14/20 19:30 92 Bi-Pap 30 03/14/20 19:25 79 03/14/20 17:06 153/75 03/14/20 17:06 153/75 03/14/20 16:00 40 03/14/20 16:00 Venturi Mask 03/14/20 16:00 86 03/14/20 16:00 97.6 96 18 153/75 (101) 96 03/14/20 14:33 79 30 99 Venturi Mask 8.0 40 03/14/20 13:50 87 157/76 03/14/20 12:13 160/64 03/14/20 12:00 Venturi Mask 03/14/20 12:00 40 03/14/20 12:00 98.2 79 23 160/64 (96) 97 03/14/20 12:00 80 03/14/20 11:00 74 20 152/70 (97) 96 03/14/20 10:00 71 22 148/84 (105) 99 03/14/20 09:00 81 19 159/62 (94) 100 03/14/20 08:15 152/66 03/14/20 08:15 80 152/66 Intake and Output 03/15/20 03/16/20 19:00 07:00 Intake Total 420 ml Output Total 800 ml 400 ml Balance -380 ml -400 ml Intake Oral 420 ml Output Urine Total 800 ml 400 ml # Bowel Movements 8 Labs Test 03/14/20 04:00 03/15/20 05:20 03/16/20 03:14 White Blood Count 10.0 K/UL (4.8-10.8) 10.1 K/UL (4.8-10.8) 9.9 K/UL (4.8-10.8) Red Blood Count 3.48 M/UL (4.20-5.40) 3.32 M/UL (4.20-5.40) 3.33 M/UL (4.20-5.40) Hemoglobin 8.6 G/DL (12.0-16.0) 8.3 G/DL (12.0-16.0) 8.3 G/DL (12.0-16.0) Hematocrit 27.7 % (37.0-47.0) 26.5 % (37.0-47.0) 26.8 % (37.0-47.0) Mean Corpuscular Volume 79 FL (80-99) 80 FL (80-99) 81 FL (80-99) Mean Corpuscular Hemoglobin 24.8 PG (27.0-31.0) 24.9 PG (27.0-31.0) 25.1 PG (27.0-31.0) Mean Corpuscular Hemoglobin Concent 31.2 G/DL (32.0-36.0) 31.1 G/DL (32.0-36.0) 31.1 G/DL (32.0-36.0) Red Cell Distribution Width 16.0 % (11.6-14.8) 16.3 % (11.6-14.8) 17.1 % (11.6-14.8) Platelet Count 213 K/UL (150-450) 197 K/UL (150-450) 199 K/UL (150-450) Mean Platelet Volume 6.8 FL (6.5-10.1) 6.5 FL (6.5-10.1) 6.9 FL (6.5-10.1) Neutrophils (%) (Auto) % (45.0-75.0) % (45.0-75.0) 83.4 % (45.0-75.0) Lymphocytes (%) (Auto) % (20.0-45.0) % (20.0-45.0) 9.5 % (20.0-45.0) Monocytes (%) (Auto) % (1.0-10.0) % (1.0-10.0) 5.6 % (1.0-10.0) Eosinophils (%) (Auto) % (0.0-3.0) % (0.0-3.0) 0.9 % (0.0-3.0) Basophils (%) (Auto) % (0.0-2.0) % (0.0-2.0) 0.6 % (0.0-2.0) Sodium Level 143 MMOL/L (136-145) 143 MMOL/L (136-145) 138 MMOL/L (136-145) Potassium Level 3.4 MMOL/L (3.5-5.1) 3.9 MMOL/L (3.5-5.1) 3.7 MMOL/L (3.5-5.1) Chloride Level 105 MMOL/L (98-107) 105 MMOL/L (98-107) 104 MMOL/L (98-107) Carbon Dioxide Level 28 MMOL/L (21-32) 29 MMOL/L (21-32) 27 MMOL/L (21-32) Anion Gap 10 mmol/L (5-15) 10 mmol/L (5-15) 7 mmol/L (5-15) Blood Urea Nitrogen 14 mg/dL (7-18) 18 mg/dL (7-18) 19 mg/dL (7-18) Creatinine 1.0 MG/DL (0.55-1.30) 1.1 MG/DL (0.55-1.30) 1.3 MG/DL (0.55-1.30) Estimat Glomerular Filtration Rate > 60 mL/min (>60) > 60 mL/min (>60) 50.2 mL/min (>60) Glucose Level 121 MG/DL (74-106) 122 MG/DL (74-106) 122 MG/DL (74-106) Calcium Level 9.0 MG/DL (8.5-10.1) 9.2 MG/DL (8.5-10.1) 9.1 MG/DL (8.5-10.1) Phosphorus Level 3.6 MG/DL (2.5-4.9) Magnesium Level 1.8 MG/DL (1.8-2.4) Total Bilirubin 0.5 MG/DL (0.2-1.0) 0.5 MG/DL (0.2-1.0) 0.5 MG/DL (0.2-1.0) Aspartate Amino Transf (AST/SGOT) 51 U/L (15-37) 47 U/L (15-37) 40 U/L (15-37) Alanine Aminotransferase (ALT/SGPT) 51 U/L (12-78) 44 U/L (12-78) 34 U/L (12-78) Alkaline Phosphatase 175 U/L (46-116) 173 U/L (46-116) 155 U/L (46-116) Pro-B-Type Natriuretic Peptide 8590 pg/mL (0-125) Total Protein 7.1 G/DL (6.4-8.2) 6.8 G/DL (6.4-8.2) 6.9 G/DL (6.4-8.2) Albumin 2.3 G/DL (3.4-5.0) 2.2 G/DL (3.4-5.0) 2.2 G/DL (3.4-5.0) Globulin 4.8 g/dL 4.6 g/dL 4.7 g/dL Albumin/Globulin Ratio 0.5 (1.0-2.7) 0.5 (1.0-2.7) 0.5 (1.0-2.7) Differential Total Cells Counted 100 Neutrophils % (Manual) 84 % (45-75) Lymphocytes % (Manual) 8 % (20-45) Monocytes % (Manual) 5 % (1-10) Eosinophils % (Manual) 3 % (0-3) Basophils % (Manual) 0 % (0-2) Band Neutrophils 0 % (0-8) Platelet Estimate Adequate Platelet Morphology Normal Polychromasia 1+ Hypochromasia 1+ Anisocytosis 1+ Height (Feet): 5 Height (Inches): 10.00 Weight (Pounds): 300 Objective Physical Exam General: Awake and alert, no acute distress HEENT: NC/AT. No scalp lacerations abrasions hematomas++ bipap Cardiovascular: RRR. S1 and S2 normal. No murmur appreciated Resp: Normal work of breathing. No cough, wheezing or crackles appreciated Abdomen: Abdomen is soft. Obese abdomen, nontender Skin: Intact. No abrasions, laceration or rash over the exposed skin MSK: Normal tone and bulk. Moving all extremities. No obvious deformity. Neuro: Awake and alert. Mentating appropriately. Spine: No tenderness in midline Ponce Iyer MD Mar 16, 2020 08:10
[2020-03-16] MEDS: Metoprolol Tartrate 50mg tab ORAL SCH ×2 (08:26→20:47)
[2020-03-16] MEDS: Losartan 50mg tab ORAL SCH ×2 (08:26→17:25)
--- NOTE | 2020-03-16 08:55 | General Progress Note ---
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.appreciated- outpt supervisor assembly stock onc eval replace lytes as needed pt/ot eval improving Subjective ROS Limited/Unobtainable: No Constitutional: Reports: malaise, weakness HEENT: Reports: no symptoms Cardiovascular: Reports: no symptoms Respiratory: Reports: no symptoms Gastrointestinal/Abdominal: Reports: no symptoms Genitourinary: Reports: no symptoms Neurologic/Psychiatric: Reports: no symptoms Endocrine: Reports: no symptoms Hematologic/Lymphatic: Reports: no symptoms Allergies: Coded Allergies: No Known Allergies (Unverified , 03/03/20) All Systems: reviewed and negative except above Subjective no complaints. off o2. no chest pain or sob. bipap at night, normally on cpap. Objective Last 24 Hour Vital Signs Date Time Temp Pulse Resp B/P (MAP) Pulse Ox O2 Delivery O2 Flow Rate FiO2 03/16/20 08:26 87 121/55 03/16/20 08:26 121/55 03/16/20 08:00 99.0 87 19 121/55 (77) 97 03/16/20 05:39 126/67 03/16/20 05:38 126/67 03/16/20 04:00 Room Air 03/16/20 04:00 81 03/16/20 04:00 98.0 88 20 140/78 (98) 98 03/16/20 01:41 86 31 100 30 03/16/20 00:00 84 03/16/20 00:00 Room Air 03/16/20 00:00 136/67 03/16/20 00:00 98.1 83 24 136/67 (90) 100 03/15/20 22:41 81 34 100 30 03/15/20 22:08 131/78 03/15/20 20:52 88 30 100 30 9/6/20 20:37 134/58 03/15/20 20:18 94 Room Air 21 03/15/20 20:00 88 03/15/20 20:00 96.7 86 18 138/74 (95) 98 03/15/20 20:00 Room Air 03/15/20 18:10 142/72 03/15/20 16:00 Venturi Mask 03/15/20 16:00 85 03/15/20 16:00 98.6 86 18 142/72 (95) 97 03/15/20 13:26 87 134/69 03/15/20 13:26 134/69 03/15/20 12:00 98.4 87 17 134/69 (90) 97 03/15/20 12:00 Venturi Mask 03/15/20 12:00 83 Intake and Output 03/15/20 03/16/20 19:00 07:00 Intake Total 420 ml Output Total 800 ml 400 ml Balance -380 ml -400 ml Intake Oral 420 ml Output Urine Total 800 ml 400 ml # Bowel Movements 8 Laboratory Tests 03/16/20 03:14: White Blood Count 9.9, Red Blood Count 3.33L, Hemoglobin 8.3L, Hematocrit 26.8L , Mean Corpuscular Volume 81, Mean Corpuscular Hemoglobin 25.1L, Mean Corpuscular Hemoglobin Concent 31.1L, Red Cell Distribution Width 17.1H, Platelet Count 199, Mean Platelet Volume 6.9, Neutrophils (%) (Auto) 83.4H, Lymphocytes (%) (Auto) 9.5L, Monocytes (%) (Auto) 5.6, Eosinophils (%) (Auto) 0.9, Basophils (%) (Auto) 0.6, Sodium Level 138, Potassium Level 3.7, Chloride Level 104, Carbon Dioxide Level 27, Anion Gap 7, Blood Urea Nitrogen 19H, Creatinine 1.3, Estimat Glomerular Filtration Rate 50.2, Glucose Level 122H, Calcium Level 9.1, Total Bilirubin 0.5, Aspartate Amino Transf (AST/SGOT) 40H, Alanine Aminotransferase (ALT/SGPT) 34, Alkaline Phosphatase 155H, Total Protein 6.9, Albumin 2.2L, Globulin 4.7, Albumin/Globulin Ratio 0.5L Height (Feet): 5 Height (Inches): 10.00 Weight (Pounds): 300 Objective General Appearance: WD/WN, alert EENT: PERRL/EOMI Neck: non-tender, normal alignment Cardiovascular: normal peripheral pulses, normal rate Respiratory/Chest: chest wall non-tender, lungs clear, normal breath sounds, no respiratory distress Abdomen: normal bowel sounds, non tender, soft, no organomegaly Edema: moderate edema Neurologic: ambulatory care II-XII grossly normal, alert, oriented x 3, responsive Sal Khanna MD Mar 16, 2020 08:55
--- NOTE | 2020-03-16 10:00 | General Progress Note ---
Assessment/Plan Status: stable Assessment/Plan: Assessment - Dark stools - OB (+) 1/2 - microcytic anemia - pelvic / uterine masses with JACKY - suspect malignancy - hydronephrosis - rectal wall thickening - resp failure - resolved renal failure - anasarca, abdominal distention - pleural effusion - pulmonary HTN - abnormal LFT - ? mets, ? JOHNSON, ? passive congestion Recommendations - Monitor H&H>>>stable - IV Fe trial - PPI - not candidate for endoscopy at this time - METALLURGICAL ANALYST ONC follow up Subjective ROS Limited/Unobtainable: No Allergies: Coded Allergies: No Known Allergies (Unverified , 03/03/20) Objective Last 24 Hour Vital Signs Date Time Temp Pulse Resp B/P (MAP) Pulse Ox O2 Delivery O2 Flow Rate FiO2 03/16/20 09:26 Room Air 03/16/20 08:26 87 121/55 03/16/20 08:26 121/55 03/16/20 08:00 99.0 87 19 121/55 (77) 97 03/16/20 08:00 92 03/16/20 05:39 126/67 03/16/20 05:38 126/67 03/16/20 04:00 Room Air 03/16/20 04:00 81 03/16/20 04:00 98.0 88 20 140/78 (98) 98 03/16/20 01:41 86 31 100 30 03/16/20 00:00 84 03/16/20 00:00 Room Air 03/16/20 00:00 136/67 03/16/20 00:00 98.1 83 24 136/67 (90) 100 03/15/20 22:41 81 34 100 30 03/15/20 22:08 131/78 03/15/20 20:52 88 30 100 30 03/15/20 20:37 134/58 03/15/20 20:18 94 Room Air 21 03/15/20 20:00 88 03/15/20 20:00 96.7 86 18 138/74 (95) 98 03/15/20 20:00 Room Air 03/15/20 18:10 142/72 03/15/20 16:00 Venturi Mask 03/15/20 16:00 85 03/15/20 16:00 98.6 86 18 142/72 (95) 97 03/15/20 13:26 87 134/69 03/15/20 13:26 134/69 03/15/20 12:00 98.4 87 17 134/69 (90) 97 03/15/20 12:00 Venturi Mask 03/15/20 12:00 83 Intake and Output 03/15/20 03/16/20 19:00 07:00 Intake Total 420 ml Output Total 800 ml 400 ml Balance -380 ml -400 ml Intake Oral 420 ml Output Urine Total 800 ml 400 ml # Bowel Movements 8 Laboratory Tests 03/16/20 03:14: White Blood Count 9.9, Red Blood Count 3.33L, Hemoglobin 8.3L, Hematocrit 26.8L , Mean Corpuscular Volume 81, Mean Corpuscular Hemoglobin 25.1L, Mean Corpuscular Hemoglobin Concent 31.1L, Red Cell Distribution Width 17.1H, Platelet Count 199, Mean Platelet Volume 6.9, Neutrophils (%) (Auto) 83.4H, Lymphocytes (%) (Auto) 9.5L, Monocytes (%) (Auto) 5.6, Eosinophils (%) (Auto) 0.9, Basophils (%) (Auto) 0.6, Sodium Level 138, Potassium Level 3.7, Chloride Level 104, Carbon Dioxide Level 27, Anion Gap 7, Blood Urea Nitrogen 19H, Creatinine 1.3, Estimat Glomerular Filtration Rate 50.2, Glucose Level 122H, Calcium Level 9.1, Total Bilirubin 0.5, Aspartate Amino Transf (AST/SGOT) 40H, Alanine Aminotransferase (ALT/SGPT) 34, Alkaline Phosphatase 155H, Total Protein 6.9, Albumin 2.2L, Globulin 4.7, Albumin/Globulin Ratio 0.5L Height (Feet): 5 Height (Inches): 10.00 Weight (Pounds): 300 General Appearance: no apparent distress EENT: normal ENT inspection Neck: supple Cardiovascular: normal rate Respiratory/Chest: decreased breath sounds Abdomen: normal bowel sounds, non tender, soft Extremities: non-tender Nikunj Eli MD Mar 16, 2020 10:00
--- NOTE | 2020-03-16 10:20 | Nephrology Progress Note ---
Assessment/Plan Problem List: (1) FARIBA (acute kidney injury) (2) Renal failure (ARF), acute on chronic (3) UTI (urinary tract infection) (4) Hypoglycemia (5) Anemia (6) Morbid obesity with BMI of 45.0-49.9, adult (7) Acute respiratory failure (8) Obstructive sleep apnea Assessment Acute renal failure Possible underlying chronic kidney disease High likelihood of diabetic nephropathy, patient has proteinuria and hypoalbuminemia Persistent hypo-glycemia: The patient was on 3 oral hypoglycemic agents including Glucophage Morbid obesity Hypertension Severe anemia, low MCV UTI Most likely obstructive sleep apnea Plan March 16: Patient remained stable from renal standpoint of view. Her pulmonary status improved. Continue to monitor electrolytes and blood sugar. Cancer markers CEA 125 is elevated March 15: Labs reviewed. Stable from renal standpoint of view. Patient improved clinically. Blood pressure is much stable. Continue per consultants. March 14: Labs reviewed. Abnormal electrolytes adjusted with supplements. Continue per consultants. Change clonidine patch to clonidine p.o. every 6 hours 0.1 mg for blood pressure. March 13: Labs reviewed. Magnesium supplement given. Blood pressure better controlled. Another dose of IV Lasix 20 mg given. Will watch electrolytes and renal parameters. Continue per pulmonary and management of respiratory status. March 12: Lab reviewed. Electrolytes adjusted. Blood pressure medication adjusted. Patient remains on BiPAP. Continue per consultants. Discontinue IV fluid. Lasix 20 mg IV once. March 11: Labs are reviewed. Potassium and magnesium supplement given. Continue per pulmonary. March 10: Labs reviewed. Medication reviewed. Remains on BiPAP. Will DC IV fluid and changed to D5W. Blood pressure medication adjusted. Cozaar added. Potassium supplement given. Continue per consultants. March 09: Labs reviewed. Medication list reviewed. Remains on BiPAP. Venturi mask is being tried. Discussed with informatics nurse. Renal parameters stable. Magnesium and potassium supplement given. Blood sugar stable. March 08: Today's labs pending. Will discontinue IV fluid. Remains on BiPAP. Aim to take off BiPAP as possible. Transfusion if needed. Discussed with DARSHAN Iglesias. March 07: Marked improvement in renal parameters. Blood sugar improved. Main issue are respiratory, as patient remains on BiPAP. Hemoglobin lower. May require transfusion again. Abnormal electrolytes corrected March 06: Clinically improved. Remains on BiPAP. Blood sugar improved. Urine output well maintained. Serum creatinine lowered. Will adjust blood pressure medication for better control. D10 infusion down to 50 cc an hour. Continue monitor renal parameters. Lasix as needed. 24-hour urine for total protein. March 05: Discontinue Cozaar, labetalol Stop all oral oral hypoglycemics and insulin Start clonidine patch and clonidine PRN for high blood pressure Add Norvasc for blood pressure D10 infusion Check labs, thyroid panel, anemia work-up, lipid panel, hemoglobin A1c Urine for eosinophils and spot sodium Check ABG Per orders Subjective ROS Limited/Unobtainable: No Objective Objective Last 24 Hour Vital Signs Date Time Temp Pulse Resp B/P (MAP) Pulse Ox O2 Delivery O2 Flow Rate FiO2 03/16/20 09:26 Room Air 03/16/20 08:26 87 121/55 03/16/20 08:26 121/55 03/16/20 08:00 99.0 87 19 121/55 (77) 97 03/16/20 08:00 92 03/16/20 05:39 126/67 03/16/20 05:38 126/67 03/16/20 04:00 Room Air 03/16/20 04:00 81 03/16/20 04:00 98.0 88 20 140/78 (98) 98 03/16/20 01:41 86 31 100 30 03/16/20 00:00 84 03/16/20 00:00 Room Air 03/16/20 00:00 136/67 03/16/20 00:00 98.1 83 24 136/67 (90) 100 03/15/20 22:41 81 34 100 30 03/15/20 22:08 131/78 03/15/20 20:52 88 30 100 30 03/15/20 20:37 134/58 03/15/20 20:18 94 Room Air 21 03/15/20 20:00 88 03/15/20 20:00 96.7 86 18 138/74 (95) 98 03/15/20 20:00 Room Air 03/15/20 18:10 142/72 03/15/20 16:00 Venturi Mask 03/15/20 16:00 85 03/15/20 16:00 98.6 86 18 142/72 (95) 97 03/15/20 13:26 87 134/69 03/15/20 13:26 134/69 03/15/20 12:00 98.4 87 17 134/69 (90) 97 03/15/20 12:00 Venturi Mask 03/15/20 12:00 83 Intake and Output 03/15/20 03/16/20 19:00 07:00 Intake Total 420 ml Output Total 800 ml 400 ml Balance -380 ml -400 ml Intake Oral 420 ml Output Urine Total 800 ml 400 ml # Bowel Movements 8 Current Medications Medications (Trade) Dose Ordered Sig/Francisco J Route PRN Reason Start Time Stop Time Status Last Admin Dose Admin Acetaminophen (Tylenol) 650 mg Q4H PRN ORAL Mild Pain (Pain Scale 1-3) 03/16/20 07:00 04/02/20 06:59 Clonidine HCl (Catapres Tab) 0.1 mg EVERY 6 HOURS ORAL 03/16/20 12:00 06/12/20 11:59 Clonidine HCl (Catapres Tab) 0.1 mg Q4H PRN ORAL bp over 160 syst 03/16/20 07:00 06/03/20 06:59 Dextrose (Dextrose 50%) 25 ml Q30M PRN IV Hypoglycemia 03/16/20 06:30 06/01/20 21:59 Dextrose (Dextrose 50%) 50 ml Q30M PRN IV Hypoglycemia 03/16/20 06:30 06/01/20 21:59 Diltiazem HCl (Cardizem Tab) 90 mg Q8HR ORAL 03/16/20 14:00 04/11/20 19:59 Glucagon (Glucagon) 1 mg Q2H PRN IM Hypoglycemia 03/16/20 07:00 06/03/20 10:59 Insulin Aspart (NovoLOG) BEFORE MEALS AND HS SUBQ 03/16/20 06:30 06/05/20 06:29 Losartan Potassium (Cozaar) 50 mg BID ORAL 03/16/20 09:00 04/09/20 15:29 03/16/20 08:26 Metoprolol Tartrate (Lopressor) 50 mg Q12HR ORAL 03/16/20 09:00 06/04/20 15:14 03/16/20 08:26 Pantoprazole (Protonix) 40 mg EVERY 12 HOURS ORAL 03/16/20 09:00 04/08/20 08:59 03/16/20 08:25 Polyethylene Glycol (Miralax) 17 gm DAILYPRN PRN ORAL Constipation 03/16/20 07:00 04/03/20 06:59 Potassium Chloride (K-Dur) 20 meq TWICE A DAY ORAL 03/16/20 09:00 06/11/20 11:29 03/16/20 08:28 Sitagliptin Phosphate (Januvia) 50 mg ACBREAKFAST ORAL 03/16/20 06:30 04/09/20 06:29 Laboratory Tests 03/16/20 03:14: White Blood Count 9.9, Red Blood Count 3.33L, Hemoglobin 8.3L, Hematocrit 26.8L , Mean Corpuscular Volume 81, Mean Corpuscular Hemoglobin 25.1L, Mean Corpuscular Hemoglobin Concent 31.1L, Red Cell Distribution Width 17.1H, Platelet Count 199, Mean Platelet Volume 6.9, Neutrophils (%) (Auto) 83.4H, Lymphocytes (%) (Auto) 9.5L, Monocytes (%) (Auto) 5.6, Eosinophils (%) (Auto) 0.9, Basophils (%) (Auto) 0.6, Sodium Level 138, Potassium Level 3.7, Chloride Level 104, Carbon Dioxide Level 27, Anion Gap 7, Blood Urea Nitrogen 19H, Creatinine 1.3, Estimat Glomerular Filtration Rate 50.2, Glucose Level 122H, Calcium Level 9.1, Total Bilirubin 0.5, Aspartate Amino Transf (AST/SGOT) 40H, Alanine Aminotransferase (ALT/SGPT) 34, Alkaline Phosphatase 155H, Total Protein 6.9, Albumin 2.2L, Globulin 4.7, Albumin/Globulin Ratio 0.5L Height (Feet): 5 Height (Inches): 10.00 Weight (Pounds): 300 General Appearance: no apparent distress, other - Breathing comfortably in room air Cardiovascular: normal rate Respiratory/Chest: decreased breath sounds Abdomen: soft - Obese Objective No change Sundar Camargo MD Mar 16, 2020 10:20
--- NOTE | 2020-03-16 10:52 | Infectious Diseases Prog Note ---
Assessment/Plan Assessment/Plan antibiotics : none A 1. pneumonia s/p rx COVID 19 negative 2. respiratory failure resolved 3. leucocytosis resolved 4. renal failure improving 5. diabetes mellitus 6. hypertension 7. pelvic mass P 1. observe off antibiotics 2. will follow up cultures Subjective Constitutional: Denies: fever, chills Respiratory: Denies: shortness of breath, dry cough Gastrointestinal/Abdominal: Denies: nausea, vomiting, diarrhea Musculoskeletal: Denies: pain Allergies: Coded Allergies: No Known Allergies (Unverified , 03/03/20) Objective Last 24 Hour Vital Signs Date Time Temp Pulse Resp B/P (MAP) Pulse Ox O2 Delivery O2 Flow Rate FiO2 03/16/20 09:26 Room Air 03/16/20 08:26 87 121/55 03/16/20 08:26 121/55 03/16/20 08:00 99.0 87 19 121/55 (77) 97 03/16/20 08:00 92 03/16/20 05:39 126/67 03/16/20 05:38 126/67 03/16/20 04:00 Room Air 03/16/20 04:00 81 03/16/20 04:00 98.0 88 20 140/78 (98) 98 03/16/20 01:41 86 31 100 30 03/16/20 00:00 84 03/16/20 00:00 Room Air 03/16/20 00:00 136/67 03/16/20 00:00 98.1 83 24 136/67 (90) 100 03/15/20 22:41 81 34 100 30 03/15/20 22:08 131/78 03/15/20 20:52 88 30 100 30 03/15/20 20:37 134/58 03/15/20 20:18 94 Room Air 21 03/15/20 20:00 88 03/15/20 20:00 96.7 86 18 138/74 (95) 98 03/15/20 20:00 Room Air 03/15/20 18:10 142/72 03/15/20 16:00 Venturi Mask 03/15/20 16:00 85 03/15/20 16:00 98.6 86 18 142/72 (95) 97 03/15/20 13:26 87 134/69 03/15/20 13:26 134/69 03/15/20 12:00 98.4 87 17 134/69 (90) 97 03/15/20 12:00 Venturi Mask 03/15/20 12:00 83 Height (Feet): 5 Height (Inches): 10.00 Weight (Pounds): 300 Respiratory/Chest: lungs clear Cardiovascular: normal rate, regular rhythm, no gallop/murmur Abdomen: soft, non tender Extremities: no edema Laboratory Tests Test 03/16/20 03:14 White Blood Count 9.9 K/UL (4.8-10.8) Red Blood Count 3.33 M/UL (4.20-5.40) L Hemoglobin 8.3 G/DL (12.0-16.0) L Hematocrit 26.8 % (37.0-47.0) L Mean Corpuscular Volume 81 FL (80-99) Mean Corpuscular Hemoglobin 25.1 PG (27.0-31.0) L Mean Corpuscular Hemoglobin Concent 31.1 G/DL (32.0-36.0) L Red Cell Distribution Width 17.1 % (11.6-14.8) H Platelet Count 199 K/UL (150-450) Mean Platelet Volume 6.9 FL (6.5-10.1) Neutrophils (%) (Auto) 83.4 % (45.0-75.0) H Lymphocytes (%) (Auto) 9.5 % (20.0-45.0) L Monocytes (%) (Auto) 5.6 % (1.0-10.0) Eosinophils (%) (Auto) 0.9 % (0.0-3.0) Basophils (%) (Auto) 0.6 % (0.0-2.0) Sodium Level 138 MMOL/L (136-145) Potassium Level 3.7 MMOL/L (3.5-5.1) Chloride Level 104 MMOL/L (98-107) Carbon Dioxide Level 27 MMOL/L (21-32) Anion Gap 7 mmol/L (5-15) Blood Urea Nitrogen 19 mg/dL (7-18) H Creatinine 1.3 MG/DL (0.55-1.30) Estimat Glomerular Filtration Rate 50.2 mL/min (>60) Glucose Level 122 MG/DL (74-106) H Calcium Level 9.1 MG/DL (8.5-10.1) Total Bilirubin 0.5 MG/DL (0.2-1.0) Aspartate Amino Transf (AST/SGOT) 40 U/L (15-37) H Alanine Aminotransferase (ALT/SGPT) 34 U/L (12-78) Alkaline Phosphatase 155 U/L (46-116) H Total Protein 6.9 G/DL (6.4-8.2) Albumin 2.2 G/DL (3.4-5.0) L Globulin 4.7 g/dL Albumin/Globulin Ratio 0.5 (1.0-2.7) L Current Medications Medications (Trade) Dose Ordered Sig/Francisco J Route PRN Reason Start Time Stop Time Status Last Admin Dose Admin Acetaminophen (Tylenol) 650 mg Q4H PRN ORAL Mild Pain (Pain Scale 1-3) 03/16/20 07:00 04/02/20 06:59 Clonidine HCl (Catapres Tab) 0.1 mg EVERY 6 HOURS ORAL 03/16/20 12:00 06/12/20 11:59 Clonidine HCl (Catapres Tab) 0.1 mg Q4H PRN ORAL bp over 160 syst 03/16/20 07:00 06/03/20 06:59 Dextrose (Dextrose 50%) 25 ml Q30M PRN IV Hypoglycemia 03/16/20 06:30 06/01/20 21:59 Dextrose (Dextrose 50%) 50 ml Q30M PRN IV Hypoglycemia 03/16/20 06:30 06/01/20 21:59 Diltiazem HCl (Cardizem Tab) 90 mg Q8HR ORAL 03/16/20 14:00 04/11/20 19:59 Glucagon (Glucagon) 1 mg Q2H PRN IM Hypoglycemia 03/16/20 07:00 06/03/20 10:59 Insulin Aspart (NovoLOG) BEFORE MEALS AND HS SUBQ 03/16/20 06:30 06/05/20 06:29 Losartan Potassium (Cozaar) 50 mg BID ORAL 03/16/20 09:00 04/09/20 15:29 03/16/20 08:26 Metoprolol Tartrate (Lopressor) 50 mg Q12HR ORAL 03/16/20 09:00 06/04/20 15:14 03/16/20 08:26 Pantoprazole (Protonix) 40 mg EVERY 12 HOURS ORAL 03/16/20 09:00 04/08/20 08:59 03/16/20 08:25 Polyethylene Glycol (Miralax) 17 gm DAILYPRN PRN ORAL Constipation 03/16/20 07:00 04/03/20 06:59 Potassium Chloride (K-Dur) 20 meq TWICE A DAY ORAL 03/16/20 09:00 06/11/20 11:29 03/16/20 08:28 Sitagliptin Phosphate (Januvia) 50 mg ACBREAKFAST ORAL 03/16/20 06:30 04/09/20 06:29 Yudelka Alcocer MD Mar 16, 2020 10:52
[2020-03-16 11:55] VITALS: BP 132/52
--- NOTE | 2020-03-16 13:21 | Pulmonolgy Critical Care Note ---
Critical Care - Asmt/Plan Assessment/Plan: Pulmonary Progress Note Assessment/Plan acute respiratory failure improved, now on floor hypoxemia metabolic acidosis ARF diabetes leukocytosis anemia anasarca pulmonary infiltrates uterine mass pleural effusion hydronephrosis PLAN IV antibiotics keep negative BIPAP prn DVT prophylaxis diurese PRN keep negative and monitor imaging renal noted and discussed heme and yield analyst following medications/laboratory data/nursing notes/ICU care reviewed in detail note reviewed and edited care discussed with RN and RT ICU time spent >40 minutes Critical Care - Subjective Interval Events: BIPAP PRN stable on oxygen ROS Limited/Unobtainable: Yes Condition: critical EKG Rhythm: Sinus Rhythm Critical Care - Objective Vital Signs Noted Labs: noted Objective: WDWN off BIPAP reduced breath sounds bilaterally without rhonchi or wheeze [id number] without MRG NABS nontender no HSM no CC noted edema nonfocal,alert Critical Care - Objective Last 24 Hour Vital Signs Date Time Temp Pulse Resp B/P (MAP) Pulse Ox O2 Delivery O2 Flow Rate FiO2 03/16/20 12:00 82 03/16/20 11:58 132/52 03/16/20 11:55 99.5 87 22 132/52 (78) 94 03/16/20 09:26 Room Air 03/16/20 08:26 87 121/55 03/16/20 08:26 121/55 03/16/20 08:00 99.0 87 19 121/55 (77) 97 03/16/20 08:00 92 03/16/20 07:41 97 Room Air 21 03/16/20 05:39 126/67 03/16/20 05:38 126/67 03/16/20 04:00 Room Air 03/16/20 04:00 81 03/16/20 04:00 98.0 88 20 140/78 (98) 98 03/16/20 01:41 86 31 100 30 03/16/20 00:00 84 03/16/20 00:00 Room Air 03/16/20 00:00 136/67 03/16/20 00:00 98.1 83 24 136/67 (90) 100 03/15/20 22:41 81 34 100 30 03/15/20 22:08 131/78 03/15/20 20:52 88 30 100 30 03/15/20 20:37 134/58 03/15/20 20:18 94 Room Air 21 03/15/20 20:00 88 03/15/20 20:00 96.7 86 18 138/74 (95) 98 03/15/20 20:00 Room Air 03/15/20 18:10 142/72 03/15/20 16:00 Venturi Mask 03/15/20 16:00 85 03/15/20 16:00 98.6 86 18 142/72 (95) 97 03/15/20 13:26 87 134/69 03/15/20 13:26 134/69 Accucheck: 129 Critical Care - Subjective ROS Limited/Unobtainable: No FI02: 21 Vent Support Mode: CPAP Sputum Amount: None I&O: Intake and Output 03/15/20 03/16/20 19:00 07:00 Intake Total 420 ml Output Total 800 ml 400 ml Balance -380 ml -400 ml Intake Oral 420 ml Output Urine Total 800 ml 400 ml # Bowel Movements 8 Miguel Guzmán MD Mar 16, 2020 13:21
[2020-03-16 16:00] VITALS: BP 127/66
[2020-03-16 20:00] VITALS: BP 135/66
[2020-03-17] VITALS: BP 141/64
--- NOTE | 2020-03-17 00:47 | Cardiology Progress Note ---
Subjective DATE OF SERVICE: Mar 17, 2020 Maintaining sinus rhythm COntinues to taper off bipap support Rising BP trend at times Monitor: sinus with PAC's - PAFib CT noted; large pelvic mass Venous duplex: negative for DVT Objective Last 24 Hour Vital Signs Date Time Temp Pulse Resp B/P (MAP) Pulse Ox O2 Delivery O2 Flow Rate FiO2 03/17/20 00:40 149/78 03/17/20 00:00 98.1 90 18 141/64 (89) 98 03/16/20 23:20 98 25 94 21 03/16/20 22:30 96 30 98 30 03/16/20 22:24 87 139/74 03/16/20 21:27 Room Air 03/16/20 21:23 92 30 98 30 03/16/20 21:23 98 Bi-Pap 30 03/16/20 20:47 78 135/89 03/16/20 20:00 91 03/16/20 20:00 98.8 87 18 135/66 (89) 98 87 03/16/20 17:25 127/66 03/16/20 17:25 127/66 03/16/20 16:00 87 03/16/20 16:00 98.2 84 20 127/66 (86) 94 03/16/20 13:51 82 132/52 03/16/20 12:25 97.5 03/16/20 12:00 82 03/16/20 11:58 132/52 03/16/20 11:55 99.5 87 22 132/52 (78) 94 03/16/20 09:26 Room Air 03/16/20 08:26 87 121/55 03/16/20 08:26 121/55 03/16/20 08:00 99.0 87 19 121/55 (77) 97 03/16/20 08:00 92 03/16/20 07:41 97 Room Air 21 03/16/20 05:39 126/67 03/16/20 05:38 126/67 03/16/20 04:00 Room Air 03/16/20 04:00 81 03/16/20 04:00 98.0 88 20 140/78 (98) 98 03/16/20 01:41 86 31 100 30 HEENT: normal ENT inspection RHYTHM: ST, PACs LUNGS: bilateral rhonchi CARDIAC: normal rate, normal S1 and S2 ABDOMEN: normal bowel sounds, non tender, soft, no organomegaly EXTREMITIES: No edema Laboratory Tests Test 03/16/20 03:14 White Blood Count 9.9 K/UL (4.8-10.8) Red Blood Count 3.33 M/UL (4.20-5.40) L Hemoglobin 8.3 G/DL (12.0-16.0) L Hematocrit 26.8 % (37.0-47.0) L Mean Corpuscular Volume 81 FL (80-99) Mean Corpuscular Hemoglobin 25.1 PG (27.0-31.0) L Mean Corpuscular Hemoglobin Concent 31.1 G/DL (32.0-36.0) L Red Cell Distribution Width 17.1 % (11.6-14.8) H Platelet Count 199 K/UL (150-450) Mean Platelet Volume 6.9 FL (6.5-10.1) Neutrophils (%) (Auto) 83.4 % (45.0-75.0) H Lymphocytes (%) (Auto) 9.5 % (20.0-45.0) L Monocytes (%) (Auto) 5.6 % (1.0-10.0) Eosinophils (%) (Auto) 0.9 % (0.0-3.0) Basophils (%) (Auto) 0.6 % (0.0-2.0) Sodium Level 138 MMOL/L (136-145) Potassium Level 3.7 MMOL/L (3.5-5.1) Chloride Level 104 MMOL/L (98-107) Carbon Dioxide Level 27 MMOL/L (21-32) Anion Gap 7 mmol/L (5-15) Blood Urea Nitrogen 19 mg/dL (7-18) H Creatinine 1.3 MG/DL (0.55-1.30) Estimat Glomerular Filtration Rate 50.2 mL/min (>60) Glucose Level 122 MG/DL (74-106) H Calcium Level 9.1 MG/DL (8.5-10.1) Total Bilirubin 0.5 MG/DL (0.2-1.0) Aspartate Amino Transf (AST/SGOT) 40 U/L (15-37) H Alanine Aminotransferase (ALT/SGPT) 34 U/L (12-78) Alkaline Phosphatase 155 U/L (46-116) H Total Protein 6.9 G/DL (6.4-8.2) Albumin 2.2 G/DL (3.4-5.0) L Globulin 4.7 g/dL Albumin/Globulin Ratio 0.5 (1.0-2.7) L Assessment/Plan Assessment/Plan Paroxysmal Atrial Fib Hypertension/HHD with rising BP trend Acute respiratory failure Metabolic acidosis Acute renal failure Anemia Anasarca Hypokalemia Hypomagnesemia HypoPO4 Dehydration/hypernatremia Bipap Free water replacement and potassium suppl as needed Replace lytes Advance antiHTN meds - add'l meds prn for BP spikes Abx ICU care Off Actos Maintain current cardiovascular meds for arrhythmia suppression Miguel Gama MD Mar 17, 2020 00:47
[2020-03-17 04:00] VITALS: BP 131/68
[2020-03-17] MEDS: dilTIAZem HCl 90mg tab ORAL SCH ×3 (05:38→22:41)
[2020-03-17] MEDS: NovoLOG Insulin Flexpen SUBQ SCH ×4 (06:22→21:00)
[2020-03-17] MEDS: sitaGLIPtin 50mg tab ORAL SCH (06:25)
--- NOTE | 2020-03-17 07:21 | Hematology/Onc Progress Note ---
Assessment/Plan Assessment/Plan Assessment and recs # Pelvic mass, large 18cm, admitted for syncope secondary to hypoglycemia, also with acute renal failure now resolving. 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 Keith as outpatient # Anemia of chronic disease due to underlying chronic medical issues, multifactorial v Gi bleed --> Anemia workup has been ordered, rule out gi bleed --> No evidence of hemolysis is noted, peripheral smear has been reviewed. --> Hgb goal >7. Transfuse prn. --> Epogen or iron at this time is not particularly indicated --> Medications have been reviewed --> low threshold for gi evaluation in case has occult + --> hgb 8.7->8.3 # Pneumonia s/p rx --> COVID 19 negative # Respiratory failure resolved --> bipap # Renal failure improving --> per renal # Diabetes mellitus # Hypertension # Dvt ppx scds The timing of this note does not necessarily reflect the time of the patient was seen. Greatly appreciate consultation. Subjective HEENT: Denies: no symptoms, eye pain, blurred vision, tearing, double vision, ear pain, ear discharge, nose pain, nose congestion, throat pain, throat swelling, mouth pain, mouth swelling, other Cardiovascular: Denies: no symptoms, chest pain, edema, irregular heart rate, lightheadedness, palpitations, syncope, other Respiratory: Denies: no symptoms, cough, shortness of breath, SOB with excertion, SOB at rest, sputum, wheezing, other Gastrointestinal/Abdominal: Denies: no symptoms, abdomen distended, abdominal pain, black stools, tarry stools, blood in stool, constipated, diarrhea, difficulty swallowing, nausea, poor appetite, poor fluid intake, rectal bleeding , vomiting, other Genitourinary: Denies: no symptoms, burning, discharge, frequency, flank pain, hematuria, incontinence, pain, urgency, other Neurologic/Psychiatric: Denies: no symptoms, anxiety, depressed, emotional problems, headache, numbness, paresthesia, pre-existing deficit, seizure, tingling, tremors, weakness, other Endocrine: Denies: no symptoms, excessive sweating, flushing, intolerance to cold, intolerance to heat, increased hunger, increased thirst, increased urine, unexplained weight gain, unexplained weight loss, other Allergies: Coded Allergies: No Known Allergies (Unverified , 03/03/20) Subjective 03/15 has been requesting overnight to be off cpap, labs for am pending, dw her plan of care 03/16 labs have been reviewed, getting cpap overnight, ca 125 of 141 03/17 with rectal tube in place, no bleeding, labs have been reviewed, hgb 8.3 Objective Objective Current Medications Medications (Trade) Dose Ordered Sig/Francisco J Route PRN Reason Start Time Stop Time Status Last Admin Dose Admin Acetaminophen (Tylenol) 650 mg Q4H PRN ORAL Mild Pain (Pain Scale 1-3) 03/16/20 07:00 04/02/20 06:59 03/16/20 11:59 Clonidine HCl (Catapres Tab) 0.1 mg EVERY 6 HOURS ORAL 03/16/20 12:00 06/12/20 11:59 03/17/20 00:40 Clonidine HCl (Catapres Tab) 0.1 mg Q4H PRN ORAL bp over 160 syst 03/16/20 07:00 06/03/20 06:59 Dextrose (Dextrose 50%) 25 ml Q30M PRN IV Hypoglycemia 03/16/20 06:30 06/01/20 21:59 Dextrose (Dextrose 50%) 50 ml Q30M PRN IV Hypoglycemia 03/16/20 06:30 06/01/20 21:59 Diltiazem HCl (Cardizem Tab) 90 mg Q8HR ORAL 03/16/20 14:00 04/11/20 19:59 03/17/20 05:38 Glucagon (Glucagon) 1 mg Q2H PRN IM Hypoglycemia 03/16/20 07:00 06/03/20 10:59 Insulin Aspart (NovoLOG) BEFORE MEALS AND HS SUBQ 03/16/20 06:30 06/05/20 06:29 Losartan Potassium (Cozaar) 50 mg BID ORAL 03/16/20 09:00 04/09/20 15:29 03/16/20 17:25 Metoprolol Tartrate (Lopressor) 50 mg Q12HR ORAL 03/16/20 09:00 06/04/20 15:14 03/16/20 20:47 Pantoprazole (Protonix) 40 mg EVERY 12 HOURS ORAL 03/16/20 09:00 04/08/20 08:59 03/16/20 20:48 Polyethylene Glycol (Miralax) 17 gm DAILYPRN PRN ORAL Constipation 03/16/20 07:00 04/03/20 06:59 Potassium Chloride (K-Dur) 20 meq TWICE A DAY ORAL 03/16/20 09:00 06/11/20 11:29 03/16/20 17:25 Sitagliptin Phosphate (Januvia) 50 mg ACBREAKFAST ORAL 03/16/20 06:30 04/09/20 06:29 03/17/20 06:25 Last 24 Hour Vital Signs Date Time Temp Pulse Resp B/P (MAP) Pulse Ox O2 Delivery O2 Flow Rate FiO2 03/17/20 05:38 78 120/69 03/17/20 05:37 120/69 03/17/20 04:00 81 03/17/20 04:00 97.6 79 18 131/68 (89) 98 03/17/20 00:40 149/78 03/17/20 00:00 98.1 90 18 141/64 (89) 98 03/16/20 23:20 98 25 94 21 03/16/20 22:30 96 30 98 30 03/16/20 22:24 87 139/74 03/16/20 21:27 Room Air 03/16/20 21:23 92 30 98 30 03/16/20 21:23 98 Bi-Pap 30 03/16/20 20:47 78 135/89 03/16/20 20:00 91 03/16/20 20:00 98.8 87 18 135/66 (89) 98 87 03/16/20 17:25 127/66 03/16/20 17:25 127/66 03/16/20 16:00 87 03/16/20 16:00 98.2 84 20 127/66 (86) 94 03/16/20 13:51 82 132/52 03/16/20 12:25 97.5 03/16/20 12:00 82 03/16/20 11:58 132/52 03/16/20 11:55 99.5 87 22 132/52 (78) 94 03/16/20 09:26 Room Air 03/16/20 08:26 87 121/55 03/16/20 08:26 121/55 03/16/20 08:00 99.0 87 19 121/55 (77) 97 03/16/20 08:00 92 03/16/20 07:41 97 Room Air 21 03/16/20 05:39 126/67 03/16/20 05:38 126/67 03/16/20 04:00 Room Air 03/16/20 04:00 81 03/16/20 04:00 98.0 88 20 140/78 (98) 98 03/16/20 01:41 86 31 100 30 03/16/20 00:00 84 03/16/20 00:00 Room Air 03/16/20 00:00 136/67 03/16/20 00:00 98.1 83 24 136/67 (90) 100 03/15/20 22:41 81 34 100 30 03/15/20 22:08 131/78 03/15/20 20:52 88 30 100 30 03/15/20 20:37 134/58 03/15/20 20:18 94 Room Air 21 03/15/20 20:00 88 03/15/20 20:00 96.7 86 18 138/74 (95) 98 03/15/20 20:00 Room Air 03/15/20 18:10 142/72 03/15/20 16:00 Venturi Mask 03/15/20 16:00 85 03/15/20 16:00 98.6 86 18 142/72 (95) 97 03/15/20 13:26 87 134/69 03/15/20 13:26 134/69 03/15/20 12:00 98.4 87 17 134/69 (90) 97 03/15/20 12:00 Venturi Mask 03/15/20 12:00 83 03/15/20 08:46 82 137/73 03/15/20 08:46 137/73 03/15/20 08:00 98.5 85 17 137/73 (94) 96 03/15/20 08:00 Venturi Mask 03/15/20 08:00 82 Intake and Output 03/16/20 03/17/20 19:00 07:00 Intake Total 580 ml Output Total 425 ml Balance 155 ml Intake Oral 300 ml Blood Product 250 ml Other 30 ml Output Urine Total 400 ml Stool Total 25 ml # Bowel Movements 1 Labs Test 03/15/20 05:20 03/16/20 03:14 White Blood Count 10.1 K/UL (4.8-10.8) 9.9 K/UL (4.8-10.8) Red Blood Count 3.32 M/UL (4.20-5.40) 3.33 M/UL (4.20-5.40) Hemoglobin 8.3 G/DL (12.0-16.0) 8.3 G/DL (12.0-16.0) Hematocrit 26.5 % (37.0-47.0) 26.8 % (37.0-47.0) Mean Corpuscular Volume 80 FL (80-99) 81 FL (80-99) Mean Corpuscular Hemoglobin 24.9 PG (27.0-31.0) 25.1 PG (27.0-31.0) Mean Corpuscular Hemoglobin Concent 31.1 G/DL (32.0-36.0) 31.1 G/DL (32.0-36.0) Red Cell Distribution Width 16.3 % (11.6-14.8) 17.1 % (11.6-14.8) Platelet Count 197 K/UL (150-450) 199 K/UL (150-450) Mean Platelet Volume 6.5 FL (6.5-10.1) 6.9 FL (6.5-10.1) Neutrophils (%) (Auto) % (45.0-75.0) 83.4 % (45.0-75.0) Lymphocytes (%) (Auto) % (20.0-45.0) 9.5 % (20.0-45.0) Monocytes (%) (Auto) % (1.0-10.0) 5.6 % (1.0-10.0) Eosinophils (%) (Auto) % (0.0-3.0) 0.9 % (0.0-3.0) Basophils (%) (Auto) % (0.0-2.0) 0.6 % (0.0-2.0) Differential Total Cells Counted 100 Neutrophils % (Manual) 84 % (45-75) Lymphocytes % (Manual) 8 % (20-45) Monocytes % (Manual) 5 % (1-10) Eosinophils % (Manual) 3 % (0-3) Basophils % (Manual) 0 % (0-2) Band Neutrophils 0 % (0-8) Platelet Estimate Adequate Platelet Morphology Normal Polychromasia 1+ Hypochromasia 1+ Anisocytosis 1+ Sodium Level 143 MMOL/L (136-145) 138 MMOL/L (136-145) Potassium Level 3.9 MMOL/L (3.5-5.1) 3.7 MMOL/L (3.5-5.1) Chloride Level 105 MMOL/L (98-107) 104 MMOL/L (98-107) Carbon Dioxide Level 29 MMOL/L (21-32) 27 MMOL/L (21-32) Anion Gap 10 mmol/L (5-15) 7 mmol/L (5-15) Blood Urea Nitrogen 18 mg/dL (7-18) 19 mg/dL (7-18) Creatinine 1.1 MG/DL (0.55-1.30) 1.3 MG/DL (0.55-1.30) Estimat Glomerular Filtration Rate > 60 mL/min (>60) 50.2 mL/min (>60) Glucose Level 122 MG/DL (74-106) 122 MG/DL (74-106) Calcium Level 9.2 MG/DL (8.5-10.1) 9.1 MG/DL (8.5-10.1) Total Bilirubin 0.5 MG/DL (0.2-1.0) 0.5 MG/DL (0.2-1.0) Aspartate Amino Transf (AST/SGOT) 47 U/L (15-37) 40 U/L (15-37) Alanine Aminotransferase (ALT/SGPT) 44 U/L (12-78) 34 U/L (12-78) Alkaline Phosphatase 173 U/L (46-116) 155 U/L (46-116) Total Protein 6.8 G/DL (6.4-8.2) 6.9 G/DL (6.4-8.2) Albumin 2.2 G/DL (3.4-5.0) 2.2 G/DL (3.4-5.0) Globulin 4.6 g/dL 4.7 g/dL Albumin/Globulin Ratio 0.5 (1.0-2.7) 0.5 (1.0-2.7) Height (Feet): 5 Height (Inches): 10.00 Weight (Pounds): 300 Objective Physical Exam General: Awake and alert, no acute distress HEENT: NC/AT. No scalp lacerations abrasions hematomas++ bipap Cardiovascular: RRR. S1 and S2 normal. No murmur appreciated Resp: Normal work of breathing. No cough, wheezing or crackles appreciated Abdomen: Abdomen is soft. Obese abdomen, nontender Skin: Intact. No abrasions, laceration or rash over the exposed skin MSK: Normal tone and bulk. Moving all extremities. No obvious deformity. Neuro: Awake and alert. Mentating appropriately. Spine: No tenderness in midline Ponce Iyer MD Mar 17, 2020 07:21
--- NOTE | 2020-03-17 07:57 | General Progress Note ---
Assessment/Plan Problem List: (1) Syncope ICD Codes: R55 - Syncope and collapse SNOMED: 914610017 (2) Acute kidney failure ICD Codes: N17.9 - Acute kidney failure, unspecified SNOMED: 11703869 (3) Hypoglycemia ICD Codes: E16.2 - Hypoglycemia, unspecified SNOMED: 567893545 (4) UTI (urinary tract infection) ICD Codes: N39.0 - Urinary tract infection, site not specified SNOMED: 86958378 Status: stable Assessment/Plan: o2 prn monitor cxr observe off abx monitor sugars diabetes rx per endo rn gyn eval.appreciated- outpt rn gyn onc eval replace lytes as needed pt/ot eval improving dc planning pending pt eval may need snf Subjective ROS Limited/Unobtainable: No Constitutional: Reports: malaise, weakness HEENT: Reports: no symptoms Cardiovascular: Reports: no symptoms Respiratory: Reports: no symptoms Gastrointestinal/Abdominal: Reports: no symptoms Genitourinary: Reports: no symptoms Neurologic/Psychiatric: Reports: no symptoms Endocrine: Reports: no symptoms Hematologic/Lymphatic: Reports: no symptoms Allergies: Coded Allergies: No Known Allergies (Unverified , 03/03/20) All Systems: reviewed and negative except above Subjective no complaints. off o2. no chest pain or sob. Objective Last 24 Hour Vital Signs Date Time Temp Pulse Resp B/P (MAP) Pulse Ox O2 Delivery O2 Flow Rate FiO2 03/17/20 05:38 78 120/69 03/17/20 05:37 120/69 03/17/20 04:00 81 03/17/20 04:00 97.6 79 18 131/68 (89) 98 03/17/20 00:40 149/78 03/17/20 00:00 98.1 90 18 141/64 (89) 98 03/16/20 23:20 98 25 94 21 03/16/20 22:30 96 30 98 30 03/16/20 22:24 87 139/74 03/16/20 21:27 Room Air 03/16/20 21:23 92 30 98 30 03/16/20 21:23 98 Bi-Pap 30 03/16/20 20:47 78 135/89 03/16/20 20:00 91 03/16/20 20:00 98.8 87 18 135/66 (89) 98 87 03/16/20 17:25 127/66 03/16/20 17:25 127/66 03/16/20 16:00 87 03/16/20 16:00 98.2 84 20 127/66 (86) 94 03/16/20 13:51 82 132/52 03/16/20 12:25 97.5 03/16/20 12:00 82 03/16/20 11:58 132/52 03/16/20 11:55 99.5 87 22 132/52 (78) 94 03/16/20 09:26 Room Air 03/16/20 08:26 87 121/55 03/16/20 08:26 121/55 03/16/20 08:00 99.0 87 19 121/55 (77) 97 03/16/20 08:00 92 Intake and Output 03/16/20 03/17/20 19:00 07:00 Intake Total 580 ml Output Total 425 ml Balance 155 ml Intake Oral 300 ml Blood Product 250 ml Other 30 ml Output Urine Total 400 ml Stool Total 25 ml # Bowel Movements 1 Height (Feet): 5 Height (Inches): 10.00 Weight (Pounds): 300 Objective General Appearance: WD/WN, alert EENT: PERRL/EOMI Neck: non-tender, normal alignment Cardiovascular: normal peripheral pulses, normal rate Respiratory/Chest: chest wall non-tender, lungs clear, normal breath sounds, no respiratory distress Abdomen: normal bowel sounds, non tender, soft, no organomegaly Edema: moderate edema Neurologic: surgical resident II-XII grossly normal, alert, oriented x 3, responsive Sal Khanna MD Mar 17, 2020 07:57
[2020-03-17 08:00] VITALS: BP 126/62
--- NOTE | 2020-03-17 08:18 | Critical Care Progress Note ---
Assessment/Plan Assessment/Plan acute respiratory failure hypoxemia metabolic acidosis ARF diabetes leukocytosis anemia anasarca pulmonary infiltrates uterine mass pleural effusion hydronephrosis PLAN IV antibiotics keep negative ? 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 medications/laboratory data/nursing notes reviewed in detail note reviewed and edited care discussed with RN and RT Critical Care - Subjective Interval Events: out of ICU off BIPAP and appears comfortable Condition: improving EKG Rhythm: Sinus Rhythm I&O: Intake and Output 03/16/20 03/17/20 19:00 07:00 Intake Total 580 ml Output Total 425 ml Balance 155 ml Intake Oral 300 ml Blood Product 250 ml Other 30 ml Output Urine Total 400 ml Stool Total 25 ml # Bowel Movements 1 Critical Care - Objective Last 24 Hour Vital Signs Date Time Temp Pulse Resp B/P (MAP) Pulse Ox O2 Delivery O2 Flow Rate FiO2 03/17/20 05:38 78 120/69 03/17/20 05:37 120/69 03/17/20 04:00 81 03/17/20 04:00 97.6 79 18 131/68 (89) 98 03/17/20 00:40 149/78 03/17/20 00:00 98.1 90 18 141/64 (89) 98 03/16/20 23:20 98 25 94 21 03/16/20 22:30 96 30 98 30 03/16/20 22:24 87 139/74 03/16/20 21:27 Room Air 03/16/20 21:23 92 30 98 30 03/16/20 21:23 98 Bi-Pap 30 03/16/20 20:47 78 135/89 03/16/20 20:00 91 03/16/20 20:00 98.8 87 18 135/66 (89) 98 87 03/16/20 17:25 127/66 03/16/20 17:25 127/66 03/16/20 16:00 87 03/16/20 16:00 98.2 84 20 127/66 (86) 94 03/16/20 13:51 82 132/52 03/16/20 12:25 97.5 03/16/20 12:00 82 03/16/20 11:58 132/52 03/16/20 11:55 99.5 87 22 132/52 (78) 94 03/16/20 09:26 Room Air 03/16/20 08:26 87 121/55 03/16/20 08:26 121/55 Labs: Labs Test 03/15/20 05:20 03/16/20 03:14 White Blood Count 10.1 K/UL (4.8-10.8) 9.9 K/UL (4.8-10.8) Red Blood Count 3.32 M/UL (4.20-5.40) 3.33 M/UL (4.20-5.40) Hemoglobin 8.3 G/DL (12.0-16.0) 8.3 G/DL (12.0-16.0) Hematocrit 26.5 % (37.0-47.0) 26.8 % (37.0-47.0) Mean Corpuscular Volume 80 FL (80-99) 81 FL (80-99) Mean Corpuscular Hemoglobin 24.9 PG (27.0-31.0) 25.1 PG (27.0-31.0) Mean Corpuscular Hemoglobin Concent 31.1 G/DL (32.0-36.0) 31.1 G/DL (32.0-36.0) Red Cell Distribution Width 16.3 % (11.6-14.8) 17.1 % (11.6-14.8) Platelet Count 197 K/UL (150-450) 199 K/UL (150-450) Mean Platelet Volume 6.5 FL (6.5-10.1) 6.9 FL (6.5-10.1) Neutrophils (%) (Auto) % (45.0-75.0) 83.4 % (45.0-75.0) Lymphocytes (%) (Auto) % (20.0-45.0) 9.5 % (20.0-45.0) Monocytes (%) (Auto) % (1.0-10.0) 5.6 % (1.0-10.0) Eosinophils (%) (Auto) % (0.0-3.0) 0.9 % (0.0-3.0) Basophils (%) (Auto) % (0.0-2.0) 0.6 % (0.0-2.0) Differential Total Cells Counted 100 Neutrophils % (Manual) 84 % (45-75) Lymphocytes % (Manual) 8 % (20-45) Monocytes % (Manual) 5 % (1-10) Eosinophils % (Manual) 3 % (0-3) Basophils % (Manual) 0 % (0-2) Band Neutrophils 0 % (0-8) Platelet Estimate Adequate Platelet Morphology Normal Polychromasia 1+ Hypochromasia 1+ Anisocytosis 1+ Sodium Level 143 MMOL/L (136-145) 138 MMOL/L (136-145) Potassium Level 3.9 MMOL/L (3.5-5.1) 3.7 MMOL/L (3.5-5.1) Chloride Level 105 MMOL/L (98-107) 104 MMOL/L (98-107) Carbon Dioxide Level 29 MMOL/L (21-32) 27 MMOL/L (21-32) Anion Gap 10 mmol/L (5-15) 7 mmol/L (5-15) Blood Urea Nitrogen 18 mg/dL (7-18) 19 mg/dL (7-18) Creatinine 1.1 MG/DL (0.55-1.30) 1.3 MG/DL (0.55-1.30) Estimat Glomerular Filtration Rate > 60 mL/min (>60) 50.2 mL/min (>60) Glucose Level 122 MG/DL (74-106) 122 MG/DL (74-106) Calcium Level 9.2 MG/DL (8.5-10.1) 9.1 MG/DL (8.5-10.1) Total Bilirubin 0.5 MG/DL (0.2-1.0) 0.5 MG/DL (0.2-1.0) Aspartate Amino Transf (AST/SGOT) 47 U/L (15-37) 40 U/L (15-37) Alanine Aminotransferase (ALT/SGPT) 44 U/L (12-78) 34 U/L (12-78) Alkaline Phosphatase 173 U/L (46-116) 155 U/L (46-116) Total Protein 6.8 G/DL (6.4-8.2) 6.9 G/DL (6.4-8.2) Albumin 2.2 G/DL (3.4-5.0) 2.2 G/DL (3.4-5.0) Globulin 4.6 g/dL 4.7 g/dL Albumin/Globulin Ratio 0.5 (1.0-2.7) 0.5 (1.0-2.7) Objective: WDWN off BIPAP and stable reduced breath sounds bilaterally without rhonchi or wheeze [id number] without MRG NABS nontender no HSM no CC noted edema nonfocal more alert Micro: Microbiology Date/Time Source Procedure Growth Status 03/16/20 19:00 Stool Clostridium difficile Toxin Assay - Final Complete Accucheck: 143 Charles Thomson MD Mar 17, 2020 08:18
[2020-03-17] MEDS: Losartan 50mg tab ORAL SCH ×2 (09:47→17:30)
[2020-03-17] MEDS: Metoprolol Tartrate 50mg tab ORAL SCH ×2 (09:47→21:17)
--- NOTE | 2020-03-17 10:45 | Nephrology Progress Note ---
Assessment/Plan Problem List: (1) FARIBA (acute kidney injury) (2) Renal failure (ARF), acute on chronic (3) UTI (urinary tract infection) (4) Hypoglycemia (5) Anemia (6) Morbid obesity with BMI of 45.0-49.9, adult (7) Acute respiratory failure (8) Obstructive sleep apnea Assessment Acute renal failure Possible underlying chronic kidney disease High likelihood of diabetic nephropathy, patient has proteinuria and hypoalbuminemia Persistent hypo-glycemia: The patient was on 3 oral hypoglycemic agents including Glucophage Morbid obesity Hypertension Severe anemia, low MCV UTI Most likely obstructive sleep apnea Plan March 17: No blood work today. Clinically patient is stable. Over all respiratory status improved. Will check chemistry panel tomorrow. Continue her consultants. March 16: Patient remained stable from renal standpoint of view. Her pulmonary status improved. Continue to monitor electrolytes and blood sugar. Cancer markers CEA 125 is elevated March 15: Labs reviewed. Stable from renal standpoint of view. Patient improved clinically. Blood pressure is much stable. Continue per consultants. March 14: Labs reviewed. Abnormal electrolytes adjusted with supplements. Continue per consultants. Change clonidine patch to clonidine p.o. every 6 hours 0.1 mg for blood pressure. March 13: Labs reviewed. Magnesium supplement given. Blood pressure better controlled. Another dose of IV Lasix 20 mg given. Will watch electrolytes and renal parameters. Continue per pulmonary and management of respiratory status. March 12: Lab reviewed. Electrolytes adjusted. Blood pressure medication adjusted. Patient remains on BiPAP. Continue per consultants. Discontinue IV fluid. Lasix 20 mg IV once. March 11: Labs are reviewed. Potassium and magnesium supplement given. Continue per pulmonary. March 10: Labs reviewed. Medication reviewed. Remains on BiPAP. Will DC IV fluid and changed to D5W. Blood pressure medication adjusted. Cozaar added. Potassium supplement given. Continue per consultants. March 09: Labs reviewed. Medication list reviewed. Remains on BiPAP. Venturi mask is being tried. 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 Renal parameters stable. Magnesium and potassium supplement given. Blood sugar stable. March 08: Today's labs pending. Will discontinue IV fluid. Remains on BiPAP. Aim to take off BiPAP as possible. Transfusion if needed. Discussed with DARSHAN Iglesias. March 07: Marked improvement in renal parameters. Blood sugar improved. Main issue are respiratory, as patient remains on BiPAP. Hemoglobin lower. May require transfusion again. Abnormal electrolytes corrected March 06: Clinically improved. Remains on BiPAP. Blood sugar improved. Urine output well maintained. Serum creatinine lowered. Will adjust blood pressure medication for better control. D10 infusion down to 50 cc an hour. Continue monitor renal parameters. Lasix as needed. 24-hour urine for total protein. March 05: Discontinue Cozaar, labetalol Stop all oral oral hypoglycemics and insulin Start clonidine patch and clonidine PRN for high blood pressure Add Norvasc for blood pressure D10 infusion Check labs, thyroid panel, anemia work-up, lipid panel, hemoglobin A1c Urine for eosinophils and spot sodium Check ABG Per orders Subjective ROS Limited/Unobtainable: No Objective Objective Last 24 Hour Vital Signs Date Time Temp Pulse Resp B/P (MAP) Pulse Ox O2 Delivery O2 Flow Rate FiO2 03/17/20 09:47 86 126/62 03/17/20 09:47 126/62 03/17/20 08:00 98.2 86 20 126/62 (83) 96 03/17/20 07:02 97 Room Air 21 03/17/20 05:38 78 120/69 03/17/20 05:37 120/69 03/17/20 04:00 81 03/17/20 04:00 97.6 79 18 131/68 (89) 98 03/17/20 00:40 149/78 03/17/20 00:00 98.1 90 18 141/64 (89) 98 03/16/20 23:20 98 25 94 21 03/16/20 22:30 96 30 98 30 03/16/20 22:24 87 139/74 03/16/20 21:27 Room Air 03/16/20 21:23 92 30 98 30 03/16/20 21:23 98 Bi-Pap 30 03/16/20 20:47 78 135/89 03/16/20 20:00 91 03/16/20 20:00 98.8 87 18 135/66 (89) 98 87 03/16/20 17:25 127/66 03/16/20 17:25 127/66 03/16/20 16:00 87 03/16/20 16:00 98.2 84 20 127/66 (86) 94 03/16/20 13:51 82 132/52 03/16/20 12:25 97.5 03/16/20 12:00 82 03/16/20 11:58 132/52 03/16/20 11:55 99.5 87 22 132/52 (78) 94 Intake and Output 03/16/20 03/17/20 19:00 07:00 Intake Total 580 ml Output Total 425 ml Balance 155 ml Intake Oral 300 ml Blood Product 250 ml Other 30 ml Output Urine Total 400 ml Stool Total 25 ml # Bowel Movements 1 No blood work today Height (Feet): 5 Height (Inches): 10.00 Weight (Pounds): 300 General Appearance: no apparent distress Cardiovascular: normal rate Respiratory/Chest: decreased breath sounds Abdomen: other - Obese Objective No change Sundar Camargo MD Mar 17, 2020 10:44
--- NOTE | 2020-03-17 11:02 | Infectious Diseases Prog Note ---
Assessment/Plan Assessment/Plan antibiotics : none A 1. pneumonia s/p rx COVID 19 negative 2. respiratory failure resolved 3. leucocytosis resolved 4. renal failure improving 5. diabetes mellitus 6. hypertension 7. pelvic mass P 1. observe off antibiotics 2. will follow up cultures Subjective Constitutional: Denies: fever, chills Respiratory: Denies: shortness of breath, dry cough Gastrointestinal/Abdominal: Denies: nausea, vomiting, diarrhea Musculoskeletal: Denies: pain Allergies: Coded Allergies: No Known Allergies (Unverified , 03/03/20) Objective Last 24 Hour Vital Signs Date Time Temp Pulse Resp B/P (MAP) Pulse Ox O2 Delivery O2 Flow Rate FiO2 03/17/20 09:47 86 126/62 03/17/20 09:47 126/62 03/17/20 08:00 98.2 86 20 126/62 (83) 96 03/17/20 07:02 97 Room Air 21 03/17/20 05:38 78 120/69 03/17/20 05:37 120/69 03/17/20 04:00 81 03/17/20 04:00 97.6 79 18 131/68 (89) 98 03/17/20 00:40 149/78 03/17/20 00:00 98.1 90 18 141/64 (89) 98 03/16/20 23:20 98 25 94 21 03/16/20 22:30 96 30 98 30 03/16/20 22:24 87 139/74 03/16/20 21:27 Room Air 03/16/20 21:23 92 30 98 30 03/16/20 21:23 98 Bi-Pap 30 03/16/20 20:47 78 135/89 03/16/20 20:00 91 03/16/20 20:00 98.8 87 18 135/66 (89) 98 87 03/16/20 17:25 127/66 03/16/20 17:25 127/66 03/16/20 16:00 87 03/16/20 16:00 98.2 84 20 127/66 (86) 94 03/16/20 13:51 82 132/52 03/16/20 12:25 97.5 03/16/20 12:00 82 03/16/20 11:58 132/52 03/16/20 11:55 99.5 87 22 132/52 (78) 94 Height (Feet): 5 Height (Inches): 10.00 Weight (Pounds): 300 Respiratory/Chest: lungs clear Cardiovascular: normal rate, regular rhythm, no gallop/murmur Abdomen: soft, non tender Extremities: no edema Microbiology Date/Time Source Procedure Growth Status 03/16/20 19:00 Stool Clostridium difficile Toxin Assay - Final Complete Current Medications Medications (Trade) Dose Ordered Sig/Francisco J Route PRN Reason Start Time Stop Time Status Last Admin Dose Admin Acetaminophen (Tylenol) 650 mg Q4H PRN ORAL Mild Pain (Pain Scale 1-3) 03/16/20 07:00 04/02/20 06:59 03/16/20 11:59 Clonidine HCl (Catapres Tab) 0.1 mg EVERY 6 HOURS ORAL 03/16/20 12:00 06/12/20 11:59 03/17/20 00:40 Clonidine HCl (Catapres Tab) 0.1 mg Q4H PRN ORAL bp over 160 syst 03/16/20 07:00 06/03/20 06:59 Dextrose (Dextrose 50%) 25 ml Q30M PRN IV Hypoglycemia 03/16/20 06:30 06/01/20 21:59 Dextrose (Dextrose 50%) 50 ml Q30M PRN IV Hypoglycemia 03/16/20 06:30 06/01/20 21:59 Diltiazem HCl (Cardizem Tab) 90 mg Q8HR ORAL 03/16/20 14:00 04/11/20 19:59 03/17/20 05:38 Glucagon (Glucagon) 1 mg Q2H PRN IM Hypoglycemia 03/16/20 07:00 06/03/20 10:59 Insulin Aspart (NovoLOG) BEFORE MEALS AND HS SUBQ 03/16/20 06:30 06/05/20 06:29 Losartan Potassium (Cozaar) 50 mg BID ORAL 03/16/20 09:00 04/09/20 15:29 03/17/20 09:47 Metoprolol Tartrate (Lopressor) 50 mg Q12HR ORAL 03/16/20 09:00 06/04/20 15:14 03/17/20 09:47 Pantoprazole (Protonix) 40 mg EVERY 12 HOURS ORAL 03/16/20 09:00 04/08/20 08:59 03/17/20 09:47 Polyethylene Glycol (Miralax) 17 gm DAILYPRN PRN ORAL Constipation 03/16/20 07:00 04/03/20 06:59 Potassium Chloride (K-Dur) 20 meq TWICE A DAY ORAL 03/16/20 09:00 06/11/20 11:29 03/17/20 09:47 Sitagliptin Phosphate (Januvia) 50 mg ACBREAKFAST ORAL 03/16/20 06:30 04/09/20 06:29 03/17/20 06:25 Yudelka Alcocer MD Mar 17, 2020 11:01
[2020-03-17 12:00] VITALS: BP 135/63
[2020-03-17 16:00] VITALS: BP 128/67
[2020-03-17] MEDS ORDERED: Tubing IV Secondary IV ONE (16:11)
[2020-03-17] MEDS ORDERED: NS 275ml ONE (16:11)
[2020-03-17] MEDS ORDERED: Tubing Blood Filter IV ONE (16:11)
[2020-03-17] MEDS ORDERED: D5W 275ml ONE (16:11)
[2020-03-17 20:00] VITALS: BP 139/78
--- NOTE | 2020-03-17 22:09 | Cardiology Progress Note ---
Subjective DATE OF SERVICE: Mar 17, 2020 Maintaining sinus rhythm Continues off bipap. Stabilizing BP range Monitor: sinus CT noted; large pelvic mass Venous duplex: negative for DVT Objective Last 24 Hour Vital Signs Date Time Temp Pulse Resp B/P (MAP) Pulse Ox O2 Delivery O2 Flow Rate FiO2 03/17/20 21:17 139/78 03/17/20 20:19 95 Room Air 21 03/17/20 17:31 128/67 03/17/20 17:30 128/67 03/17/20 16:00 91 03/17/20 16:00 98.4 89 20 128/67 (87) 97 03/17/20 15:20 95 24 95 21 03/17/20 14:58 85 135/63 03/17/20 12:30 135/63 03/17/20 12:00 98.2 85 20 135/63 (87) 97 03/17/20 12:00 85 03/17/20 09:47 86 126/62 03/17/20 09:47 126/62 03/17/20 09:00 Room Air 03/17/20 08:00 85 03/17/20 08:00 98.2 86 20 126/62 (83) 96 03/17/20 07:02 97 Room Air 03/17/20 05:38 78 120/69 03/17/20 05:37 120/69 03/17/20 04:00 81 03/17/20 04:00 97.6 79 18 131/68 (89) 98 03/17/20 00:40 149/78 03/17/20 00:00 98.1 90 18 141/64 (89) 98 03/16/20 23:20 98 25 94 21 03/16/20 22:30 96 30 98 30 03/16/20 22:24 87 139/74 HEENT: normal ENT inspection RHYTHM: ST, PACs LUNGS: bilateral rhonchi CARDIAC: normal rate, normal S1 and S2 ABDOMEN: normal bowel sounds, non tender, soft, no organomegaly EXTREMITIES: No edema Microbiology Date/Time Source Procedure Growth Status 03/16/20 19:00 Stool Clostridium difficile Toxin Assay - Final Complete Assessment/Plan Assessment/Plan Paroxysmal Atrial Fib Hypertension/HHD with rising BP trend Acute respiratory failure Metabolic acidosis Acute renal failure Anemia Anasarca Hypokalemia Hypomagnesemia HypoPO4 Dehydration/hypernatremia Bipap Free water replacement and potassium suppl as needed AMaintain current antiHTN meds - add'l meds prn for BP spikes Abx Off Actos - no resumption. Maintain current cardiovascular meds for arrhythmia suppression Miguel Gama MD Mar 17, 2020 22:09
--- NOTE | 2020-03-17 22:55 | General Progress Note ---
Assessment/Plan Status: stable Assessment/Plan: Assessment - Dark stools - OB (+) 1/2 - microcytic anemia - pelvic / uterine masses with JACKY - suspect JAVA SDET malignancy - hydronephrosis - rectal wall thickening - resp failure - resolved renal failure - anasarca, abdominal distention - pleural effusion - pulmonary HTN - abnormal LFT - ? mets, ? JOHNSON, ? passive congestion Recommendations - Monitor H&H - IV Fe trial - PPI - not candidate for endoscopy at this time - JAVA SDET ONC follow up - limited ultrasound - r/o ascites Subjective Allergies: Coded Allergies: No Known Allergies (Unverified , 03/03/20) Subjective above noted out of ICU poor appetite Objective Last 24 Hour Vital Signs Date Time Temp Pulse Resp B/P (MAP) Pulse Ox O2 Delivery O2 Flow Rate FiO2 03/17/20 22:41 121/71 03/17/20 21:17 139/78 03/17/20 20:19 95 Room Air 21 03/17/20 17:31 128/67 03/17/20 17:30 128/67 03/17/20 16:00 91 03/17/20 16:00 98.4 89 20 128/67 (87) 97 03/17/20 15:20 95 24 95 21 03/17/20 14:58 85 135/63 03/17/20 12:30 135/63 03/17/20 12:00 98.2 85 20 135/63 (87) 97 03/17/20 12:00 85 03/17/20 09:47 86 126/62 03/17/20 09:47 126/62 03/17/20 09:00 Room Air 03/17/20 08:00 85 03/17/20 08:00 98.2 86 20 126/62 (83) 96 03/17/20 07:02 97 Room Air 21 03/17/20 05:38 78 120/69 03/17/20 05:37 120/69 03/17/20 04:00 81 03/17/20 04:00 97.6 79 18 131/68 (89) 98 03/17/20 00:40 149/78 03/17/20 00:00 98.1 90 18 141/64 (89) 98 03/16/20 23:20 98 25 94 21 Intake and Output 9/7/20 9/8/20 19:00 07:00 Intake Total 580 ml Output Total 425 ml Balance 155 ml Intake Oral 300 ml Blood Product 250 ml Other 30 ml Output Urine Total 400 ml Stool Total 25 ml # Bowel Movements 1 Height (Feet): 5 Height (Inches): 10.00 Weight (Pounds): 300 Objective Debilitated WW HEENT NCAT Neck supple Coarse BS RR abd very distended (+) edema / anasarca Garry Barrera MD Mar 17, 2020 22:55
[2020-03-18] VITALS: BP 112/72
[2020-03-18] MEDS ORDERED: Glucagon 1mg Inj IM PRN (01:00)
--- NOTE | 2020-03-18 01:30 | Cardiology Report ---
APPROVED REPORT EKG Measurement Heart [id number] 140P64 [id number] <Conclusion> Normal sinus rhythm Normal ECG
--- NOTE | 2020-03-18 01:35 | Cardiology Report ---
APPROVED REPORT EXAM: Two-dimensional and M-mode echocardiogram with Doppler and color Doppler. INDICATION Angina pectoris M-Mode DIMENSIONS IVSd0.9 (0.7-1.1cm)Left Atrium (MM)3.5 (1.6-4.0cm) LVDd4.4 (3.5-5.6cm)Aortic Root3.3 (2.0-3.7cm) PWd0.9 (0.7-1.1cm)Aortic Cusp Exc.1.6 (1.5-2.0cm) IVSs1.9 cmEPSS0.4 (>1.0cm) LVDs2.6 (2.5-4.0cm) PWs1.1 cm <Conclusion> Technically difficult study due to poor acoustic windows & pt's body habitus. Normal left ventricular chamber size, systolic function and wall motion to extent visualized. Left ventricular ejection fraction estimated to be 60-65 %. Mild left ventricular hypertrophy. Anterior Echo-free space, may be due to pericardial fat or effusion. Mild bi-atrial enlargement. Right ventricular chamber size is within normal limits. Focal aortic valve sclerosis with adequate cusp excursion. Thickened mitral valve leaflets with normal excursion. Mitral annulus and aortic root calcification. Pulmonic valve not well visualized. Normal tricuspid valve structure. Subcostal views are not well visualized. A color flow and spectral Doppler study was performed and revealed: No aortic regurgitation. Trace mitral regurgitation. Mitral diastolic velocities of E & A equalization & Tissue Doppler Imaging suggest mildly reduced left ventricular relaxation c/w impaired relaxation diastolic dysfunction. Trace to mild tricuspid regurgitation. Tricuspid systolic velocities suggests peak right ventricular systolic pressure of 31mmHg.
--- NOTE | 2020-03-18 01:50 | Cardiology Report ---
APPROVED REPORT EKG Measurement Heart [id number] <Conclusion> Atrial fibrillation with rapid ventricular response Nonspecific ST and T wave abnormality Abnormal ECG
--- NOTE | 2020-03-18 01:55 | Cardiology Report ---
APPROVED REPORT EKG Measurement Heart [id number] <Conclusion> Normal sinus rhythm Possible Left atrial enlargement Low voltage QRS Borderline ECG
[2020-03-18 04:00] VITALS: BP 105/58
[2020-03-18] MEDS ORDERED: dilTIAZem HCl 90mg tab ORAL SCH (06:00)
[2020-03-18] MEDS: NovoLOG Insulin Flexpen SUBQ SCH ×4 (06:00→20:54)
[2020-03-18] MEDS: sitaGLIPtin 50mg tab ORAL SCH (06:03)
[2020-03-18 06:44] LABS: BASOPHILS % (AUTO) 0.9 % (0.0-2.0); EOSINOPHILS % (AUTO) 1.3 % (0.0-3.0); HEMATOCRIT 25.6 % (37.0-47.0); LYMPHOCYTES % (AUTO) 9.4 % (20.0-45.0); MEAN CORPUSCULAR VOLUME 80 FL (80-99); MONOCYTES % (AUTO) 7.5 % (1.0-10.0); PLATELET COUNT 229 K/UL (150-450); RED BLOOD COUNT 3.21 M/UL (4.20-5.40); RED CELL DISTRIBUTION WIDTH 16.6 % (11.6-14.8); WHITE BLOOD COUNT 9.7 K/UL (4.8-10.8)
[2020-03-18] MEDS ORDERED: Miralax 17gm pkt ORAL PRN (07:00)
[2020-03-18 07:04] LABS: ALANINE AMINOTRANSFERASE 23 U/L (12-78); ALBUMIN 2.2 G/DL (3.4-5.0); ALBUMIN/GLOBULIN RATIO 0.5 (1.0-2.7); ALKALINE PHOSPHATASE 140 U/L (46-116); ANION GAP 11 mmol/L (5-15); ASPARTATE AMINO TRANSFERASE 36 U/L (15-37); BILIRUBIN,TOTAL 0.4 MG/DL (0.2-1.0); BLOOD UREA NITROGEN 31 mg/dL (7-18); CALCIUM 9.1 MG/DL (8.5-10.1); CARBON DIOXIDE 25 MMOL/L (21-32); CHLORIDE 103 MMOL/L (98-107); CREATININE 1.8 MG/DL (0.55-1.30); POTASSIUM 4.1 MMOL/L (3.5-5.1); SODIUM 139 MMOL/L (136-145)
--- NOTE | 2020-03-18 07:37 | Hematology/Onc Progress Note ---
Assessment/Plan Assessment/Plan Assessment and recs # Pelvic mass, large 18cm, admitted for syncope secondary to hypoglycemia, also with acute renal failure now resolving. 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 Keith as outpatient # Anemia of chronic disease due to underlying chronic medical issues, multifactorial v Gi bleed --> Anemia workup has been ordered, rule out gi bleed --> No evidence of hemolysis is noted, peripheral smear has been reviewed. --> Hgb goal >7. Transfuse prn. --> Epogen or iron at this time is not particularly indicated --> Medications have been reviewed --> low threshold for gi evaluation in case has occult + --> hgb 8.7->8.3-->8 # Pneumonia s/p rx --> COVID 19 negative # Respiratory failure resolved --> bipap # Renal failure improving --> per renal # Diabetes mellitus # Hypertension # Dvt ppx scds The timing of this note does not necessarily reflect the time of the patient was seen. Greatly appreciate consultation. Subjective Constitutional: Denies: no symptoms, chills, fever, malaise, weakness, other HEENT: Denies: no symptoms, eye pain, blurred vision, tearing, double vision, ear pain, ear discharge, nose pain, nose congestion, throat pain, throat swelling, mouth pain, mouth swelling, other Cardiovascular: Denies: no symptoms, chest pain, edema, irregular heart rate, lightheadedness, palpitations, syncope, other Respiratory: Denies: no symptoms, cough, shortness of breath, SOB with excertion, SOB at rest, sputum, wheezing, other Gastrointestinal/Abdominal: Denies: no symptoms, abdomen distended, abdominal pain, black stools, tarry stools, blood in stool, constipated, diarrhea, difficulty swallowing, nausea, poor appetite, poor fluid intake, rectal bleeding , vomiting, other Genitourinary: Denies: no symptoms, burning, discharge, frequency, flank pain, hematuria, incontinence, pain, urgency, other Neurologic/Psychiatric: Denies: no symptoms, anxiety, depressed, emotional problems, headache, numbness, paresthesia, pre-existing deficit, seizure, tingling, tremors, weakness, other Endocrine: Denies: no symptoms, excessive sweating, flushing, intolerance to cold, intolerance to heat, increased hunger, increased thirst, increased urine, unexplained weight gain, unexplained weight loss, other Allergies: Coded Allergies: No Known Allergies (Unverified , 03/03/20) Subjective 03/15 has been requesting overnight to be off cpap, labs for am pending, dw her plan of care 03/16 labs have been reviewed, getting cpap overnight, ca 125 of 141 03/17 with rectal tube in place, no bleeding, labs have been reviewed, hgb 8.3 03/18 alert and oriented, with moore and rectal tube in place, no bleeding Objective Objective Current Medications Medications (Trade) Dose Ordered Sig/Francisco J Route PRN Reason Start Time Stop Time Status Last Admin Dose Admin Acetaminophen (Tylenol) 650 mg Q4H PRN ORAL Mild Pain (Pain Scale 1-3) 03/18/20 03:00 04/02/20 06:59 Clonidine HCl (Catapres Tab) 0.1 mg EVERY 6 HOURS ORAL 03/18/20 00:00 06/12/20 11:59 Clonidine HCl (Catapres Tab) 0.1 mg Q4H PRN ORAL bp over 160 syst 03/18/20 03:00 06/03/20 06:59 Dextrose (Dextrose 50%) 25 ml Q30M PRN IV Hypoglycemia 03/17/20 23:30 06/01/20 21:59 Dextrose (Dextrose 50%) 50 ml Q30M PRN IV Hypoglycemia 03/17/20 23:30 06/01/20 21:59 Diltiazem HCl (Cardizem Tab) 90 mg Q8HR ORAL 03/18/20 06:00 04/11/20 19:59 03/18/20 06:03 Glucagon (Glucagon) 1 mg Q2H PRN IM Hypoglycemia 03/18/20 01:00 06/03/20 10:59 Insulin Aspart (NovoLOG) BEFORE MEALS AND HS SUBQ 03/18/20 06:30 06/05/20 06:29 Losartan Potassium (Cozaar) 50 mg BID ORAL 03/18/20 09:00 04/09/20 15:29 Metoprolol Tartrate (Lopressor) 50 mg Q12HR ORAL 03/18/20 09:00 06/04/20 15:14 Pantoprazole (Protonix) 40 mg EVERY 12 HOURS ORAL 03/18/20 09:00 04/08/20 08:59 Polyethylene Glycol (Miralax) 17 gm DAILYPRN PRN ORAL Constipation 03/18/20 07:00 04/03/20 06:59 Potassium Chloride (K-Dur) 20 meq TWICE A DAY ORAL 03/18/20 09:00 06/11/20 11:29 Sitagliptin Phosphate (Januvia) 50 mg ACBREAKFAST ORAL 03/18/20 06:30 04/09/20 06:29 03/18/20 06:03 Last 24 Hour Vital Signs Date Time Temp Pulse Resp B/P (MAP) Pulse Ox O2 Delivery O2 Flow Rate FiO2 03/18/20 06:03 87 119/87 03/18/20 04:51 110/78 03/18/20 04:00 98.2 84 20 105/58 (74) 95 84 03/18/20 03:04 81 25 95 21 03/18/20 00:26 88 26 95 21 03/18/20 00:00 112/76 03/18/20 00:00 97.3 90 22 112/72 (85) 98 03/17/20 23:26 91 32 98 30 03/17/20 22:41 121/71 03/17/20 21:17 139/78 03/17/20 21:00 Room Air 03/17/20 20:19 95 Room Air 21 03/17/20 20:00 98.0 96 16 139/78 (98) 98 03/17/20 20:00 94 03/17/20 17:31 128/67 03/17/20 17:30 128/67 03/17/20 16:00 91 03/17/20 16:00 98.4 89 20 128/67 (87) 97 03/17/20 15:20 95 24 95 21 03/17/20 14:58 85 135/63 03/17/20 12:30 135/63 03/17/20 12:00 98.2 85 20 135/63 (87) 97 03/17/20 12:00 85 03/17/20 09:47 86 126/62 03/17/20 09:47 126/62 03/17/20 09:00 Room Air 03/17/20 08:00 85 03/17/20 08:00 98.2 86 20 126/62 (83) 96 03/17/20 07:02 97 Room Air 21 03/17/20 05:38 78 120/69 03/17/20 05:37 120/69 03/17/20 04:00 81 03/17/20 04:00 97.6 79 18 131/68 (89) 98 03/17/20 00:40 149/78 03/17/20 00:00 98.1 90 18 141/64 (89) 98 03/16/20 23:20 98 25 94 21 03/16/20 22:30 96 30 98 30 03/16/20 22:24 87 139/74 03/16/20 21:27 Room Air 03/16/20 21:23 92 30 98 30 03/16/20 21:23 98 Bi-Pap 30 03/16/20 20:47 78 135/89 03/16/20 20:00 91 03/16/20 20:00 98.8 87 18 135/66 (89) 98 87 03/16/20 17:25 127/66 03/16/20 17:25 127/66 03/16/20 16:00 87 03/16/20 16:00 98.2 84 20 127/66 (86) 94 03/16/20 13:51 82 132/52 03/16/20 12:25 97.5 03/16/20 12:00 82 03/16/20 11:58 132/52 03/16/20 11:55 99.5 87 22 132/52 (78) 94 03/16/20 09:26 Room Air 03/16/20 08:26 87 121/55 03/16/20 08:26 121/55 03/16/20 08:00 99.0 87 19 121/55 (77) 97 03/16/20 08:00 92 03/16/20 07:41 97 Room Air 21 Intake and Output 03/17/20 03/18/20 19:00 07:00 Intake Total 240 ml Output Total 300 ml Balance -60 ml Intake Oral 240 ml Output Urine Total 300 ml # Voids 1 Labs Test 03/16/20 03:14 03/18/20 06:00 White Blood Count 9.9 K/UL (4.8-10.8) 9.7 K/UL (4.8-10.8) Red Blood Count 3.33 M/UL (4.20-5.40) 3.21 M/UL (4.20-5.40) Hemoglobin 8.3 G/DL (12.0-16.0) 8.0 G/DL (12.0-16.0) Hematocrit 26.8 % (37.0-47.0) 25.6 % (37.0-47.0) Mean Corpuscular Volume 81 FL (80-99) 80 FL (80-99) Mean Corpuscular Hemoglobin 25.1 PG (27.0-31.0) 25.0 PG (27.0-31.0) Mean Corpuscular Hemoglobin Concent 31.1 G/DL (32.0-36.0) 31.4 G/DL (32.0-36.0) Red Cell Distribution Width 17.1 % (11.6-14.8) 16.6 % (11.6-14.8) Platelet Count 199 K/UL (150-450) 229 K/UL (150-450) Mean Platelet Volume 6.9 FL (6.5-10.1) 7.0 FL (6.5-10.1) Neutrophils (%) (Auto) 83.4 % (45.0-75.0) 81.0 % (45.0-75.0) Lymphocytes (%) (Auto) 9.5 % (20.0-45.0) 9.4 % (20.0-45.0) Monocytes (%) (Auto) 5.6 % (1.0-10.0) 7.5 % (1.0-10.0) Eosinophils (%) (Auto) 0.9 % (0.0-3.0) 1.3 % (0.0-3.0) Basophils (%) (Auto) 0.6 % (0.0-2.0) 0.9 % (0.0-2.0) Sodium Level 138 MMOL/L (136-145) 139 MMOL/L (136-145) Potassium Level 3.7 MMOL/L (3.5-5.1) 4.1 MMOL/L (3.5-5.1) Chloride Level 104 MMOL/L (98-107) 103 MMOL/L (98-107) Carbon Dioxide Level 27 MMOL/L (21-32) 25 MMOL/L (21-32) Anion Gap 7 mmol/L (5-15) 11 mmol/L (5-15) Blood Urea Nitrogen 19 mg/dL (7-18) 31 mg/dL (7-18) Creatinine 1.3 MG/DL (0.55-1.30) 1.8 MG/DL (0.55-1.30) Estimat Glomerular Filtration Rate 50.2 mL/min (>60) 34.4 mL/min (>60) Glucose Level 122 MG/DL (74-106) 136 MG/DL (74-106) Calcium Level 9.1 MG/DL (8.5-10.1) 9.1 MG/DL (8.5-10.1) Total Bilirubin 0.5 MG/DL (0.2-1.0) 0.4 MG/DL (0.2-1.0) Aspartate Amino Transf (AST/SGOT) 40 U/L (15-37) 36 U/L (15-37) Alanine Aminotransferase (ALT/SGPT) 34 U/L (12-78) 23 U/L (12-78) Alkaline Phosphatase 155 U/L (46-116) 140 U/L (46-116) Total Protein 6.9 G/DL (6.4-8.2) 7.0 G/DL (6.4-8.2) Albumin 2.2 G/DL (3.4-5.0) 2.2 G/DL (3.4-5.0) Globulin 4.7 g/dL 4.8 g/dL Albumin/Globulin Ratio 0.5 (1.0-2.7) 0.5 (1.0-2.7) Phosphorus Level 4.0 MG/DL (2.5-4.9) Magnesium Level 2.3 MG/DL (1.8-2.4) C-Reactive Protein, Quantitative 21.4 mg/dL (0.00-0.90) Height (Feet): 5 Height (Inches): 10.00 Weight (Pounds): 300 Objective Physical Exam General: Awake and alert, no acute distress HEENT: NC/AT. No scalp lacerations abrasions hematomas++ bipap Cardiovascular: RRR. S1 and S2 normal. No murmur appreciated Resp: Normal work of breathing. No cough, wheezing or crackles appreciated Abdomen: Abdomen is soft. Obese abdomen, nontender Skin: Intact. No abrasions, laceration or rash over the exposed skin MSK: Normal tone and bulk. Moving all extremities. No obvious deformity. Neuro: Awake and alert. Mentating appropriately. Spine: No tenderness in midline Ponce Iyer MD Mar 18, 2020 07:37
[2020-03-18 08:00] VITALS: BP 131/58
[2020-03-18] MEDS ORDERED: Losartan 50mg tab ORAL SCH (09:00)
[2020-03-18] MEDS: Metoprolol Tartrate 50mg tab ORAL SCH ×2 (10:04→20:53)
--- NOTE | 2020-03-18 10:56 | Infectious Diseases Prog Note ---
Assessment/Plan Assessment/Plan antibiotics : none A 1. pneumonia s/p rx COVID 19 negative 2. respiratory failure resolved 3. leucocytosis resolved 4. renal failure improving 5. diabetes mellitus 6. hypertension 7. pelvic mass P 1. observe off antibiotics 2. will follow up cultures Subjective Constitutional: Denies: fever, chills Respiratory: Denies: shortness of breath, dry cough Gastrointestinal/Abdominal: Denies: nausea, vomiting, diarrhea Musculoskeletal: Denies: pain Allergies: Coded Allergies: No Known Allergies (Unverified , 03/03/20) Objective Last 24 Hour Vital Signs Date Time Temp Pulse Resp B/P (MAP) Pulse Ox O2 Delivery O2 Flow Rate FiO2 03/18/20 10:04 84 131/58 03/18/20 10:03 131/58 03/18/20 09:00 Room Air 03/18/20 08:00 98.1 82 20 131/58 (82) 94 84 03/18/20 06:03 87 119/87 03/18/20 04:51 110/78 03/18/20 04:00 98.2 84 20 105/58 (74) 95 84 03/18/20 03:04 81 25 95 21 03/18/20 00:26 88 26 95 21 03/18/20 00:00 112/76 03/18/20 00:00 97.3 90 22 112/72 (85) 98 03/17/20 23:26 91 32 98 30 03/17/20 22:41 121/71 03/17/20 21:17 139/78 03/17/20 21:00 Room Air 03/17/20 20:19 95 Room Air 21 03/17/20 20:00 98.0 96 16 139/78 (98) 98 03/17/20 20:00 94 03/17/20 17:31 128/67 03/17/20 17:30 128/67 03/17/20 16:00 91 03/17/20 16:00 98.4 89 20 128/67 (87) 97 03/17/20 15:20 95 24 95 21 03/17/20 14:58 85 135/63 03/17/20 12:30 135/63 03/17/20 12:00 98.2 85 20 135/63 (87) 97 03/17/20 12:00 85 Height (Feet): 5 Height (Inches): 10.00 Weight (Pounds): 300 Respiratory/Chest: lungs clear Cardiovascular: normal rate, regular rhythm, no gallop/murmur Abdomen: soft, non tender Extremities: no edema Microbiology Date/Time Source Procedure Growth Status 03/16/20 19:00 Stool Clostridium difficile Toxin Assay - Final Complete Laboratory Tests Test 03/17/20 17:26 03/18/20 06:00 POC Whole Blood Glucose Pending White Blood Count 9.7 K/UL (4.8-10.8) Red Blood Count 3.21 M/UL (4.20-5.40) L Hemoglobin 8.0 G/DL (12.0-16.0) L Hematocrit 25.6 % (37.0-47.0) L Mean Corpuscular Volume 80 FL (80-99) Mean Corpuscular Hemoglobin 25.0 PG (27.0-31.0) L Mean Corpuscular Hemoglobin Concent 31.4 G/DL (32.0-36.0) L Red Cell Distribution Width 16.6 % (11.6-14.8) H Platelet Count 229 K/UL (150-450) Mean Platelet Volume 7.0 FL (6.5-10.1) Neutrophils (%) (Auto) 81.0 % (45.0-75.0) H Lymphocytes (%) (Auto) 9.4 % (20.0-45.0) L Monocytes (%) (Auto) 7.5 % (1.0-10.0) Eosinophils (%) (Auto) 1.3 % (0.0-3.0) Basophils (%) (Auto) 0.9 % (0.0-2.0) Sodium Level 139 MMOL/L (136-145) Potassium Level 4.1 MMOL/L (3.5-5.1) Chloride Level 103 MMOL/L (98-107) Carbon Dioxide Level 25 MMOL/L (21-32) Anion Gap 11 mmol/L (5-15) Blood Urea Nitrogen 31 mg/dL (7-18) H Creatinine 1.8 MG/DL (0.55-1.30) H Estimat Glomerular Filtration Rate 34.4 mL/min (>60) Glucose Level 136 MG/DL (74-106) H Calcium Level 9.1 MG/DL (8.5-10.1) Phosphorus Level 4.0 MG/DL (2.5-4.9) Magnesium Level 2.3 MG/DL (1.8-2.4) Total Bilirubin 0.4 MG/DL (0.2-1.0) Aspartate Amino Transf (AST/SGOT) 36 U/L (15-37) Alanine Aminotransferase (ALT/SGPT) 23 U/L (12-78) Alkaline Phosphatase 140 U/L (46-116) H C-Reactive Protein, Quantitative 21.4 mg/dL (0.00-0.90) H Total Protein 7.0 G/DL (6.4-8.2) Albumin 2.2 G/DL (3.4-5.0) L Globulin 4.8 g/dL Albumin/Globulin Ratio 0.5 (1.0-2.7) L Current Medications Medications (Trade) Dose Ordered Sig/Francisco J Route PRN Reason Start Time Stop Time Status Last Admin Dose Admin Acetaminophen (Tylenol) 650 mg Q4H PRN ORAL Mild Pain (Pain Scale 1-3) 03/18/20 03:00 04/02/20 06:59 Clonidine HCl (Catapres Tab) 0.1 mg EVERY 6 HOURS ORAL 03/18/20 00:00 06/12/20 11:59 Clonidine HCl (Catapres Tab) 0.1 mg Q4H PRN ORAL bp over 160 syst 03/18/20 03:00 06/03/20 06:59 Dextrose (Dextrose 50%) 25 ml Q30M PRN IV Hypoglycemia 03/17/20 23:30 06/01/20 21:59 Dextrose (Dextrose 50%) 50 ml Q30M PRN IV Hypoglycemia 03/17/20 23:30 06/01/20 21:59 Diltiazem HCl (Cardizem Tab) 90 mg Q8HR ORAL 03/18/20 06:00 04/11/20 19:59 03/18/20 06:03 Glucagon (Glucagon) 1 mg Q2H PRN IM Hypoglycemia 03/18/20 01:00 06/03/20 10:59 Insulin Aspart (NovoLOG) BEFORE MEALS AND HS SUBQ 03/18/20 06:30 06/05/20 06:29 Losartan Potassium (Cozaar) 50 mg BID ORAL 03/18/20 09:00 04/09/20 15:29 03/18/20 10:03 Metoprolol Tartrate (Lopressor) 50 mg Q12HR ORAL 03/18/20 09:00 06/04/20 15:14 03/18/20 10:04 Pantoprazole (Protonix) 40 mg EVERY 12 HOURS ORAL 03/18/20 09:00 04/08/20 08:59 03/18/20 10:03 Polyethylene Glycol (Miralax) 17 gm DAILYPRN PRN ORAL Constipation 03/18/20 07:00 04/03/20 06:59 Potassium Chloride (K-Dur) 20 meq TWICE A DAY ORAL 03/18/20 09:00 06/11/20 11:29 03/18/20 10:04 Sitagliptin Phosphate (Januvia) 50 mg ACBREAKFAST ORAL 03/18/20 06:30 04/09/20 06:29 03/18/20 06:03 Yudelka Alccoer MD Mar 18, 2020 10:56
[2020-03-18 12:00] VITALS: BP 119/56
--- NOTE | 2020-03-18 13:11 | Nephrology Progress Note ---
Assessment/Plan Problem List: (1) FARIBA (acute kidney injury) (2) Renal failure (ARF), acute on chronic (3) UTI (urinary tract infection) (4) Hypoglycemia (5) Anemia (6) Morbid obesity with BMI of 45.0-49.9, adult (7) Acute respiratory failure (8) Obstructive sleep apnea Assessment Acute renal failure Possible underlying chronic kidney disease High likelihood of diabetic nephropathy, patient has proteinuria and hypoalbuminemia Persistent hypo-glycemia: The patient was on 3 oral hypoglycemic agents including Glucophage Morbid obesity Hypertension Severe anemia, low MCV UTI Most likely obstructive sleep apnea Plan March 18: Blood work reviewed. Serum creatinine of 1.8. Continue to monitor renal parameters. Medication list reviewed. In view of low blood pressure and rising serum creatinine will adjust the blood pressure medication dosages per order. March 17: No blood work today. Clinically patient is stable. Over all respiratory status improved. Will check chemistry panel tomorrow. Continue her consultants. March 16: Patient remained stable from renal standpoint of view. Her pulmonary status improved. Continue to monitor electrolytes and blood sugar. Cancer markers CEA 125 is elevated March 15: Labs reviewed. Stable from renal standpoint of view. Patient improved clinically. Blood pressure is much stable. Continue per consultants. March 14: Labs reviewed. Abnormal electrolytes adjusted with supplements. Continue per consultants. Change clonidine patch to clonidine p.o. every 6 hours 0.1 mg for blood pressure. March 13: Labs reviewed. Magnesium supplement given. Blood pressure better controlled. Another dose of IV Lasix 20 mg given. Will watch electrolytes and renal parameters. Continue per pulmonary and management of respiratory status. March 12: Lab reviewed. Electrolytes adjusted. Blood pressure medication adjusted. Patient remains on BiPAP. Continue per consultants. Discontinue IV fluid. Lasix 20 mg IV once. March 11: Labs are reviewed. Potassium and magnesium supplement given. Continue per pulmonary. March 10: Labs reviewed. Medication reviewed. Remains on BiPAP. Will DC IV fluid and changed to D5W. Blood pressure medication adjusted. Cozaar added. Potassium supplement given. Continue per consultants. March 09: Labs reviewed. Medication list reviewed. Remains on BiPAP. Venturi mask is being tried. Discussed with production assembly operator. Renal parameters stable. Magnesium and potassium supplement given. Blood sugar stable. March 08: Today's labs pending. Will discontinue IV fluid. Remains on BiPAP. Aim to take off BiPAP as possible. Transfusion if needed. Discussed with DARSHAN Iglesias. March 07: Marked improvement in renal parameters. Blood sugar improved. Main issue are respiratory, as patient remains on BiPAP. Hemoglobin lower. May require transfusion again. Abnormal electrolytes corrected March 06: Clinically improved. Remains on BiPAP. Blood sugar improved. Urine output well maintained. Serum creatinine lowered. Will adjust blood pressure medication for better control. D10 infusion down to 50 cc an hour. Continue monitor renal parameters. Lasix as needed. 24-hour urine for total protein. March 05: Discontinue Cozaar, labetalol Stop all oral oral hypoglycemics and insulin Start clonidine patch and clonidine PRN for high blood pressure Add Norvasc for blood pressure D10 infusion Check labs, thyroid panel, anemia work-up, lipid panel, hemoglobin A1c Urine for eosinophils and spot sodium Check ABG Per orders Subjective ROS Limited/Unobtainable: No Constitutional: Reports: malaise Objective Objective Last 24 Hour Vital Signs Date Time Temp Pulse Resp B/P (MAP) Pulse Ox O2 Delivery O2 Flow Rate FiO2 03/18/20 12:00 98.1 88 20 119/56 (77) 98 03/18/20 12:00 119/56 03/18/20 10:04 84 131/58 03/18/20 10:03 131/58 03/18/20 09:00 Room Air 03/18/20 08:00 98.1 82 20 131/58 (82) 94 84 03/18/20 07:00 94 Room Air 21 03/18/20 06:03 87 119/87 03/18/20 04:51 110/78 03/18/20 04:00 98.2 84 20 105/58 (74) 95 84 03/18/20 03:04 81 25 95 21 03/18/20 00:26 88 26 95 21 03/18/20 00:00 112/76 03/18/20 00:00 97.3 90 22 112/72 (85) 98 03/17/20 23:26 91 32 98 30 03/17/20 22:41 121/71 03/17/20 21:17 139/78 03/17/20 21:00 Room Air 03/17/20 20:19 95 Room Air 21 03/17/20 20:00 98.0 96 16 139/78 (98) 98 03/17/20 20:00 94 03/17/20 17:31 128/67 03/17/20 17:30 128/67 03/17/20 16:00 91 03/17/20 16:00 98.4 89 20 128/67 (87) 97 03/17/20 15:20 95 24 95 21 03/17/20 14:58 85 135/63 Intake and Output 03/17/20 03/18/20 19:00 07:00 Intake Total 240 ml Output Total 300 ml Balance -60 ml Intake Oral 240 ml Output Urine Total 300 ml # Voids 1 Laboratory Tests 03/17/20 17:26: POC Whole Blood Glucose [Pending] 03/18/20 06:00: White Blood Count 9.7, Red Blood Count 3.21L, Hemoglobin 8.0L, Hematocrit 25.6L , Mean Corpuscular Volume 80, Mean Corpuscular Hemoglobin 25.0L, Mean Corpuscular Hemoglobin Concent 31.4L, Red Cell Distribution Width 16.6H, Platelet Count 229, Mean Platelet Volume 7.0, Neutrophils (%) (Auto) 81.0H, Lymphocytes (%) (Auto) 9.4L, Monocytes (%) (Auto) 7.5, Eosinophils (%) (Auto) 1.3, Basophils (%) (Auto) 0.9, Sodium Level 139, Potassium Level 4.1, Chloride Level 103, Carbon Dioxide Level 25, Anion Gap 11, Blood Urea Nitrogen 31H, Creatinine 1.8H, Estimat Glomerular Filtration Rate 34.4, Glucose Level 136H, Calcium Level 9.1, Phosphorus Level 4.0, Magnesium Level 2.3, Total Bilirubin 0.4, Aspartate Amino Transf (AST/SGOT) 36, Alanine Aminotransferase (ALT/SGPT) 23, Alkaline Phosphatase 140H, C-Reactive Protein, Quantitative 21.4H, Total Protein 7.0, Albumin 2.2L, Globulin 4.8, Albumin/Globulin Ratio 0.5L Height (Feet): 5 Height (Inches): 10.00 Weight (Pounds): 300 General Appearance: no apparent distress Cardiovascular: normal rate - Rate mid 80s Respiratory/Chest: decreased breath sounds Abdomen: distended Objective No change Sundar Camargo MD Mar 18, 2020 13:11
[2020-03-18] MEDS: dilTIAZem HCl 60mg tab ORAL SCH ×2 (14:00→22:00)
--- NOTE | 2020-03-18 15:08 | Diagnostic Imaging Report ---
Indication: Abdominal distention, suspected ascites Technique: Limited grayscale and duplex images of the upper abdomen Comparison: 03/04/2020, also abdomen pelvis CT 03/10/2020 Findings: There is moderate right hydronephrosis. Right kidney measures 12.4 cm length. Left kidney measures 14 cm in length, demonstrates no hydronephrosis. Large midline pelvic mass is demonstrated, also reported on prior CT scans. The gallbladder contains sludge. The common bile duct measures 2 mm in diameter. There is trace free fluid in the right adnexal region, but no massive ascites demonstrated. The bladder is empty, contains a Baca catheter Impression: Limited exam, as described Trace free intraperitoneal fluid. Also reported on prior CT scan Moderate right hydronephrosis, also previously demonstrated Gallbladder sludge but no stones. Normal caliber common bile duct Large midline upper pelvic mass, better visualized on prior CT scan
--- NOTE | 2020-03-18 15:19 | General Progress Note ---
Assessment/Plan Problem List: (1) Syncope ICD Codes: R55 - Syncope and collapse SNOMED: 158667381 (2) Acute kidney failure ICD Codes: N17.9 - Acute kidney failure, unspecified SNOMED: 67812169 (3) Hypoglycemia ICD Codes: E16.2 - Hypoglycemia, unspecified SNOMED: 072869948 (4) UTI (urinary tract infection) ICD Codes: N39.0 - Urinary tract infection, site not specified SNOMED: 82333791 Status: stable Assessment/Plan: o2 prn monitor cxr observe off abx monitor sugars diabetes rx per endo harness mender eval.appreciated- outpt harness mender onc eval monitor renal fxn- repeat tomorrow pt/ot eval improving dc planning pending pt eval may need snf Subjective ROS Limited/Unobtainable: No Constitutional: Reports: malaise, weakness HEENT: Reports: no symptoms Cardiovascular: Reports: no symptoms Respiratory: Reports: no symptoms Gastrointestinal/Abdominal: Reports: no symptoms Genitourinary: Reports: no symptoms Neurologic/Psychiatric: Reports: no symptoms Endocrine: Reports: no symptoms Hematologic/Lymphatic: Reports: no symptoms Allergies: Coded Allergies: No Known Allergies (Unverified , 03/03/20) All Systems: reviewed and negative except above Subjective no complaints. off o2. no chest pain or sob. Cr up today Objective Last 24 Hour Vital Signs Date Time Temp Pulse Resp B/P (MAP) Pulse Ox O2 Delivery O2 Flow Rate FiO2 03/18/20 14:00 89 112/57 03/18/20 12:00 98.1 88 20 119/56 (77) 98 03/18/20 12:00 119/56 03/18/20 10:04 84 131/58 03/18/20 10:03 131/58 03/18/20 09:00 Room Air 03/18/20 08:00 98.1 82 20 131/58 (82) 94 84 03/18/20 07:00 94 Room Air 21 03/18/20 06:03 87 119/87 03/18/20 04:51 110/78 03/18/20 04:00 98.2 84 20 105/58 (74) 95 84 03/18/20 03:04 81 25 95 21 03/18/20 00:26 88 26 95 21 03/18/20 00:00 112/76 03/18/20 00:00 97.3 90 22 112/72 (85) 98 03/17/20 23:26 91 32 98 30 03/17/20 22:41 121/71 03/17/20 21:17 139/78 03/17/20 21:00 Room Air 03/17/20 20:19 95 Room Air 21 03/17/20 20:00 98.0 96 16 139/78 (98) 98 03/17/20 20:00 94 03/17/20 17:31 128/67 03/17/20 17:30 128/67 03/17/20 16:00 91 03/17/20 16:00 98.4 89 20 128/67 (87) 97 03/17/20 15:20 95 24 95 21 Intake and Output 03/17/20 03/18/20 19:00 07:00 Intake Total 240 ml Output Total 300 ml Balance -60 ml Intake Oral 240 ml Output Urine Total 300 ml # Voids 1 Laboratory Tests 03/17/20 17:26: POC Whole Blood Glucose [Pending] 03/18/20 06:00: White Blood Count 9.7, Red Blood Count 3.21L, Hemoglobin 8.0L, Hematocrit 25.6L , Mean Corpuscular Volume 80, Mean Corpuscular Hemoglobin 25.0L, Mean Corpuscular Hemoglobin Concent 31.4L, Red Cell Distribution Width 16.6H, Platelet Count 229, Mean Platelet Volume 7.0, Neutrophils (%) (Auto) 81.0H, Lymphocytes (%) (Auto) 9.4L, Monocytes (%) (Auto) 7.5, Eosinophils (%) (Auto) 1.3, Basophils (%) (Auto) 0.9, Sodium Level 139, Potassium Level 4.1, Chloride Level 103, Carbon Dioxide Level 25, Anion Gap 11, Blood Urea Nitrogen 31H, Creatinine 1.8H, Estimat Glomerular Filtration Rate 34.4, Glucose Level 136H, Calcium Level 9.1, Phosphorus Level 4.0, Magnesium Level 2.3, Total Bilirubin 0.4, Aspartate Amino Transf (AST/SGOT) 36, Alanine Aminotransferase (ALT/SGPT) 23, Alkaline Phosphatase 140H, C-Reactive Protein, Quantitative 21.4H, Total Protein 7.0, Albumin 2.2L, Globulin 4.8, Albumin/Globulin Ratio 0.5L Height (Feet): 5 Height (Inches): 10.00 Weight (Pounds): 300 Objective General Appearance: WD/WN, alert EENT: PERRL/EOMI Neck: non-tender, normal alignment Cardiovascular: normal peripheral pulses, normal rate Respiratory/Chest: chest wall non-tender, lungs clear, normal breath sounds, no respiratory distress Abdomen: normal bowel sounds, non tender, soft, no organomegaly Edema: moderate edema Neurologic: pre k lead teacher II-XII grossly normal, alert, oriented x 3, responsive Sal Khanna MD Mar 18, 2020 15:19
[2020-03-18 16:00] VITALS: BP 129/63
--- NOTE | 2020-03-18 17:46 | Critical Care Progress Note ---
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 follow up medications/laboratory data/nursing notes reviewed in detail note reviewed and edited care discussed with RN and RT Critical Care - Subjective Interval Events: appears stable EKG Rhythm: Sinus Rhythm I&O: Intake and Output 03/17/20 03/18/20 19:00 07:00 Intake Total 240 ml Output Total 300 ml Balance -60 ml Intake Oral 240 ml Output Urine Total 300 ml # Voids 1 Critical Care - Objective Last 24 Hour Vital Signs Date Time Temp Pulse Resp B/P (MAP) Pulse Ox O2 Delivery O2 Flow Rate FiO2 03/18/20 17:14 126/61 03/18/20 16:00 98.2 88 20 129/63 (85) 94 03/18/20 14:00 89 112/57 03/18/20 12:00 98.1 88 20 119/56 (77) 98 03/18/20 12:00 119/56 03/18/20 10:04 84 131/58 03/18/20 10:03 131/58 03/18/20 09:00 Room Air 03/18/20 08:00 98.1 82 20 131/58 (82) 94 84 03/18/20 07:00 94 Room Air 03/18/20 06:03 87 119/87 03/18/20 04:51 110/78 03/18/20 04:00 98.2 84 20 105/58 (74) 95 84 03/18/20 03:04 81 25 95 21 03/18/20 00:26 88 26 95 21 03/18/20 00:00 112/76 03/18/20 00:00 97.3 90 22 112/72 (85) 98 03/17/20 23:26 91 32 98 30 03/17/20 22:41 121/71 03/17/20 21:17 139/78 03/17/20 21:00 Room Air 03/17/20 20:19 95 Room Air 21 03/17/20 20:00 98.0 96 16 139/78 (98) 98 03/17/20 20:00 94 Labs: Labs Test 03/15/20 20:35 03/16/20 03:14 03/16/20 05:33 03/16/20 11:22 White Blood Count 9.9 K/UL (4.8-10.8) Red Blood Count 3.33 M/UL (4.20-5.40) Hemoglobin 8.3 G/DL (12.0-16.0) Hematocrit 26.8 % (37.0-47.0) Mean Corpuscular Volume 81 FL (80-99) Mean Corpuscular Hemoglobin 25.1 PG (27.0-31.0) Mean Corpuscular Hemoglobin Concent 31.1 G/DL (32.0-36.0) Red Cell Distribution Width 17.1 % (11.6-14.8) Platelet Count 199 K/UL (150-450) Mean Platelet Volume 6.9 FL (6.5-10.1) Neutrophils (%) (Auto) 83.4 % (45.0-75.0) Lymphocytes (%) (Auto) 9.5 % (20.0-45.0) Monocytes (%) (Auto) 5.6 % (1.0-10.0) Eosinophils (%) (Auto) 0.9 % (0.0-3.0) Basophils (%) (Auto) 0.6 % (0.0-2.0) Sodium Level 138 MMOL/L (136-145) Potassium Level 3.7 MMOL/L (3.5-5.1) Chloride Level 104 MMOL/L (98-107) Carbon Dioxide Level 27 MMOL/L (21-32) Anion Gap 7 mmol/L (5-15) Blood Urea Nitrogen 19 mg/dL (7-18) Creatinine 1.3 MG/DL (0.55-1.30) Estimat Glomerular Filtration Rate 50.2 mL/min (>60) Glucose Level 122 MG/DL (74-106) Calcium Level 9.1 MG/DL (8.5-10.1) Total Bilirubin 0.5 MG/DL (0.2-1.0) Aspartate Amino Transf (AST/SGOT) 40 U/L (15-37) Alanine Aminotransferase (ALT/SGPT) 34 U/L (12-78) Alkaline Phosphatase 155 U/L (46-116) Total Protein 6.9 G/DL (6.4-8.2) Albumin 2.2 G/DL (3.4-5.0) Globulin 4.7 g/dL Albumin/Globulin Ratio 0.5 (1.0-2.7) POC Whole Blood Glucose 124 MG/DL (74-106) Test 03/17/20 17:26 03/18/20 06:00 White Blood Count 9.7 K/UL (4.8-10.8) Red Blood Count 3.21 M/UL (4.20-5.40) Hemoglobin 8.0 G/DL (12.0-16.0) Hematocrit 25.6 % (37.0-47.0) Mean Corpuscular Volume 80 FL (80-99) Mean Corpuscular Hemoglobin 25.0 PG (27.0-31.0) Mean Corpuscular Hemoglobin Concent 31.4 G/DL (32.0-36.0) Red Cell Distribution Width 16.6 % (11.6-14.8) Platelet Count 229 K/UL (150-450) Mean Platelet Volume 7.0 FL (6.5-10.1) Neutrophils (%) (Auto) 81.0 % (45.0-75.0) Lymphocytes (%) (Auto) 9.4 % (20.0-45.0) Monocytes (%) (Auto) 7.5 % (1.0-10.0) Eosinophils (%) (Auto) 1.3 % (0.0-3.0) Basophils (%) (Auto) 0.9 % (0.0-2.0) Sodium Level 139 MMOL/L (136-145) Potassium Level 4.1 MMOL/L (3.5-5.1) Chloride Level 103 MMOL/L (98-107) Carbon Dioxide Level 25 MMOL/L (21-32) Anion Gap 11 mmol/L (5-15) Blood Urea Nitrogen 31 mg/dL (7-18) Creatinine 1.8 MG/DL (0.55-1.30) Estimat Glomerular Filtration Rate 34.4 mL/min (>60) Glucose Level 136 MG/DL (74-106) Calcium Level 9.1 MG/DL (8.5-10.1) Phosphorus Level 4.0 MG/DL (2.5-4.9) Magnesium Level 2.3 MG/DL (1.8-2.4) Total Bilirubin 0.4 MG/DL (0.2-1.0) Aspartate Amino Transf (AST/SGOT) 36 U/L (15-37) Alanine Aminotransferase (ALT/SGPT) 23 U/L (12-78) Alkaline Phosphatase 140 U/L (46-116) C-Reactive Protein, Quantitative 21.4 mg/dL (0.00-0.90) Total Protein 7.0 G/DL (6.4-8.2) Albumin 2.2 G/DL (3.4-5.0) Globulin 4.8 g/dL Albumin/Globulin Ratio 0.5 (1.0-2.7) Objective: WDWN stable reduced breath sounds bilaterally without rhonchi or wheeze [id number] without MRG NABS nontender no HSM no CC noted edema nonfocal more alert Micro: Microbiology Date/Time Source Procedure Growth Status 03/16/20 19:00 Stool Clostridium difficile Toxin Assay - Final Complete Accucheck: 126 Charles Thomson MD Mar 18, 2020 17:46
[2020-03-18 20:00] VITALS: BP 136/65
--- NOTE | 2020-03-18 23:19 | General Progress Note ---
Assessment/Plan Status: stable Assessment/Plan: Assessment - Dark stools - OB (+) 1/2 - microcytic anemia - pelvic / uterine masses with JACKY - suspect RADIOLOGY NURSE malignancy - hydronephrosis - rectal wall thickening - resp failure - resolved renal failure - anasarca, abdominal distention - pleural effusion - pulmonary HTN - abnormal LFT - ? mets, ? JOHNSON, ? passive congestion Recommendations - Monitor H&H - IV Fe trial - PPI - not candidate for endoscopy at this time - RADIOLOGY NURSE ONC follow up - limited ultrasound ---> no ascites Subjective Allergies: Coded Allergies: No Known Allergies (Unverified , 03/03/20) Subjective above noted feels OK no new complaints Objective Last 24 Hour Vital Signs Date Time Temp Pulse Resp B/P (MAP) Pulse Ox O2 Delivery O2 Flow Rate FiO2 03/18/20 22:00 90 148/63 03/18/20 21:00 Room Air 03/18/20 20:53 75 134/71 03/18/20 20:00 98.2 91 20 136/65 (88) 98 03/18/20 19:52 95 Room Air 03/18/20 17:14 126/61 03/18/20 16:00 98.2 88 20 129/63 (85) 94 03/18/20 14:00 89 112/57 03/18/20 12:00 98.1 88 20 119/56 (77) 98 03/18/20 12:00 119/56 03/18/20 10:04 84 131/58 03/18/20 10:03 131/58 03/18/20 09:00 Room Air 03/18/20 08:00 98.1 82 20 131/58 (82) 94 84 03/18/20 07:00 94 Room Air 03/18/20 06:03 87 119/87 03/18/20 04:51 110/78 03/18/20 04:00 98.2 84 20 105/58 (74) 95 84 03/18/20 03:04 81 25 95 21 03/18/20 00:26 88 26 95 21 03/18/20 00:00 112/76 03/18/20 00:00 97.3 90 22 112/72 (85) 98 03/17/20 23:26 91 32 98 30 Intake and Output 03/17/20 03/18/20 19:00 07:00 Intake Total 240 ml Output Total 300 ml Balance -60 ml Intake Oral 240 ml Output Urine Total 300 ml # Voids 1 Laboratory Tests 03/18/20 06:00: White Blood Count 9.7, Red Blood Count 3.21L, Hemoglobin 8.0L, Hematocrit 25.6L , Mean Corpuscular Volume 80, Mean Corpuscular Hemoglobin 25.0L, Mean Corpuscular Hemoglobin Concent 31.4L, Red Cell Distribution Width 16.6H, Platelet Count 229, Mean Platelet Volume 7.0, Neutrophils (%) (Auto) 81.0H, Lymphocytes (%) (Auto) 9.4L, Monocytes (%) (Auto) 7.5, Eosinophils (%) (Auto) 1.3, Basophils (%) (Auto) 0.9, Sodium Level 139, Potassium Level 4.1, Chloride Level 103, Carbon Dioxide Level 25, Anion Gap 11, Blood Urea Nitrogen 31H, Creatinine 1.8H, Estimat Glomerular Filtration Rate 34.4, Glucose Level 136H, Calcium Level 9.1, Phosphorus Level 4.0, Magnesium Level 2.3, Total Bilirubin 0.4, Aspartate Amino Transf (AST/SGOT) 36, Alanine Aminotransferase (ALT/SGPT) 23, Alkaline Phosphatase 140H, C-Reactive Protein, Quantitative 21.4H, Total Protein 7.0, Albumin 2.2L, Globulin 4.8, Albumin/Globulin Ratio 0.5L Height (Feet): 5 Height (Inches): 10.00 Weight (Pounds): 300 Objective Debilitated WW HEENT NCAT Neck supple Coarse BS RR abd very distended (+) edema / anasarca Garry Barrera MD Mar 18, 2020 23:19
[2020-03-19] VITALS: BP 125/77
--- NOTE | 2020-03-19 00:15 | Cardiology Progress Note ---
Subjective DATE OF SERVICE: Mar 18, 2020 Maintaining sinus rhythm Continues off bipap. Stabilizing BP range CT noted; large pelvic mass Venous duplex: negative for DVT Renal paramters worsening Objective Last 24 Hour Vital Signs Date Time Temp Pulse Resp B/P (MAP) Pulse Ox O2 Delivery O2 Flow Rate FiO2 03/18/20 23:10 92 32 99 30 03/18/20 22:00 90 148/63 03/18/20 21:00 Room Air 03/18/20 20:53 75 134/71 03/18/20 20:00 98.2 91 20 136/65 (88) 98 03/18/20 19:52 88 18 95 Room Air 21 03/18/20 19:52 95 Room Air 21 03/18/20 17:14 126/61 03/18/20 16:00 98.2 88 20 129/63 (85) 94 03/18/20 14:00 89 112/57 03/18/20 12:00 98.1 88 20 119/56 (77) 98 03/18/20 12:00 119/56 03/18/20 10:04 84 131/58 03/18/20 10:03 131/58 03/18/20 09:00 Room Air 03/18/20 08:00 98.1 82 20 131/58 (82) 94 84 03/18/20 07:00 94 Room Air 21 03/18/20 06:03 87 119/87 03/18/20 04:51 110/78 03/18/20 04:00 98.2 84 20 105/58 (74) 95 84 03/18/20 03:04 81 25 95 21 03/18/20 00:26 88 26 95 21 HEENT: normal ENT inspection RHYTHM: ST, PACs LUNGS: bilateral rhonchi CARDIAC: normal rate, normal S1 and S2 ABDOMEN: normal bowel sounds, non tender, soft, no organomegaly EXTREMITIES: No edema Laboratory Tests Test 03/18/20 06:00 White Blood Count 9.7 K/UL (4.8-10.8) Red Blood Count 3.21 M/UL (4.20-5.40) L Hemoglobin 8.0 G/DL (12.0-16.0) L Hematocrit 25.6 % (37.0-47.0) L Mean Corpuscular Volume 80 FL (80-99) Mean Corpuscular Hemoglobin 25.0 PG (27.0-31.0) L Mean Corpuscular Hemoglobin Concent 31.4 G/DL (32.0-36.0) L Red Cell Distribution Width 16.6 % (11.6-14.8) H Platelet Count 229 K/UL (150-450) Mean Platelet Volume 7.0 FL (6.5-10.1) Neutrophils (%) (Auto) 81.0 % (45.0-75.0) H Lymphocytes (%) (Auto) 9.4 % (20.0-45.0) L Monocytes (%) (Auto) 7.5 % (1.0-10.0) Eosinophils (%) (Auto) 1.3 % (0.0-3.0) Basophils (%) (Auto) 0.9 % (0.0-2.0) Sodium Level 139 MMOL/L (136-145) Potassium Level 4.1 MMOL/L (3.5-5.1) Chloride Level 103 MMOL/L (98-107) Carbon Dioxide Level 25 MMOL/L (21-32) Anion Gap 11 mmol/L (5-15) Blood Urea Nitrogen 31 mg/dL (7-18) H Creatinine 1.8 MG/DL (0.55-1.30) H Estimat Glomerular Filtration Rate 34.4 mL/min (>60) Glucose Level 136 MG/DL (74-106) H Calcium Level 9.1 MG/DL (8.5-10.1) Phosphorus Level 4.0 MG/DL (2.5-4.9) Magnesium Level 2.3 MG/DL (1.8-2.4) Total Bilirubin 0.4 MG/DL (0.2-1.0) Aspartate Amino Transf (AST/SGOT) 36 U/L (15-37) Alanine Aminotransferase (ALT/SGPT) 23 U/L (12-78) Alkaline Phosphatase 140 U/L (46-116) H C-Reactive Protein, Quantitative 21.4 mg/dL (0.00-0.90) H Total Protein 7.0 G/DL (6.4-8.2) Albumin 2.2 G/DL (3.4-5.0) L Globulin 4.8 g/dL Albumin/Globulin Ratio 0.5 (1.0-2.7) L Microbiology Date/Time Source Procedure Growth Status 03/16/20 19:00 Stool Clostridium difficile Toxin Assay - Final Complete Assessment/Plan Assessment/Plan Paroxysmal Atrial Fib Hypertension/HHD with rising BP trend Acute respiratory failure Metabolic acidosis Acute renal failure Anemia Anasarca Hypokalemia Hypomagnesemia HypoPO4 Dehydration/hypernatremia Free water replacement and potassium suppl as needed Maintain current antiHTN meds - add'l meds prn for BP spikes Abx Off Actos - no resumption. Maintain current cardiovascular meds for arrhythmia suppression Miguel Gama MD Mar 19, 2020 00:15
[2020-03-19 04:00] VITALS: BP 142/61
[2020-03-19] MEDS: dilTIAZem HCl 60mg tab ORAL SCH ×3 (06:10→21:23)
[2020-03-19] MEDS: NovoLOG Insulin Flexpen SUBQ SCH ×4 (06:11→21:00)
[2020-03-19] MEDS: sitaGLIPtin 50mg tab ORAL SCH (06:11)
[2020-03-19 06:46] LABS: HEMATOCRIT 24.7 % (37.0-47.0); HEMOGLOBIN 7.7 G/DL (12.0-16.0); MEAN CORPUSCULAR VOLUME 80 FL (80-99); PLATELET COUNT 238 K/UL (150-450); RED CELL DISTRIBUTION WIDTH 16.7 % (11.6-14.8); WHITE BLOOD COUNT 8.6 K/UL (4.8-10.8)
[2020-03-19 07:21] LABS: ALANINE AMINOTRANSFERASE 20 U/L (12-78); ALBUMIN 2.1 G/DL (3.4-5.0); ALBUMIN/GLOBULIN RATIO 0.4 (1.0-2.7); ALKALINE PHOSPHATASE 124 U/L (46-116); ANION GAP 11 mmol/L (5-15); ASPARTATE AMINO TRANSFERASE 35 U/L (15-37); BILIRUBIN,TOTAL 0.3 MG/DL (0.2-1.0); BLOOD UREA NITROGEN 31 mg/dL (7-18); CALCIUM 9.2 MG/DL (8.5-10.1); CARBON DIOXIDE 24 MMOL/L (21-32); CHLORIDE 102 MMOL/L (98-107); CREATININE 1.7 MG/DL (0.55-1.30); PHOSPHORUS 3.2 MG/DL (2.5-4.9); SODIUM 137 MMOL/L (136-145)
--- NOTE | 2020-03-19 07:33 | Hematology/Onc Progress Note ---
Assessment/Plan Assessment/Plan Assessment and recs # Pelvic mass, large 18cm, admitted for syncope secondary to hypoglycemia, also with acute renal failure now resolving. 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 Keith as outpatient # Anemia of chronic disease due to underlying chronic medical issues, multifactorial v Gi bleed --> Anemia workup has been ordered, rule out gi bleed --> No evidence of hemolysis is noted, peripheral smear has been reviewed. --> Hgb goal >7. Transfuse prn. --> Epogen or iron at this time is not particularly indicated --> Medications have been reviewed --> low threshold for gi evaluation in case has occult + --> hgb 8.7->8.3-->8 # Pneumonia s/p rx --> COVID 19 negative # Respiratory failure resolved --> bipap as needed --> nc prn # Renal failure improving --> per renal # Diabetes mellitus # Hypertension # Dvt ppx scds The timing of this note does not necessarily reflect the time of the patient was seen. Greatly appreciate consultation. Subjective Constitutional: Denies: no symptoms, chills, fever, malaise, weakness, other HEENT: Denies: no symptoms, eye pain, blurred vision, tearing, double vision, ear pain, ear discharge, nose pain, nose congestion, throat pain, throat swelling, mouth pain, mouth swelling, other Cardiovascular: Denies: no symptoms, chest pain, edema, irregular heart rate, lightheadedness, palpitations, syncope, other Gastrointestinal/Abdominal: Denies: no symptoms, abdomen distended, abdominal pain, black stools, tarry stools, blood in stool, constipated, diarrhea, difficulty swallowing, nausea, poor appetite, poor fluid intake, rectal bleeding , vomiting, other Genitourinary: Denies: no symptoms, burning, discharge, frequency, flank pain, hematuria, incontinence, pain, urgency, other Neurologic/Psychiatric: Denies: no symptoms, anxiety, depressed, emotional problems, headache, numbness, paresthesia, pre-existing deficit, seizure, tingling, tremors, weakness, other Endocrine: Denies: no symptoms, excessive sweating, flushing, intolerance to cold, intolerance to heat, increased hunger, increased thirst, increased urine, unexplained weight gain, unexplained weight loss, other Allergies: Coded Allergies: No Known Allergies (Unverified , 03/03/20) Subjective 03/15 has been requesting overnight to be off cpap, labs for am pending, dw her plan of care 03/16 labs have been reviewed, getting cpap overnight, ca 125 of 141 03/17 with rectal tube in place, no bleeding, labs have been reviewed, hgb 8.3 03/18 alert and oriented, with moore and rectal tube in place, no bleeding 03/19 continuing off bipap, per rn is addressing her small dti on the back Objective Objective Current Medications Medications (Trade) Dose Ordered Sig/Francisco J Route PRN Reason Start Time Stop Time Status Last Admin Dose Admin Acetaminophen (Tylenol) 650 mg Q4H PRN ORAL Mild Pain (Pain Scale 1-3) 03/18/20 03:00 04/02/20 06:59 Clonidine HCl (Catapres Tab) 0.1 mg EVERY 6 HOURS ORAL 03/18/20 00:00 06/12/20 11:59 03/19/20 06:10 Clonidine HCl (Catapres Tab) 0.1 mg Q4H PRN ORAL bp over 160 syst 03/18/20 03:00 06/03/20 06:59 Dextrose (Dextrose 50%) 25 ml Q30M PRN IV Hypoglycemia 03/17/20 23:30 06/01/20 21:59 Dextrose (Dextrose 50%) 50 ml Q30M PRN IV Hypoglycemia 03/17/20 23:30 06/01/20 21:59 Diltiazem HCl (Cardizem Tab) 60 mg Q8HR ORAL 03/18/20 14:00 04/17/20 13:59 03/19/20 06:10 Glucagon (Glucagon) 1 mg Q2H PRN IM Hypoglycemia 03/18/20 01:00 06/03/20 10:59 Insulin Aspart (NovoLOG) BEFORE MEALS AND HS SUBQ 03/18/20 06:30 06/05/20 06:29 03/18/20 20:54 Losartan Potassium (Cozaar) 50 mg DAILY ORAL 03/19/20 09:00 04/09/20 15:29 Metoprolol Tartrate (Lopressor) 50 mg Q12HR ORAL 03/18/20 09:00 06/04/20 15:14 03/18/20 20:53 Pantoprazole (Protonix) 40 mg EVERY 12 HOURS ORAL 03/18/20 09:00 04/08/20 08:59 03/18/20 20:53 Polyethylene Glycol (Miralax) 17 gm DAILYPRN PRN ORAL Constipation 03/18/20 07:00 04/03/20 06:59 Sitagliptin Phosphate (Januvia) 50 mg ACBREAKFAST ORAL 03/18/20 06:30 04/09/20 06:29 03/19/20 06:11 Last 24 Hour Vital Signs Date Time Temp Pulse Resp B/P (MAP) Pulse Ox O2 Delivery O2 Flow Rate FiO2 03/19/20 06:10 79 154/63 03/19/20 06:10 154/63 03/19/20 04:00 98.2 92 20 142/61 (88) 94 03/19/20 00:00 125/77 03/19/20 00:00 98.4 88 20 125/77 (93) 96 03/18/20 23:10 92 32 99 30 03/18/20 22:00 90 148/63 03/18/20 21:00 Room Air 03/18/20 20:53 75 134/71 03/18/20 20:00 98.2 91 20 136/65 (88) 98 03/18/20 19:52 88 18 95 Room Air 21 03/18/20 19:52 95 Room Air 21 03/18/20 17:14 126/61 03/18/20 16:00 98.2 88 20 129/63 (85) 94 03/18/20 14:00 89 112/57 03/18/20 12:00 98.1 88 20 119/56 (77) 98 03/18/20 12:00 119/56 03/18/20 10:04 84 131/58 03/18/20 10:03 131/58 03/18/20 09:00 Room Air 03/18/20 08:00 98.1 82 20 131/58 (82) 94 84 03/18/20 07:00 94 Room Air 21 03/18/20 06:03 87 119/87 03/18/20 04:51 110/78 03/18/20 04:00 98.2 84 20 105/58 (74) 95 84 03/18/20 03:04 81 25 95 21 03/18/20 00:26 88 26 95 21 03/18/20 00:00 112/76 03/18/20 00:00 97.3 90 22 112/72 (85) 98 03/17/20 23:26 91 32 98 30 03/17/20 22:41 121/71 03/17/20 21:17 139/78 03/17/20 21:00 Room Air 03/17/20 20:19 95 Room Air 21 03/17/20 20:00 98.0 96 16 139/78 (98) 98 03/17/20 20:00 94 03/17/20 17:31 128/67 03/17/20 17:30 128/67 03/17/20 16:00 91 03/17/20 16:00 98.4 89 20 128/67 (87) 97 03/17/20 15:20 95 24 95 21 03/17/20 14:58 85 135/63 03/17/20 12:30 135/63 03/17/20 12:00 98.2 85 20 135/63 (87) 97 03/17/20 12:00 85 03/17/20 09:47 86 126/62 03/17/20 09:47 126/62 03/17/20 09:00 Room Air 03/17/20 08:00 85 03/17/20 08:00 98.2 86 20 126/62 (83) 96 Intake and Output 03/18/20 03/19/20 19:00 07:00 Intake Total 300 ml 400 ml Output Total 550 ml 600 ml Balance -250 ml -200 ml Intake Oral 300 ml 400 ml Output Urine Total 450 ml 500 ml Stool Total 100 ml 100 ml Labs Test 03/16/20 11:22 03/17/20 17:26 03/18/20 06:00 03/19/20 05:40 POC Whole Blood Glucose 124 MG/DL (74-106) White Blood Count 9.7 K/UL (4.8-10.8) 8.6 K/UL (4.8-10.8) Red Blood Count 3.21 M/UL (4.20-5.40) 3.10 M/UL (4.20-5.40) Hemoglobin 8.0 G/DL (12.0-16.0) 7.7 G/DL (12.0-16.0) Hematocrit 25.6 % (37.0-47.0) 24.7 % (37.0-47.0) Mean Corpuscular Volume 80 FL (80-99) 80 FL (80-99) Mean Corpuscular Hemoglobin 25.0 PG (27.0-31.0) 24.8 PG (27.0-31.0) Mean Corpuscular Hemoglobin Concent 31.4 G/DL (32.0-36.0) 31.2 G/DL (32.0-36.0) Red Cell Distribution Width 16.6 % (11.6-14.8) 16.7 % (11.6-14.8) Platelet Count 229 K/UL (150-450) 238 K/UL (150-450) Mean Platelet Volume 7.0 FL (6.5-10.1) 6.7 FL (6.5-10.1) Neutrophils (%) (Auto) 81.0 % (45.0-75.0) % (45.0-75.0) Lymphocytes (%) (Auto) 9.4 % (20.0-45.0) % (20.0-45.0) Monocytes (%) (Auto) 7.5 % (1.0-10.0) % (1.0-10.0) Eosinophils (%) (Auto) 1.3 % (0.0-3.0) % (0.0-3.0) Basophils (%) (Auto) 0.9 % (0.0-2.0) % (0.0-2.0) Sodium Level 139 MMOL/L (136-145) 137 MMOL/L (136-145) Potassium Level 4.1 MMOL/L (3.5-5.1) 4.0 MMOL/L (3.5-5.1) Chloride Level 103 MMOL/L (98-107) 102 MMOL/L (98-107) Carbon Dioxide Level 25 MMOL/L (21-32) 24 MMOL/L (21-32) Anion Gap 11 mmol/L (5-15) 11 mmol/L (5-15) Blood Urea Nitrogen 31 mg/dL (7-18) 31 mg/dL (7-18) Creatinine 1.8 MG/DL (0.55-1.30) 1.7 MG/DL (0.55-1.30) Estimat Glomerular Filtration Rate 34.4 mL/min (>60) 36.7 mL/min (>60) Glucose Level 136 MG/DL (74-106) 125 MG/DL (74-106) Calcium Level 9.1 MG/DL (8.5-10.1) 9.2 MG/DL (8.5-10.1) Phosphorus Level 4.0 MG/DL (2.5-4.9) 3.2 MG/DL (2.5-4.9) Magnesium Level 2.3 MG/DL (1.8-2.4) 2.0 MG/DL (1.8-2.4) Total Bilirubin 0.4 MG/DL (0.2-1.0) 0.3 MG/DL (0.2-1.0) Aspartate Amino Transf (AST/SGOT) 36 U/L (15-37) 35 U/L (15-37) Alanine Aminotransferase (ALT/SGPT) 23 U/L (12-78) 20 U/L (12-78) Alkaline Phosphatase 140 U/L (46-116) 124 U/L (46-116) C-Reactive Protein, Quantitative 21.4 mg/dL (0.00-0.90) Total Protein 7.0 G/DL (6.4-8.2) 6.8 G/DL (6.4-8.2) Albumin 2.2 G/DL (3.4-5.0) 2.1 G/DL (3.4-5.0) Globulin 4.8 g/dL 4.7 g/dL Albumin/Globulin Ratio 0.5 (1.0-2.7) 0.4 (1.0-2.7) Uric Acid 8.8 MG/DL (2.6-7.2) Height (Feet): 5 Height (Inches): 10.00 Weight (Pounds): 300 Objective Physical Exam General: Awake and alert, no acute distress HEENT: NC/AT. No scalp lacerations abrasions hematomas++ bipap Cardiovascular: RRR. S1 and S2 normal. No murmur appreciated Resp: Normal work of breathing. No cough, wheezing or crackles appreciated Abdomen: Abdomen is soft. Obese abdomen, nontender Skin: Intact. No abrasions, laceration or rash over the exposed skin MSK: Normal tone and bulk. Moving all extremities. No obvious deformity. Neuro: Awake and alert. Mentating appropriately. Spine: No tenderness in midline Ponce Iyer MD Mar 19, 2020 07:33
--- NOTE | 2020-03-19 07:59 | Critical Care Progress Note ---
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 follow up medications/laboratory data/nursing notes reviewed in detail note reviewed and edited care discussed with RN and RT Critical Care - Subjective Condition: stable EKG Rhythm: Sinus Rhythm I&O: Intake and Output 03/18/20 03/19/20 19:00 07:00 Intake Total 300 ml 400 ml Output Total 550 ml 600 ml Balance -250 ml -200 ml Intake Oral 300 ml 400 ml Output Urine Total 450 ml 500 ml Stool Total 100 ml 100 ml Critical Care - Objective Last 24 Hour Vital Signs Date Time Temp Pulse Resp B/P (MAP) Pulse Ox O2 Delivery O2 Flow Rate FiO2 03/19/20 06:10 79 154/63 03/19/20 06:10 154/63 03/19/20 04:00 98.2 92 20 142/61 (88) 94 03/19/20 00:00 125/77 03/19/20 00:00 98.4 88 20 125/77 (93) 96 03/18/20 23:10 92 32 99 30 03/18/20 22:00 90 148/63 03/18/20 21:00 Room Air 03/18/20 20:53 75 134/71 03/18/20 20:00 98.2 91 20 136/65 (88) 98 03/18/20 19:52 88 18 95 Room Air 21 03/18/20 19:52 95 Room Air 21 03/18/20 17:14 126/61 03/18/20 16:00 98.2 88 20 129/63 (85) 94 03/18/20 14:00 89 112/57 03/18/20 12:00 98.1 88 20 119/56 (77) 98 03/18/20 12:00 119/56 03/18/20 10:04 84 131/58 03/18/20 10:03 131/58 03/18/20 09:00 Room Air 03/18/20 08:00 98.1 82 20 131/58 (82) 94 84 Labs: Labs Test 03/16/20 11:22 03/17/20 17:26 03/18/20 06:00 03/19/20 05:40 POC Whole Blood Glucose 124 MG/DL (74-106) White Blood Count 9.7 K/UL (4.8-10.8) 8.6 K/UL (4.8-10.8) Red Blood Count 3.21 M/UL (4.20-5.40) 3.10 M/UL (4.20-5.40) Hemoglobin 8.0 G/DL (12.0-16.0) 7.7 G/DL (12.0-16.0) Hematocrit 25.6 % (37.0-47.0) 24.7 % (37.0-47.0) Mean Corpuscular Volume 80 FL (80-99) 80 FL (80-99) Mean Corpuscular Hemoglobin 25.0 PG (27.0-31.0) 24.8 PG (27.0-31.0) Mean Corpuscular Hemoglobin Concent 31.4 G/DL (32.0-36.0) 31.2 G/DL (32.0-36.0) Red Cell Distribution Width 16.6 % (11.6-14.8) 16.7 % (11.6-14.8) Platelet Count 229 K/UL (150-450) 238 K/UL (150-450) Mean Platelet Volume 7.0 FL (6.5-10.1) 6.7 FL (6.5-10.1) Neutrophils (%) (Auto) 81.0 % (45.0-75.0) % (45.0-75.0) Lymphocytes (%) (Auto) 9.4 % (20.0-45.0) % (20.0-45.0) Monocytes (%) (Auto) 7.5 % (1.0-10.0) % (1.0-10.0) Eosinophils (%) (Auto) 1.3 % (0.0-3.0) % (0.0-3.0) Basophils (%) (Auto) 0.9 % (0.0-2.0) % (0.0-2.0) Sodium Level 139 MMOL/L (136-145) 137 MMOL/L (136-145) Potassium Level 4.1 MMOL/L (3.5-5.1) 4.0 MMOL/L (3.5-5.1) Chloride Level 103 MMOL/L (98-107) 102 MMOL/L (98-107) Carbon Dioxide Level 25 MMOL/L (21-32) 24 MMOL/L (21-32) Anion Gap 11 mmol/L (5-15) 11 mmol/L (5-15) Blood Urea Nitrogen 31 mg/dL (7-18) 31 mg/dL (7-18) Creatinine 1.8 MG/DL (0.55-1.30) 1.7 MG/DL (0.55-1.30) Estimat Glomerular Filtration Rate 34.4 mL/min (>60) 36.7 mL/min (>60) Glucose Level 136 MG/DL (74-106) 125 MG/DL (74-106) Calcium Level 9.1 MG/DL (8.5-10.1) 9.2 MG/DL (8.5-10.1) Phosphorus Level 4.0 MG/DL (2.5-4.9) 3.2 MG/DL (2.5-4.9) Magnesium Level 2.3 MG/DL (1.8-2.4) 2.0 MG/DL (1.8-2.4) Total Bilirubin 0.4 MG/DL (0.2-1.0) 0.3 MG/DL (0.2-1.0) Aspartate Amino Transf (AST/SGOT) 36 U/L (15-37) 35 U/L (15-37) Alanine Aminotransferase (ALT/SGPT) 23 U/L (12-78) 20 U/L (12-78) Alkaline Phosphatase 140 U/L (46-116) 124 U/L (46-116) C-Reactive Protein, Quantitative 21.4 mg/dL (0.00-0.90) Total Protein 7.0 G/DL (6.4-8.2) 6.8 G/DL (6.4-8.2) Albumin 2.2 G/DL (3.4-5.0) 2.1 G/DL (3.4-5.0) Globulin 4.8 g/dL 4.7 g/dL Albumin/Globulin Ratio 0.5 (1.0-2.7) 0.4 (1.0-2.7) Uric Acid 8.8 MG/DL (2.6-7.2) Objective: WDWN stable reduced breath sounds bilaterally without rhonchi or wheeze [id number] without MRG NABS nontender no HSM no CC noted edema nonfocal more alert Micro: Microbiology Date/Time Source Procedure Growth Status 03/16/20 19:00 Stool Clostridium difficile Toxin Assay - Final Complete Accucheck: 118 Charles Thomson MD Mar 19, 2020 07:59
[2020-03-19 08:00] VITALS: BP 139/64
[2020-03-19] MEDS: Losartan 50mg tab ORAL SCH (08:29)
[2020-03-19] MEDS: Metoprolol Tartrate 50mg tab ORAL SCH ×2 (08:29→21:23)
--- NOTE | 2020-03-19 09:32 | Nephrology Progress Note ---
Assessment/Plan Problem List: (1) FARIBA (acute kidney injury) (2) Renal failure (ARF), acute on chronic (3) UTI (urinary tract infection) (4) Hypoglycemia (5) Anemia (6) Morbid obesity with BMI of 45.0-49.9, adult (7) Acute respiratory failure (8) Obstructive sleep apnea Assessment Acute renal failure Possible underlying chronic kidney disease High likelihood of diabetic nephropathy, patient has proteinuria and hypoalbuminemia Persistent hypo-glycemia: The patient was on 3 oral hypoglycemic agents including Glucophage Morbid obesity Hypertension Severe anemia, low MCV UTI Most likely obstructive sleep apnea Plan March 19: Serum creatinine down to 1.7. Medication list reviewed. Continue to monitor renal parameters. Blood pressure appears more stable. March 18: Blood work reviewed. Serum creatinine of 1.8. Continue to monitor renal parameters. Medication list reviewed. In view of low blood pressure and rising serum creatinine will adjust the blood pressure medication dosages per order. March 17: No blood work today. Clinically patient is stable. Over all respiratory status improved. Will check chemistry panel tomorrow. Continue her consultants. March 16: Patient remained stable from renal standpoint of view. Her pulmonary status improved. Continue to monitor electrolytes and blood sugar. Cancer markers CEA 125 is elevated March 15: Labs reviewed. Stable from renal standpoint of view. Patient improved clinically. Blood pressure is much stable. Continue per consultants. March 14: Labs reviewed. Abnormal electrolytes adjusted with supplements. Continue per consultants. Change clonidine patch to clonidine p.o. every 6 hours 0.1 mg for blood pressure. March 13: Labs reviewed. Magnesium supplement given. Blood pressure better controlled. Another dose of IV Lasix 20 mg given. Will watch electrolytes and renal parameters. Continue per pulmonary and management of respiratory status. March 12: Lab reviewed. Electrolytes adjusted. Blood pressure medication adjusted. Patient remains on BiPAP. Continue per consultants. Discontinue IV fluid. Lasix 20 mg IV once. March 11: Labs are reviewed. Potassium and magnesium supplement given. Continue per pulmonary. March 10: Labs reviewed. Medication reviewed. Remains on BiPAP. Will DC IV fluid and changed to D5W. Blood pressure medication adjusted. Cozaar added. Potassium supplement given. Continue per consultants. March 09: Labs reviewed. Medication list reviewed. Remains on BiPAP. Venturi mask is being tried. Discussed with highway patrol officer. Renal parameters stable. Magnesium and potassium supplement given. Blood sugar stable. March 08: Today's labs pending. Will discontinue IV fluid. Remains on BiPAP. Aim to take off BiPAP as possible. Transfusion if needed. Discussed with DARSHAN Iglesias. March 07: Marked improvement in renal parameters. Blood sugar improved. Main issue are respiratory, as patient remains on BiPAP. Hemoglobin lower. May require transfusion again. Abnormal electrolytes corrected March 06: Clinically improved. Remains on BiPAP. Blood sugar improved. Urine output well maintained. Serum creatinine lowered. Will adjust blood pressure medication for better control. D10 infusion down to 50 cc an hour. Continue monitor renal parameters. Lasix as needed. 24-hour urine for total protein. March 05: Discontinue Cozaar, labetalol Stop all oral oral hypoglycemics and insulin Start clonidine patch and clonidine PRN for high blood pressure Add Norvasc for blood pressure D10 infusion Check labs, thyroid panel, anemia work-up, lipid panel, hemoglobin A1c Urine for eosinophils and spot sodium Check ABG Per orders Subjective ROS Limited/Unobtainable: No Constitutional: Reports: malaise, weakness Objective Objective Last 24 Hour Vital Signs Date Time Temp Pulse Resp B/P (MAP) Pulse Ox O2 Delivery O2 Flow Rate FiO2 03/19/20 08:29 139/59 03/19/20 08:29 93 139/59 03/19/20 08:00 98.3 93 22 139/64 (89) 94 03/19/20 06:10 79 154/63 03/19/20 06:10 154/63 03/19/20 04:00 98.2 92 20 142/61 (88) 94 03/19/20 00:00 125/77 03/19/20 00:00 98.4 88 20 125/77 (93) 96 03/18/20 23:10 92 32 99 30 03/18/20 22:00 90 148/63 03/18/20 21:00 Room Air 03/18/20 20:53 75 134/71 03/18/20 20:00 98.2 91 20 136/65 (88) 98 03/18/20 19:52 88 18 95 Room Air 21 03/18/20 19:52 95 Room Air 21 03/18/20 17:14 126/61 03/18/20 16:00 98.2 88 20 129/63 (85) 94 03/18/20 14:00 89 112/57 03/18/20 12:00 98.1 88 20 119/56 (77) 98 03/18/20 12:00 119/56 03/18/20 10:04 84 131/58 03/18/20 10:03 131/58 Intake and Output 03/18/20 03/19/20 19:00 07:00 Intake Total 300 ml 400 ml Output Total 550 ml 600 ml Balance -250 ml -200 ml Intake Oral 300 ml 400 ml Output Urine Total 450 ml 500 ml Stool Total 100 ml 100 ml Laboratory Tests 03/19/20 05:40: White Blood Count 8.6, Red Blood Count 3.10L, Hemoglobin 7.7L, Hematocrit 24.7L , Mean Corpuscular Volume 80, Mean Corpuscular Hemoglobin 24.8L, Mean Corpuscular Hemoglobin Concent 31.2L, Red Cell Distribution Width 16.7H, Platelet Count 238, Mean Platelet Volume 6.7, Neutrophils (%) (Auto) , Lymphocytes (%) (Auto) , Monocytes (%) (Auto) , Eosinophils (%) (Auto) , Basophils (%) (Auto) , Neutrophils % (Manual) [Pending], Lymphocytes % (Manual) [Pending], Platelet Estimate [Pending], Platelet Morphology [Pending], Sodium Level 137, Potassium Level 4.0, Chloride Level 102, Carbon Dioxide Level 24, Anion Gap 11, Blood Urea Nitrogen 31H, Creatinine 1.7H, Estimat Glomerular Filtration Rate 36.7, Glucose Level 125H, Uric Acid 8.8H, Calcium Level 9.2, Phosphorus Level 3.2, Magnesium Level 2.0, Total Bilirubin 0.3, Aspartate Amino Transf (AST/SGOT) 35, Alanine Aminotransferase (ALT/SGPT) 20, Alkaline Phosphatase 124H, Total Protein 6.8, Albumin 2.1L, Globulin 4.7, Albumin/ Globulin Ratio 0.4L Height (Feet): 5 Height (Inches): 10.00 Weight (Pounds): 300 General Appearance: no apparent distress Cardiovascular: tachycardia Respiratory/Chest: decreased breath sounds Abdomen: distended, other - Obese Objective No change Sundar Camargo MD Mar 19, 2020 09:32
[2020-03-19 12:00] VITALS: BP 119/54
--- NOTE | 2020-03-19 13:58 | General Progress Note ---
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 unable to ambulate. decreased h/h noted, no fever or chills. no cough. no reports of bleeding. Objective Last 24 Hour Vital Signs Date Time Temp Pulse Resp B/P (MAP) Pulse Ox O2 Delivery O2 Flow Rate FiO2 03/19/20 12:00 119/54 03/19/20 12:00 98.1 75 22 119/54 (75) 99 03/19/20 09:51 Room Air 03/19/20 08:29 139/59 03/19/20 08:29 93 139/59 03/19/20 08:00 98.3 93 22 139/64 (89) 94 03/19/20 06:10 79 154/63 03/19/20 06:10 154/63 03/19/20 04:00 98.2 92 20 142/61 (88) 94 03/19/20 00:00 125/77 03/19/20 00:00 98.4 88 20 125/77 (93) 96 03/18/20 23:10 92 32 99 30 03/18/20 22:00 90 148/63 03/18/20 21:00 Room Air 03/18/20 20:53 75 134/71 03/18/20 20:00 98.2 91 20 136/65 (88) 98 03/18/20 19:52 88 18 95 Room Air 21 03/18/20 19:52 95 Room Air 21 03/18/20 17:14 126/61 03/18/20 16:00 98.2 88 20 129/63 (85) 94 03/18/20 14:00 89 112/57 Intake and Output 03/18/20 03/19/20 19:00 07:00 Intake Total 300 ml 400 ml Output Total 550 ml 600 ml Balance -250 ml -200 ml Intake Oral 300 ml 400 ml Output Urine Total 450 ml 500 ml Stool Total 100 ml 100 ml Laboratory Tests 03/19/20 05:40: White Blood Count 8.6, Red Blood Count 3.10L, Hemoglobin 7.7L, Hematocrit 24.7L , Mean Corpuscular Volume 80, Mean Corpuscular Hemoglobin 24.8L, Mean Corpuscular Hemoglobin Concent 31.2L, Red Cell Distribution Width 16.7H, Platelet Count 238, Mean Platelet Volume 6.7, Neutrophils (%) (Auto) , Lymphocytes (%) (Auto) , Monocytes (%) (Auto) , Eosinophils (%) (Auto) , Basophils (%) (Auto) , Differential Total Cells Counted 100, Neutrophils % ( Manual) 81H, Lymphocytes % (Manual) 10L, Monocytes % (Manual) 7, Eosinophils % ( Manual) 2, Basophils % (Manual) 0, Band Neutrophils 0, Platelet Estimate Adequate, Platelet Morphology Normal, Hypochromasia 1+, Anisocytosis 1+, Sodium Level 137, Potassium Level 4.0, Chloride Level 102, Carbon Dioxide Level 24, Anion Gap 11, Blood Urea Nitrogen 31H, Creatinine 1.7H, Estimat Glomerular Filtration Rate 36.7, Glucose Level 125H, Uric Acid 8.8H, Calcium Level 9.2, Phosphorus Level 3.2, Magnesium Level 2.0, Total Bilirubin 0.3, Aspartate Amino Transf (AST/SGOT) 35, Alanine Aminotransferase (ALT/SGPT) 20, Alkaline Phosphatase 124H, Total Protein 6.8, Albumin 2.1L, Globulin 4.7, Albumin/ Globulin Ratio 0.4L Height (Feet): 5 Height (Inches): 10.00 Weight (Pounds): 300 Objective General Appearance: WD/WN, alert EENT: PERRL/EOMI Neck: non-tender, normal alignment Cardiovascular: normal peripheral pulses, normal rate Respiratory/Chest: chest wall non-tender, lungs clear, normal breath sounds, no respiratory distress Abdomen: normal bowel sounds, non tender, soft, no organomegaly Edema: moderate edema Neurologic: curb setter helper II-XII grossly normal, alert, oriented x 3, responsive Sal Khanna MD Mar 19, 2020 13:58
--- NOTE | 2020-03-19 14:03 | Infectious Diseases Prog Note ---
Assessment/Plan Assessment/Plan A: 1. Pneumonia treated 2. Acute renal failure 3. DM type 2 with hyperglycemia 4. Respiratory failure with hypoxemia 5. Morbid obesity 6. GISSELLE 7. Anemia 8. Hydronephrosis 9. Abdomen & pelvic adenopathy, mass PLAN: 1. Observe off antibiotic Subjective ROS Limited/Unobtainable: No Constitutional: Reports: no symptoms Respiratory: Reports: no symptoms Cardiovascular: Reports: no symptoms Gastrointestinal/Abdominal: Reports: diarrhea Genitourinary: Reports: no symptoms Allergies: Coded Allergies: No Known Allergies (Unverified , 03/03/20) Objective Last 24 Hour Vital Signs Date Time Temp Pulse Resp B/P (MAP) Pulse Ox O2 Delivery O2 Flow Rate FiO2 03/19/20 12:00 119/54 03/19/20 12:00 98.1 75 22 119/54 (75) 99 03/19/20 09:51 Room Air 03/19/20 08:29 139/59 03/19/20 08:29 93 139/59 03/19/20 08:00 98.3 93 22 139/64 (89) 94 03/19/20 06:10 79 154/63 03/19/20 06:10 154/63 03/19/20 04:00 98.2 92 20 142/61 (88) 94 03/19/20 00:00 125/77 03/19/20 00:00 98.4 88 20 125/77 (93) 96 03/18/20 23:10 92 32 99 30 03/18/20 22:00 90 148/63 03/18/20 21:00 Room Air 03/18/20 20:53 75 134/71 03/18/20 20:00 98.2 91 20 136/65 (88) 98 03/18/20 19:52 88 18 95 Room Air 21 03/18/20 19:52 95 Room Air 21 03/18/20 17:14 126/61 03/18/20 16:00 98.2 88 20 129/63 (85) 94 Height (Feet): 5 Height (Inches): 10.00 Weight (Pounds): 300 General Appearance: no acute distress HEENT: mucous membranes moist Respiratory/Chest: lungs clear Cardiovascular: normal rate Abdomen: soft, non tender, other - rectal tube Extremities: no edema, other - SCD of legs Neurologic/Psychiatric: alert, oriented x 3, responsive Microbiology Date/Time Source Procedure Growth Status 03/16/20 19:00 Stool Clostridium difficile Toxin Assay - Final Complete Laboratory Tests Test 03/19/20 05:40 White Blood Count 8.6 K/UL (4.8-10.8) Red Blood Count 3.10 M/UL (4.20-5.40) L Hemoglobin 7.7 G/DL (12.0-16.0) L Hematocrit 24.7 % (37.0-47.0) L Mean Corpuscular Volume 80 FL (80-99) Mean Corpuscular Hemoglobin 24.8 PG (27.0-31.0) L Mean Corpuscular Hemoglobin Concent 31.2 G/DL (32.0-36.0) L Red Cell Distribution Width 16.7 % (11.6-14.8) H Platelet Count 238 K/UL (150-450) Mean Platelet Volume 6.7 FL (6.5-10.1) Neutrophils (%) (Auto) % (45.0-75.0) Lymphocytes (%) (Auto) % (20.0-45.0) Monocytes (%) (Auto) % (1.0-10.0) Eosinophils (%) (Auto) % (0.0-3.0) Basophils (%) (Auto) % (0.0-2.0) Differential Total Cells Counted 100 Neutrophils % (Manual) 81 % (45-75) H Lymphocytes % (Manual) 10 % (20-45) L Monocytes % (Manual) 7 % (1-10) Eosinophils % (Manual) 2 % (0-3) Basophils % (Manual) 0 % (0-2) Band Neutrophils 0 % (0-8) Platelet Estimate Adequate Platelet Morphology Normal Hypochromasia 1+ Anisocytosis 1+ Sodium Level 137 MMOL/L (136-145) Potassium Level 4.0 MMOL/L (3.5-5.1) Chloride Level 102 MMOL/L (98-107) Carbon Dioxide Level 24 MMOL/L (21-32) Anion Gap 11 mmol/L (5-15) Blood Urea Nitrogen 31 mg/dL (7-18) H Creatinine 1.7 MG/DL (0.55-1.30) H Estimat Glomerular Filtration Rate 36.7 mL/min (>60) Glucose Level 125 MG/DL (74-106) H Uric Acid 8.8 MG/DL (2.6-7.2) H Calcium Level 9.2 MG/DL (8.5-10.1) Phosphorus Level 3.2 MG/DL (2.5-4.9) Magnesium Level 2.0 MG/DL (1.8-2.4) Total Bilirubin 0.3 MG/DL (0.2-1.0) Aspartate Amino Transf (AST/SGOT) 35 U/L (15-37) Alanine Aminotransferase (ALT/SGPT) 20 U/L (12-78) Alkaline Phosphatase 124 U/L (46-116) H Total Protein 6.8 G/DL (6.4-8.2) Albumin 2.1 G/DL (3.4-5.0) L Globulin 4.7 g/dL Albumin/Globulin Ratio 0.4 (1.0-2.7) L Current Medications Medications (Trade) Dose Ordered Sig/Francisco J Route PRN Reason Start Time Stop Time Status Last Admin Dose Admin Acetaminophen (Tylenol) 650 mg Q4H PRN ORAL Mild Pain (Pain Scale 1-3) 03/18/20 03:00 04/02/20 06:59 Clonidine HCl (Catapres Tab) 0.1 mg EVERY 6 HOURS ORAL 03/18/20 00:00 06/12/20 11:59 03/19/20 06:10 Clonidine HCl (Catapres Tab) 0.1 mg Q4H PRN ORAL bp over 160 syst 03/18/20 03:00 06/03/20 06:59 Dextrose (Dextrose 50%) 25 ml Q30M PRN IV Hypoglycemia 03/17/20 23:30 06/01/20 21:59 Dextrose (Dextrose 50%) 50 ml Q30M PRN IV Hypoglycemia 03/17/20 23:30 06/01/20 21:59 Diltiazem HCl (Cardizem Tab) 60 mg Q8HR ORAL 03/18/20 14:00 04/17/20 13:59 03/19/20 06:10 Glucagon (Glucagon) 1 mg Q2H PRN IM Hypoglycemia 03/18/20 01:00 06/03/20 10:59 Insulin Aspart (NovoLOG) BEFORE MEALS AND HS SUBQ 03/18/20 06:30 06/05/20 06:29 03/18/20 20:54 Losartan Potassium (Cozaar) 50 mg DAILY ORAL 03/19/20 09:00 04/09/20 15:29 03/19/20 08:29 Metoprolol Tartrate (Lopressor) 50 mg Q12HR ORAL 03/18/20 09:00 06/04/20 15:14 03/19/20 08:29 Pantoprazole (Protonix) 40 mg EVERY 12 HOURS ORAL 03/18/20 09:00 04/08/20 08:59 03/19/20 08:29 Polyethylene Glycol (Miralax) 17 gm DAILYPRN PRN ORAL Constipation 03/18/20 07:00 04/03/20 06:59 Sitagliptin Phosphate (Januvia) 50 mg ACBREAKFAST ORAL 03/18/20 06:30 04/09/20 06:29 03/19/20 06:11 Carlos Enrique Rodrigez MD Mar 19, 2020 14:03
[2020-03-19 16:00] VITALS: BP 145/61
[2020-03-19 20:00] VITALS: BP 146/63
--- NOTE | 2020-03-19 23:19 | General Progress Note ---
Assessment/Plan Status: stable Assessment/Plan: Assessment - Dark stools - OB (+) 1/2 - microcytic anemia - pelvic / uterine masses with JACKY - suspect [employer] malignancy - hydronephrosis - rectal wall thickening - resp failure - resolved renal failure - anasarca, abdominal distention - pleural effusion - pulmonary HTN - abnormal LFT - ? mets, ? JOHNSON, ? passive congestion Recommendations - Monitor H&H - IV Fe trial - PPI - not candidate for endoscopy at this time - [employer] ONC follow up - limited ultrasound ---> no ascites Subjective Allergies: Coded Allergies: No Known Allergies (Unverified , 03/03/20) Subjective above noted feels OK no new complaints getting PT Objective Last 24 Hour Vital Signs Date Time Temp Pulse Resp B/P (MAP) Pulse Ox O2 Delivery O2 Flow Rate FiO2 03/19/20 21:23 84 146/63 03/19/20 21:23 84 146/63 03/19/20 21:00 Room Air 03/19/20 20:10 91 18 96 Room Air 21 03/19/20 20:00 98.5 84 18 146/63 (90) 94 03/19/20 19:01 151/97 03/19/20 16:00 98.3 92 21 145/61 (89) 99 03/19/20 14:06 83 140/58 03/19/20 12:00 119/54 03/19/20 12:00 98.1 75 22 119/54 (75) 99 03/19/20 09:51 Room Air 03/19/20 08:29 139/59 03/19/20 08:29 93 139/59 03/19/20 08:00 98.3 93 22 139/64 (89) 94 03/19/20 06:10 79 154/63 03/19/20 06:10 154/63 03/19/20 04:00 98.2 92 20 142/61 (88) 94 03/19/20 00:00 125/77 03/19/20 00:00 98.4 88 20 125/77 (93) 96 Intake and Output 03/18/20 03/19/20 19:00 07:00 Intake Total 300 ml 400 ml Output Total 550 ml 600 ml Balance -250 ml -200 ml Intake Oral 300 ml 400 ml Output Urine Total 450 ml 500 ml Stool Total 100 ml 100 ml Laboratory Tests 03/19/20 05:40: White Blood Count 8.6, Red Blood Count 3.10L, Hemoglobin 7.7L, Hematocrit 24.7L , Mean Corpuscular Volume 80, Mean Corpuscular Hemoglobin 24.8L, Mean Corpuscular Hemoglobin Concent 31.2L, Red Cell Distribution Width 16.7H, Platelet Count 238, Mean Platelet Volume 6.7, Neutrophils (%) (Auto) , Lymphocytes (%) (Auto) , Monocytes (%) (Auto) , Eosinophils (%) (Auto) , Basophils (%) (Auto) , Differential Total Cells Counted 100, Neutrophils % ( Manual) 81H, Lymphocytes % (Manual) 10L, Monocytes % (Manual) 7, Eosinophils % ( Manual) 2, Basophils % (Manual) 0, Band Neutrophils 0, Platelet Estimate Adequate, Platelet Morphology Normal, Hypochromasia 1+, Anisocytosis 1+, Sodium Level 137, Potassium Level 4.0, Chloride Level 102, Carbon Dioxide Level 24, Anion Gap 11, Blood Urea Nitrogen 31H, Creatinine 1.7H, Estimat Glomerular Filtration Rate 36.7, Glucose Level 125H, Uric Acid 8.8H, Calcium Level 9.2, Phosphorus Level 3.2, Magnesium Level 2.0, Total Bilirubin 0.3, Aspartate Amino Transf (AST/SGOT) 35, Alanine Aminotransferase (ALT/SGPT) 20, Alkaline Phosphatase 124H, Total Protein 6.8, Albumin 2.1L, Globulin 4.7, Albumin/ Globulin Ratio 0.4L Height (Feet): 5 Height (Inches): 10.00 Weight (Pounds): 300 Objective Debilitated WW HEENT NCAT Neck supple Coarse BS RR abd very distended (+) edema / anasarca Garry Barrera MD Mar 19, 2020 23:19
[2020-03-20] VITALS: BP 128/59
--- NOTE | 2020-03-20 01:35 | Cardiology Progress Note ---
Subjective DATE OF SERVICE: Mar 19, 2020 Maintaining sinus rhythm Continues off bipap. Stabilized BP range CT noted; large pelvic mass Venous duplex: negative for DVT Renal paramters stabilizing Drop in hemoglobin noted; PRBC tx planned Objective Last 24 Hour Vital Signs Date Time Temp Pulse Resp B/P (MAP) Pulse Ox O2 Delivery O2 Flow Rate FiO2 03/20/20 00:00 98.1 77 18 128/59 (82) 95 03/20/20 00:00 128/59 03/19/20 23:40 75 25 99 30 03/19/20 21:23 84 146/63 03/19/20 21:23 84 146/63 03/19/20 21:00 Room Air 03/19/20 20:10 91 18 96 Room Air 21 03/19/20 20:00 98.5 84 18 146/63 (90) 94 03/19/20 19:01 151/97 03/19/20 16:00 98.3 92 21 145/61 (89) 99 03/19/20 14:06 83 140/58 03/19/20 12:00 119/54 03/19/20 12:00 98.1 75 22 119/54 (75) 99 03/19/20 09:51 Room Air 03/19/20 08:29 139/59 03/19/20 08:29 93 139/59 03/19/20 08:00 98.3 93 22 139/64 (89) 94 03/19/20 06:10 79 154/63 03/19/20 06:10 154/63 03/19/20 04:00 98.2 92 20 142/61 (88) 94 HEENT: normal ENT inspection RHYTHM: ST, PACs LUNGS: bilateral rhonchi CARDIAC: normal rate, normal S1 and S2 ABDOMEN: normal bowel sounds, non tender, soft, no organomegaly EXTREMITIES: No edema Laboratory Tests Test 03/19/20 05:40 White Blood Count 8.6 K/UL (4.8-10.8) Red Blood Count 3.10 M/UL (4.20-5.40) L Hemoglobin 7.7 G/DL (12.0-16.0) L Hematocrit 24.7 % (37.0-47.0) L Mean Corpuscular Volume 80 FL (80-99) Mean Corpuscular Hemoglobin 24.8 PG (27.0-31.0) L Mean Corpuscular Hemoglobin Concent 31.2 G/DL (32.0-36.0) L Red Cell Distribution Width 16.7 % (11.6-14.8) H Platelet Count 238 K/UL (150-450) Mean Platelet Volume 6.7 FL (6.5-10.1) Neutrophils (%) (Auto) % (45.0-75.0) Lymphocytes (%) (Auto) % (20.0-45.0) Monocytes (%) (Auto) % (1.0-10.0) Eosinophils (%) (Auto) % (0.0-3.0) Basophils (%) (Auto) % (0.0-2.0) Differential Total Cells Counted 100 Neutrophils % (Manual) 81 % (45-75) H Lymphocytes % (Manual) 10 % (20-45) L Monocytes % (Manual) 7 % (1-10) Eosinophils % (Manual) 2 % (0-3) Basophils % (Manual) 0 % (0-2) Band Neutrophils 0 % (0-8) Platelet Estimate Adequate Platelet Morphology Normal Hypochromasia 1+ Anisocytosis 1+ Sodium Level 137 MMOL/L (136-145) Potassium Level 4.0 MMOL/L (3.5-5.1) Chloride Level 102 MMOL/L (98-107) Carbon Dioxide Level 24 MMOL/L (21-32) Anion Gap 11 mmol/L (5-15) Blood Urea Nitrogen 31 mg/dL (7-18) H Creatinine 1.7 MG/DL (0.55-1.30) H Estimat Glomerular Filtration Rate 36.7 mL/min (>60) Glucose Level 125 MG/DL (74-106) H Uric Acid 8.8 MG/DL (2.6-7.2) H Calcium Level 9.2 MG/DL (8.5-10.1) Phosphorus Level 3.2 MG/DL (2.5-4.9) Magnesium Level 2.0 MG/DL (1.8-2.4) Total Bilirubin 0.3 MG/DL (0.2-1.0) Aspartate Amino Transf (AST/SGOT) 35 U/L (15-37) Alanine Aminotransferase (ALT/SGPT) 20 U/L (12-78) Alkaline Phosphatase 124 U/L (46-116) H Total Protein 6.8 G/DL (6.4-8.2) Albumin 2.1 G/DL (3.4-5.0) L Globulin 4.7 g/dL Albumin/Globulin Ratio 0.4 (1.0-2.7) L Assessment/Plan Assessment/Plan Paroxysmal Atrial Fib Hypertension/HHD with rising BP trend Acute respiratory failure Metabolic acidosis Acute renal failure Anemia Anasarca Hypokalemia Hypomagnesemia HypoPO4 Dehydration/hypernatremia PRBC transfusion Free water replacement and potassium suppl as needed Maintain current antiHTN meds - add'l meds prn for BP spikes Abx Off Actos - no resumption. Maintain current cardiovascular meds for arrhythmia suppression Miguel Gama MD Mar 20, 2020 01:35
[2020-03-20 04:00] VITALS: BP 147/63
[2020-03-20] MEDS: NovoLOG Insulin Flexpen SUBQ SCH ×2 (05:47→11:08)
[2020-03-20] MEDS: dilTIAZem HCl 60mg tab ORAL SCH ×2 (06:26→14:28)
[2020-03-20] MEDS: sitaGLIPtin 50mg tab ORAL SCH (06:26)
[2020-03-20 07:17] LABS: BASOPHILS % (AUTO) 0.7 % (0.0-2.0); EOSINOPHILS % (AUTO) 1.9 % (0.0-3.0); HEMATOCRIT 27.7 % (37.0-47.0); HEMOGLOBIN 8.7 G/DL (12.0-16.0); LYMPHOCYTES % (AUTO) 12.4 % (20.0-45.0); MEAN CORPUSCULAR VOLUME 80 FL (80-99); MONOCYTES % (AUTO) 6.5 % (1.0-10.0); NEUTROPHILS % (AUTO) 78.5 % (45.0-75.0); PLATELET COUNT 254 K/UL (150-450); RED BLOOD COUNT 3.44 M/UL (4.20-5.40); RED CELL DISTRIBUTION WIDTH 16.7 % (11.6-14.8); WHITE BLOOD COUNT 8.2 K/UL (4.8-10.8)
[2020-03-20 08:00] VITALS: BP 129/59
--- NOTE | 2020-03-20 08:36 | Critical Care Progress Note ---
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 medications/laboratory data/nursing notes reviewed in detail note reviewed and edited care discussed with RN and RT Critical Care - Subjective Interval Events: awake NAD vitals ok EKG Rhythm: Sinus Rhythm I&O: Intake and Output 03/19/20 03/20/20 19:00 07:00 Intake Total 240 ml 480 ml Output Total 1650 ml 600 ml Balance -1410 ml -120 ml Intake Oral 240 ml 480 ml Output Urine Total 1550 ml 600 ml Stool Total 100 ml Critical Care - Objective Last 24 Hour Vital Signs Date Time Temp Pulse Resp B/P (MAP) Pulse Ox O2 Delivery O2 Flow Rate FiO2 03/20/20 08:14 80 16 97 Room Air 21 03/20/20 06:26 79 147/63 03/20/20 06:26 147/63 03/20/20 04:00 98.2 79 18 147/63 (91) 95 03/20/20 00:00 98.1 77 18 128/59 (82) 95 03/20/20 00:00 128/59 03/19/20 23:40 75 25 99 30 03/19/20 21:23 84 146/63 03/19/20 21:23 84 146/63 03/19/20 21:00 Room Air 03/19/20 20:10 91 18 96 Room Air 21 03/19/20 20:00 98.5 84 18 146/63 (90) 94 03/19/20 19:01 151/97 03/19/20 16:00 98.3 92 21 145/61 (89) 99 03/19/20 14:06 83 140/58 03/19/20 12:00 119/54 03/19/20 12:00 98.1 75 22 119/54 (75) 99 03/19/20 09:51 Room Air Labs: Laboratory Tests 03/20/20 06:15: White Blood Count 8.2, Red Blood Count 3.44L, Hemoglobin 8.7L, Hematocrit 27.7L , Mean Corpuscular Volume 80, Mean Corpuscular Hemoglobin 25.3L, Mean Corpuscular Hemoglobin Concent 31.5L, Red Cell Distribution Width 16.7H, Platelet Count 254, Mean Platelet Volume 6.5, Neutrophils (%) (Auto) 78.5H, Lymphocytes (%) (Auto) 12.4L, Monocytes (%) (Auto) 6.5, Eosinophils (%) (Auto) 1.9, Basophils (%) (Auto) 0.7 Objective: WDWN stable reduced breath sounds bilaterally without rhonchi or wheeze [id number] without MRG NABS nontender no HSM no CC noted edema nonfocal more alert Accucheck: 116 Charles Thomson MD Mar 20, 2020 08:36
--- NOTE | 2020-03-20 08:41 | Hematology/Onc Progress Note ---
Assessment/Plan Assessment/Plan Assessment and recs # Pelvic mass, large 18cm, admitted for syncope secondary to hypoglycemia, also with acute renal failure now resolving. 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 Keith as outpatient # Anemia of chronic disease due to underlying chronic medical issues, multifactorial v Gi bleed --> Anemia workup has been ordered, rule out gi bleed --> No evidence of hemolysis is noted, peripheral smear has been reviewed. --> Hgb goal >7. Transfuse prn. --> Epogen or iron at this time is not particularly indicated --> Medications have been reviewed --> low threshold for gi evaluation in case has occult + --> hgb 8.7->8.3-->8-->8.7 # Pneumonia s/p rx --> COVID 19 negative # Respiratory failure resolved --> bipap as needed --> nc prn # Renal failure improving --> per renal # Diabetes mellitus # Hypertension # Dvt ppx scds The timing of this note does not necessarily reflect the time of the patient was seen. Greatly appreciate consultation. Subjective Constitutional: Denies: no symptoms, chills, fever, malaise, weakness, other HEENT: Denies: no symptoms, eye pain, blurred vision, tearing, double vision, ear pain, ear discharge, nose pain, nose congestion, throat pain, throat swelling, mouth pain, mouth swelling, other Cardiovascular: Denies: no symptoms, chest pain, edema, irregular heart rate, lightheadedness, palpitations, syncope, other Respiratory: Denies: no symptoms, cough, shortness of breath, SOB with excertion, SOB at rest, sputum, wheezing, other Genitourinary: Denies: no symptoms, burning, discharge, frequency, flank pain, hematuria, incontinence, pain, urgency, other Neurologic/Psychiatric: Denies: no symptoms, anxiety, depressed, emotional problems, headache, numbness, paresthesia, pre-existing deficit, seizure, tingling, tremors, weakness, other Endocrine: Denies: no symptoms, excessive sweating, flushing, intolerance to cold, intolerance to heat, increased hunger, increased thirst, increased urine, unexplained weight gain, unexplained weight loss, other Allergies: Coded Allergies: No Known Allergies (Unverified , 03/03/20) Subjective 03/15 has been requesting overnight to be off cpap, labs for am pending, dw her plan of care 03/16 labs have been reviewed, getting cpap overnight, ca 125 of 141 03/17 with rectal tube in place, no bleeding, labs have been reviewed, hgb 8.3 03/18 alert and oriented, with moore and rectal tube in place, no bleeding 03/19 continuing off bipap, per rn is addressing her small dti on the back 03/20 labs are noted, have ordered for scds, no bleeding, meds reviewed Objective Objective Current Medications Medications (Trade) Dose Ordered Sig/Francisco J Route PRN Reason Start Time Stop Time Status Last Admin Dose Admin Acetaminophen (Tylenol) 650 mg Q4H PRN ORAL Mild Pain (Pain Scale 1-3) 03/18/20 03:00 04/02/20 06:59 Clonidine HCl (Catapres Tab) 0.1 mg EVERY 6 HOURS ORAL 03/18/20 00:00 06/12/20 11:59 03/20/20 06:26 Clonidine HCl (Catapres Tab) 0.1 mg Q4H PRN ORAL bp over 160 syst 03/18/20 03:00 06/03/20 06:59 Dextrose (Dextrose 50%) 25 ml Q30M PRN IV Hypoglycemia 03/17/20 23:30 06/01/20 21:59 Dextrose (Dextrose 50%) 50 ml Q30M PRN IV Hypoglycemia 03/17/20 23:30 06/01/20 21:59 Diltiazem HCl (Cardizem Tab) 60 mg Q8HR ORAL 03/18/20 14:00 04/17/20 13:59 03/20/20 06:26 Glucagon (Glucagon) 1 mg Q2H PRN IM Hypoglycemia 03/18/20 01:00 06/03/20 10:59 Insulin Aspart (NovoLOG) BEFORE MEALS AND HS SUBQ 03/18/20 06:30 06/05/20 06:29 03/18/20 20:54 Losartan Potassium (Cozaar) 50 mg DAILY ORAL 03/19/20 09:00 04/09/20 15:29 03/19/20 08:29 Metoprolol Tartrate (Lopressor) 50 mg Q12HR ORAL 03/18/20 09:00 06/04/20 15:14 03/19/20 21:23 Pantoprazole (Protonix) 40 mg EVERY 12 HOURS ORAL 03/18/20 09:00 04/08/20 08:59 03/19/20 21:22 Polyethylene Glycol (Miralax) 17 gm DAILYPRN PRN ORAL Constipation 03/18/20 07:00 04/03/20 06:59 Sitagliptin Phosphate (Januvia) 50 mg ACBREAKFAST ORAL 03/18/20 06:30 04/09/20 06:29 03/20/20 06:26 Last 24 Hour Vital Signs Date Time Temp Pulse Resp B/P (MAP) Pulse Ox O2 Delivery O2 Flow Rate FiO2 03/20/20 08:14 80 16 97 Room Air 21 03/20/20 06:26 79 147/63 03/20/20 06:26 147/63 03/20/20 04:00 98.2 79 18 147/63 (91) 95 03/20/20 00:00 98.1 77 18 128/59 (82) 95 03/20/20 00:00 128/59 03/19/20 23:40 75 25 99 30 03/19/20 21:23 84 146/63 03/19/20 21:23 84 146/63 03/19/20 21:00 Room Air 03/19/20 20:10 91 18 96 Room Air 21 03/19/20 20:00 98.5 84 18 146/63 (90) 94 03/19/20 19:01 151/97 03/19/20 16:00 98.3 92 21 145/61 (89) 99 03/19/20 14:06 83 140/58 03/19/20 12:00 119/54 03/19/20 12:00 98.1 75 22 119/54 (75) 99 03/19/20 09:51 Room Air 03/19/20 08:29 139/59 03/19/20 08:29 93 139/59 03/19/20 08:00 98.3 93 22 139/64 (89) 94 03/19/20 06:10 79 154/63 03/19/20 06:10 154/63 03/19/20 04:00 98.2 92 20 142/61 (88) 94 03/19/20 00:00 125/77 03/19/20 00:00 98.4 88 20 125/77 (93) 96 03/18/20 23:10 92 32 99 30 03/18/20 22:00 90 148/63 03/18/20 21:00 Room Air 03/18/20 20:53 75 134/71 03/18/20 20:00 98.2 91 20 136/65 (88) 98 03/18/20 19:52 88 18 95 Room Air 21 03/18/20 19:52 95 Room Air 21 03/18/20 17:14 126/61 03/18/20 16:00 98.2 88 20 129/63 (85) 94 03/18/20 14:00 89 112/57 03/18/20 12:00 98.1 88 20 119/56 (77) 98 03/18/20 12:00 119/56 03/18/20 10:04 84 131/58 03/18/20 10:03 131/58 03/18/20 09:00 Room Air Intake and Output 03/19/20 03/20/20 19:00 07:00 Intake Total 240 ml 480 ml Output Total 1650 ml 600 ml Balance -1410 ml -120 ml Intake Oral 240 ml 480 ml Output Urine Total 1550 ml 600 ml Stool Total 100 ml Labs Test 03/17/20 17:26 03/18/20 06:00 03/19/20 05:40 03/20/20 06:15 White Blood Count 9.7 K/UL (4.8-10.8) 8.6 K/UL (4.8-10.8) 8.2 K/UL (4.8-10.8) Red Blood Count 3.21 M/UL (4.20-5.40) 3.10 M/UL (4.20-5.40) 3.44 M/UL (4.20-5.40) Hemoglobin 8.0 G/DL (12.0-16.0) 7.7 G/DL (12.0-16.0) 8.7 G/DL (12.0-16.0) Hematocrit 25.6 % (37.0-47.0) 24.7 % (37.0-47.0) 27.7 % (37.0-47.0) Mean Corpuscular Volume 80 FL (80-99) 80 FL (80-99) 80 FL (80-99) Mean Corpuscular Hemoglobin 25.0 PG (27.0-31.0) 24.8 PG (27.0-31.0) 25.3 PG (27.0-31.0) Mean Corpuscular Hemoglobin Concent 31.4 G/DL (32.0-36.0) 31.2 G/DL (32.0-36.0) 31.5 G/DL (32.0-36.0) Red Cell Distribution Width 16.6 % (11.6-14.8) 16.7 % (11.6-14.8) 16.7 % (11.6-14.8) Platelet Count 229 K/UL (150-450) 238 K/UL (150-450) 254 K/UL (150-450) Mean Platelet Volume 7.0 FL (6.5-10.1) 6.7 FL (6.5-10.1) 6.5 FL (6.5-10.1) Neutrophils (%) (Auto) 81.0 % (45.0-75.0) % (45.0-75.0) 78.5 % (45.0-75.0) Lymphocytes (%) (Auto) 9.4 % (20.0-45.0) % (20.0-45.0) 12.4 % (20.0-45.0) Monocytes (%) (Auto) 7.5 % (1.0-10.0) % (1.0-10.0) 6.5 % (1.0-10.0) Eosinophils (%) (Auto) 1.3 % (0.0-3.0) % (0.0-3.0) 1.9 % (0.0-3.0) Basophils (%) (Auto) 0.9 % (0.0-2.0) % (0.0-2.0) 0.7 % (0.0-2.0) Sodium Level 139 MMOL/L (136-145) 137 MMOL/L (136-145) Potassium Level 4.1 MMOL/L (3.5-5.1) 4.0 MMOL/L (3.5-5.1) Chloride Level 103 MMOL/L (98-107) 102 MMOL/L (98-107) Carbon Dioxide Level 25 MMOL/L (21-32) 24 MMOL/L (21-32) Anion Gap 11 mmol/L (5-15) 11 mmol/L (5-15) Blood Urea Nitrogen 31 mg/dL (7-18) 31 mg/dL (7-18) Creatinine 1.8 MG/DL (0.55-1.30) 1.7 MG/DL (0.55-1.30) Estimat Glomerular Filtration Rate 34.4 mL/min (>60) 36.7 mL/min (>60) Glucose Level 136 MG/DL (74-106) 125 MG/DL (74-106) Calcium Level 9.1 MG/DL (8.5-10.1) 9.2 MG/DL (8.5-10.1) Phosphorus Level 4.0 MG/DL (2.5-4.9) 3.2 MG/DL (2.5-4.9) Magnesium Level 2.3 MG/DL (1.8-2.4) 2.0 MG/DL (1.8-2.4) Total Bilirubin 0.4 MG/DL (0.2-1.0) 0.3 MG/DL (0.2-1.0) Aspartate Amino Transf (AST/SGOT) 36 U/L (15-37) 35 U/L (15-37) Alanine Aminotransferase (ALT/SGPT) 23 U/L (12-78) 20 U/L (12-78) Alkaline Phosphatase 140 U/L (46-116) 124 U/L (46-116) C-Reactive Protein, Quantitative 21.4 mg/dL (0.00-0.90) Total Protein 7.0 G/DL (6.4-8.2) 6.8 G/DL (6.4-8.2) Albumin 2.2 G/DL (3.4-5.0) 2.1 G/DL (3.4-5.0) Globulin 4.8 g/dL 4.7 g/dL Albumin/Globulin Ratio 0.5 (1.0-2.7) 0.4 (1.0-2.7) Differential Total Cells Counted 100 Neutrophils % (Manual) 81 % (45-75) Lymphocytes % (Manual) 10 % (20-45) Monocytes % (Manual) 7 % (1-10) Eosinophils % (Manual) 2 % (0-3) Basophils % (Manual) 0 % (0-2) Band Neutrophils 0 % (0-8) Platelet Estimate Adequate Platelet Morphology Normal Hypochromasia 1+ Anisocytosis 1+ Uric Acid 8.8 MG/DL (2.6-7.2) Height (Feet): 5 Height (Inches): 10.00 Weight (Pounds): 300 Objective Physical Exam General: Awake and alert, no acute distress HEENT: NC/AT. No scalp lacerations abrasions hematomas++ bipap Cardiovascular: RRR. S1 and S2 normal. No murmur appreciated Resp: Normal work of breathing. No cough, wheezing or crackles appreciated Abdomen: Abdomen is soft. Obese abdomen, nontender Skin: Intact. No abrasions, laceration or rash over the exposed skin MSK: Normal tone and bulk. Moving all extremities. No obvious deformity. Neuro: Awake and alert. Mentating appropriately. Spine: No tenderness in midline Ponce Iyer MD Mar 20, 2020 08:41
[2020-03-20] MEDS: Losartan 50mg tab ORAL SCH (08:55)
[2020-03-20] MEDS: Metoprolol Tartrate 50mg tab ORAL SCH (08:56)
[2020-03-20] MEDS ORDERED: PANTOPRAZOLE SO40 MG ORAL (10:07)
[2020-03-20] MEDS ORDERED: COZAAR50 MG ORAL (10:07)
[2020-03-20] MEDS ORDERED: MIRALAX119 GM ORAL (10:07)
[2020-03-20] MEDS ORDERED: CLONIDINE HCL0.1 MG ORAL ×2 (10:07)
[2020-03-20] MEDS ORDERED: DILTIAZEM HCL60 MG ORAL (10:07)
[2020-03-20] MEDS ORDERED: ACETAMINOPHEN325 M1 ORAL (10:07)
[2020-03-20] MEDS ORDERED: JANUVIA50 MG ORAL (10:07)
[2020-03-20] MEDS ORDERED: METOPROLOL TART50 MG ORAL (10:07)
[2020-03-20] MEDS ORDERED: GLUCAGON HC1 MG/1 ML IM (10:07)
--- NOTE | 2020-03-20 10:58 | Infectious Diseases Prog Note ---
Assessment/Plan Assessment/Plan antibiotics : none A 1. pneumonia s/p rx COVID 19 negative 2. respiratory failure resolved 3. leucocytosis resolved 4. renal failure improving 5. diabetes mellitus 6. hypertension 7. pelvic mass P 1. observe off antibiotics 2. will follow up cultures Subjective Constitutional: Denies: fever, chills Respiratory: Denies: shortness of breath, dry cough Gastrointestinal/Abdominal: Denies: nausea, vomiting, diarrhea Musculoskeletal: Denies: pain Allergies: Coded Allergies: No Known Allergies (Unverified , 03/03/20) Objective Last 24 Hour Vital Signs Date Time Temp Pulse Resp B/P (MAP) Pulse Ox O2 Delivery O2 Flow Rate FiO2 03/20/20 08:56 80 129/59 03/20/20 08:55 129/59 03/20/20 08:14 80 16 97 Room Air 21 03/20/20 08:00 98.2 81 17 129/59 (82) 94 03/20/20 06:26 79 147/63 03/20/20 06:26 147/63 03/20/20 04:00 98.2 79 18 147/63 (91) 95 03/20/20 00:00 98.1 77 18 128/59 (82) 95 03/20/20 00:00 128/59 03/19/20 23:40 75 25 99 30 03/19/20 21:23 84 146/63 03/19/20 21:23 84 146/63 03/19/20 21:00 Room Air 03/19/20 20:10 91 18 96 Room Air 21 03/19/20 20:00 98.5 84 18 146/63 (90) 94 03/19/20 19:01 151/97 03/19/20 16:00 98.3 92 21 145/61 (89) 99 03/19/20 14:06 83 140/58 03/19/20 12:00 119/54 03/19/20 12:00 98.1 75 22 119/54 (75) 99 Height (Feet): 5 Height (Inches): 10.00 Weight (Pounds): 300 Respiratory/Chest: lungs clear Cardiovascular: normal rate, regular rhythm, no gallop/murmur Abdomen: soft, non tender Extremities: no edema Laboratory Tests Test 03/19/20 12:00 03/19/20 16:49 03/19/20 20:09 03/20/20 06:15 POC Whole Blood Glucose 117 MG/DL (74-106) H 116 MG/DL (74-106) H 120 MG/DL (74-106) H White Blood Count 8.2 K/UL (4.8-10.8) Red Blood Count 3.44 M/UL (4.20-5.40) L Hemoglobin 8.7 G/DL (12.0-16.0) L Hematocrit 27.7 % (37.0-47.0) L Mean Corpuscular Volume 80 FL (80-99) Mean Corpuscular Hemoglobin 25.3 PG (27.0-31.0) L Mean Corpuscular Hemoglobin Concent 31.5 G/DL (32.0-36.0) L Red Cell Distribution Width 16.7 % (11.6-14.8) H Platelet Count 254 K/UL (150-450) Mean Platelet Volume 6.5 FL (6.5-10.1) Neutrophils (%) (Auto) 78.5 % (45.0-75.0) H Lymphocytes (%) (Auto) 12.4 % (20.0-45.0) L Monocytes (%) (Auto) 6.5 % (1.0-10.0) Eosinophils (%) (Auto) 1.9 % (0.0-3.0) Basophils (%) (Auto) 0.7 % (0.0-2.0) Current Medications Medications (Trade) Dose Ordered Sig/Francisco J Route PRN Reason Start Time Stop Time Status Last Admin Dose Admin Acetaminophen (Tylenol) 650 mg Q4H PRN ORAL Mild Pain (Pain Scale 1-3) 03/18/20 03:00 04/02/20 06:59 Clonidine HCl (Catapres Tab) 0.1 mg EVERY 6 HOURS ORAL 03/18/20 00:00 06/12/20 11:59 03/20/20 06:26 Clonidine HCl (Catapres Tab) 0.1 mg Q4H PRN ORAL bp over 160 syst 03/18/20 03:00 06/03/20 06:59 Dextrose (Dextrose 50%) 25 ml Q30M PRN IV Hypoglycemia 03/17/20 23:30 06/01/20 21:59 Dextrose (Dextrose 50%) 50 ml Q30M PRN IV Hypoglycemia 03/17/20 23:30 06/01/20 21:59 Diltiazem HCl (Cardizem Tab) 60 mg Q8HR ORAL 03/18/20 14:00 04/17/20 13:59 03/20/20 06:26 Glucagon (Glucagon) 1 mg Q2H PRN IM Hypoglycemia 03/18/20 01:00 06/03/20 10:59 Insulin Aspart (NovoLOG) BEFORE MEALS AND HS SUBQ 03/18/20 06:30 06/05/20 06:29 03/18/20 20:54 Losartan Potassium (Cozaar) 50 mg DAILY ORAL 03/19/20 09:00 04/09/20 15:29 03/20/20 08:55 Metoprolol Tartrate (Lopressor) 50 mg Q12HR ORAL 03/18/20 09:00 06/04/20 15:14 03/20/20 08:56 Pantoprazole (Protonix) 40 mg EVERY 12 HOURS ORAL 03/18/20 09:00 04/08/20 08:59 03/20/20 08:55 Polyethylene Glycol (Miralax) 17 gm DAILYPRN PRN ORAL Constipation 03/18/20 07:00 04/03/20 06:59 Sitagliptin Phosphate (Januvia) 50 mg ACBREAKFAST ORAL 03/18/20 06:30 04/09/20 06:29 03/20/20 06:26 Yudelka Alcocer MD Mar 20, 2020 10:58
[2020-03-20 12:00] VITALS: BP 121/62
--- NOTE | 2020-03-20 12:03 | Nephrology Progress Note ---
Assessment/Plan Problem List: (1) FARIBA (acute kidney injury) (2) Renal failure (ARF), acute on chronic (3) UTI (urinary tract infection) (4) Hypoglycemia (5) Anemia (6) Morbid obesity with BMI of 45.0-49.9, adult (7) Acute respiratory failure (8) Obstructive sleep apnea Assessment Acute renal failure Possible underlying chronic kidney disease High likelihood of diabetic nephropathy, patient has proteinuria and hypoalbuminemia Persistent hypo-glycemia: The patient was on 3 oral hypoglycemic agents including Glucophage Morbid obesity Hypertension Severe anemia, low MCV UTI Most likely obstructive sleep apnea Plan March 20: Serum creatinine 1.7 unchanged. Continue to monitor renal parameters continue current management. March 19: Serum creatinine down to 1.7. Medication list reviewed. Continue to monitor renal parameters. Blood pressure appears more stable. March 18: Blood work reviewed. Serum creatinine of 1.8. Continue to monitor renal parameters. Medication list reviewed. In view of low blood pressure and rising serum creatinine will adjust the blood pressure medication dosages per order. March 17: No blood work today. Clinically patient is stable. Over all respiratory status improved. Will check chemistry panel tomorrow. Continue her consultants. March 16: Patient remained stable from renal standpoint of view. Her pulmonary status improved. Continue to monitor electrolytes and blood sugar. Cancer markers CEA 125 is elevated March 15: Labs reviewed. Stable from renal standpoint of view. Patient improved clinically. Blood pressure is much stable. Continue per consultants. March 14: Labs reviewed. Abnormal electrolytes adjusted with supplements. Continue per consultants. Change clonidine patch to clonidine p.o. every 6 hours 0.1 mg for blood pressure. March 13: Labs reviewed. Magnesium supplement given. Blood pressure better controlled. Another dose of IV Lasix 20 mg given. Will watch electrolytes and renal parameters. Continue per pulmonary and management of respiratory status. March 12: Lab reviewed. Electrolytes adjusted. Blood pressure medication adjusted. Patient remains on BiPAP. Continue per consultants. Discontinue IV fluid. Lasix 20 mg IV once. March 11: Labs are reviewed. Potassium and magnesium supplement given. Continue per pulmonary. March 10: Labs reviewed. Medication reviewed. Remains on BiPAP. Will DC IV fluid and changed to D5W. Blood pressure medication adjusted. Cozaar added. Potassium supplement given. Continue per consultants. March 09: Labs reviewed. Medication list reviewed. Remains on BiPAP. Venturi mask is being tried. Discussed with section gang worker. Renal parameters stable. Magnesium and potassium supplement given. Blood sugar stable. March 08: Today's labs pending. Will discontinue IV fluid. Remains on BiPAP. Aim to take off BiPAP as possible. Transfusion if needed. Discussed with DARSHAN Iglesias. March 07: Marked improvement in renal parameters. Blood sugar improved. Main issue are respiratory, as patient remains on BiPAP. Hemoglobin lower. May require transfusion again. Abnormal electrolytes corrected March 06: Clinically improved. Remains on BiPAP. Blood sugar improved. Urine output well maintained. Serum creatinine lowered. Will adjust blood pressure medication for better control. D10 infusion down to 50 cc an hour. Continue monitor renal parameters. Lasix as needed. 24-hour urine for total protein. March 05: Discontinue Cozaar, labetalol Stop all oral oral hypoglycemics and insulin Start clonidine patch and clonidine PRN for high blood pressure Add Norvasc for blood pressure D10 infusion Check labs, thyroid panel, anemia work-up, lipid panel, hemoglobin A1c Urine for eosinophils and spot sodium Check ABG Per orders Subjective ROS Limited/Unobtainable: No Constitutional: Reports: malaise, weakness Objective Objective Last 24 Hour Vital Signs Date Time Temp Pulse Resp B/P (MAP) Pulse Ox O2 Delivery O2 Flow Rate FiO2 03/20/20 09:00 Room Air 03/20/20 08:56 80 129/59 03/20/20 08:55 129/59 03/20/20 08:14 80 16 97 Room Air 21 03/20/20 08:00 98.2 81 17 129/59 (82) 94 03/20/20 06:26 79 147/63 03/20/20 06:26 147/63 03/20/20 04:00 98.2 79 18 147/63 (91) 95 03/20/20 00:00 98.1 77 18 128/59 (82) 95 03/20/20 00:00 128/59 03/19/20 23:40 75 25 99 30 03/19/20 21:23 84 146/63 03/19/20 21:23 84 146/63 03/19/20 21:00 Room Air 03/19/20 20:10 91 18 96 Room Air 21 03/19/20 20:00 98.5 84 18 146/63 (90) 94 03/19/20 19:01 151/97 03/19/20 16:00 98.3 92 21 145/61 (89) 99 03/19/20 14:06 83 140/58 Intake and Output 03/19/20 03/20/20 19:00 07:00 Intake Total 240 ml 480 ml Output Total 1650 ml 600 ml Balance -1410 ml -120 ml Intake Oral 240 ml 480 ml Output Urine Total 1550 ml 600 ml Stool Total 100 ml Laboratory Tests 03/19/20 16:49: POC Whole Blood Glucose 116H 03/19/20 20:09: POC Whole Blood Glucose 120H 03/20/20 06:15: White Blood Count 8.2, Red Blood Count 3.44L, Hemoglobin 8.7L, Hematocrit 27.7L , Mean Corpuscular Volume 80, Mean Corpuscular Hemoglobin 25.3L, Mean Corpuscular Hemoglobin Concent 31.5L, Red Cell Distribution Width 16.7H, Platelet Count 254, Mean Platelet Volume 6.5, Neutrophils (%) (Auto) 78.5H, Lymphocytes (%) (Auto) 12.4L, Monocytes (%) (Auto) 6.5, Eosinophils (%) (Auto) 1.9, Basophils (%) (Auto) 0.7 03/20/20 11:08: POC Whole Blood Glucose 109H Height (Feet): 5 Height (Inches): 10.00 Weight (Pounds): 300 General Appearance: no apparent distress Cardiovascular: normal rate Respiratory/Chest: decreased breath sounds Abdomen: other - Obese Objective No change Sundar Camargo MD Mar 20, 2020 12:02
[2020-03-20 14:28] VITALS: BP 121/62
--- NOTE | 2020-03-20 18:14 | Discharge Summary ---
DATE OF ADMISSION: 03/03/2020 DATE OF DISCHARGE: 03/20/2020 ADMISSION DIAGNOSES: 1. Hypoglycemia. 2. Diabetes. 3. Hypertension. 4. Sleep apnea. 5. Pelvic mass. DISCHARGE DIAGNOSES: 1. Hypoglycemia. 2. Diabetes. 3. Hypertension. 4. Sleep apnea. 5. Pelvic mass. HOSPITAL COURSE: The patient is a pleasant female, who was admitted with complaints of generalized weakness and hypoglycemia. She was initially admitted to the intensive care unit where she had severe hypoglycemia. She received IV dextrose and glucagon and after 72 hours, blood sugars started to improve. Her hospital course was complicated by pneumonia and required supplemental oxygen. She received intravenous antibiotics and improved. Renal, Cardiology, Pulmonary, Hem/Onc, and Endo consultations were all obtained. The patient eventually had a CAT scan of the abdomen that showed a large pelvic mass. Ophthalmic Surgeon was consulted. It was recommended that the patient follow up as an outpatient with Gynecology as this is very suspicious for malignancy. On discharge, the patient was stable, but she was too weak to go home. She will be discharged to a custodial facility. She will be followed up there in one to two days. Outpatient Ophthalmic Surgeon/Onc consultation will be arranged. DISCHARGE MEDICATIONS: Please see discharge medication list for discharge medications. DIET: Cardiac diabetic diet. ACTIVITY: Ad-radha. FOLLOWUP: The patient will be followed up in 1 to 2 days at the custodial facility. Sal Khanna M.D. DR: LATOYA JOB#: [id number] CC:
--- NOTE | 2020-03-20 21:35 | Cardiology Progress Note ---
Subjective DATE OF SERVICE: Mar 20, [address] noted; large pelvic mass Venous duplex: negative for DVT Renal paramters stabilizing Drop in hemoglobin noted; PRBC tx given yesterday - no signs of bleeding. Objective Last 24 Hour Vital Signs Date Time Temp Pulse Resp B/P (MAP) Pulse Ox O2 Delivery O2 Flow Rate FiO2 03/20/20 14:28 80 121/62 03/20/20 12:00 121/62 03/20/20 12:00 98.2 80 18 121/62 (81) 95 03/20/20 09:00 Room Air 03/20/20 08:56 80 129/59 03/20/20 08:55 129/59 03/20/20 08:14 80 16 97 Room Air 21 03/20/20 08:00 98.2 81 17 129/59 (82) 94 03/20/20 06:26 79 147/63 03/20/20 06:26 147/63 03/20/20 04:00 98.2 79 18 147/63 (91) 95 03/20/20 00:00 98.1 77 18 128/59 (82) 95 03/20/20 00:00 128/59 03/19/20 23:40 75 25 99 30 HEENT: normal ENT inspection RHYTHM: ST, PACs LUNGS: bilateral rhonchi CARDIAC: normal rate, normal S1 and S2 ABDOMEN: normal bowel sounds, non tender, soft, no organomegaly EXTREMITIES: No edema Laboratory Tests Test 03/20/20 06:15 03/20/20 11:08 White Blood Count 8.2 K/UL (4.8-10.8) Red Blood Count 3.44 M/UL (4.20-5.40) L Hemoglobin 8.7 G/DL (12.0-16.0) L Hematocrit 27.7 % (37.0-47.0) L Mean Corpuscular Volume 80 FL (80-99) Mean Corpuscular Hemoglobin 25.3 PG (27.0-31.0) L Mean Corpuscular Hemoglobin Concent 31.5 G/DL (32.0-36.0) L Red Cell Distribution Width 16.7 % (11.6-14.8) H Platelet Count 254 K/UL (150-450) Mean Platelet Volume 6.5 FL (6.5-10.1) Neutrophils (%) (Auto) 78.5 % (45.0-75.0) H Lymphocytes (%) (Auto) 12.4 % (20.0-45.0) L Monocytes (%) (Auto) 6.5 % (1.0-10.0) Eosinophils (%) (Auto) 1.9 % (0.0-3.0) Basophils (%) (Auto) 0.7 % (0.0-2.0) POC Whole Blood Glucose 109 MG/DL (74-106) H Microbiology Date/Time Source Procedure Growth Status 03/20/20 10:15 Nasopharynx SARS-CoV-2 RdRp Gene Assay - Final Complete Assessment/Plan Assessment/Plan Paroxysmal Atrial Fib Hypertension/HHD with rising BP trend Acute respiratory failure Metabolic acidosis Acute renal failure Anemia - s/p tx Anasarca Hypokalemia Hypomagnesemia HypoPO4 Dehydration/hypernatremia Free water replacement and potassium suppl as needed Maintain current antiHTN meds - add'l meds prn for BP spikes Abx Off Actos - no resumption. Maintain current cardiovascular meds for arrhythmia suppression Miguel Gama MD Mar 20, 2020 21:35
--- NOTE | 2020-03-20 22:01 | General Progress Note ---
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 mets, ? JOHNSON, ? passive congestion Recommendations - Monitor H&H - IV Fe trial - PPI - not candidate for endoscopy at this time - CONFIGURATION [employer]IST ONC follow up - limited ultrasound ---> no ascites Subjective Allergies: Coded Allergies: No Known Allergies (Unverified , 03/03/20) Subjective above noted feels OK no new complaints tolerating PO Objective Last 24 Hour Vital Signs Date Time Temp Pulse Resp B/P (MAP) Pulse Ox O2 Delivery O2 Flow Rate FiO2 03/20/20 14:28 80 121/62 03/20/20 12:00 121/62 03/20/20 12:00 98.2 80 18 121/62 (81) 95 03/20/20 09:00 Room Air 03/20/20 08:56 80 129/59 03/20/20 08:55 129/59 03/20/20 08:14 80 16 97 Room Air 21 03/20/20 08:00 98.2 81 17 129/59 (82) 94 03/20/20 06:26 79 147/63 03/20/20 06:26 147/63 03/20/20 04:00 98.2 79 18 147/63 (91) 95 03/20/20 00:00 98.1 77 18 128/59 (82) 95 03/20/20 00:00 128/59 03/19/20 23:40 75 25 99 30 Intake and Output 03/19/20 03/20/20 19:00 07:00 Intake Total 240 ml 480 ml Output Total 1650 ml 600 ml Balance -1410 ml -120 ml Intake Oral 240 ml 480 ml Output Urine Total 1550 ml 600 ml Stool Total 100 ml Laboratory Tests 03/20/20 06:15: White Blood Count 8.2, Red Blood Count 3.44L, Hemoglobin 8.7L, Hematocrit 27.7L , Mean Corpuscular Volume 80, Mean Corpuscular Hemoglobin 25.3L, Mean Corpuscular Hemoglobin Concent 31.5L, Red Cell Distribution Width 16.7H, Platelet Count 254, Mean Platelet Volume 6.5, Neutrophils (%) (Auto) 78.5H, Lymphocytes (%) (Auto) 12.4L, Monocytes (%) (Auto) 6.5, Eosinophils (%) (Auto) 1.9, Basophils (%) (Auto) 0.7 03/20/20 11:08: POC Whole Blood Glucose 109H Height (Feet): 5 Height (Inches): 10.00 Weight (Pounds): 300 Objective Debilitated WW HEENT NCAT Neck supple Coarse BS RR abd very distended (+) edema / anasarca Garry Barrera MD Mar 20, 2020 22:01
== END 2020-03-20 15:40 | DRG 637 ==
LOC: EDBD 14:55 → EMR 15:05 → 2E 16:36 → EDBEDREQ 18:56 → ICU 03-04 06:58 → 2W 03-14 12:30 → 2E 03-16 06:12 → 4E 03-17 22:57
DX: E11.649 Type 2 diabetes mellitus with hypoglycemia without coma (principal); J18.9 Pneumonia, unspecified organism; I50.33 Acute on chronic diastolic (congestive) heart failure; J96.01 Acute respiratory failure with hypoxia; N39.0 Urinary tract infection, site not specified; I13.0 Hypertensive heart and chronic kidney disease with heart failure and stage 1 through stage 4 chronic kidney disease, or unspecified chronic kidney disease; Z68.42 Body mass index [BMI] 45.0-49.9, adult; E87.0 Hyperosmolality and hypernatremia; N13.30 Unspecified hydronephrosis; N17.9 Acute kidney failure, unspecified; R55 Syncope and collapse; N18.9 Chronic kidney disease, unspecified; E11.22 Type 2 diabetes mellitus with diabetic chronic kidney disease; E11.21 Type 2 diabetes mellitus with diabetic nephropathy; G47.33 Obstructive sleep apnea (adult) (pediatric); R19.09 Other intra-abdominal and pelvic swelling, mass and lump; D64.9 Anemia, unspecified; E66.01 Morbid (severe) obesity due to excess calories; Z20.828 Contact with and (suspected) exposure to other viral communicable diseases; I48.0 Paroxysmal atrial fibrillation; I25.9 Chronic ischemic heart disease, unspecified; R19.5 Other fecal abnormalities; E87.6 Hypokalemia; E83.42 Hypomagnesemia; E86.0 Dehydration
CPT/HCPCS: 36415; 36600; 71045; 71250; 74176; 76705; 80048; 80053; 80061; 80307; 81003; 81050; 82270; 82378; 82533; 82607; 82728; 82746; 82803; 82962; 82977; 83036; 83540; 83550; 83735; 83880; 84100; 84156; 84443; 84484; 84550; 85007; 85025; 86140; 86304; 86850; 86900; 86901; 86920; 87040; 87070; 87086; 87205; 87324; 93005; 93306; 93970; 94660; 94664; 96361; 96365; 96375; 96376; 99291; J1815; J8499; U0002